=== PATIENT | female | born 1990 | race Caucasian/White ===

== ENCOUNTER 2016-09-18 12:23 | Emergency (ER) | payer OTHER ==
[2016-09-18 12:32] VITALS: BMI 21.2
--- NOTE | 2016-09-18 14:29 | PDOC ---
History of Present Illness - General Chief Complaint: Abscess Boil Stated Complaint: ABSCESS ON RT NECK Time Seen by Provider: 09/18/16 12:46 History Source: Patient Exam Limitations: No Limitations - History of Present Illness Initial Comments: 09/18/16 14:24 Patient came to the emergency department for acute onset of severe right neck swelling. has had a swollen left lymph node that is unchanged for 1 year. was evaluated with ultrasound last year and was told there was no further need for evaluation. lymph node to right neck is unchanged and is nontender. Was concerned this morning because she had worsening and grossly enlarged right anterior lymph node, and some left-sided lymph nodes that are also swollen. Denies fever, denies any earache, runny nose, states has a mild sore throat pain. No cough or shortness of breath. 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 [facility] vaccines are up-to-date known exposure to anyone with communicable diseases including mumps 09/19/16 16:45 Timing/Duration: unsure Severity: mild, moderate Associated Symptoms: reports: malaise. denies: cough, fever/chills, headaches Past History - Travel Traveled outside of the country in the last 30 days: No Close contact w/someone who was outside of country & ill: No - Past Medical History Allergies/Adverse Reactions: Allergies Allergy/AdvReac Type Severity Reaction Status Date / Time No Known Allergies Allergy Verified 09/18/16 12:29 Home Medications: Ambulatory Orders NK [No Known Home Medication] 09/18/16 Cardiac Disorders: Yes (PALPATATIONS) - Immunization History Td Vaccination: Yes Immunization Up to Date: Yes - Psycho/Social/Smoking Cessation Hx Anxiety: No Suicidal Ideation: No Smoking Status: No Smoking History: Never smoked Years of Tobacco Use: 0 Have you smoked in the past 12 months: No Number of Cigarettes Smoked Daily: 0 Cigars Per Day: 0 Information on smoking cessation initiated: No Hx Alcohol Use: No Drug/Substance Use Hx: No Substance Use Type: None Review of Systems - Review of Systems Able to Perform ROS?: Yes Is the patient limited Iraqi proficient: Yes Constitutional: Yes: Symptoms Reported, See HPI, Malaise Respiratory: Yes: See HPI. No: Symptoms reported, Cough, Wheezing : No: Symptoms Reported Musculoskeletal: Yes: Symptoms Reported Integumentary: No: Symptoms Reported Neurological: Yes: Symptoms reported Hematologic/Lymphatic: Yes: Symptoms Reported, Lymph Node Abnormalities All Other Systems: Reviewed and Negative *Physical Exam - Vital Signs Last Vital Signs Temp Pulse Resp BP Pulse Ox 98.0 F 85 18 106/72 100 09/18/16 12:31 09/18/16 12:31 09/18/16 12:31 09/18/16 12:31 09/18/16 12:31 - Physical Exam General Appearance: Yes: Nourished, Appropriately Dressed, Apparent Distress, Mild Distress HEENT: positive: YARI, TMs Normal (congested ), Pharyngeal Erythema. negative: Normal ENT Inspection, Pharynx Normal (beefy red appearance without exudate, tonsils not enlarged), Tonsillar Exudate Neck: positive: Tender, Trachea midline, Supple, Lymphadenopathy (R), Lymphadenopathy (L), Other (patient with gross lymphadenopathy bilateral neck. Posterior chain of right side inferior shows a 2 cm lymph node that is site of old lymph node present for 1 year. Patient has an anterior node that is approximately 10 cm soft and mildly tender. Has multiple other swollen lymph nodes along the anterior and posterior chains on the right side. Left side also shows significant swelling to multiple lymph nodes largest in the anterior chain submandibular approximately 5 cm ) Respiratory/Chest: positive: Lungs Clear, Normal Breath Sounds Cardiovascular: positive: Regular Rate Musculoskeletal: positive: Normal Inspection Extremity: positive: Normal Capillary Refill, Normal Inspection Integumentary: positive: Dry, Warm, Pale Neurologic: positive: relocation associate II-XII NML intact, Fully Oriented, Alert, Normal Mood/ Affect, Normal Response, Motor Strength / ED Treatment Course - LABORATORY CBC & Chemistry Diagram: 09/18/16 13:20 Medical Decision Making - Medical Decision Making 09/19/16 16:47 Adenopathy, positive rapid strep test. Treated with Bicillin IM with no reaction after 30 minutes. Understands mumps tests will take a few days for reporting and will be notified if any positivity. Reviewed need for quarantine until fevers and lymph nodes resolved. Also understand the urgency for follow- up with ear nose and throat for potential biopsy to the older and chronic lymph nodes. *DC/Admit/Observation/Transfer Diagnosis at time of Disposition: Strep pharyngitis - Discharge Dispostion Disposition: HOME Condition at time of disposition: Stable Admit: No - Referrals Referrals: STAFF,NOT ON [Primary Care Provider] - Carlos Croft MD [Staff Physician] - - Patient Instructions Printed Discharge Instructions: DI for Lymphadenopathy, DI for Strep Throat Additional Instructions: Rest, drink lots of fluids: Teas, water, soups Eat cold things: Ice cream, ice pops, ice chips Saltwater gargles Steamy showers/seem to face break up mucus Avoid contact with others until fevers and pain resolved Lots of handwashing and good hygiene, this is contagious You have been treated with Bicillin LA 1.2 million units injection which is a one-time treatment for strep pharyngitis. You will not need to take any further antibiotics. Tylenol or Motrin for fever and pain Followup with private physician in one to 2 days as needed if not improving Return to emergency department for worsened symptoms, fevers, dehydration - Post Discharge Activity Work/School Note: Back to Work
[2016-09-18 14:52] LABS: URINE APPEARANCE SLCLOUDY; URINE BILIRUBIN NEGATIVE (NEGATIVE); URINE BLOOD NEGATIVE (NEGATIVE); URINE COLOR YELLOW; URINE GLUCOSE (UA) NEGATIVE (NEGATIVE); URINE KETONE NEGATIVE (NEGATIVE); URINE LEUK ESTERASE NEGATIVE (NEGATIVE); URINE NITRITE NEGATIVE (NEGATIVE); URINE PROTEIN NEGATIVE (NEGATIVE); URINE UROBILINOGEN 2.0 E.U/dl E.U./dl (0.2-1.0)
[2016-09-18 15:31] LABS: BASOPHIL 0.5 % (0-2.0); EOSINOPHIL 2.2 % (0-4.5); MCH 28.6 pg (25.7-33.7); MCHC 33.1 g/dl (32.0-36.0); MEAN CELL VOLUME 86.4 fl (80-96); MEAN PLT VOLUME 8.3 fl (7.5-11.1); NEUTROPHILS 50.9 % (42.8-82.8); PLATELET COUNT 179 K/MM3 (134-434); RDW 13.2 % (11.6-15.6); WHITE BLOOD COUNT 4.3 K/mm3 (4.0-10.0)
[2016-09-18] MEDS ORDERED: PENICILLIN G BENZATHINE 1,200,000 UNIT/2 ML PFS IM ONE (15:43)
[2016-09-18] MEDS ORDERED: PENICILLIN G BENZATHINE 2,400,000 UNIT/4 ML PFS ONE (16:30)
--- NOTE | 2016-09-18 16:51 | PDOC ---
*Physical Exam - Vital Signs Last Vital Signs Temp Pulse Resp BP Pulse Ox 98.0 F 85 18 106/72 100 09/18/16 12:31 09/18/16 12:31 09/18/16 12:31 09/18/16 12:31 09/18/16 12:31 ED Treatment Course - LABORATORY CBC & Chemistry Diagram: 09/18/16 13:20 - ADDITIONAL ORDERS Additional order review: Laboratory Results 09/18/16 14:30 Urine Color Yellow Urine Appearance Slcloudy Urine pH 6.0 Ur Specific [place] 1.015 Urine Protein Negative Urine Glucose (UA) Negative Urine Ketones Negative Urine Blood Negative Urine Nitrite Negative Urine Bilirubin Negative Urine Urobilinogen 2.0 e.u/dl H Ur Leukocyte Esterase Negative Urine HCG, Qual Negative 09/18/16 13:30 Group A Strep Rapid Antigen - Final Throat 09/18/16 13:20 RBC 4.33 MCV 86.4 MCHC 33.1 RDW 13.2 MPV 8.3 Neutrophils % 50.9 D Lymphocytes % 30.0 D Monocytes % 16.4 H D Eosinophils % 2.2 D Basophils % 0.5 - Medications Given in the ED: ED Medications Discontinued Medications Generic Name Dose Route Start Last Admin Trade Name Freq PRN Reason Stop Dose Admin Penicillin G Benzathine 1,200,000 unit 09/18/16 15:43 09/18/16 16:37 Bicillin L-A - IM 09/18/16 15:44 1,200,000 unit ONCE ONE Administration Medical Decision Making - Medical Decision Making 09/18/16 16:51 This is a 26 yo F with a 1 year history of lymphadenopathy Not previously worked up Pt presents today with a worsening of the swelling in her neck No fevers or chills Vaccinations are up to date as far as she knows CBC: WBC 4 RApid strep negative Will give Bicillin Pt seen by Midlevel Provider under my direct supervision Ancillary studies reviewed I agree with plan as outlined by Midlevel Provider *DC/Admit/Observation/Transfer Diagnosis at time of Disposition: Strep pharyngitis - Discharge Dispostion Disposition: HOME Condition at time of disposition: Stable - Referrals Referrals: STAFF,NOT ON [Primary Care Provider] - Carlos Croft MD [Staff Physician] - - Patient Instructions Printed Discharge Instructions: DI for Strep Throat, DI for Lymphadenopathy Additional Instructions: Rest, drink lots of fluids: Teas, water, soups Eat cold things: Ice cream, ice pops, ice chips Saltwater gargles Steamy showers/seem to face break up mucus Avoid contact with others until fevers and pain resolved Lots of handwashing and good hygiene, this is contagious You have been treated with Bicillin LA 1.2 million units injection which is a one-time treatment for strep pharyngitis. You will not need to take any further antibiotics. Tylenol or Motrin for fever and pain Followup with private physician in one to 2 days as needed if not improving Return to emergency department for worsened symptoms, fevers, dehydration - Post Discharge Activity Work/School Note: Back to Work
[2016-09-18 17:41] VITALS: BP 110/74; PULSE 84; TEMP 98.4
== END 2016-09-18 17:35 | disposition home or self-care (01) ==
LOC: JER 12:23
DX: J02.0 Streptococcal pharyngitis (principal); B95.0 Streptococcus, group A, as the cause of diseases classified elsewhere
CPT/HCPCS: 36415; 81003; 84703; 85025; 86308; 86735; 87070; 87430; 96372; 99281-25

== ENCOUNTER 2016-10-04 06:20 | Day surgery (SDC) | payer OTHER ==
[2016-10-03 14:28] VITALS: BMI 21.2
--- NOTE | 2016-10-03 18:58 | PREOP ---
DATE OF ADMISSION: DATE OF DICTATION: 10/03/2016 DATE OF SURGERY: 10/04/2016 ADMISSION DIAGNOSIS: Cervical adenopathy. HISTORY OF PRESENT ILLNESS: This 26-year-old female has enjoyed good health. She had a small right posterior cervical neck mass for approximately 1 year. She had evaluation with ultrasound which identified this as a lymph node. Approximately 10 to 14 days ago, it became a larger, and she had new swellings in the right upper neck as well as the left upper neck. She went to the emergency department, she was given antibiotics including intramuscular penicillin for suspected Streptococcus infection. Now she is also reporting headache, snoring, problems breathing. Exam demonstrates markedly enlarged lymph nodes, fine needle aspiration biopsy is abnormal. She also has enlarged tonsils including lingual tonsil. She is now admitted for excision of deep cervical lymph node, direct laryngoscopy, and biopsy. PAST MEDICAL HISTORY: Primary medical doctor is Dr. Gareth Erazo. Patient does have history of asthma. Nasal allergies, sinus problems, and elevated cholesterol. She is not taking medications presently. No allergies to medications known. She does not smoke. PHYSICAL EXAMINATION: General: Patient is well developed female, in no distress . HEENT: Head is normal. Eyes are clear. Ears are unremarkable. The nose has some turbinate hypertrophy. Oral cavity is normal. Oropharynx shows 4+ enlarged tonsil on the right, 2+ on the left. The soft palate and oropharynx are normal. Flexible laryngoscopy showed enlarged adenoid and enlarged lingual tonsils. The endolarynx was normal, hypopharynx except for the lingual tonsils . Neck: Exam demonstrates significantly enlarged cervical lymph nodes, especially on the right side at level 2 and level 5. She does have up to 4 cm adenopathy on the right. DATA: Fine needle aspiration biopsy was performed which is abnormal and shows a moderately cellulose specimen with a monomorphic population of lymphocytes predominantly small lymphocytes . IMPRESSION: Rapidly progressive significant cervical lymphadenopathy, rule out lymphoma. There is also enlargement of the tonsils and lingual tonsils. PLAN: Direct laryngoscopy and biopsy, excision of the cervical lymph node under general anesthesia. INFORMED CONSENT: Patient understands the indications, alternatives, nature of risks and benefits of proposed surgery. Potential complications including but not limited to anesthesia, bleeding, infection, scar, numbness, and need for further treatment were discussed in detail. She understands and accepts these risks and wished to proceed with surgery. Questions were answered fully. ALVIN ACKERMAN M.D. [place]A/[id number]
[2016-10-04] MEDS ORDERED: DEXAMETHASONE SOD PHOSPHATE 4 MG/1 ML VIAL ONE ×2 (07:12→08:55)
[2016-10-04] MEDS ORDERED: PROPOFOL 20 ML ONE (07:12)
[2016-10-04] MEDS ORDERED: MIDAZOLAM HCL 2 MG/2 ML SINGLE DOSE VIAL ONE (07:13)
--- NOTE | 2016-10-04 07:28 | HP ---
History & Physical Update - History History: No Change - Physical Physical: No Change - Assessment Assessment: No Change - Plan Plan: No Change
[2016-10-04] MEDS ORDERED: LIDOCAINE 1%/EPI 1:100000 (50 ML MULTI DOSE VIAL) ONE (07:48)
[2016-10-04] MEDS ORDERED: ESMOLOL HCL 10 ML ONE (07:49)
[2016-10-04] MEDS ORDERED: LABETALOL HCL 5 MG/1 ML (100MG/20 ML VIAL) ONE (08:04)
--- NOTE | 2016-10-04 09:13 | OP ---
Operative Note - Note: Operative Date: 10/04/16 () Pre-Operative Diagnosis: cervical adenopathy, tonsillar hypertrophy. rule out lymphoma Operation: excision of deep cervical lymph node (right). direct laryngoscopy, biopsy right tonsil Findings: marked cervical lymphadenopathy right greater than left tonsil hypertrophy, asymmetric (right larger) lingual tonsil hypertrophy endolarynx WNL Implants: none Surgeon: Carlos Croft Anesthesiologist/PEER COUNSELOR: Bismark Baron Anesthesia: General Specimens Removed: 1) right cervical lymph node. 2) right tonsil biopsy Estimated Blood Loss (mls): 2 Drains & Tubes with Location: none Blood Volume Replaced (mls): 0 Fluid Volume Replaced (mls): 700
[2016-10-04] MEDS ORDERED: oxyCODONE HCL 5 MG TABLET PO PRN (09:25)
[2016-10-04] MEDS ORDERED: LACTATED RINGERS SOLUTION 1,000 ML IV SCH (09:30)
[2016-10-04 11:01] VITALS: BP 111/72; PULSE 90
[2016-10-04] MEDS ORDERED: oxyCODONE HCL 5 MG TABLET ONE (11:06)
[2016-10-04 12:12] VITALS: TEMP 98
[2016-10-04] MEDS ORDERED: ONDANSETRON 4 MG/2 ML VIAL IVPUSH ONE (12:24)
--- NOTE | 2016-10-04 14:33 | OP ---
DATE OF OPERATION: 10/04/2016 PREOPERATIVE DIAGNOSES: Cervical adenopathy, tonsillar enlargement, rule out lymphoma. POSTOPERATIVE DIAGNOSES: Cervical adenopathy, tonsillar enlargement, rule out lymphoma. PROCEDURE: 1. Excision of deep cervical lymph node right neck. 2. Direct laryngoscopy with biopsy of right tonsil. SURGEON: Alvin Croft MD ANESTHESIOLOGIST: Bismark Baron MD ANESTHESIA: General via endotracheal tube. INDICATIONS: This 26-year-old female had a longstanding right posterior cervical lymph node for approximately 1 year. Approximately 2 weeks ago she developed sudden and significant enlargement of numerous lymph nodes in the right neck as well as the left. She went to the emergency department and was told she had streptococcus and was given antibiotics. Cross examination demonstrated tonsillar enlargement with asymmetry right greater than left as well as significant lingual tonsillar hypertrophy. In addition, she had markedly enlarged lymph nodes in the right neck with the largest being a superior lymph node measuring at least 4 cm in greatest dimension. There were other submandibular lymph nodes as well as her longer standing right posterior cervical lymph node approximately 2 cm. She also has left-sided adenopathy. Fine needle aspiration biopsy of her right cervical lymph node was abnormal showing primarily monomorphic lymphocytes and small lymphocytes. She was brought to surgery for further biopsy for accurate biopsy of her condition. FINDINGS: Significant right cervical adenopathy, 3-cm lymph node excised from right jugulodigastric region. Oral cavity normal. Markedly enlarged right tonsil. Enlarged lingual tonsillitis. Endolarynx within normal limits. DESCRIPTION OF PROCEDURE: The patient was brought to the operating room and placed on the operating table in supine position. General endotracheal anesthesia was induced to satisfactory level. She was prepped and draped in the usual fashion for surgery. The right neck had been previously marked, and the neck was extended. The patient had an existing skin line, which was utilized for the incision. This was carried over a very palpable and well-defined lymph node. The incision was created with a 15 blade. Hemostasis was achieved with electrocautery. Subcutaneous tissue was traversed. The platysma muscles encountered and then carefully incised with a 15 blade. Careful blunt dissection identified the anterior border of the sternocleidomastoid muscle as well as a vertically oriented vein both of which were preserved. Deeper dissection demonstrated lymph node. Very careful blunt dissection was utilized in order to separate this lymph node from surrounding tissue. A combination of forceps, peanut dissector, and finger dissection was utilized. After appropriate dissection and retraction, the lymph node was carefully delivered more superiorly into the wound with traction. The deepest attachments were identified and carefully with cutting electrocautery. The lymph node was then sent to Pathology fresh for routine studies and special lymph node studies. The wound was then irrigated with saline. The deepest areas had small, minor areas of bleeding, which were carefully electrocauterized. A small, adjacent lymph node was also seen and removed. After assuring hemostasis, the wound was then closed in layers utilizing 4-0 Vicryl for the platysma and subcutaneous layers. A running 5-0 Prolene was used in a subcuticular fashion to close the wound. The skin was then cleaned, prepped with benzoin, and overlapping Steri-Strips applied. A folded 4 x 4 and a Tegaderm dressing was placed. After completion of the excision of the right deep cervical lymph node, attention was turned to the airway. Laryngoscope was utilized in the oral cavity, and the oropharynx was exposed. The right tonsil was markedly enlarged. The left tonsil was slightly enlarged. The lingual tonsils were identified and were enlarged. The endolarynx was visualized and was within normal limits. A biopsy of the right tonsil was obtained after injecting the superior pole with lidocaine with epinephrine 1:100,000. A protruding portion was grasped with tonsil forceps, and electrocautery was used to excise a printing sales representative portion of the tonsil. This was then sent to Pathology fresh for routine studies. After assuring hemostasis in the right tonsil, the mouth gag was removed. The patient was then awakened from general anesthesia and transferred to the PACU in stable condition. Estimated blood loss was 2 mL. She received crystalloid at the end of the procedure. SPECIMENS: Included: 1. Right deep cervical lymph node. 2. Right tonsil biopsy sent to Pathology fresh for routine studies and special lymph node studies in order to rule out lymphoma. There were no complications. ALVIN CROFT M.D. [place]A/[id number]
--- NOTE | 2016-10-09 11:37 | PATH ---
Surgical Pathology Report Patient Name: EVELINA CORONADO Med. Rec. #: [id number] /Age/Gender: 1990 (Age: 26) / F Account: [id number] Location: [facility] Taken: 10/04/2016 Received: 10/04/2016 Reported: 10/09/2016 Physicians: Carlos Croft M.D. Justyn Kidd M.D. Specimen(s) Received A: RIGHT JUGULAR LYMPH NODES B: RIGHT TONSIL BIOPSY Clinical History Rule out lymphoma Final Diagnosis A. LYMPH NODE, RIGHT JUGULAR, EXCISION: DIFFUSE LARGE B-CELL LYMPHOMA, GERMINAL CENTER B-CELL-LIKE. (See Comment). B. TONSIL, RIGHT, BIOPSY: BENIGN SQUAMOUS MUCOSA WITH REACTIVE LYMPHOID TISSUE CONSISTENT WITH PORTION OF TONSIL. Comment: Sections of the lymph node reveal a proliferation of large atypical lymphoid cells with extensive areas of necrosis. Flow cytometry performed and interpreted at [place], [place] ([id number]) shows the following: INTERPRETATION: Small population of clonal CD10 positive B cells including larger cells (see comment). Comment: Diagnostic considerations would include partial involvement by a CD10 positive large B-cell lymphoma or follicular lymphoma with a large cell component. However, reactive germinal center cells in a younger patient can also show similar small clones, although an accompanying large population of light chain negative B cells is unusual. Correlate with morphologic findings. Given the atypical features of this case, it was sent for Hematopathology Consultation. This case was seen by Dr. Martinez at [place], [place] who agrees with the above diagnosis. His report includes the following: "Immunohistochemical stains are performed on block A3 with appropriate controls. The large atypical cells are positive for CD20, PAX-5, CD10, BCL-6, dim BCL-2, and MUM-1. They are negative for CD23, CD5, and Cyclin D1. A stain for CD3 highlights scattered small T-cells. A stain for Ki-67 is positive in approximately 80% of the large atypical cells. In-situ hybridization for CHERYL is negative." This case was initially discussed with Dr. Croft on October 06, 2016. Electronically Signed Alexys Juan M.D. 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 No IGH/BCL2 t(14;18) translocation is detected. No MYC (8q24) rearrangement is detected. Comments: A split IGH (14q32) signal was detected in 20% of cells. This could be suggestive of a rearrangement involving IGH with a different partner. See [facility] report for additional details. Alexys Juan M.D. Gross Description A. Received fresh labeled "right jugular lymph node," is a 2.2 x 2.0 x 1.8 cm lymph node with an attached 1.0 x 0.8 x 0.7 cm portion of soft tissue and 2 detached portions of soft tissue (possible lymph node fragments) measuring 0.5 x 0.5 x 0.5 cm and 0.6 x 0.5 x 0.4 cm. The specimen is serially sectioned and entirely submitted in 7 cassettes as follows: [id number] and sequentially submitted larger portion of tissue; 6-7-one whole bisected portion of tissue each. B. Received fresh labeled "biopsy right tonsil," is a 0.8 x 0.6 x 0.2 cm portion of pink-newman soft tissue. The specimen is submitted in toto in one cassette. Information Scientist sections of each specimen are placed in RPMI solution and sent for flow cytometry. 10/04/201610/04/2016
== END 2016-10-04 14:00 | disposition home or self-care (01) ==
LOC: JASU-SURG 06:20
PROVIDERS: ATTEND Otolaryngology
PROC: 0CBM8ZX Excision of Pharynx, Via Natural or Artificial Opening Endoscopic, Diagnostic (ICD-10-PCS; 2016-10-04)
PROC: 07B10ZX Excision of Right Neck Lymphatic, Open Approach, Diagnostic (ICD-10-PCS; principal; 2016-10-04 07:30)
DX: C83.31 Diffuse large B-cell lymphoma, lymph nodes of head, face, and neck (principal); J35.1 Hypertrophy of tonsils
CPT/HCPCS: 84703; 88304-TC; 88305-TC; 94760

== ENCOUNTER 2016-11-13 07:21 | Day surgery (SDC) | payer OTHER ==
[2016-11-13] MEDS ORDERED: SODIUM CHLORIDE 125 ML IVPB ONE (08:00)
[2016-11-13] MEDS ORDERED: DEXAMETHASONE INJECTION 10 MG in SODIUM CHLORIDE 50 ML IVPB ONE (08:30)
[2016-11-13] MEDS ORDERED: ACETAMINOPHEN 325 MG TABLET (FP) PO ONE ×2 (08:30→18:50)
[2016-11-13] MEDS ORDERED: DIPHENHYDRAMINE 50 MG in SODIUM CHLORIDE 50 ML IVPB ONE ×2 (08:30→17:55)
[2016-11-13] MEDS ORDERED: PALONOSETRON HCL 0.25 MG in SODIUM CHLORIDE 50 ML IVPB ONE (08:30)
[2016-11-13] MEDS ORDERED: FOSAPREPITANT DIMEGLUMINE 150 MG in SODIUM CHLORIDE 145 ML IVPB ONE (08:30)
[2016-11-13] MEDS ORDERED: SODIUM CHLORIDE IVPB ONE ×2 (09:00→13:30)
[2016-11-13] MEDS ORDERED: RITUXIMAB IVPB ONE (09:00)
[2016-11-13 10:36] LABS: BASOPHIL 0.9 % (0-2.0); EOSINOPHIL 2.4 % (0-4.5); MCH 28.8 pg (25.7-33.7); MCHC 33.6 g/dl (32.0-36.0); MEAN CELL VOLUME 85.8 fl (80-96); MEAN PLT VOLUME 7.9 fl (7.5-11.1); NEUTROPHILS 60.3 % (42.8-82.8); PLATELET COUNT 177 K/MM3 (134-434); RDW 14.5 % (11.6-15.6); WHITE BLOOD COUNT 3.9 K/mm3 (4.0-10.0)
[2016-11-13] MEDS ORDERED: [UNRECOGNIZED DRUG - OTHER] IVPB ONE (12:00)
[2016-11-13] MEDS ORDERED: CYCLOPHOSPHAMIDE IVPB ONE (12:00)
[2016-11-13] MEDS ORDERED: SODIUM CHLORIDE IV ONE (12:30)
[2016-11-13] MEDS ORDERED: DOXORUBICIN HCL IV ONE (12:30)
[2016-11-13] MEDS ORDERED: [UNRECOGNIZED DRUG - OTHER] IVPB ONE (13:30)
[2016-11-13] MEDS ORDERED: SODIUM CHLORIDE 250 ML IV ONE ×2 (13:45→17:55)
[2016-11-13] MEDS ORDERED: DEXAMETHASONE SOD PHOSPHATE 10 MG/1 ML VIAL IVPB ONE ×2 (17:59→18:18)
[2016-11-13] MEDS ORDERED: DEXAMETHASONE SOD PHOSPHATE 10 MG/1 ML VIAL ONE (18:09)
[2016-11-13] MEDS ORDERED: ACETAMINOPHEN 325 MG TABLET (FP) ONE (18:53)
[2016-11-13] MEDS ORDERED: DEXTROSE 5%-WATER - 1,000 ML with SODIUM BICARBONATE 8.4% - 100 MEQ IV SCH (20:30)
[2016-11-14 06:13] VITALS: BP 139/79; PULSE 77; TEMP 97.7
== END 2016-11-14 07:00 | disposition home or self-care (01) ==
LOC: JONCCHEMO 07:21 → J7W 11:26 → JONCCHEMO 11-14 07:00
PROVIDERS: ATTEND Internal Medicine Hematology & Oncology
DX: Z51.11 Encounter for antineoplastic chemotherapy (principal); C83.31 Diffuse large B-cell lymphoma, lymph nodes of head, face, and neck
CPT/HCPCS: 36415; 85025; 96361; 96366; 96367; 96375; 96411; 96413; 96415; 96417; J1453; J2469; J9070; J9310; J9370

== ENCOUNTER 2016-11-14 07:24 | Day surgery (SDC) | payer OTHER ==
[2016-11-14] MEDS ORDERED: PEGFILGRASTIM 6 MG/0.6 ML DISP.SYRIN SQ ONE (08:00)
[2016-11-14 14:41] VITALS: BP 135/82; PULSE 103; TEMP 97.6
== END 2016-11-14 10:00 | disposition home or self-care (01) ==
LOC: JONCNONCHE 07:24 → J7W 09:28 → JONCNONCHE 10:00
PROVIDERS: ATTEND Internal Medicine Hematology & Oncology
PROC: 3E013GC Introduction of Other Therapeutic Substance into Subcutaneous Tissue, Percutaneous Approach (ICD-10-PCS; principal; 2016-11-14)
DX: C83.31 Diffuse large B-cell lymphoma, lymph nodes of head, face, and neck (principal)
CPT/HCPCS: 96372; 96401; J2505

== ENCOUNTER 2016-12-04 07:45 | Day surgery (SDC) | payer OTHER ==
[2016-12-04 09:32] LABS: BASOPHIL 0.4 % (0-2.0); EOSINOPHIL 0.6 % (0-4.5); MCH 28.5 pg (25.7-33.7); MCHC 32.8 g/dl (32.0-36.0); MEAN CELL VOLUME 86.6 fl (80-96); MEAN PLT VOLUME 8.2 fl (7.5-11.1); PLATELET COUNT 182 K/MM3 (134-434); RDW 14.9 % (11.6-15.6); WHITE BLOOD COUNT 2.9 K/mm3 (4.0-10.0)
[2016-12-04 09:54] LABS: ALBUMIN 4.4 g/dl (3.4-5.0); ALK PHOS 55 U/L (45-117); ANION GAP 7 (8-16); BILIRUBIN,TOTAL 0.3 mg/dL (0.2-1.0); CALCIUM 9.6 mg/dL (8.5-10.1); CO2 25 mmol/L (21-32); CREATININE 0.4 mg/dL (0.55-1.02); GLUCOSE,RANDOM 94 mg/dL (74-106); MAGNESIUM 2.1 mg/dL (1.8-2.4); SGOT/AST 12 U/L (15-37); SGPT/ALT 24 U/L (12-78); TOT PROT 7.5 g/dl (6.4-8.2)
[2016-12-04 09:55] LABS: BILIRUBIN,DIRECT < 0.2 mg/dL (0.0-0.2)
[2016-12-04] MEDS ORDERED: DIPHENHYDRAMINE 50 MG in SODIUM CHLORIDE 50 ML IVPB ONE (10:00)
[2016-12-04] MEDS ORDERED: FOSAPREPITANT DIMEGLUMINE 150 MG in SODIUM CHLORIDE 150 ML IVPB ONE (10:00)
[2016-12-04] MEDS ORDERED: DEXAMETHASONE INJECTION 10 MG in SODIUM CHLORIDE 50 ML IVPB ONE (10:00)
[2016-12-04] MEDS ORDERED: SODIUM CHLORIDE 125 ML IV ONE (10:00)
[2016-12-04] MEDS ORDERED: ACETAMINOPHEN 325 MG TABLET (FP) PO ONE (10:00)
[2016-12-04] MEDS ORDERED: PALONOSETRON HCL 0.25 MG in SODIUM CHLORIDE 50 ML IVPB ONE (10:00)
[2016-12-04] MEDS ORDERED: SODIUM CHLORIDE IVPB ONE ×3 (10:30→15:00)
[2016-12-04] MEDS ORDERED: RITUXIMAB IVPB ONE (10:30)
[2016-12-04] MEDS ORDERED: CYCLOPHOSPHAMIDE IVPB ONE (13:30)
[2016-12-04] MEDS ORDERED: DOXORUBICIN HCL IV ONE (14:00)
[2016-12-04] MEDS ORDERED: SODIUM CHLORIDE IV ONE (14:00)
[2016-12-04] MEDS ORDERED: [UNRECOGNIZED DRUG - OTHER] IVPB ONE (15:00)
[2016-12-04] MEDS ORDERED: SODIUM CHLORIDE 250 ML IV ONE (15:00)
[2016-12-04 17:51] VITALS: PULSE 106
[2016-12-04 17:58] VITALS: BP 119/75
[2016-12-04 18:02] VITALS: TEMP 98.6
[2016-12-04] MEDS ORDERED: LIDOCAINE 2.5%/PRILOCAINE 2.5% (5 Gram/TUBE) TP ONE (18:30)
== END 2016-12-04 18:04 | disposition home or self-care (01) ==
LOC: JONCCHEMO 07:45 → J7W 09:41 → JONCCHEMO 18:04
PROVIDERS: ATTEND Internal Medicine Hematology & Oncology
PROC: 3E04305 Introduction of Other Antineoplastic into Central Vein, Percutaneous Approach (ICD-10-PCS; principal; 2016-12-04)
PROC: 3E043GC Introduction of Other Therapeutic Substance into Central Vein, Percutaneous Approach (ICD-10-PCS; 2016-12-04)
PROC: 3E0437Z Introduction of Electrolytic and Water Balance Substance into Central Vein, Percutaneous Approach (ICD-10-PCS; 2016-12-04)
DX: Z51.11 Encounter for antineoplastic chemotherapy (principal); C83.31 Diffuse large B-cell lymphoma, lymph nodes of head, face, and neck
CPT/HCPCS: 96361; 96367; 96375; 96409; 96413; 96415; 96417; J9000; J9070; J9370; 36415; 80053; 80076; 83735; 84702; 85025; J1453; J2469; J9310

== ENCOUNTER 2016-12-05 07:48 | Day surgery (SDC) | payer OTHER ==
[2016-12-05] MEDS ORDERED: PEGFILGRASTIM 6 MG/0.6 ML DISP.SYRIN SQ ONE (10:00)
[2016-12-05 14:58] VITALS: BP 116/78; PULSE 86; TEMP 98.6
== END 2016-12-05 11:35 | disposition home or self-care (01) ==
LOC: JONCNONCHE 07:48 → J7W 11:21 → JONCNONCHE 11:35
PROVIDERS: ATTEND Internal Medicine Hematology & Oncology
PROC: 3E013GC Introduction of Other Therapeutic Substance into Subcutaneous Tissue, Percutaneous Approach (ICD-10-PCS; principal; 2016-12-05)
DX: C83.31 Diffuse large B-cell lymphoma, lymph nodes of head, face, and neck (principal)
CPT/HCPCS: 96372; J2505

== ENCOUNTER 2016-12-27 07:19 | Day surgery (SDC) | payer OTHER ==
[2016-12-27] MEDS ORDERED: SODIUM CHLORIDE 250 ML IV ONE ×2 (08:00→13:45)
[2016-12-27] MEDS ORDERED: PALONOSETRON HCL 0.25 MG in SODIUM CHLORIDE 50 ML IVPB ONE (08:30)
[2016-12-27] MEDS ORDERED: DEXAMETHASONE INJECTION 10 MG in SODIUM CHLORIDE 50 ML IVPB ONE (08:30)
[2016-12-27] MEDS ORDERED: FOSAPREPITANT DIMEGLUMINE 150 MG in SODIUM CHLORIDE 145 ML IVPB ONE (08:30)
[2016-12-27] MEDS ORDERED: ACETAMINOPHEN 325 MG TABLET (FP) PO ONE (08:30)
[2016-12-27] MEDS ORDERED: DIPHENHYDRAMINE 50 MG in SODIUM CHLORIDE 50 ML IVPB ONE (08:30)
[2016-12-27] MEDS ORDERED: SODIUM CHLORIDE IVPB ONE ×3 (09:00→13:30)
[2016-12-27] MEDS ORDERED: RITUXIMAB IVPB ONE (09:00)
[2016-12-27 10:06] LABS: BASOPHIL 0.4 % (0-2.0); EOSINOPHIL 0.2 % (0-4.5); MCH 29.3 pg (25.7-33.7); MCHC 33.1 g/dl (32.0-36.0); MEAN CELL VOLUME 88.3 fl (80-96); MEAN PLT VOLUME 8.1 fl (7.5-11.1); NEUTROPHILS 80.4 % (42.8-82.8); PLATELET COUNT 160 K/MM3 (134-434); RDW 16.7 % (11.6-15.6); WHITE BLOOD COUNT 2.8 K/mm3 (4.0-10.0)
[2016-12-27 10:30] LABS: ALBUMIN 4.3 g/dl (3.4-5.0); ALK PHOS 50 U/L (45-117); ANION GAP 7 (8-16); BILIRUBIN,TOTAL 0.6 mg/dL (0.2-1.0); CALCIUM 9.4 mg/dL (8.5-10.1); CO2 29 mmol/L (21-32); CREATININE 0.5 mg/dL (0.55-1.02); GLUCOSE,RANDOM 81 mg/dL (74-106); LDH 250 U/L (84-246); SGOT/AST 10 U/L (15-37); SGPT/ALT 24 U/L (12-78); TOT PROT 7.2 g/dl (6.4-8.2); URIC ACID 2.2 mg/dL (2.6-7.2)
[2016-12-27] MEDS ORDERED: LIDOCAINE 2.5%/PRILOCAINE 2.5% (5 Gram/TUBE) TP ONE (11:30)
[2016-12-27] MEDS ORDERED: CYCLOPHOSPHAMIDE IVPB ONE (12:00)
[2016-12-27] MEDS ORDERED: DOXORUBICIN HCL IV ONE (12:30)
[2016-12-27] MEDS ORDERED: SODIUM CHLORIDE IV ONE (12:30)
[2016-12-27] MEDS ORDERED: [UNRECOGNIZED DRUG - OTHER] IVPB ONE (13:30)
[2016-12-27 13:58] VITALS: BP 119/80; PULSE 99; TEMP 98.5
== END 2016-12-27 19:07 | disposition home or self-care (01) ==
LOC: JONCCHEMO 07:19 → J7W 09:53 → JONCCHEMO 19:07
PROVIDERS: ATTEND Internal Medicine Hematology & Oncology
DX: Z51.11 Encounter for antineoplastic chemotherapy (principal); C83.31 Diffuse large B-cell lymphoma, lymph nodes of head, face, and neck
CPT/HCPCS: 36415; 80053; 83615; 83735; 84550; 84702; 85025; 96367; 96375; 96411; 96413; 96415; 96417; J1453; J2469; J9070; J9310; J9370

== ENCOUNTER 2016-12-28 07:17 | Day surgery (SDC) | payer OTHER ==
[2016-12-28] MEDS ORDERED: PEGFILGRASTIM 6 MG/0.6 ML DISP.SYRIN SQ ONE (08:00)
[2016-12-28 11:21] VITALS: TEMP 98.5
[2016-12-28 11:24] VITALS: BP 117/80; PULSE 82
== END 2016-12-28 11:15 | disposition home or self-care (01) ==
LOC: JONCCHEMO 07:17 → J7W 10:50 → JONCCHEMO 11:15
PROVIDERS: ATTEND Internal Medicine Hematology & Oncology
PROC: 3E013GC Introduction of Other Therapeutic Substance into Subcutaneous Tissue, Percutaneous Approach (ICD-10-PCS; principal; 2016-12-28)
DX: C83.31 Diffuse large B-cell lymphoma, lymph nodes of head, face, and neck (principal)
CPT/HCPCS: 96372; J2505

== ENCOUNTER 2017-01-15 07:39 | Day surgery (SDC) | payer OTHER ==
[2017-01-15] MEDS ORDERED: DIPHENHYDRAMINE 50 MG in SODIUM CHLORIDE 50 ML IVPB ONE (08:00)
[2017-01-15] MEDS ORDERED: PALONOSETRON HCL 0.25 MG in SODIUM CHLORIDE 50 ML IVPB ONE (08:00)
[2017-01-15] MEDS ORDERED: SODIUM CHLORIDE 125 ML IV ONE (08:00)
[2017-01-15] MEDS ORDERED: DEXAMETHASONE INJECTION 10 MG in SODIUM CHLORIDE 50 ML IVPB ONE (08:00)
[2017-01-15] MEDS ORDERED: FOSAPREPITANT DIMEGLUMINE 150 MG in SODIUM CHLORIDE 145 ML IVPB ONE (08:00)
[2017-01-15] MEDS ORDERED: RITUXIMAB IVPB ONE (08:30)
[2017-01-15] MEDS ORDERED: SODIUM CHLORIDE IVPB ONE ×3 (08:30→13:00)
[2017-01-15 10:57] LABS: BASOPHIL 0.2 % (0-2.0); EOSINOPHIL 0.3 % (0-4.5); MCH 29.6 pg (25.7-33.7); MEAN CELL VOLUME 89.6 fl (80-96); MEAN PLT VOLUME 8.3 fl (7.5-11.1); NEUTROPHILS 87.4 % (42.8-82.8); PLATELET COUNT 221 K/MM3 (134-434); RDW 17.5 % (11.6-15.6)
[2017-01-15 11:09] LABS: ALBUMIN 4.5 g/dl (3.4-5.0); ALK PHOS 60 U/L (45-117); ANION GAP 3 (8-16); BILIRUBIN,DIRECT < 0.1 mg/dL (0.0-0.2); BILIRUBIN,TOTAL 0.4 mg/dL (0.2-1.0); CALCIUM 9.6 mg/dL (8.5-10.1); CO2 30 mmol/L (21-32); CREATININE 0.5 mg/dL (0.55-1.02); GLUCOSE,RANDOM 106 mg/dL (74-106); MAGNESIUM 2.3 mg/dL (1.8-2.4); SGOT/AST 14 U/L (15-37); SGPT/ALT 22 U/L (12-78); TOT PROT 7.6 g/dl (6.4-8.2)
[2017-01-15] MEDS ORDERED: CYCLOPHOSPHAMIDE IVPB ONE (11:30)
[2017-01-15] MEDS ORDERED: DOXORUBICIN HCL IV ONE (12:00)
[2017-01-15] MEDS ORDERED: SODIUM CHLORIDE IV ONE (12:00)
[2017-01-15] MEDS ORDERED: [UNRECOGNIZED DRUG - OTHER] IVPB ONE (13:00)
[2017-01-15] MEDS ORDERED: SODIUM CHLORIDE 250 ML IV ONE (13:15)
[2017-01-15] MEDS ORDERED: PORTA CATH FLUSH 10 ML IVPUSH ONE ×2 (14:53→16:18)
[2017-01-15 18:07] VITALS: BP 108/68; PULSE 70; TEMP 98.2
== END 2017-01-15 19:03 | disposition home or self-care (01) ==
LOC: JONCCHEMO 07:39 → J7W 11:19 → JONCCHEMO 19:03
PROVIDERS: ATTEND Internal Medicine Hematology & Oncology
DX: Z51.11 Encounter for antineoplastic chemotherapy (principal); C83.31 Diffuse large B-cell lymphoma, lymph nodes of head, face, and neck
CPT/HCPCS: 36415; 80053; 80076; 82306; 83735; 84702; 85025; 96367; 96375; 96411; 96413; 96415; 96417; J1453; J2469; J9070; J9310; J9370

== ENCOUNTER 2017-01-16 07:33 | Day surgery (SDC) | payer OTHER ==
[2017-01-16] MEDS ORDERED: PEGFILGRASTIM 6 MG/0.6 ML DISP.SYRIN SQ ONE (08:00)
[2017-01-16 09:17] VITALS: BP 122/86; PULSE 104; TEMP 97.9
== END 2017-01-16 09:20 | disposition home or self-care (01) ==
LOC: JONCNONCHE 07:33 → J7W 09:00 → JONCNONCHE 09:20
PROVIDERS: ATTEND Internal Medicine Hematology & Oncology
PROC: 3E013GC Introduction of Other Therapeutic Substance into Subcutaneous Tissue, Percutaneous Approach (ICD-10-PCS; principal; 2017-01-16)
DX: C83.31 Diffuse large B-cell lymphoma, lymph nodes of head, face, and neck (principal)
CPT/HCPCS: 96372; J2505

== ENCOUNTER 2017-02-05 07:34 | Day surgery (SDC) | payer OTHER ==
[2017-02-05] MEDS ORDERED: PALONOSETRON HCL 0.25 MG in SODIUM CHLORIDE 50 ML IVPB ONE (10:00)
[2017-02-05] MEDS ORDERED: DIPHENHYDRAMINE 50 MG in SODIUM CHLORIDE 50 ML IVPB ONE (10:00)
[2017-02-05] MEDS ORDERED: DEXAMETHASONE INJECTION 10 MG in SODIUM CHLORIDE 50 ML IVPB ONE (10:00)
[2017-02-05] MEDS ORDERED: ACETAMINOPHEN 325 MG TABLET (FP) PO ONE (10:00)
[2017-02-05] MEDS ORDERED: SODIUM CHLORIDE 125 ML IV ONE (10:00)
[2017-02-05] MEDS ORDERED: FOSAPREPITANT DIMEGLUMINE 150 MG in SODIUM CHLORIDE 150 ML IVPB ONE (10:00)
[2017-02-05 10:07] LABS: BASOPHIL 0.3 % (0-2.0); EOSINOPHIL 0.1 % (0-4.5); MCH 30.1 pg (25.7-33.7); MCHC 33.5 g/dl (32.0-36.0); MEAN CELL VOLUME 89.9 fl (80-96); MEAN PLT VOLUME 7.8 fl (7.5-11.1); NEUTROPHILS 91.2 % (42.8-82.8); PLATELET COUNT 209 K/MM3 (134-434); RDW 16.9 % (11.6-15.6); WHITE BLOOD COUNT 4.5 K/mm3 (4.0-10.0)
[2017-02-05] MEDS ORDERED: RITUXIMAB IVPB ONE (10:30)
[2017-02-05] MEDS ORDERED: SODIUM CHLORIDE IVPB ONE ×3 (10:30→15:00)
[2017-02-05 10:32] LABS: ALBUMIN 4.7 g/dl (3.4-5.0); ALK PHOS 54 U/L (45-117); ANION GAP 5 (8-16); BILIRUBIN,DIRECT < 0.1 mg/dL (0.0-0.2); BILIRUBIN,TOTAL 0.5 mg/dL (0.2-1.0); CALCIUM 9.7 mg/dL (8.5-10.1); CO2 28 mmol/L (21-32); CREATININE 0.5 mg/dL (0.55-1.02); GLUCOSE,RANDOM 133 mg/dL (74-106); MAGNESIUM 2.2 mg/dL (1.8-2.4); SGOT/AST 40 U/L (15-37); SGPT/ALT 52 U/L (12-78); TOT PROT 7.7 g/dl (6.4-8.2)
[2017-02-05 11:48] LABS: THYROID STIMULATING HORMONE 0.87 uIU/ml (0.358-3.74)
[2017-02-05] MEDS ORDERED: PORTA CATH FLUSH 10 ML IVPUSH PRN (13:21)
[2017-02-05] MEDS ORDERED: CYCLOPHOSPHAMIDE IVPB ONE (13:30)
[2017-02-05] MEDS ORDERED: SODIUM CHLORIDE IV ONE (14:00)
[2017-02-05] MEDS ORDERED: DOXORUBICIN HCL IV ONE (14:00)
[2017-02-05] MEDS ORDERED: ALTEPLASE 2 MG VIAL CVP ONE (14:15)
[2017-02-05] MEDS ORDERED: [UNRECOGNIZED DRUG - OTHER] IVPB ONE (15:00)
[2017-02-05] MEDS ORDERED: SODIUM CHLORIDE 250 ML IV ONE (15:15)
[2017-02-05 20:59] VITALS: TEMP 98.6
[2017-02-05 21:03] VITALS: BP 125/88; PULSE 76
[2017-02-08 00:06] LABS: HBV AS IU ML HBV DNA not detected IU/mL (.)
== END 2017-02-05 21:00 | disposition home or self-care (01) ==
LOC: JONCCHEMO 07:34 → J7W 11:17 → JONCCHEMO 21:00
PROVIDERS: ATTEND Internal Medicine Hematology & Oncology
DX: Z51.11 Encounter for antineoplastic chemotherapy (principal); C83.31 Diffuse large B-cell lymphoma, lymph nodes of head, face, and neck
CPT/HCPCS: 36415; 80053; 80076; 83615; 83735; 84443; 84550; 85025; 87517; 96361; 96367; 96375; 96413; 96415; 96417; J1453; J2469; J2997; J9070; J9310; J9370

== ENCOUNTER 2017-02-06 07:17 | Day surgery (SDC) | payer OTHER ==
[2017-02-06] MEDS ORDERED: PEGFILGRASTIM 6 MG/0.6 ML DISP.SYRIN SQ ONE (10:00)
[2017-02-06 17:58] VITALS: BP 102/56; PULSE 64; TEMP 97.8
== END 2017-02-06 12:30 | disposition home or self-care (01) ==
LOC: JONCCHEMO 07:17 → J7W 12:00 → JONCCHEMO 12:30
PROVIDERS: ATTEND Internal Medicine Hematology & Oncology
PROC: 3E013GC Introduction of Other Therapeutic Substance into Subcutaneous Tissue, Percutaneous Approach (ICD-10-PCS; principal; 2017-02-06)
DX: C83.31 Diffuse large B-cell lymphoma, lymph nodes of head, face, and neck (principal)
CPT/HCPCS: 96372; J2505

== ENCOUNTER 2017-02-11 20:16 | Emergency (ER) | payer OTHER ==
[2017-02-11 20:31] VITALS: BP 149/95; PULSE 133; TEMP 99; BMI 23.9
[2017-02-11] MEDS ORDERED: SODIUM CHLORIDE 1,000 ML IV STA (20:45)
[2017-02-11 20:57] LABS: MCH 30.4 pg (25.7-33.7); MCHC 33.8 g/dl (32.0-36.0); MEAN CELL VOLUME 89.9 fl (80-96); MEAN PLT VOLUME 9.2 fl (7.5-11.1); PLATELET COUNT 119 K/MM3 (134-434); RDW 16.2 % (11.6-15.6); WHITE BLOOD COUNT 3.7 K/mm3 (4.0-10.0)
--- NOTE | 2017-02-11 21:22 | PDOC ---
History of Present Illness - General Chief Complaint: SIRS, Suspected/Possible Stated Complaint: FEVER Time Seen by Provider: 02/11/17 20:45 History Source: Patient Exam Limitations: No Limitations - History of Present Illness Initial Comments: 02/11/17 21:14 26yo Female patient w/ PmHx: Non Hodgkin's Lymphoma (Large B cells) dx: 2016, presents to ED c/o fever and cold symptoms. Patient states symptoms began yesterday with temp 101.0. She reports taking "Emergent C" supplement with no relief. Patient called her oncologist Dr. Kidd who instructed patient to report to ED for evaluation. Patient currently receiving Chemotherapy every 3 weeks IV- "RCHOP: Rituximab, Cyclophosphamide, Doxorubicin, Vincristine, and Prednisone." Last dose Sunday02-05-2017. Patient also receiving Neulasta. Last dose Sunday02-06-2017. Patient reports associated: SOB, and cough. LNMP: Feb 04. Oncology: Dr. Kidd. Timing/Duration: other (Yesterday) Modifying Factors: worse with: cold therapy, eating, immobilization, medication , movement, rest, other Associated Symptoms: denies: denies symptoms, chest pain, cough, diaphoresis, fever/chills, headaches, loss of appetite, malaise, nausea/vomiting, rash, seizure, shortness of breath, syncope, weakness, other Past History - Travel Traveled outside of the country in the last 30 days: No Close contact w/someone who was outside of country & ill: No - Past Medical History Allergies/Adverse Reactions: Allergies Allergy/AdvReac Type Severity Reaction Status Date / Time No Known Allergies Allergy Verified 10/03/16 14:23 Home Medications: Ambulatory Orders NK [No Known Home Medication] 09/18/16 Anemia: No Asthma: Yes (allergy induced) Cancer: No Cardiac Disorders: Yes (hx PALPATATIONS 2012) CVA: No COPD: No CHF: No Dementia: No Diabetes: No GI Disorders: No Disorders: No HTN: No Hypercholesterolemia: No Liver Disease: No Seizures: No Thyroid Disease: No - Immunization History Td Vaccination: Yes Immunization Up to Date: Yes - Suicide/Smoking/Psychosocial Hx Smoking Status: No Smoking History: Never smoked Years of Tobacco Use: 0 Have you smoked in the past 12 months: No Number of Cigarettes Smoked Daily: 0 Cigars Per Day: 0 Information on smoking cessation initiated: No Hx Alcohol Use: No Drug/Substance Use Hx: No Substance Use Type: None Review of Systems - Review of Systems Able to Perform ROS?: Yes Is the patient limited Tajik proficient: No Constitutional: Yes: Chills, Fever Respiratory: Yes: Cough All Other Systems: Reviewed and Negative *Physical Exam - Vital Signs Last Vital Signs Temp Pulse Resp BP Pulse Ox 99 F 133 H 22 149/95 100 02/11/17 20:26 02/11/17 20:26 02/11/17 20:26 02/11/17 20:26 02/11/17 20:26 - Physical Exam General Appearance: Yes: Nourished, Appropriately Dressed. No: Apparent Distress, Mild Distress, Moderate Distress, Severe Distress Neck: positive: Trachea midline, Supple. negative: Stridor, Lymphadenopathy (R) , Lymphadenopathy (L), Tender lateral, Tender midline Respiratory/Chest: positive: Rhonchi. negative: Chest Tender, Lungs Clear, Normal Breath Sounds, Respiratory Distress, Accessory Muscle Use, Labored Respiration, Rapid RR, Decreased Breath Sounds, Paradoxal Breathing, Wheezing Cardiovascular: positive: Tachycardia Gastrointestinal/Abdominal: positive: Normal Bowel Sounds, Soft. negative: Distended, Guarding, Rebound, Tenderness Musculoskeletal: positive: Normal Inspection. negative: CVA Tenderness Extremity: positive: Normal Capillary Refill, Normal Inspection, Normal Range of Motion. negative: Pedal Edema, Swelling, Calf Tenderness, Erythema, Inflammation Integumentary: positive: Normal Color, Dry, Warm Neurologic: positive: studio director II-XII NML intact, Fully Oriented, Alert, Normal Mood/ Affect, Normal Response, Motor Strength 5/5 ED Treatment Course - LABORATORY CBC & Chemistry Diagram: 02/11/17 20:46 02/11/17 20:46 - ADDITIONAL ORDERS Additional order review: 02/11/17 20:46 RBC 4.10 MCV 89.9 MCHC 33.8 RDW 16.2 H MPV 9.2 D Neutrophils % No Result Required. Lymphocytes % No Result Required. - RADIOLOGY Radiology Studies Ordered: Category Date Time Status CHEST X-RAY PORTABLE* [RAD] Stat Radiology 02/11/17 20:45 Ordered Medical Decision Making - Medical Decision Making 02/12/17 00:[address] Gomez?? discussed patient treatment and evaluation in ED. Ok to d/c to home. Patient has appointment later this morning. Patient will f/u. *DC/Admit/Observation/Transfer Diagnosis at time of Disposition: Fever Qualifiers: Fever type: unspecified Qualified Code(s): R50.9 - Fever, unspecified; R50.9 - Fever, unspecified - Discharge Dispostion Disposition: HOME Condition at time of disposition: Improved Admit: No - Referrals Referrals: Justyn Kidd MD [Staff Physician] - - Patient Instructions Printed Discharge Instructions: DI for Fever (Symptom) -- Adult Additional Instructions: Follow up with Dr. Kidd in the morning as discussed. Return if your symptoms worsen or any concerns for further evaluation. Drink plenty fluids. Print Language: PORTUGUESE
[2017-02-11 21:33] LABS: ALBUMIN 4.7 g/dl (3.4-5.0); ANION GAP 6 (8-16); CALCIUM 9.4 mg/dL (8.5-10.1); CO2 27 mmol/L (21-32); GLUCOSE,RANDOM 103 mg/dL (74-106)
[2017-02-11 21:36] LABS: ALK PHOS 128 U/L (45-117); BILIRUBIN,TOTAL 1.2 mg/dL (0.2-1.0); CREATININE 0.5 mg/dL (0.55-1.02); SGOT/AST 7 U/L (15-37); SGPT/ALT 20 U/L (12-78); TOT PROT 7.7 g/dl (6.4-8.2)
[2017-02-11 21:52] LABS: PLATELET ESTIMATE SLT DECREASED (NORMAL); TOTAL CELLS COUNTED 100
[2017-02-11 23:47] LABS: URINE APPEARANCE CLEAR; URINE BILIRUBIN NEGATIVE (NEGATIVE); URINE BLOOD NEGATIVE (NEGATIVE); URINE COLOR LTYELLOW; URINE GLUCOSE (UA) NEGATIVE (NEGATIVE); URINE KETONE NEGATIVE (NEGATIVE); URINE NITRITE NEGATIVE (NEGATIVE); URINE PROTEIN NEGATIVE (NEGATIVE); URINE UROBILINOGEN NEGATIVE mg/dL (0.2-1.0)
[2017-02-12] MEDS ORDERED: AMOX TR/POT CLAV 875MG/125MG TABLETS (FP) PO ONE (00:20)
[2017-02-12] MEDS ORDERED: ACETAMINOPHEN 500 MG TABLET (FP) PO ONE (00:22)
[2017-02-12] MEDS ORDERED: ACETAMINOPHEN 325 MG TABLET (FP) ONE (00:26)
[2017-02-12] MEDS ORDERED: AMOX TR/POT CLAV 875MG/125MG TABLETS (FP) ONE (00:27)
[2017-02-12 10:17] LABS: URINE LEUK ESTERASE Negative (NEGATIVE)
== END 2017-02-12 00:45 | disposition home or self-care (01) ==
LOC: JER 20:16
PROC: 3E0337Z Introduction of Electrolytic and Water Balance Substance into Peripheral Vein, Percutaneous Approach (ICD-10-PCS; principal; 2017-02-11)
DX: R50.9 Fever, unspecified (principal); C85.80 Other specified types of non-Hodgkin lymphoma, unspecified site
CPT/HCPCS: 36415; 71010-TC; 80053; 81003; 83605; 84703; 85025; 87040; 87086; 96360; 99283-25

== ENCOUNTER 2018-02-03 12:59 | Emergency (ER) | payer OTHER ==
[2018-02-03 13:10] VITALS: TEMP 98.7; BMI 21.2
--- NOTE | 2018-02-03 13:40 | PDOC ---
History of Present Illness - General Chief Complaint: Vaginal Bleeding Stated Complaint: VAGINAL BLEEDING Time Seen by Provider: 02/03/18 13:39 Past History - Past Medical History Allergies/Adverse Reactions: Allergies Allergy/AdvReac Type Severity Reaction Status Date / Time No Known Allergies Allergy Verified 02/03/18 13:08 Home Medications: Ambulatory Orders Ergocalciferol [Vitamin D2] 50,000 unit PO Q7D@1000 01/08/18 L. Rhamnosus GG/Inulin [Culturelle Probiotics Capsule] 1 each PO DAILY 01/08/18 Anemia: No Asthma: Yes (allergy induced) Cancer: Yes (hodgkins large B cell lymphoma September 2016) Cardiac Disorders: Yes (hx PALPATATIONS 2012) CVA: No COPD: No CHF: No Dementia: No Diabetes: No GI Disorders: Yes (irritable bowel) Disorders: No HTN: No Hypercholesterolemia: No Liver Disease: No Seizures: No Thyroid Disease: No - Immunization History Td Vaccination: Yes Immunization Up to Date: Yes - Suicide/Smoking/Psychosocial Hx Smoking Status: No Smoking History: Never smoked Years of Tobacco Use: 0 Have you smoked in the past 12 months: No Number of Cigarettes Smoked Daily: 0 Cigars Per Day: 0 Hx Alcohol Use: No Drug/Substance Use Hx: No Substance Use Type: None Hx Substance Use Treatment: No *Physical Exam - Vital Signs Last Vital Signs Temp Pulse Resp BP Pulse Ox 98.7 F 79 18 115/56 L 99 02/03/18 13:05 02/03/18 13:05 02/03/18 13:05 02/03/18 13:05 02/03/18 13:05 *DC/Admit/Observation/Transfer - Referrals Referrals: Justyn Kidd MD [Primary Care Provider] - - Patient Instructions - Post Discharge Activity
--- NOTE | 2018-02-03 13:46 | PDOC ---
*Physical Exam - Vital Signs Last Vital Signs Temp Pulse Resp BP Pulse Ox 98.7 F 79 18 115/56 L 99 02/03/18 13:05 02/03/18 13:05 02/03/18 13:05 02/03/18 13:05 02/03/18 13:05 ED Treatment Course - LABORATORY CBC & Chemistry Diagram: 02/03/18 14:02 02/03/18 14:02 Medical Decision Making - Medical Decision Making 02/03/18 13:46 Pt seen by the Advanced Practice Provider under my direct supervision Ancillary studies reviewed I agree with plan as outlined by the Advanced Practice Provider DAVID Villarreal *DC/Admit/Observation/Transfer Diagnosis at time of Disposition: Vaginal bleeding in - Discharge Dispostion Disposition: HOME Condition at time of disposition: Good - Referrals Referrals: Justyn Kidd MD [Primary Care Provider] - - Patient Instructions Printed Discharge Instructions: DI for Vaginal Bleeding During Additional Instructions: Discharge Instructions: -Your ultrasound suggests a non viable -Please return to the ER in 2 days for follow up beta HCG and sonogram. - Post Discharge Activity
--- NOTE | 2018-02-03 13:56 | PDOC ---
History of Present Illness - General Chief Complaint: Vaginal Bleeding Stated Complaint: VAGINAL BLEEDING Time Seen by Provider: 02/03/18 13:39 History Source: Patient Exam Limitations: No Limitations - History of Present Illness Initial Comments: CHIEF COMPLAINT: 27 y/o afebrile female, [id number], approximately 10 week female with LMP 11/23/17 c/o brown vaginal spotting today. HISTORY OF PRESENT ILLNESS: The patient states she's had mild cramping for the past few weeks but today felt a "gush" of liquid and then noticed some brown/ pink spotting. She denies fever, chills, n/v/d, CP, SOB, abd pain, back pain, hematuria, dysuria. Her first OB apptmt was supposed to be tomorrow but they called her today and rescheduled for 03/11. She is taking vitamins. Vital signs on arrival are notable for BP of 115/56. REVIEW OF SYSTEMS: GENERAL/CONSTITUTIONAL: No fever/chills. No weakness. No weight change. HEAD, EYES, EARS, NOSE AND THROAT: No change in vision. No ear pain or discharge. No sore throat. CARDIOVASCULAR: No chest pain or shortness of breath. RESPIRATORY: No cough, wheezing, or hemoptysis. GASTROINTESTINAL: +lower abdominal cramping with some vaginal spotting. no nausea, vomiting, diarrhea. GENITOURINARY: No dysuria, frequency, or change in urination. MUSCULOSKELETAL: No joint or muscle swelling or pain. No neck or back pain. SKIN: No rash or easy bruising. NEUROLOGIC: No headache, vertigo, loss of consciousness, or loss of sensation. PHYSICAL EXAM: GENERAL: The patient is awake, alert, and fully oriented, in no acute distress. HEAD: Normal with no signs of trauma. ENT: Pupils equal, round and reactive to light, extraocular movements intact, sclera anicteric, conjunctiva clear. Neck supple. LUNGS: Clear to auscultation bilaterally. Normal excursion. No respiratory distress or use of accessory muscles. CV: RRR, S1/S2, no MRG. Cap refill < 2 sec. ABDOMEN: Soft, non-distended, non-tender even to deep palpation, no hepatomegaly or splenomegaly, no masses. VAGINAL: Scant brown discharge in vaginal canal. Os closed. EXTREMITIES: Normal range of motion, no edema. NEUROLOGICAL: Normal speech, normal gait. CN II-XII grossly intact. SKIN: Warm, dry, normal turgor, no rashes or lesions noted. Past History - Past Medical History Allergies/Adverse Reactions: Allergies Allergy/AdvReac Type Severity Reaction Status Date / Time No Known Allergies Allergy Verified 02/03/18 13:08 Home Medications: Ambulatory Orders NK [No Known Home Medication] 02/03/18 Anemia: No Asthma: Yes (allergy induced) Cancer: Yes (hodgkins large B cell lymphoma September 2016) Cardiac Disorders: Yes (hx PALPATATIONS 2012) CVA: No COPD: No CHF: No Dementia: No Diabetes: No GI Disorders: Yes (irritable bowel) Disorders: No HTN: No Hypercholesterolemia: No Liver Disease: No Seizures: No Thyroid Disease: No - Immunization History Td Vaccination: Yes Immunization Up to Date: Yes - Suicide/Smoking/Psychosocial Hx Smoking Status: No Smoking History: Never smoked Years of Tobacco Use: 0 Have you smoked in the past 12 months: No Number of Cigarettes Smoked Daily: 0 Cigars Per Day: 0 Hx Alcohol Use: No Drug/Substance Use Hx: No Substance Use Type: None Hx Substance Use Treatment: No *Physical Exam - Vital Signs Last Vital Signs Temp Pulse Resp BP Pulse Ox 98.7 F 79 18 115/56 L 99 02/03/18 13:05 02/03/18 13:05 02/03/18 13:05 02/03/18 13:05 02/03/18 13:05 ED Treatment Course - LABORATORY CBC & Chemistry Diagram: 02/03/18 14:02 02/03/18 14:02 - RADIOLOGY Radiology Studies Ordered: Category Date Time Status TRANSVAGINAL US PREG [US] Stat Ultrasound 02/03/18 13:45 Ordered Medical Decision Making - Medical Decision Making A/P: 27 y/o female with vaginal bleeding, approximately 10 weeks . Plan is as follows: 1. Labs 2. UA/culture 3. Transvaginal ultrasound Beta - 6069 UA negative for UTI Transvaginal Ultrasound IMPRESSION: An intrauterine gestational sac is noted as discussed above without an associated yolk sac or pole. This finding is suggestive of an anembryonic /blighted ovum and less likely representing an early viable . Correlate with beta-hcg levels. Consider follow up ultrasonography. Gave the patient all of her results. Instructed her to return to the ER in 48 hours for repeat beta HCG and ultrasound. The patient verbalizes understanding of all instructions, has no further questions and is awaiting discharge. *DC/Admit/Observation/Transfer Diagnosis at time of Disposition: Vaginal bleeding in - Discharge Dispostion Disposition: HOME Condition at time of disposition: Good - Referrals Referrals: Justyn Kidd MD [Primary Care Provider] - - Patient Instructions Printed Discharge Instructions: DI for Vaginal Bleeding During Additional Instructions: Discharge Instructions: -Your ultrasound suggests a non viable -Please return to the ER in 2 days for follow up beta HCG and sonogram. - Post Discharge Activity
[2018-02-03 14:21] LABS: BASO % 0.7 % (0-2.0); EOS % 1.6 % (0-4.5); HEMATOCRIT 34.3 % (32.4-45.2); HEMOGLOBIN 11.1 GM/dL (10.7-15.3); LYMPH % 18.1 % (8-40); MCHC 32.5 g/dl (32.0-36.0); MEAN CELL VOLUME 86.1 fl (80-96); MEAN PLT VOLUME 8.9 fl (7.5-11.1); MONO % 19.2 % (3.8-10.2); NEUT % 60.4 % (42.8-82.8); PLATELET COUNT 186 K/MM3 (134-434); RBC 3.98 M/mm3 (3.60-5.2); RDW 14.6 % (11.6-15.6); WHITE BLOOD COUNT 3.1 K/mm3 (4.0-10.0)
[2018-02-03 15:03] LABS: ALBUMIN 4.1 g/dl (3.4-5.0); ALK PHOS 42 U/L (45-117); ANION GAP 5 MMOL/L (8-16); BILIRUBIN,TOTAL 0.4 mg/dL (0.2-1); BLOOD UREA NITROGEN 9 mg/dL (7-18); CALCIUM 9.4 mg/dL (8.5-10.1); CHLORIDE 109 mmol/L (98-107); CO2 27 mmol/L (21-32); CREATININE 0.4 mg/dL (0.55-1.3); GLUCOSE,RANDOM 73 mg/dL (74-106); POTASSIUM 4.3 mmol/L (3.5-5.1); SGOT/AST 13 U/L (15-37); SGPT/ALT 17 U/L (13-61); SODIUM 141 mmol/L (136-145); TOT PROT 6.8 g/dl (6.4-8.2)
[2018-02-03 16:04] LABS: URINE APPEARANCE SLCLOUDY; URINE BILIRUBIN NEGATIVE (<2.0 mg/dL); URINE COLOR LTYELLOW; URINE GLUCOSE (UA) NEGATIVE (NEGATIVE); URINE KETONE NEGATIVE (NEGATIVE); URINE LEUK ESTERASE NEGATIVE (NEGATIVE); URINE NITRITE NEGATIVE (NEGATIVE); URINE PROTEIN NEGATIVE (NEGATIVE); URINE UROBILINOGEN NEGATIVE mg/dL (0.2-1.0)
[2018-02-03 16:13] LABS: EPI CELLS RARE /HPF (FEW); URINE MUCUS MODERATE
[2018-02-03 17:16] VITALS: BP 118/81; PULSE 91
== END 2018-02-03 16:45 | disposition home or self-care (01) ==
LOC: JER 12:59
DX: O26.891 Other specified pregnancy related conditions, first trimester (principal); O46.91 Antepartum hemorrhage, unspecified, first trimester; Z3A.10 10 weeks gestation of pregnancy; Z85.71 Personal history of Hodgkin lymphoma
CPT/HCPCS: 36415; 76817-TC; 80053; 81003; 81015; 84702; 85025; 86850; 86900; 86901; 87086; 99283-25

== ENCOUNTER 2018-02-05 16:09 | Emergency (ER) | payer OTHER ==
--- NOTE | 2018-02-05 16:17 | PDOC ---
Rapid Medical Evaluation Time Seen by Provider: 02/05/18 16:15 Medical Evaluation: Allergies Allergy/AdvReac Type Severity Reaction Status Date / Time No Known Allergies Allergy Verified 02/03/18 13:08 02/05/18 16:15 I have performed a brief in-person evaluation of this patient. The patient presents with a chief complaint of: follow up after spontaneous . States here for follow up blood work and sonogram. Reports no pain, + spotting. Pertinent physical exam findings are: NAD even and unlabored breathing non tender abdomen I have ordered the following: urine , bhcg, urinalysis The patient will proceed to the ED for further evaluation.
[2018-02-05 16:20] VITALS: BP 120/77; PULSE 80; TEMP 99; BMI 21.2
--- NOTE | 2018-02-05 16:35 | PDOC ---
History of Present Illness - General Chief Complaint: Revisit, Lab Variance Stated Complaint: REVISIT FOR LAB AND ULTRASOUND Time Seen by Provider: 02/05/18 16:15 History Source: Patient Exam Limitations: No Limitations - History of Present Illness Initial Comments: 02/05/18 16:35 27 yr female LMP 11/26/17 presents for follow up on light vaginal spotting seen in ER 2 days ago diagnosed with threatened AB. pt has no pain no cramping light pink spotting. Severity: mild Past History - Past Medical History Allergies/Adverse Reactions: Allergies Allergy/AdvReac Type Severity Reaction Status Date / Time No Known Allergies Allergy Verified 02/05/18 16:17 Home Medications: Ambulatory Orders NK [No Known Home Medication] 02/03/18 Anemia: No Asthma: Yes (allergy induced) Cancer: Yes (hodgkins large B cell lymphoma September 2016) Cardiac Disorders: Yes (hx PALPATATIONS 2012) CVA: No COPD: No CHF: No Dementia: No Diabetes: No GI Disorders: Yes (irritable bowel) Disorders: No HTN: No Hypercholesterolemia: No Liver Disease: No Seizures: No Thyroid Disease: No - Reproductive History (#): 4 Para: 1 Cervical CA: No Dysfunctional Uterine Bleeding: No Ectopic : No Endometrial CA: No Polycystic Ovaries: No Therapeutic (s) & number: No Tubal Ligation: No Spontaneous : 1 - Immunization History Td Vaccination: Yes Immunization Up to Date: Yes - Suicide/Smoking/Psychosocial Hx Smoking Status: No Smoking History: Never smoked Years of Tobacco Use: 0 Have you smoked in the past 12 months: No Number of Cigarettes Smoked Daily: 0 Cigars Per Day: 0 Hx Alcohol Use: No Drug/Substance Use Hx: No Substance Use Type: None Hx Substance Use Treatment: No Review of Systems - Review of Systems Able to Perform ROS?: Yes Is the patient limited Puerto Rican proficient: No Constitutional: No: Symptoms Reported HEENTM: No: Symptoms Reported Respiratory: No: Symptoms reported Cardiac (ROS): No: Symptoms Reported ABD/GI: No: Symptoms Reported : Yes: Symptoms Reported *Physical Exam - Vital Signs Last Vital Signs Temp Pulse Resp BP Pulse Ox 99 F 80 16 120/77 99 02/05/18 16:17 02/05/18 16:17 02/05/18 16:17 02/05/18 16:17 02/05/18 16:17 - Physical Exam General Appearance: Yes: Nourished, Appropriately Dressed HEENT: positive: EOMI, YARI Gastrointestinal/Abdominal: positive: Normal Bowel Sounds, Soft. negative: Tender Lymphatic: negative: Adenopathy Musculoskeletal: positive: Normal Inspection Extremity: positive: Normal Capillary Refill, Normal Inspection, Normal Range of Motion Integumentary: positive: Normal Color, Dry, Warm Medical Decision Making - Medical Decision Making 02/05/18 16:37 cc: follow up r/o AB light pink spotting will check labs US follow up with machine operator farmworker as listed below 02/05/18 18:05 *DC/Admit/Observation/Transfer Diagnosis at time of Disposition: Threatened in early - Discharge Dispostion Disposition: HOME Condition at time of disposition: Good - Referrals Referrals: Ras Bertrand MD [Staff Physician] - - Patient Instructions Additional Instructions: please follow with the machine operator farmworker for follow up return if any worsening symptoms - Post Discharge Activity
== END 2018-02-05 18:11 | disposition home or self-care (01) ==
LOC: JERFT 16:09
DX: O26.891 Other specified pregnancy related conditions, first trimester (principal); O20.0 Threatened abortion; Z85.71 Personal history of Hodgkin lymphoma; Z87.09 Personal history of other diseases of the respiratory system; Z3A.10 10 weeks gestation of pregnancy; Z86.79 Personal history of other diseases of the circulatory system
CPT/HCPCS: 36415; 76817-TC; 84702; 99281-25

== ENCOUNTER 2018-02-07 15:52 | Observation (INO) | payer OTHER ==
[2018-02-07 16:27] VITALS: BMI 21.2
--- NOTE | 2018-02-07 16:30 | PDOC ---
Rapid Medical Evaluation Chief Complaint: Vaginal Bleeding Time Seen by Provider: 02/07/18 16:24 Medical Evaluation: Allergies Allergy/AdvReac Type Severity Reaction Status Date / Time rituximab Allergy Severe Difficulty Verified 02/07/18 16:22 Breathing 02/07/18 16:25 Pt presents for worsening vaginal bleeding. Pt was evaluated for a miscarriage in the ED 2 days ago. States she is going through approximately 2 pads an hour. Went through 36 pads yesterday. Exam: Pale sclera Orders: Labs Pt to proceed to ED for further evaluation Discharge Disposition - Diagnosis Vaginal bleeding - Referrals - Patient Instructions - Post Discharge Activity
[2018-02-07 17:12] LABS: BASO % 0.3 % (0-2.0); EOS % 1.1 % (0-4.5); HEMATOCRIT 37.5 % (32.4-45.2); HEMOGLOBIN 12.2 GM/dL (10.7-15.3); LYMPH % 10.6 % (8-40); MCH 28.2 pg (25.7-33.7); MCHC 32.6 g/dl (32.0-36.0); MEAN CELL VOLUME 86.5 fl (80-96); MEAN PLT VOLUME 9.1 fl (7.5-11.1); MONO % 16.8 % (3.8-10.2); NEUT % 71.2 % (42.8-82.8); PLATELET COUNT 217 K/MM3 (134-434); RBC 4.33 M/mm3 (3.60-5.2); RDW 14.4 % (11.6-15.6); WHITE BLOOD COUNT 5.5 K/mm3 (4.0-10.0)
[2018-02-07] MEDS ORDERED: SODIUM CHLORIDE 1,000 ML IV STA (17:19)
[2018-02-07] MEDS ORDERED: ONDANSETRON *ODT* 4 MG TABLET SL ONE (17:19)
--- NOTE | 2018-02-07 17:25 | PDOC ---
History of Present Illness - General Chief Complaint: Vaginal Bleeding Stated Complaint: VAGINAL BLEEDING Time Seen by Provider: 02/07/18 16:24 History Source: Patient Exam Limitations: No Limitations - History of Present Illness Initial Comments: 02/07/18 17:20 Pt is a 27yo f with PMH of lymphoma s/p chemotherapy (Feb 2017) in remission presenting to ED with vaginal bleeding. Pt says she found out she was 2 weeks ago. She always had spotting/irregular periods but her LMP was November 22, 2017. Pt had spotting a few days ago and was seen in the ED, she was told she had a threatened miscarriage and was asked to follow up in 48 hours. Her BhCG levels have been trending downward. Pt said that yesterday at 1pm she passed tissue. At 1am this morning pt started having pelvic pain and having vaginal bleeding with clots. she has used 34 regular sized pads today. She is admitting to pelvic pain, vaginal bleeding, feeling lightheaded and nauseous. She denies fevers, syncope, vomiting, sob, swelling in legs. She denies history of STD. She tried taking Ibuprofen 800mg for pain but it didn't help. She does not have an side laster but was asked to follow up with Dr. Sena PCP: none Onc: Bernabe Meds: none PMH: Lymphoma PSH: biopsy, port insertion/removal Social: denies Allergies: rituximab Past History - Past Medical History Allergies/Adverse Reactions: Allergies Allergy/AdvReac Type Severity Reaction Status Date / Time rituximab Allergy Severe Difficulty Verified 02/07/18 16:22 Breathing Home Medications: Ambulatory Orders NK [No Known Home Medication] 02/03/18 Anemia: No Asthma: Yes (allergy induced) Cancer: Yes (nonhodgkins large B cell lymphoma September 2016) Cardiac Disorders: Yes (hx PALPATATIONS 2012) CVA: No COPD: No CHF: No Dementia: No Diabetes: No GI Disorders: Yes (irritable bowel) Disorders: No HTN: No Hypercholesterolemia: No Liver Disease: No Seizures: No Thyroid Disease: No - Reproductive History Is Patient Now?: No (#): 4 Para: 1 Cervical CA: No Dysfunctional Uterine Bleeding: No Ectopic : Yes Endometrial CA: No Polycystic Ovaries: No Therapeutic (s) & number: No Tubal Ligation: No Spontaneous : 2 - Immunization History Td Vaccination: Yes Immunization Up to Date: Yes - Suicide/Smoking/Psychosocial Hx Smoking Status: No Smoking History: Never smoked Years of Tobacco Use: 0 Have you smoked in the past 12 months: No Number of Cigarettes Smoked Daily: 0 Cigars Per Day: 0 Hx Alcohol Use: No Drug/Substance Use Hx: No Substance Use Type: None Hx Substance Use Treatment: No Review of Systems - Review of Systems Constitutional: Yes: Chills. No: Fever, Weakness HEENTM: No: Symptoms Reported Respiratory: No: Symptoms reported, Cough, Shortness of Breath Cardiac (ROS): Yes: Lightheadedness. No: Chest Pain, Palpitations ABD/GI: Yes: See HPI, Nausea, Abdominal cramping. No: Constipated, Diarrhea, Vomiting : Yes: See HPI, Other (vaginal bleeding with clots. ). No: Burning, Dysuria, Frequency, Flank Pain, Hematuria Musculoskeletal: No: Back Pain, Joint Pain, Neck Pain Integumentary: No: Bruising, Erythema Neurological: No: Headache, Numbness, Paresthesia, Tingling, Tremors, Weakness *Physical Exam - Vital Signs Last Vital Signs Temp Pulse Resp BP Pulse Ox 98.7 F 90 18 148/88 99 02/07/18 16:10 02/07/18 16:10 02/07/18 16:10 02/07/18 16:10 02/07/18 16:10 - Physical Exam General Appearance: Yes: Nourished, Appropriately Dressed. No: Apparent Distress HEENT: positive: EOMI, YARI, Normal ENT Inspection Neck: positive: Trachea midline, Supple. negative: Lymphadenopathy (R), Lymphadenopathy (L) Respiratory/Chest: positive: Lungs Clear, Normal Breath Sounds. negative: Crackles, Rales, Rhonchi, Stridor, Wheezing Cardiovascular: positive: Regular Rhythm, Regular Rate, S1, S2. negative: Edema , JVD, Murmur Vascular Pulses: Carotid (R): 2+, Carotid (L): 2+, Dorsalis-Pedis (R): 2+, Doralis-Pedis (L): 2+ Female Pelvic Exam: positive: normal external exam, vaginal bleeding, other ( blood in vaginal vault with clotting. Os visualized and slighlty open). negative: CMT, discharge Gastrointestinal/Abdominal: positive: Normal Bowel Sounds, Soft, Tenderness ( suprapubic tenderness). negative: Distended, Guarding, Rebound Extremity: positive: Normal Capillary Refill. negative: Pedal Edema, Swelling Integumentary: positive: Dry, Warm, Pale Neurologic: positive: data warehousing specialist II-XII NML intact, Fully Oriented, Alert, Normal Mood/ Affect, Normal Response, Motor Strength 08/25 ED Treatment Course - LABORATORY CBC & Chemistry Diagram: 02/07/18 22:20 02/07/18 16:59 - ADDITIONAL ORDERS Additional order review: 02/07/18 16:59 RBC 4.33 MCV 86.5 MCHC 32.6 RDW 14.4 MPV 9.1 Neutrophils % 71.2 Lymphocytes % 10.6 D Monocytes % 16.8 H Eosinophils % 1.1 Basophils % 0.3 Medical Decision Making - Medical Decision Making 02/07/18 18:03 Pt is a 27yo f with PMH of lymphoma s/p chemotherapy (Feb 2017) in remission presenting to ED with vaginal bleeding. Vitals: wnl PE: lower abdominal tenderness. clots in vaginal vault, no cmt or adnexal tenderness, os slightly opened. completed ? cbc, cmp, pt/inr, t+S, BhCG ordered by triage. TVUS also ordered. Hgb is 12, stable. bhCG trending downward (2800) TVUS: no viable sac. Previous ultrasounds showed gestational sac without viable pole/yolk sac. Pt has passed material. 02/07/18 19:[address] sena, said to start on pitocin and reevaluate Pt complaining of pain. will reevaluat.e Pt states that she has used 3 pads throughout stay, bleeding is slightly less. 02/08/18 02:13 Given pt Toradol for pain. Pitocin still running. Admitted ED obs. will reevaluate. Per Dr. Sena, can give methergine 0.2mg IM. Will see pt in clinic tomorrow. signed out to Dr. Hummel *DC/Admit/Observation/Transfer Diagnosis at time of Disposition: Vaginal bleeding, - Discharge Dispostion Disposition: HOME Condition at time of disposition: Good Decision to Admit order: No - Referrals Referrals: Rsa Sena MD [Staff Physician] - - Patient Instructions Printed Discharge Instructions: Miscarriage, DI for Miscarriage Additional Instructions: You were seen here today for evaluation of vaginal bleeding. The ultrasound showed that you do not have a gestational sac like you did in your previous ultrasounds. This is most likely an . You were started on medication that will help evacuate what is left in the uterus and it can cause pain. Dr. Sena would like to see you in the office tomorrow. Schedule and appointment to see him, let him know you were in the emergency room. Come back to the emergency room if: pain gets worse, bleeding does not stop or gets worse, you pass out, or if any new concerning symptom develops. Thank you - Post Discharge Activity
[2018-02-07] MEDS ORDERED: ONDANSETRON *ODT* 4 MG TABLET ONE (17:30)
[2018-02-07 17:40] LABS: PROTHROMBIN TIME (PATIENT) 13.2 SEC (9.7-13.0)
[2018-02-07 17:41] LABS: INR 1.12 (0.83-1.09)
[2018-02-07 17:55] LABS: ALBUMIN 4.7 g/dl (3.4-5.0); ALK PHOS 49 U/L (45-117); ANION GAP 8 MMOL/L (8-16); BILIRUBIN,TOTAL 0.9 mg/dL (0.2-1); BLOOD UREA NITROGEN 8 mg/dL (7-18); CALCIUM 9.3 mg/dL (8.5-10.1); CHLORIDE 107 mmol/L (98-107); CO2 24 mmol/L (21-32); CREATININE 0.5 mg/dL (0.55-1.3); GLUCOSE,RANDOM 75 mg/dL (74-106); POTASSIUM 4.2 mmol/L (3.5-5.1); SGOT/AST 15 U/L (15-37); SGPT/ALT 18 U/L (13-61); SODIUM 140 mmol/L (136-145); TOT PROT 7.8 g/dl (6.4-8.2)
[2018-02-07] MEDS ORDERED: morphine CARPU-JECT 4 MG/1 ML DISP.SYRIN IVPUSH ONE ×2 (17:56→19:56)
[2018-02-07] MEDS ORDERED: morphine SULFATE 4 MG/ML VIAL ONE ×2 (18:04→22:36)
--- NOTE | 2018-02-07 18:53 | PDOC ---
Attending Attestation - HPI HPI: 02/07/18 18:59 The patient is a 27 year old female, , with a significant past medical history of lymphoma s/p chemotherapy (Feb 2017) in remission who presents to the ED with vaginal bleeding. Patient states she found out she was 2 weeks ago. Patient had spotting a few days ago and was seen in the ED, she was told she had a threatened miscarriage and was asked to follow up in 48 hours. Patient states she passed tissue at 1pm yesterday and reports pelvic pain and vaginal bleeding with clots at 1am this morning. She used 34 regular sized pads today. She also reports lightheadedness and nausea associated with present symptoms. Patient took 800mg of Ibuprofen earlier today with no relief of present symptoms. Denies fevers, syncope, vomiting, sob, swelling in legs. She denies history of STD. LMP: 11/22/17 PCP: none Onc: Bernabe Meds: none PMH: Lymphoma PSH: biopsy, port insertion/removal Social: denies Allergies: rituximab - Physicial Exam PE: 02/07/18 18:59 GENERAL: Awake, alert, and fully oriented, in no acute distress HEAD: No signs of trauma EYES: PERRLA, EOMI, sclera anicteric, conjunctiva clear ENT: Auricles normal inspection, hearing grossly normal, nares patent, oropharynx clear without exudates. Moist mucosa NECK: Normal ROM, supple, no lymphadenopathy, JVD, or masses LUNGS: Breath sounds equal, clear to auscultation bilaterally. No wheezes, and no crackles HEART: Regular rate and rhythm, normal S1 and S2, no murmurs, rubs or gallops ABDOMEN: + Mild Superpubic tenderness. Soft, normoactive bowel sounds. No guarding, no rebound. No masses PELVIC: + blood pooling in vault. Cervix is open fingertip. No adnexal tenderness. EXTREMITIES: Normal range of motion, no edema. No clubbing or cyanosis. No cords, erythema, or tenderness NEUROLOGICAL: Cranial nerves II through XII grossly intact. Normal speech, normal gait SKIN: Warm, Dry, normal turgor, no rashes or lesions noted. <Ezequiel Cedillo - Last Filed: 02/07/18 18:59> - Resident Resident Name: Jessica Garcia - ED Attending Attestation I have performed the following: I have examined & evaluated the patient, The case was reviewed & discussed with the resident, I agree w/resident's findings & plan, Exceptions are as noted - Medical Decision Making 02/07/18 18:51 27 yo F (1 prior miscarriage) here with vaginal bleeding. wsa told she had abnormal miscarriage, here with vaginal bleeding. started 1 pm. yesterday. does feel lightheded. mild abd cramping. no f/c no h/o abnormal bleeding. per review of old ultrasound pt had a gestational sac, no visualized iup or yolk sac or pole. beta has been decreasing, was told it was an abnormal was scheduled to see jaida lemospt has not seen yet. differential: missed or incomlete ab, ectopic, dehydration anemia. plan labs tvus bhcg. 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 reddy. 02/07/18 18:56 02/07/18 19:02 d/w dr reddy, recommend pitocin drip, will short stay observation repet h/h at four hours. reassess. <Joann Ma - Last Filed: 02/07/18 19:03> Attestations - Attestations 02/07/18 18:59 Documentation prepared by Ezequiel Cedillo, acting as medical anthropology director for Joann Ma MD. <Ezequiel Cedillo - Last Filed: 02/07/18 18:59>
[2018-02-07] MEDS ORDERED: OXYTOCIN 20 UNITS in 0.9% NS 20 UNIT/1,000 ML INFUS.BAG IV ONE (18:57)
[2018-02-07] MEDS ORDERED: SODIUM CHLORIDE 0.9% 1000 ML INFUS.BAG IV ONE (18:58)
[2018-02-07 23:11] LABS: BASO % 0.6 % (0-2.0); EOS % 1.3 % (0-4.5); HEMATOCRIT 31.6 % (32.4-45.2); HEMOGLOBIN 10.6 GM/dL (10.7-15.3); LYMPH % 19.2 % (8-40); MCH 28.8 pg (25.7-33.7); MCHC 33.4 g/dl (32.0-36.0); MEAN CELL VOLUME 86.1 fl (80-96); MONO % 19.4 % (3.8-10.2); NEUT % 59.5 % (42.8-82.8); PLATELET COUNT 191 K/MM3 (134-434); RBC 3.67 M/mm3 (3.60-5.2); RDW 14.5 % (11.6-15.6); WHITE BLOOD COUNT 4.6 K/mm3 (4.0-10.0)
[2018-02-08] MEDS ORDERED: morphine CARPU-JECT 4 MG/1 ML DISP.SYRIN IVPUSH ONE (01:07)
[2018-02-08] MEDS ORDERED: KETOROLAC TROMETHAMINE 30 MG/1 ML VIAL IVPUSH ONE (01:35)
[2018-02-08] MEDS ORDERED: KETOROLAC TROMETHAMINE 30 MG/1 ML VIAL ONE (02:22)
[2018-02-08] MEDS ORDERED: morphine SULFATE 4 MG/ML VIAL ONE (02:22)
--- NOTE | 2018-02-08 02:42 | PDOC ---
*Physical Exam - Vital Signs Last Vital Signs Temp Pulse Resp BP Pulse Ox 98.7 F 90 18 148/88 100 02/07/18 16:10 02/07/18 16:10 02/07/18 16:10 02/07/18 16:10 02/07/18 19:50 ED Treatment Course - LABORATORY CBC & Chemistry Diagram: 02/07/18 22:20 02/07/18 16:59 - ADDITIONAL ORDERS Additional order review: Laboratory Results 02/07/18 02/07/18 02/07/18 16:59 16:59 16:59 PT with INR 13.20 H INR 1.12 H Sodium 140 Potassium 4.2 Chloride 107 Carbon Dioxide 24 Anion Gap 8 BUN 8 Creatinine 0.5 L Creat Clearance w eGFR > 60 Random Glucose 75 Calcium 9.3 Total Bilirubin 0.9 AST 15 ALT 18 Alkaline Phosphatase 49 Total Protein 7.8 Albumin 4.7 Beta HCG, Quant 2834.7 Blood Type A POSITIVE Antibody Screen Negative 02/07/18 02/07/18 22:20 16:59 RBC 3.67 4.33 MCV 86.1 86.5 MCHC 33.4 32.6 RDW 14.5 14.4 MPV 9.0 9.1 Neutrophils % 59.5 71.2 Lymphocytes % 19.2 D 10.6 D Monocytes % 19.4 H 16.8 H Eosinophils % 1.3 1.1 Basophils % 0.6 0.3 - Medications Given in the ED: ED Medications Discontinued Medications Generic Name Dose Route Start Last Admin Trade Name Freq PRN Reason Stop Dose Admin Sodium Chloride 1,000 mls @ 1,000 mls/hr 02/07/18 17:19 02/07/18 17:48 Normal Saline - IV 02/07/18 18:18 1,000 mls/hr ASDIR STA Administration Oxytocin/Sodium Chloride 20 unit in 1,000 mls @ 200 mls/hr 02/07/18 18:57 22:47 Normal Saline+20 Units Oxytocin - IV 02/07/18 23:56 200 mls/hr ONCE ONE Administration Ketorolac Tromethamine 30 mg 02/08/18 01:35 02/08/18 02:38 Toradol Injection - IVPUSH 02/08/18 01:36 30 mg ONCE ONE Administration Morphine Sulfate 4 mg 02/07/18 17:56 02/07/18 18:05 Morphine Injection - IVPUSH 02/07/18 17:57 4 mg ONCE ONE Administration Morphine Sulfate 4 mg 02/07/18 19:56 02/07/18 22:47 Morphine Injection - IVPUSH 02/07/18 19:57 4 mg ONCE ONE Administration Morphine Sulfate 4 mg 02/08/18 01:07 02/08/18 02:36 Morphine Injection - IVPUSH 02/08/18 01:08 4 mg ONCE ONE Administration Ondansetron HCl 4 mg 02/07/18 17:19 02/07/18 17:43 Zofran Odt - SL 02/07/18 17:20 4 mg ONCE ONE Administration Sodium Chloride 1,000 ml 02/07/18 18:58 02/07/18 19:13 Normal Saline - IV 02/07/18 18:59 1,000 ml ONCE ONE Administration Medical Decision Making - Medical Decision Making 02/08/18 02:41 27 year old female with PMH B-cell lymphoma (in remission 03/2017) presented to ED for vaginal bleeding. Initial Vital Signs Temp Pulse Resp BP Pulse Ox 98.7 F 90 18 148/88 99 02/07/18 16:10 02/07/18 16:10 02/07/18 16:10 02/07/18 16:10 02/07/18 16:10 On presentation - afebrile. no tachycardia. no tachypnea. no hypoxia on room air. Hypertensive. - Likely secondary to pain. Dr. Urias consulted, he advised pitocin drip and discharge. He stated if she does not stop bleeding to give Methergine 0.2 mg IM. He stated the patient can follow up with him in the office in the morning. Pt assessed - reports improvement of pain. denies lightheadedness. BP - 112/70 HR 76 SpO2 100% on room air. Examination: Heart - regular rhythm. no murmurs. Lungs - clear to auscultation. Abdomen - soft, flat. mild tenderness to palpation of suprapubic area. no guarding. no rebound. no masses. TVUS report - in comparison to prior ultrasound exam of 02/05/2018 there is no longer visualization of an intrauterine gestational sac consistent with interval miscarraigr. interval development of mildly heterogenous material is seen within the endometrial cavity which may be on the basis of clotted blood. no free intraperitoneal fluid. ovaries not identified due to overlying bowel gas. Initial Hgb - 12.2 CBC WBC 4.6 K/mm3 (4.0-10.0) 02/07/18 22:20 RBC 3.67 M/mm3 (3.60-5.2) 02/07/18 22:20 Hgb 10.6 GM/dL (10.7-15.3) L 02/07/18 22:20 Hct 31.6 % (32.4-45.2) L D 02/07/18 22:20 MCV 86.1 fl (80-96) 02/07/18 22:20 MCH 28.8 pg (25.7-33.7) 02/07/18 22:20 MCHC 33.4 g/dl (32.0-36.0) 02/07/18 22:20 RDW 14.5 % (11.6-15.6) 02/07/18 22:20 Plt Count 191 K/MM3 (134-434) 02/07/18 22:20 MPV 9.0 fl (7.5-11.1) 02/07/18 22:20 Absolute Neuts (auto) 2.7 K/mm3 (1.5-8.0) 02/07/18 22:20 Neutrophils % 59.5 % (42.8-82.8) 02/07/18 22:20 Lymphocytes % 19.2 % (8-40) D 02/07/18 22:20 Monocytes % 19.4 % (3.8-10.2) H 02/07/18 22:20 Eosinophils % 1.3 % (0-4.5) 02/07/18 22:20 Basophils % 0.6 % (0-2.0) 02/07/18 22:20 Nucleated RBC % 0 % (0-0) 02/07/18 22:20 Decrease in Hgb of 2 points - Pt received 1.5L Normal saline - Likely partially blood loss and partially dilutional component CMP Sodium 140 mmol/L (136-145) 02/07/18 16:59 Potassium 4.2 mmol/L (3.5-5.1) 02/07/18 16:59 Chloride 107 mmol/L (98-107) 02/07/18 16:59 Carbon Dioxide 24 mmol/L (21-32) 02/07/18 16:59 Anion Gap 8 MMOL/L (8-16) 02/07/18 16:59 BUN 8 mg/dL (7-18) 02/07/18 16:59 Creatinine 0.5 mg/dL (0.55-1.3) L 02/07/18 16:59 Creat Clearance w eGFR > 60 (>60) 02/07/18 16:59 Random Glucose 75 mg/dL (74-106) 02/07/18 16:59 Calcium 9.3 mg/dL (8.5-10.1) 02/07/18 16:59 Total Bilirubin 0.9 mg/dL (0.2-1) 02/07/18 16:59 AST 15 U/L (15-37) 02/07/18 16:59 ALT 18 U/L (13-61) 02/07/18 16:59 Alkaline Phosphatase 49 U/L (45-117) 02/07/18 16:59 Total Protein 7.8 g/dl (6.4-8.2) 02/07/18 16:59 Albumin 4.7 g/dl (3.4-5.0) 02/07/18 16:59 Beta HCG, Quant 2834.7 mIU/ml 02/07/18 16:59 No electrolyte abnormalities. No acute kidney injury. No transaminitis. [facility] [place] quant = 2834.7 - 5482 on 02/05/18 02/08/18 04:40 Pt reassessed. Pitocin drip finished. Reports decreased bleeding, but still bleeding, more than spotting. Pt reports nausea. - Zofran ordered Methergine IM ordered per Dr. Urias's rec. Pt will be discharged. I spoke with the patient about the plan for care, she stated she understood. I spoke with the patient about following up with Dr. Urias this morning, she stated she understood. *DC/Admit/Observation/Transfer Diagnosis at time of Disposition: Vaginal bleeding, - Discharge Dispostion Disposition: HOME Condition at time of disposition: Good Decision to Admit order: No - Referrals - Patient Instructions - Post Discharge Activity
[2018-02-08 03:52] VITALS: BP 100/52; PULSE 79; TEMP 98.2
[2018-02-08] MEDS ORDERED: METHYLERGONOVINE MALEATE 0.2 MG/1 ML AMP IM ONE (04:39)
[2018-02-08] MEDS ORDERED: ONDANSETRON 4 MG/2 ML VIAL IVPUSH ONE (04:44)
[2018-02-08] MEDS ORDERED: ONDANSETRON 4 MG/2 ML VIAL ONE (05:10)
== END 2018-02-08 05:25 | disposition home or self-care (01) ==
LOC: JER 15:52 → JERBED 02-08 03:24
PROVIDERS: ADMIT Internal Medicine; ATTEND Internal Medicine
PROC: 3E0333Z Introduction of Anti-inflammatory into Peripheral Vein, Percutaneous Approach (ICD-10-PCS; principal; 2018-02-08)
PROC: 3E033NZ Introduction of Analgesics, Hypnotics, Sedatives into Peripheral Vein, Percutaneous Approach (ICD-10-PCS; 2018-02-08)
PROC: 3E0337Z Introduction of Electrolytic and Water Balance Substance into Peripheral Vein, Percutaneous Approach (ICD-10-PCS; 2018-02-08)
PROC: 3E033GC Introduction of Other Therapeutic Substance into Peripheral Vein, Percutaneous Approach (ICD-10-PCS; 2018-02-08)
PROC: 3E023GC Introduction of Other Therapeutic Substance into Muscle, Percutaneous Approach (ICD-10-PCS; 2018-02-08)
DX: N93.9 Abnormal uterine and vaginal bleeding, unspecified (principal); O03.9 Complete or unspecified spontaneous abortion without complication; Z85.72 Personal history of non-Hodgkin lymphomas; Z92.21 Personal history of antineoplastic chemotherapy
CPT/HCPCS: 36415; 76817-TC; 80053; 84702; 85025; 85610; 86850; 86900; 86901; 96361; 96365; 96366; 96372; 96375; 96376; 99284-25; G0378; J7030; Q0162

== ENCOUNTER 2018-07-03 12:41 | Emergency (ER) | payer OTHER ==
[2018-07-03 12:56] VITALS: TEMP 98.3; BMI 21.2
[2018-07-03] MEDS ORDERED: ACETAMINOPHEN 325 MG TABLET (FP) PO ONE (13:54)
[2018-07-03] MEDS ORDERED: ACETAMINOPHEN 325 MG TABLET (FP) ONE (14:07)
--- NOTE | 2018-07-03 14:11 | PDOC ---
Attending Attestation - HPI HPI: 07/03/18 15:34 The patient 28-year-old female who is 7-8 weeks according to LMP, A2, with past medical history of B-cell lymphoma (currently on chemotherapy) , who presents to the ED with vaginal spotting that began 2 days ago. Spotting is very minimal and is worse when she stands, walks around, and wipes. She is also complaining of right leg pain, which she states is very similar to her sciatic pain that she experienced with her last . The patient denies any fevers, chills, cough, nausea, vomiting, diarrhea, or constipation. Denies any chest pain or palpitations. Denies any urinary symptoms. Allergies: rituximab Social History: None reported. - Physicial Exam PE: 07/03/18 15:35 GENERAL: The patient is in no acute distress. HEAD: Normal with no signs of trauma. EYES: PERRLA, EOMI, sclera anicteric, conjunctiva clear. ENT: Ears normal, nares patent, oropharynx clear without exudates. Moist mucous membranes. NECK: Normal range of motion, supple without lymphadenopathy, JVD, or masses. LUNGS: Breath sounds equal, clear to auscultation bilaterally. No wheezes, and no crackles. HEART:Regular rate and rhythm, normal S1 and S2 without murmur, rub or gallop. ABDOMEN: Soft, nontender, normoactive bowel sounds. No guarding, no rebound. No masses palpable. : (+)Normal external genitalia. Small amount of brown blood in vaginal canal, os closed, no cervical motion tenderness. EXTREMITIES: Normal range of motion, no edema. No clubbing or cyanosis. No erythema, or tenderness. NEUROLOGICAL: Cranial nerves II through XII grossly intact. Normal speech. No focal neurological deficits. MUSCULOSKELETAL: Back non-tender to palpation, no CVA tenderness SKIN: Warm, Dry, normal turgor, no rashes or lesions noted. <Marimar Wilcox - Last Filed: 07/03/18 15:35> - Resident Resident Name: Cris Chatman - ED Attending Attestation I have performed the following: I have examined & evaluated the patient, The case was reviewed & discussed with the resident, I agree w/resident's findings & plan, Exceptions are as noted - Critical Care Time Total Critical Care Time: 60 Critical Care Statement: The care of this patient involved high complexity decision making to prevent further life threatening deterioration of the patient 's condition and/or to evaluate & treat vital organ system(s) failure or risk of failure. - Medical Decision Making 07/03/18 15:42 REceived a call from Dr Beavers Pt may have right ectopic Pt placed in stretcher from US 07/03/18 15:43 Laboratory Tests 07/03/18 07/03/18 07/03/18 14:04 14:04 14:04 WBC 4.4 Hgb 11.1 Hct 33.5 Plt Count 270 D BUN 9 Creatinine 0.6 Beta HCG, Quant 682.1 Serum , Qual Positive Urine Blood Urine Nitrite Ur Leukocyte Esterase Urine WBC (Auto) Urine RBC (Auto) Ur Epithelial Cells Urine Mucus 07/03/18 14:05 WBC Hgb Hct Plt Count BUN Creatinine Beta HCG, Quant Serum , Qual Urine Blood 1+ H Urine Nitrite Negative Ur Leukocyte Esterase Negative Urine WBC (Auto) 1 Urine RBC (Auto) 1 Ur Epithelial Cells Rare Urine Mucus Many Will contact C[employer] SPECIALIST bi application developer 07/03/18 17:[address] Chilel No response Called again, no one is covering her Call placed to L&D, there is no one upstairs Case reviewed with Dr. Chilel --> pt can be discharged to home as case does not clearly support ectopic Will call Dr Bertrand 07/03/18 18:[address] Bertrand He would like me to clearly review us report with Dr Chilel Pt may benefit from observation 07/03/18 18:[address] Chilel, in addition, I have read to her this entire Ultrasound Report I have offered to place this patient on observation to the hospitalist service She does not want to have this patient admitted at this time Does not think this patient is a surgical patient at this Does not think this patient benefits from repeat BHCG in 24 hours and Repeat US can be performed as an outpatient Recommends that the patient follow up in the clinic TOMORROW at 9 AM Sree Espinoza We have discussed this with the patient She understands the importance of following up TOMORROW as we discussed Pt understands the importance of calling 911 and returning to the ER if pain worsens, if she feels weak, if she has ANY concern at all. Clinical Impression: possible ectopic , initial presentation 07/04/18 11:07 <Cami Vieyra - Last Filed: 07/06/18 01:43> Attestations - Attestations 07/03/18 15:37 Documentation prepared by Marimar Wilcox, acting as medical research tech for Cami Vieyra MD. <Marimar Wilcox - Last Filed: 07/03/18 15:35>
[2018-07-03 14:13] LABS: BASO % 0.5 % (0-2.0); EOS % 5.1 % (0-4.5); HEMATOCRIT 33.5 % (32.4-45.2); HEMOGLOBIN 11.1 GM/dL (10.7-15.3); MCH 25.5 pg (25.7-33.7); MCHC 33.1 g/dl (32.0-36.0); MEAN CELL VOLUME 77.2 fl (80-96); MEAN PLT VOLUME 9.2 fl (7.5-11.1); MONO % 15.1 % (3.8-10.2); NEUT % 62.3 % (42.8-82.8); PLATELET COUNT 270 K/MM3 (134-434); RBC 4.34 M/mm3 (3.60-5.2); RDW 20.5 % (11.6-15.6); WHITE BLOOD COUNT 4.4 K/mm3 (4.0-10.0)
[2018-07-03 14:39] LABS: ALBUMIN 4.4 g/dl (3.4-5.0); ALK PHOS 51 U/L (45-117); ANION GAP 5 MMOL/L (8-16); BILIRUBIN,TOTAL 0.5 mg/dL (0.2-1); BLOOD UREA NITROGEN 9 mg/dL (7-18); CALCIUM 9.5 mg/dL (8.5-10.1); CHLORIDE 106 mmol/L (98-107); CO2 26 mmol/L (21-32); CREATININE 0.6 mg/dL (0.55-1.3); GLUCOSE,RANDOM 106 mg/dL (74-106); POTASSIUM 3.9 mmol/L (3.5-5.1); SGOT/AST 10 U/L (15-37); SGPT/ALT 19 U/L (13-61); SODIUM 138 mmol/L (136-145); TOT PROT 7.6 g/dl (6.4-8.2)
[2018-07-03 14:40] LABS: URINE APPEARANCE CLEAR; URINE BILIRUBIN NEGATIVE (<2.0 mg/dL); URINE COLOR YELLOW; URINE GLUCOSE (UA) NEGATIVE (NEGATIVE); URINE KETONE NEGATIVE (NEGATIVE); URINE LEUK ESTERASE NEGATIVE (NEGATIVE); URINE NITRITE NEGATIVE (NEGATIVE); URINE PROTEIN NEGATIVE (NEGATIVE); URINE UROBILINOGEN NEGATIVE mg/dL (0.2-1.0)
[2018-07-03 14:41] LABS: EPI CELLS RARE /HPF (FEW); URINE MUCUS MANY
--- NOTE | 2018-07-03 15:06 | PDOC ---
History of Present Illness - General Chief Complaint: Vaginal Bleeding Stated Complaint: RT ABD PAIN / VAGINAL BLEEDING Time Seen by Provider: 07/03/18 13:39 - History of Present Illness Initial Comments: Citlaly Franco is a 28yo A2 woman with a PMH of lymphoma, currently at 7-8wks gestation by LMP who presents with vaginal spotting for two days as well as several days of lower abdominal cramping and RLE pain/numbness. She states that the RLE pain is more severe than the abdominal cramping, up to 10/10 at worst, currently 5/10. She states that it feels feels similar to sciatica that she experienced with her first , but that was when she was nearly full term. She did not have any acetaminophen at home to take, so she tried to relieve the pain with a warm bath; this did help at least partially. However, the pain came back and she also had brown to pinkish spotting so decided she needed evaluation. Ms Franco states that she has been feeling well otherwise and has not had fevers, chills, nausea/vomiting, dysuria, constipation, or vaginal discharge. She had a miscarriage in fall of this year followed by an (due to being on chemotherapy) in April. She states her LMP was 7-8 weeks ago but she has not yet seen an OB. Her initial appointment to establish care was scheduled for this afternoon. 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) Cardiac Disorders: Yes (hx PALPATATIONS 2012) CVA: No COPD: No CHF: No Dementia: No Diabetes: No GI Disorders: Yes (irritable bowel) Disorders: No HTN: No Hypercholesterolemia: No Liver Disease: No Seizures: No Thyroid Disease: No - Reproductive History Is Patient Now?: Yes (#): 4 Para: 1 Cervical CA: No Dysfunctional Uterine Bleeding: No Ectopic : Yes Endometrial CA: No Polycystic Ovaries: No Therapeutic (s) & number: No Tubal Ligation: No Spontaneous : 2 - Immunization History Td Vaccination: Yes Immunization Up to Date: Yes - Suicide/Smoking/Psychosocial Hx Smoking Status: No Smoking History: Never smoked Years of Tobacco Use: 0 Have you smoked in the past 12 months: No Number of Cigarettes Smoked Daily: 0 Cigars Per Day: 0 Hx Alcohol Use: No Drug/Substance Use Hx: No Substance Use Type: None Hx Substance Use Treatment: No Review of Systems - Review of Systems Comments:: General: No fevers, no chills, no weight or appetite change, no malaise HEENT: No changes in vision, no changes in hearing, no congestion, no sore throat CV: No chest pain, no palpitations, no LE edema Pulm: No SOB, no cough, no wheezing GI: No nausea or vomiting, no change in bowel habits, no melena : No frequency, no urgency, no dysuria. +, +spotting Musc: No back pain, no joint swelling, no recent injury. +RLE pain Skin: No rash, no lesions, no erythema Endo: No excessive thirst, no heat/cold intolerance Heme: No unusual bruising or bleeding. h/o lymphoma w/ recurrence Neuro: No syncope, no numbness/tingling, no focal weakness Vasc: No claudication Psych: No recent change in mood, no SI or HI *Physical Exam - Vital Signs Last Vital Signs Temp Pulse Resp BP Pulse Ox 98.3 F 119 H 18 123/97 98 07/03/18 12:51 07/03/18 12:51 07/03/18 12:51 07/03/18 12:51 07/03/18 12:51 - Physical Exam Comments: General: Comfortable, no acute distress HEENT: PERRL, EOMI, MMM, voice normal, normal neck ROM, no LAD Cards: RRR, no murmur appreciated Pulm: Comfortable on room air, clear to auscultation bilaterally Abd: Soft, nontender, nondistended : No CVA tenderness Pelvic: Normal external genitalia. Small amount of brown blood in vaginal canal , os closed, no cervical motion tenderness. Ext: Atraumatic. No LE edema. ROM intact. Strength 5/5 and equal bilaterally Vasc: Extremities WWP. Palpable radial and pedal pulses bilaterally Skin: Normal color, no rashes or lesions Neuro: A&Ox3, CN grossly intact, normal speech, motor/sensory grossly intact and symmetric Psych: Mood appropriate to situation Moderate Sedation - Procedure Monitoring Vital Signs: Procedure Monitoring Vital Signs Temperature 98.3 F 07/03/18 12:51 Pulse Rate 119 H 07/03/18 12:51 Respiratory Rate 18 07/03/18 12:51 Blood Pressure 123/97 07/03/18 12:51 O2 Sat by Pulse Oximetry (%) 98 07/03/18 12:51 ED Treatment Course - LABORATORY CBC & Chemistry Diagram: 07/03/18 14:04 07/03/18 14:04 - ADDITIONAL ORDERS Additional order review: Laboratory Results 07/03/18 07/03/18 07/03/18 14:05 14:04 14:04 Sodium 138 Potassium 3.9 Chloride 106 Carbon Dioxide 26 Anion Gap 5 L BUN 9 Creatinine 0.6 Creat Clearance w eGFR > 60 Random Glucose 106 Calcium 9.5 Total Bilirubin 0.5 AST 10 L ALT 19 Alkaline Phosphatase 51 Total Protein 7.6 Albumin 4.4 Beta HCG, Quant 682.1 Serum , Qual Positive Urine Color Yellow Urine Appearance Clear Urine pH 5.0 Ur Specific [place] 1.020 Urine Protein Negative Urine Glucose (UA) Negative Urine Ketones Negative Urine Blood 1+ H Urine Nitrite Negative Urine Bilirubin Negative Urine Urobilinogen Negative Ur Leukocyte Esterase Negative Urine WBC (Auto) 1 Urine RBC (Auto) 1 Ur Epithelial Cells Rare Urine Mucus Many 07/03/18 14:04 RBC 4.34 MCV 77.2 L MCHC 33.1 RDW 20.5 H MPV 9.2 Neutrophils % 62.3 Lymphocytes % 17.0 Monocytes % 15.1 H Eosinophils % 5.1 H D Basophils % 0.5 - RADIOLOGY Radiology Studies Ordered: Category Date Time Status TRANSVAGINAL US PREG [US] Stat Ultrasound 07/03/18 13:55 Ordered - Medications Given in the ED: ED Medications Discontinued Medications Generic Name Dose Route Start Last Admin Trade Name Freq PRN Reason Stop Dose Admin Acetaminophen 975 mg 07/03/18 13:54 07/03/18 14:11 Tylenol - PO 07/03/18 13:55 975 mg ONCE ONE Administration Medical Decision Making - Medical Decision Making 07/03/18 14:59 Citlaly Franco is a 28yo A2 woman with a PMH of lymphoma, currently at 7-8wks gestation by LMP who presents with vaginal spotting for two days as well as several days of lower abdominal cramping and RLE pain/numbness that feels similar to sciatica. Some brownish blood was noted on vaginal exam but the cervical os was closed. - Threatened miscarriage most likely. Not inevitable as os is closed. Possibly completed miscarriage. Could also be normal - CBC, chemistry, bHCT, serum preg, type and screen, UA - Transvaginal US to be completed following positive - Acetaminophen for pain as pt has not taken any medication 07/03/18 15:06 - bHCT 680, low for reported gestational age based on LMP - pt taken to US for evaluation 07/03/18 15:42 - Radiology called by Dr Vieyra. Report not available in chart yet, but concern for Rt adnexal ectopic pregancy - Discussed results with Ms Franco - Will call OB Update: - Spoke to Dr Chilel. Feels that Ms Franco's bHCG is too low for any to be viewed on ultrasound, and she may follow up in clinic or with her OB on Sunday. - Advised Ms Franco regarding her lab and imaging results, including the possibility of ectopic . Discussed all possibilities for possible care including observation in the hospital vs discharge with close follow up and strict return precautions. Ms Franco states that she no longer has an OB as her previous doctor retired. She would be happy to be seen in the clinic here. Would like to discuss with her . 07/03/18 18:30 - Repeat call to Dr Chilel, spoke to Dr Vieyra. Dr Chilel feels that Ms Franco is safe to be discharged home given discrepancy between the low bHCG and possible ectopic on ultrasound. She will set up an appointment for 9:30am tomorrow for Ms Franco to be seen in clinic. - Held repeat discussion with Ms Franco. She would prefer to be discharged and agrees to go to clinic tomorrow. She understands the return precautions. Strongly advised that she call an ambulance if she has any additional or worsening symptoms overnight. She agrees to go to the 9:30 appointment tomorrow. - Will discharge home. Ensured that Ms Franco understands her return precautions, and she verbally repeats understanding and does not have any questions at this time. Discussed with Dr Vieyra. Cris Chatman PGY1 *DC/Admit/Observation/Transfer Diagnosis at time of Disposition: Positive blood test, RLQ abdominal pain - Discharge Dispostion Disposition: HOME Condition at time of disposition: Stable Decision to Admit order: No - Referrals Referrals: Althea Chilel MD [Staff Physician] - - Patient Instructions Printed Discharge Instructions: DI for Ectopic Additional Instructions: Discharge Instructions: You were seen in the emergency department for abdominal pain during . You were found to possibly have an ectopic , which is a that starts in an incorrect place in your abdomen. In this case, it appears to be located at the right ovary. Home Care: - Continue to take all home medications as previously prescribed - You may use acetaminophen 650mg every 4 hours OR 1000mg every 6 hours as needed for pain. Do not take more than 4000mg (4g) of acetaminophen per day as this can cause liver injury. - Try using heating pads (eg icy-hot heating belt) to reduce your pain. Follow Up: - You have been scheduled for an appointment in the OB clinic at [address] [place] [address] at 9 :[address] Chilel. Please make sure you go to this appointment. - Seek immediate medical care if you have worsening of your symptoms, severe abdominal pain, nausea or vomiting, lightheadedness or fainting, or if you have ANY new or more severe or concerning symptoms. If you are worried, return to the ED! It is strongly recommended that you call an ambulance if you need to return. - Post Discharge Activity Forms/Work/School Notes: Back to Work
[2018-07-03 15:39] LABS: ANISOCYTOSIS 1+; MACROCYTOSIS 0; OVALOCYTE 1+; PLATELET ESTIMATE NORMAL
[2018-07-03 17:11] VITALS: BP 126/73; PULSE 99
== END 2018-07-03 18:55 | disposition home or self-care (01) ==
LOC: JER 12:41
DX: O26.891 Other specified pregnancy related conditions, first trimester (principal); R10.31 Right lower quadrant pain; C85.10 Unspecified B-cell lymphoma, unspecified site; Z3A.01 Less than 8 weeks gestation of pregnancy
CPT/HCPCS: 36415; 76817-TC; 80053; 81003; 81015; 84702; 84703; 85025; 86850; 86900; 86901; 99283-25

== ENCOUNTER 2018-07-04 11:13 | Day surgery (SDC) | payer OTHER ==
[2018-07-04 11:30] VITALS: BMI 19.1
--- NOTE | 2018-07-04 12:10 | PDOC ---
History of Present Illness - General Chief Complaint: Pain Stated Complaint: SENT BY PCP/VAGINAL BLEEDING Time Seen by Provider: 07/04/18 12:04 - History of Present Illness Initial Comments: Citlaly Franco is a 28yo A2 woman with a PMH of lymphoma with recurrence who presents was seen in the ED yesterday with a possible right adnexal ectopic . Yesterday, she was directed to present to the OB clinic at 9:30 this morning but apparently did not have an appointment scheduled when she arrived. She was seen by the payroll director available at clinic and had some labs taken, but she was told her presentation was concerning due to worsening pain and directed back to the ED. She states that yesterday the pain was reduced to 5/10 with rest and acetaminophen, but it has been 8/10-10/10 since she woke this morning. She has not had any episodes of fainting but did feel lightheaded at an ENT appointment she had scheduled early this morning. She denies any nausea, vomiting, or increase to her vaginal spotting. Past History - Past Medical History Allergies/Adverse Reactions: Allergies Allergy/AdvReac Type Severity Reaction Status Date / Time rituximab Allergy Severe Difficulty Verified 07/04/18 11:30 Breathing Home Medications: Ambulatory Orders NK [No Known Home Medication] 02/03/18 Anemia: No Asthma: Yes (allergy induced) Cancer: Yes (nonhodgkins large B cell lymphoma September 2016) Cardiac Disorders: Yes (hx PALPATATIONS 2012) CVA: No COPD: No CHF: No Dementia: No Diabetes: No GI Disorders: Yes (irritable bowel) Disorders: No HTN: No Hypercholesterolemia: No Liver Disease: No Seizures: No Thyroid Disease: No - Reproductive History (#): 4 Para: 1 Cervical CA: No Dysfunctional Uterine Bleeding: No Ectopic : Yes Endometrial CA: No Polycystic Ovaries: No Therapeutic (s) & number: No Tubal Ligation: No Spontaneous : 2 - Immunization History Td Vaccination: Yes Immunization Up to Date: Yes - Suicide/Smoking/Psychosocial Hx Smoking Status: No Smoking History: Never smoked Years of Tobacco Use: 0 Have you smoked in the past 12 months: No Number of Cigarettes Smoked Daily: 0 Cigars Per Day: 0 Information on smoking cessation initiated: No Hx Alcohol Use: No Drug/Substance Use Hx: No Substance Use Type: None Hx Substance Use Treatment: No Review of Systems - Review of Systems Comments:: General: No fevers, no chills, no weight or appetite change, no malaise HEENT: No changes in vision, no changes in hearing, no congestion, no sore throat CV: No chest pain, no palpitations, no LE edema Pulm: No SOB, no cough, no wheezing GI: No nausea or vomiting, no change in bowel habits, no melena : See HPI Musc: No back pain, no joint swelling, no recent injury Skin: No rash, no lesions, no erythema Endo: No excessive thirst, no heat/cold intolerance Heme: No unusual bruising or bleeding, no swollen glands Neuro: No syncope, no numbness/tingling, no focal weakness Vasc: No claudication Psych: No recent change in mood, no SI or HI *Physical Exam - Vital Signs Last Vital Signs Temp Pulse Resp BP Pulse Ox 98.4 F 108 H 17 125/88 100 07/04/18 11:27 07/04/18 11:27 07/04/18 11:27 07/04/18 11:27 07/04/18 11:27 - Physical Exam Comments: General: Uncomfortable but in no acute distress HEENT: PERRL, EOMI, MMM, voice normal, normal neck ROM Cards: Mildly tachycardic, regular, no murmur appreciated Pulm: Comfortable on room air, clear to auscultation bilaterally Abd: Soft, nondistended. Lower abdominal TTP, R>L, +guarding Ext: Atraumatic. No LE edema. ROM intact. Vasc: Extremities WWP. Skin: Normal color, no rashes or lesions Neuro: A&Ox3, CN grossly intact, normal speech, motor/sensory grossly intact and symmetric Psych: Mood appropriate to situation Moderate Sedation - Procedure Monitoring Vital Signs: Procedure Monitoring Vital Signs Temperature 98.4 F 07/04/18 11:27 Pulse Rate 108 H 07/04/18 11:27 Respiratory Rate 17 07/04/18 11:27 Blood Pressure 125/88 07/04/18 11:27 O2 Sat by Pulse Oximetry (%) 100 07/04/18 11:27 Medical Decision Making - Medical Decision Making 07/04/18 12:14 Citlaly Franoc is a 28yo A2 woman with a PMH of lymphoma with recurrence who presents was seen in the ED yesterday with a possible right adnexal ectopic . She was seen in OB clinic this morning and told to come to the ED for additional workup. - Preop labs completed yesterday. Will repeat if directed by OB - States labs were drawn at clinic today. Calling OB clinic to determine what was already completed - Will page on-call OB after speaking to the physician who saw her at clinic this morning 07/04/18 12:46 - Spoke to nurse at OB clinic. Labs were not sent as pt was sent to the ED. Will repeat bHCG and US - Spoke to Dr Blanco; says that Dr Chilel requested to be called regarding Ms Franco - Attempting to reach Dr Chilel 07/04/18 13:10 - Spoke to Dr Chilel. Would like to see repeat US because read yesterday was unclear and did not measure the possible gestational sac. Needs accurate measurements to determine whether surgical intervention v medical intervention is needed. Will contact again when completed. - Coags not drawn yesterday, added to labs today in case of possible procedure 07/04/18 14:27 - Pt taken to US by myself - bHCG resulted, decreased to 453 from 682 yesterday 07/04/18 16:08 - Discussed US results with Dr Chilel. No interval change since yesterday - Dr Chilel will come to the ED in approximately one hour to see Ms Franco - Will update Ms Franco and her , who is now present. 07/04/18 16:51 - Pt seen by Dr Chilel. - To be taken immediately to the OR for intervention Discussed with Dr Bryant. Cris Chatman PGY1 *DC/Admit/Observation/Transfer Diagnosis at time of Disposition: Ectopic of ovary - Discharge Dispostion Decision to Admit order: Yes - Referrals - Patient Instructions - Post Discharge Activity
[2018-07-04] MEDS ORDERED: ACETAMINOPHEN 325 MG TABLET (FP) PO ONE (12:12)
[2018-07-04] MEDS ORDERED: ACETAMINOPHEN 325 MG TABLET (FP) ONE (12:31)
--- NOTE | 2018-07-04 13:01 | PDOC ---
Attending Attestation - Resident Resident Name: Cris Chatman - ED Attending Attestation I have performed the following: I have examined & evaluated the patient, The case was reviewed & discussed with the resident, I agree w/resident's findings & plan - HPI HPI: 07/04/18 12:57 28y/o F at about 6wks LMP by dates, hodgkin's lymphoma recently completed chemo, diagnosed with likely R ectopic yesterday and discharged by OB, now presents from OB office with persistent R pelvic pain. - Physicial Exam PE: 07/04/18 12:59 HD stable, afebrile alert, nad soft/nd. tender R lower abdomen, + rebound/guarding. - Medical Decision Making 07/04/18 12:59 28y/o F with likely R ectopic , persistent sxs. HD stable, needs OB intervention labs, repeat tvus OB consult/management
[2018-07-04 14:29] LABS: INR 1.18 (0.83-1.09); PROTHROMBIN TIME (PATIENT) 13.9 SEC (9.7-13.0)
[2018-07-04] MEDS ORDERED: traMADol HCL 50 MG TABLET PO ONE (16:46)
--- NOTE | 2018-07-04 17:04 | HP ---
Admitting History and Physical - Admission Chief Complaint: R Ecoptic History of Present Illness: 28yo @ uncertain [place] who presented to ER 07/03 with RLQ pain. Positive UPT at home. By uncertain LMP 7-8wks. Had yet to establish PNC for this , previous OBGYN at [facility]. Noted spotting and non radiating RLQ pain. No fevers/chills. Evaluated by ED, HCG 682, Sono report with conflicting information; plan was for re-evaluation in AM with OBGYN and for repeat sonogram at outside facility. Seen in office this AM, noted worsening RLQ pain. Resent to ER. HCG dropped to 450's. Sonogram shows 2cm R ectopic with complex fluid in the pelvis. 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: Alzheimer's, CVA, Dementia, Migraine, Multiple Sclerosis, Peripheral Neuropathy, Parkinson's, Seizure, Syncope, TIA, Vertigo, Other ...LMP: 11/22/17 ...: Yes Heme/Onc: Yes: Other (Lymphoma) - Smoking History Smoking history: Never smoked Have you smoked in the past 12 months: No Aproximately how many cigarettes per day: 0 - Alcohol/Substance Use Hx Alcohol Use: No - Social History ADL: Independent History of Recent Travel: No Home Medications - Allergies Allergies/Adverse Reactions: Allergies Allergy/AdvReac Type Severity Reaction Status Date / Time rituximab Allergy Severe Difficulty Verified 07/04/18 22:52 Breathing - Home Medications Home Medications: Ambulatory Orders Ibuprofen 600 mg PO Q6H PRN #30 tablet 07/04/18 Family Disease History - Family Disease History Family Disease History: Heart Disease: Father (living, htn, depression), Other: Father, Mother (living, asthma), Brother (two - healthy), Sister (five -healthy) , Son (one - age 8 - asthma) Review of Systems - Review of Systems Constitutional: reports: Lethargy Gastrointestinal: reports: Abdominal Pain Genitourinary: reports: Pain, Vaginal Bleeding Physical Examination Vital Signs: Vital Signs Temperature 98.4 F 07/04/18 11:27 Pulse Rate 89 07/04/18 15:06 Respiratory Rate 18 07/04/18 15:06 Blood Pressure 111/74 07/04/18 15:06 O2 Sat by Pulse Oximetry (%) 99 03/14/19 15:06 Constitutional: Yes: Well Nourished, No Distress, Calm Cardiovascular: Yes: WNL, Regular Rate and Rhythm Respiratory: Yes: WNL Gastrointestinal: Yes: Tenderness, Rebound Edema: No Imaging - Results Ultrasound: Report Reviewed Assessment/Plan 28yo with R ectopic , suspect rupture (chronic vs acute) Plan for diagnostic laparoscopy, possible R salpignectomy, R oophrectomy, evacuation of hemoperitoneum Labs and sono reviewed Risk and alternatives to procedure reviewed All questions answered. Consents signed Althea Chilel MD
[2018-07-04] MEDS ORDERED: ONDANSETRON 4 MG/2 ML VIAL IVPUSH PRN ×2 (17:10→18:49)
[2018-07-04] MEDS ORDERED: MIDAZOLAM HCL 2 MG/2 ML SINGLE DOSE VIAL ONE (17:13)
[2018-07-04] MEDS ORDERED: fentaNYL CITRATE 250 MCG/5 ML VIAL ONE (17:14)
[2018-07-04] MEDS ORDERED: ROCURONIUM BROMIDE 50 MG/5 ML VIAL ONE (17:14)
[2018-07-04] MEDS ORDERED: SUCCINYLCHOLINE CHLORIDE 200 MG/10 ML VIAL ONE (17:14)
[2018-07-04] MEDS ORDERED: PROPOFOL 20 ML ONE ×2 (17:14)
[2018-07-04] MEDS ORDERED: LACTATED RINGERS SOLUTION 1,000 ML IV SCH ×2 (17:15→19:00)
[2018-07-04] MEDS ORDERED: BUPIVACAINE HCL/PF (5 MG/ML) 30 ML VIAL IJ ONE (18:03)
[2018-07-04] MEDS ORDERED: DEXAMETHASONE SOD PHOSPHATE 4 MG/1 ML VIAL ONE (18:24)
[2018-07-04] MEDS ORDERED: oxyCODONE HCL 5 MG TABLET PO PRN (18:49)
--- NOTE | 2018-07-04 18:52 | OP ---
Operative Note - Note: Operative Date: 07/04/18 Pre-Operative Diagnosis: Ruptured Right Ectopic Operation: Laparoscopic Right Salpingectomy, Evacuation of Hemoperitoneum Findings: Aborting Right tubal ectopic , moderate hemoperitoneum. Normal left tube and ovary. Normal Right ovary Surgeon: Althea Chilel Dimmer Board Operator: Johnny Rodriguez Anesthesia: General Specimens Removed: Right fallopian tube Estimated Blood Loss (mls): 100 Operative Report Dictated: Yes
[2018-07-04] MEDS ORDERED: ACETAMINOPHEN 1000 MG/100 ML VIAL (NON FORMULARY) IVPB ONE (19:00)
[2018-07-04] MEDS ORDERED: ACETAMINOPHEN INJECTION 100 ML IVPB ONE (20:01)
[2018-07-04 21:11] VITALS: BP 111/57; PULSE 86; TEMP 97.9
--- NOTE | 2018-07-08 13:39 | OP ---
DATE OF OPERATION: 07/04/2018 PREOPERATIVE DIAGNOSIS: Ruptured right ectopic. POSTOPERATIVE DIAGNOSIS: Aborting right ectopic , small hemoperitoneum. OPERATION: Laparoscopic right salpingectomy, evacuation of hemoperitoneum. ANESTHESIA: General. SURGEON: Althea Salazar MD EDGE BRUSHER: DAVID Hobson ESTIMATED BLOOD LOSS: 100 mL. IV FLUIDS: Per Anesthesia record. URINE OUTPUT: 100 mL of clear urine. COMPLICATIONS: None. FINDINGS: Aborting right tubal ligation ectopic . Small hemoperitoneum. Normal left tube and ovary. Normal right ovary. CONDITION: Stable to recovery room. DESCRIPTION OF PROCEDURE: After the appropriate consents were signed, the patient was taken to the operating room where general anesthesia was administered. She was placed in dorsal lithotomy position. The abdomen was prepped and draped in a normal sterile fashion. A time out was performed. A sterile Faustin catheter was inserted without difficulty. Then 0.25% Marcaine was injected into the umbilicus. A 5-mm incision was then made to accommodate the 5-mm trocar with the 5-mm 0-degree scope to enter the abdomen under visualization without difficulty. The abdomen was then insufflated with gas. The patient was placed in Trendelenburg position. Under direct visualization, a 5-mm left lower quadrant and right lower quadrant port were made without difficulty. The patient was placed in Trendelenberg. The bowel was then removed from the patient's lower pelvis. The hemoperitoneum in the patient 's cul-de-sac was suctioned and evacuated. The patient's left tube and ovary appeared normal. The patient's right ovary was also normal. The patient's right fallopian tube had an ectopic in it with parts leaving from the fimbriated edges. The ectopic was grasped with the grasper. Using the LigaSure device, the fallopian tube was transected along the mesosalpinx and at its insertion to the uterus. The right lower quadrant port was then converted to a 12-mm port to accommodate an EndoCatch bag, which was then inserted. The ectopic was placed in the EndoCatch bag and then removed under direct visualization without difficulty. The abdomen was then inspected again. No bleeding was noted along the bite sites of the salpingectomy site. The abdomen was then irrigated and cleared of any remaining clot and blood products. The right lower quadrant port was closed with a Octavio-Juventino. The left lower quadrant port was then removed under direct visualization without difficulty. The umbilical port was then removed as well. The abdomen was deflated of gas. The incision sites were closed with 4-0 Biosyn, and the appropriate bandages were placed. All sponge, lap, and needle counts were correct. The patient did not receive antibiotics during the procedure. The Faustin catheter was removed, and the patient was then taken from the operating room to the recovery room in stable condition. ALTHEA SALAZAR MD [id number] MTDD
--- NOTE | 2018-07-09 18:21 | PATH ---
Surgical Pathology Report Patient Name: EVELINA CORONADO [facility]. Rec. #: [id number] /Age/Gender: 1990 (Age: 28) / F Account: [id number] Location: [facility] SURGICAL Taken: 07/04/2018 Received: 07/05/2018 Reported: 07/09/2018 Physicians: PHYSICIAN EMERGENCY DEPT Specimen(s) Received RIGHT FALLOPIAN TUBE Clinical History Ectopic right tubal Final Diagnosis FALLOPIAN TUBE, RIGHT, LAPAROSCOPIC SALPINGECTOMY: RARE TROPHOBLASTIC TISSUE IN A BACKGROUND OF HEMORRHAGE PRESENT WITHIN THE FALLOPIAN TUBE, CONSISTENT WITH ECTOPIC . PARATUBAL CYST PRESENT. Electronically Signed Madison Schuler M.D. Gross Description Received in formalin labeled "right fallopian tube," is a 4 cm in length dilated, fimbriated portion of fallopian tube. The outer surface is newman-madison and smooth with a 0.7 cm in greatest dimension paratubal cyst attached to the fimbria. Sectioning reveals a dilated lumen containing blood clot. No definitive villous tissue or somatic tissues identified. Assembly Machine Offbearer sections are submitted in 4 cassettes as follows: 1-fimbria and paratubal cyst; 2-4-cross sections of fallopian tube. /07/05/2018 saudi07/05/2018
== END 2018-07-04 22:00 | disposition home or self-care (01) ==
LOC: JER 11:13 → JASU-SURG 16:53 → JSAMEDAYSX 17:59 → J3W 20:05 → JASU-SURG 22:00
PROVIDERS: ATTEND Obstetrics & Gynecology
PROC: 0UT54ZZ Resection of Right Fallopian Tube, Percutaneous Endoscopic Approach (ICD-10-PCS; 2018-07-04)
PROC: 10T24ZZ Resection of Products of Conception, Ectopic, Percutaneous Endoscopic Approach (ICD-10-PCS; principal; 2018-07-04 16:00)
DX: O00.101 Right tubal pregnancy without intrauterine pregnancy (principal); K66.1 Hemoperitoneum
CPT/HCPCS: 36415; 76817-TC; 84702; 85610; 85730; 88305-TC; 94760; 99281-25; J0131

== ENCOUNTER 2018-07-12 07:46 | Day surgery (SDC) | payer OTHER ==
[2018-07-12] MEDS ORDERED: IRON SUCROSE INJECTION 200 MG in SODIUM CHLORIDE 100 ML IVPB ONE (11:00)
[2018-07-12 11:14] VITALS: TEMP 98.3
[2018-07-12 16:59] VITALS: BP 140/90; PULSE 100
== END 2018-07-12 11:15 | disposition home or self-care (01) ==
LOC: JONCNONCHE 07:46 → J7W 10:34 → JONCNONCHE 11:15
PROVIDERS: ATTEND Internal Medicine Hematology & Oncology
PROC: 3E033GC Introduction of Other Therapeutic Substance into Peripheral Vein, Percutaneous Approach (ICD-10-PCS; principal; 2018-07-12)
DX: D50.9 Iron deficiency anemia, unspecified (principal)
CPT/HCPCS: 96365; J1756

== ENCOUNTER 2018-08-02 09:24 | Day surgery (SDC) | payer OTHER ==
[2018-08-02] MEDS ORDERED: IRON SUCROSE INJECTION 200 MG in SODIUM CHLORIDE 100 ML IVPB ONE (11:00)
[2018-08-02 11:02] LABS: BASO % 0.6 % (0-2.0); EOS % 1.3 % (0-4.5); HEMATOCRIT 32.9 % (32.4-45.2); HEMOGLOBIN 10.5 GM/dL (10.7-15.3); LYMPH % 23.5 % (8-40); MCH 25.9 pg (25.7-33.7); MCHC 31.9 g/dl (32.0-36.0); MEAN CELL VOLUME 81.1 fl (80-96); MEAN PLT VOLUME 10.5 fl (7.5-11.1); MONO % 18.7 % (3.8-10.2); NEUT % 55.9 % (42.8-82.8); PLATELET COUNT 236 K/MM3 (134-434); RBC 4.06 M/mm3 (3.60-5.2); RDW 21.5 % (11.6-15.6); WHITE BLOOD COUNT 3.6 K/mm3 (4.0-10.0)
[2018-08-02 11:37] LABS: ALBUMIN 4.1 g/dl (3.4-5.0); ALK PHOS 42 U/L (45-117); ANION GAP 7 MMOL/L (8-16); BILIRUBIN,TOTAL 0.3 mg/dL (0.2-1); BLOOD UREA NITROGEN 11 mg/dL (7-18); CALCIUM 9.3 mg/dL (8.5-10.1); CHLORIDE 108 mmol/L (98-107); CO2 25 mmol/L (21-32); CREATININE 0.5 mg/dL (0.55-1.3); GLUCOSE,RANDOM 72 mg/dL (74-106); LDH 135 U/L (84-246); MAGNESIUM 1.9 mg/dL (1.8-2.4); POTASSIUM 4.5 mmol/L (3.5-5.1); SGOT/AST 11 U/L (15-37); SGPT/ALT 17 U/L (13-61); SODIUM 140 mmol/L (136-145); TOT PROT 6.9 g/dl (6.4-8.2)
[2018-08-02 12:48] LABS: ANISOCYTOSIS 0; MACROCYTOSIS 0; PLATELET ESTIMATE NORMAL; TEAR DROP CELLS 1+
[2018-08-02 15:55] VITALS: BP 112/68; PULSE 78; TEMP 98.6
== END 2018-08-02 15:00 | disposition home or self-care (01) ==
LOC: JONCNONCHE 09:24 → J7W 09:46 → JONCNONCHE 15:00
PROVIDERS: ATTEND Internal Medicine Hematology & Oncology
PROC: 3E033GC Introduction of Other Therapeutic Substance into Peripheral Vein, Percutaneous Approach (ICD-10-PCS; principal; 2018-08-02)
DX: D50.9 Iron deficiency anemia, unspecified (principal)
CPT/HCPCS: 36415; 80053; 82728; 83615; 83735; 84702; 85025; 96365; J1756

== ENCOUNTER → 2018-10-08 | Emergency (ER) | payer OTHER | END | disposition home or self-care (01) | LOC: JER 16:03 ==

== ENCOUNTER 2018-10-26 18:48 | Emergency (ER) | payer OTHER ==
--- NOTE | 2018-10-26 19:53 | PDOC ---
History of Present Illness - General Chief Complaint: Respiratory Stated Complaint: COUGH/DIARRHEA/16 WKS PREG. Time Seen by Provider: 10/26/18 19:18 History Source: Patient Exam Limitations: No Limitations - History of Present Illness Initial Comments: 10/26/18 19:44 28 yo with 2 miscarriages, 1 Ectopic with R tubal resection (Dr. Chilel) and currently 16 weeks , s/p chemo in 2014 for non-Hodgkin lymphoma, in remission since, presents to the ED for 1 day of non productive cough, body aches, subjective F/C, 2 episodes NB/NB vomiting and loose stools and PERALES. Denies sick contacts, recent travel, eating new or different foods, vaginal pain /discharge, abdominal pain, CP, SOB, current N/V. Pt tried Tylenol yesterday with relief of PERALES, did not take Tylenol today. Pt had US done yesterday and reported by pt as a 16 week male fetus with no concerns of note, pt seen in the ED less than 1 month ago, labs normal and pt had no medical concerns since then Past History - Past Medical History Allergies/Adverse Reactions: Allergies Allergy/AdvReac Type Severity Reaction Status Date / Time rituximab Allergy Severe Difficulty Verified 10/26/18 18:59 Breathing Home Medications: Ambulatory Orders Metoclopramide HCl [Reglan] 10 mg PO Q8H #15 tablet 10/08/18 Cephalexin [Keflex] 500 mg PO BID 5 Days #10 capsule 10/26/18 Anemia: No Asthma: Yes (allergy induced) Cancer: Yes (nonhodgkins large B cell lymphoma September 2016) Cardiac Disorders: Yes (hx PALPATATIONS 2012) CVA: No COPD: No CHF: No Dementia: No Diabetes: No GI Disorders: Yes (irritable bowel) Disorders: No HTN: No Hypercholesterolemia: No Liver Disease: No Seizures: No Thyroid Disease: No - Reproductive History (#): 4 Para: 1 Cervical CA: No Dysfunctional Uterine Bleeding: No Ectopic : Yes Endometrial CA: No Polycystic Ovaries: No Therapeutic (s) & number: No Tubal Ligation: No Spontaneous : 2 - Immunization History Td Vaccination: Yes Immunization Up to Date: Yes - Suicide/Smoking/Psychosocial Hx Smoking Status: No Smoking History: Never smoked Years of Tobacco Use: 0 Have you smoked in the past 12 months: No Number of Cigarettes Smoked Daily: 0 Cigars Per Day: 0 Hx Alcohol Use: No Drug/Substance Use Hx: No Substance Use Type: None Hx Substance Use Treatment: No Review of Systems - Review of Systems Constitutional: Yes: Fever HEENTM: No: Blurred Vision, Double Vision Respiratory: Yes: Cough. No: Shortness of Breath, Wheezing, Productive cough Cardiac (ROS): No: Chest Pain, Edema ABD/GI: No: Constipated, Diarrhea, Nausea, Vomiting : No: Burning, Dysuria, Frequency, Flank Pain Musculoskeletal: No: Back Pain Integumentary: No: Change in Color, Pallor Neurological: Yes: Headache. No: Numbness, Tingling, Ataxia, Dizziness *Physical Exam - Vital Signs Last Vital Signs Temp Pulse Resp BP Pulse Ox 98.7 F 117 H 20 117/73 98 10/26/18 18:57 10/26/18 18:57 10/26/18 18:57 10/26/18 18:57 10/26/18 18:57 - Physical Exam General Appearance: Yes: Nourished, Appropriately Dressed. No: Apparent Distress HEENT: positive: EOMI, YARI, Normal Voice. negative: Tonsillar Exudate, Tonsillar Erythema, Nasal Congestion, Sinus Tenderness, TM Erythema, Excessive drooling Neck: positive: Supple. negative: Carotid bruit Respiratory/Chest: positive: Lungs Clear, Normal Breath Sounds. negative: Accessory Muscle Use, Rapid RR, Decreased Breath Sounds, Crackles, Rales, Rhonchi, Wheezing Cardiovascular: positive: Regular Rhythm, S1, S2, Tachycardia. negative: Edema , JVD, Murmur Vascular Pulses: Dorsalis-Pedis (R): 4+, Doralis-Pedis (L): 4+ Gastrointestinal/Abdominal: positive: Flat, Soft, Protuberent (). negative: Pulsatile Mass, Guarding, Rebound, Tenderness Musculoskeletal: negative: CVA Tenderness Extremity: positive: Normal Capillary Refill, Normal Inspection, Normal Range of Motion Integumentary: positive: Normal Color, Dry, Warm Neurologic: positive: Fully Oriented, Alert, Normal Mood/Affect, Normal Response ED Treatment Course - LABORATORY CBC & Chemistry Diagram: 10/26/18 20:10 10/26/18 20:10 Medical Decision Making - Medical Decision Making 28 yo with 2 miscarriages, 1 Ectopic with R tubal resection (Dr. Chilel) and currently 16 weeks , s/p chemo in 2015 for non-Hodgkin lymphoma, in remission since, presents to the ED for 1 day of non productive cough, body aches, subjective F/C, 2 episodes NB/NB vomiting and loose stools and PERALES. Denies sick contacts, recent travel, eating new or different foods, vaginal pain /discharge, abdominal pain, CP, SOB, current N/V. Pt tried Tylenol yesterday with relief of PERALES, did not take Tylenol today. Pt has felt the baby kicking within th last 2 hours, has no abdominal or vaginal complaints. Pt had US done yesterday and reported by pt as a 16 week male fetus with no concerns of note, pt seen in the ED less than 1 month ago, labs normal and pt had no medical concerns since the vitals show sinus tach otherwise wnl will do labs, UA and give fluids DDX INLT: URI, common cold, PNA (unlikely, no fever,lungs clear WBC WNL) Labs WNL UA shows UTI, will treat with Keflex Pt has some improvement in the ED after fluids and antibiotics. Tachycardia resolved Tylenol given for PERALES that developed in the ED Pt safe for DC home with PCP and OB f/u with strict return precautions *DC/Admit/Observation/Transfer Diagnosis at time of Disposition: UTI (urinary tract infection) Qualifiers: Urinary tract infection type: site unspecified Hematuria presence: without hematuria Qualified Code(s): N39.0 - Urinary tract infection, site not specified - Discharge Dispostion Disposition: HOME Condition at time of disposition: Stable Decision to Admit order: No - Prescriptions Prescriptions: Cephalexin [Keflex] 500 mg PO BID 5 Days #10 capsule - Referrals - Patient Instructions Printed Discharge Instructions: DI for Cough -- Adult, DI for Urinary Tract Infection (UTI) Additional Instructions: Please see your primary doctor and OB doctor within the next 48 hours. Take the antibiotics prescribed to you for the next 5 days for your UTI. Take over the counter cough medication as needed and tylenol for pain or fevers as needed. Return to the ER for new or concerning symptoms including but not limited to: inability to eat or drink, high fevers, abdominal pain, vaginal discharge. Thank you - Post Discharge Activity
[2018-10-26] MEDS ORDERED: ONDANSETRON 4 MG/2 ML VIAL IVPUSH ONE (19:57)
[2018-10-26] MEDS ORDERED: SODIUM CHLORIDE 1,000 ML IV STA (19:57)
[2018-10-26] MEDS ORDERED: ONDANSETRON 4 MG/2 ML VIAL ONE (20:04)
[2018-10-26 20:19] LABS: BASO % 0.2 % (0-2.0); EOS % 0.2 % (0-4.5); HEMATOCRIT 33.4 % (32.4-45.2); HEMOGLOBIN 11.1 GM/dL (10.7-15.3); LYMPH % 8.4 % (8-40); MCH 28.5 pg (25.7-33.7); MCHC 33.1 g/dl (32.0-36.0); MEAN CELL VOLUME 85.9 fl (80-96); MEAN PLT VOLUME 8.4 fl (7.5-11.1); MONO % 14.8 % (3.8-10.2); NEUT % 76.4 % (42.8-82.8); PLATELET COUNT 164 K/MM3 (134-434); RBC 3.89 M/mm3 (3.60-5.2); RDW 16.3 % (11.6-15.6); WHITE BLOOD COUNT 5.5 K/mm3 (4.0-10.0)
[2018-10-26 20:30] VITALS: BP 106/90; PULSE 96; TEMP 99.2
[2018-10-26 20:42] LABS: EPI CELLS 11.5 /HPF (0-5/HPF); HYALINE CASTS 6 /lpf (0-8); PH,URINE 5.5 (5.0-8.0); URINE APPEARANCE CLEAR; URINE BACTERIA 254.6 /hpf (NEGATIVE); URINE BILIRUBIN NEGATIVE (NEGATIVE); URINE COLOR YELLOW; URINE GLUCOSE (UA) NEGATIVE (NEGATIVE); URINE KETONE NEGATIVE (NEGATIVE); URINE LEUK ESTERASE 1+ (NEGATIVE); URINE NITRITE NEGATIVE (NEGATIVE); URINE PROTEIN NEGATIVE (NEGATIVE); URINE RBC 1 /hpf (0-4); URINE WBC 6 /hpf (0-5)
[2018-10-26] MEDS ORDERED: CEPHALEXIN 250 MG/5 ML ORAL SUSPENSION PO ONE (21:08)
[2018-10-26] MEDS ORDERED: NITROFURANTOIN MACROCRYSTAL 50 MG CAPSULE (FP) PO SCH (21:15)
[2018-10-26 21:28] LABS: BILIRUBIN,TOTAL 0.3 mg/dL (0.2-1); CALCIUM 8.8 mg/dL (8.5-10.1); CREATININE 0.5 mg/dL (0.55-1.3); POTASSIUM 3.5 mmol/L (3.5-5.1); TOT PROT 5.8 g/dl (6.4-8.2)
[2018-10-26] MEDS ORDERED: CEPHALEXIN MONOHYDRATE 500 MG CAPSULE (UD) ONE (21:39)
[2018-10-26] MEDS ORDERED: CEPHALEXIN MONOHYDRATE 500 MG CAPSULE (UD) PO ONE (21:39)
--- NOTE | 2018-10-26 21:55 | PDOC ---
Attending Attestation - Resident Resident Name: Evert Alfredo - ED Attending Attestation I have performed the following: I have examined & evaluated the patient, The case was reviewed & discussed with the resident, I agree w/resident's findings & plan, Exceptions are as noted - HPI HPI: 10/26/18 21:55 28 F with 2 miscarriages, 1 Ectopic with R tubal resection (Dr. Chilel), currently 16 weeks , s/p chemo in 2015 for non-Hodgkin lymphoma, presenting to ED with cough and bodyaches x 2 days. Pt denies F/C. Denies abdominal pain. Endorses nausea with occasional vomiting but states that this is consistent with her typical morning sickness. Denies dysuria or flank pain. - Physicial Exam PE: 10/26/18 21:57 "GENERAL: Awake, alert, and fully oriented, in no acute distress. HEAD: No signs of trauma EYES: PERRLA, EOMI, sclera anicteric, conjunctiva clear ENT: Auricles normal inspection, hearing grossly normal, nares patent, oropharynx clear without exudates. Moist mucosa NECK: Nontender, no stepoffs, Normal ROM, supple, no lymphadenopathy, JVD, or masses LUNGS: Breath sounds equal, clear to auscultation bilaterally. No wheezes, and no crackles HEART: Regular rate and rhythm, normal S1 and S2, no murmurs, rubs or gallops ABDOMEN: Soft, nontender, normoactive bowel sounds. No guarding, no rebound. No masses EXTREMITIES: Normal range of motion, no edema. No clubbing or cyanosis. No cords, erythema, or tenderness NEUROLOGICAL: Cranial nerves II through XII intact. 5/5 strength and sensation in all extremities, Normal speech, normal gait, normal cerebellar function SKIN: Warm, Dry, normal turgor, no rashes or lesions noted. - Medical Decision Making 10/26/18 21:57 28 F with URI-like symptoms. Pt well appearing with normal vitals. Normal exam. - Labs, flu swab - IVF, zofran 10/26/18 21:58 UA consistent with UTI Labs otherwise wnl Will DC with keflex Pt is well appearing, with normal vitals. Clinically stable for DC at this time. I discussed the physical exam findings, ancillary test results and final diagnoses with the patient. I answered all of the patient's questions. The patient was satisfied with the care received and felt comfortable with the discharge plan and treatment plan. The patient agrees to follow up with the primary care physician within 24-72 hours.
[2018-10-26] MEDS ORDERED: ACETAMINOPHEN 325 MG TABLET (FP) PO ONE (22:01)
[2018-10-26] MEDS ORDERED: ACETAMINOPHEN 325 MG TABLET (FP) ONE (22:01)
== END 2018-10-26 22:07 | disposition home or self-care (01) ==
LOC: JER 18:48
PROC: 3E033GC Introduction of Other Therapeutic Substance into Peripheral Vein, Percutaneous Approach (ICD-10-PCS; principal; 2018-10-26)
DX: O26.892 Other specified pregnancy related conditions, second trimester (principal); O23.32 Infections of other parts of urinary tract in pregnancy, second trimester; Z3A.16 16 weeks gestation of pregnancy
CPT/HCPCS: 36415; 80053; 81003; 84702; 85025; 87804; 96374; 99282-25; J7030

== ENCOUNTER 2019-02-25 15:43 | Emergency (ER) | payer OTHER ==
--- NOTE | 2019-02-25 15:46 | PDOC ---
Rapid Medical Evaluation Time Seen by Provider: 02/25/19 15:44 Medical Evaluation: Allergies Allergy/AdvReac Type Severity Reaction Status Date / Time rituximab Allergy Severe Difficulty Verified 01/25/19 20:51 Breathing 02/25/19 15:44 CC: lower abdominal cramping. 33wks . EDC-04/12 PE: Gravid abdomen. Nontender Orders: nothing The patient will proceed to L&D for continued evaluation. Discharge Disposition - Diagnosis Abdominal cramping affecting - Referrals - Patient Instructions - Post Discharge Activity
[2019-02-25 15:47] VITALS: BMI 23.9
[2019-02-25 17:24] VITALS: BP 103/77; PULSE 101; TEMP 98.4
[2019-02-25 17:44] LABS: EPI CELLS 1.2 /HPF (0-5/HPF); HYALINE CASTS 1 /lpf (0-8); PH,URINE 6.5 (5.0-8.0); URINE APPEARANCE CLEAR; URINE BACTERIA 6.2 /hpf (NEGATIVE); URINE BILIRUBIN NEGATIVE (NEGATIVE); URINE COLOR YELLOW; URINE GLUCOSE (UA) NEGATIVE (NEGATIVE); URINE KETONE NEGATIVE (NEGATIVE); URINE LEUK ESTERASE NEGATIVE (NEGATIVE); URINE NITRITE NEGATIVE (NEGATIVE); URINE PROTEIN NEGATIVE (NEGATIVE); URINE RBC 1 /hpf (0-4); URINE UROBILINOGEN 0.2 mg/dL (0.2-1.0); URINE WBC 1 /hpf (0-5)
== END 2019-02-25 18:20 | disposition home or self-care (01) ==
LOC: JER 15:43
DX: O26.893 Other specified pregnancy related conditions, third trimester (principal); R10.30 Lower abdominal pain, unspecified; Z3A.33 33 weeks gestation of pregnancy
CPT/HCPCS: 81003; 99281-25

== ENCOUNTER 2019-04-03 07:21 | Day surgery (SDC) | payer OTHER ==
[2019-04-03] MEDS ORDERED: IRON SUCROSE INJECTION 200 MG in SODIUM CHLORIDE 100 ML IVPB ONE (09:00)
[2019-04-03 10:36] LABS: BASO % 0.6 % (0-2.0); EOS % 0.6 % (0-4.5); HEMATOCRIT 29.1 % (32.4-45.2); LYMPH % 10.8 % (8-40); MCH 23.3 pg (25.7-33.7); MCHC 30.9 g/dl (32.0-36.0); MEAN CELL VOLUME 75.4 fl (80-96); MONO % 14.5 % (3.8-10.2); NEUT % 73.5 % (42.8-82.8); PLATELET COUNT 212 K/MM3 (134-434); RBC 3.86 M/mm3 (3.60-5.2); RDW 19.2 % (11.6-15.6); WHITE BLOOD COUNT 8.8 K/mm3 (4.0-10.0)
[2019-04-03 11:11] LABS: ALBUMIN 2.8 g/dl (3.4-5.0); BILIRUBIN,TOTAL 0.3 mg/dL (0.2-1); BLOOD UREA NITROGEN 7.9 mg/dL (7-18); CALCIUM 8.5 mg/dL (8.5-10.1); CREATININE 0.6 mg/dL (0.55-1.3); IRON SERUM 38 ug/dL (50-175); MAGNESIUM 1.7 mg/dL (1.8-2.4); POTASSIUM 3.9 mmol/L (3.5-5.1); TOTAL IRON BINDING CAPACITY 627 ug/dL (250-450)
[2019-04-03 14:25] VITALS: TEMP 97.7
[2019-04-03 14:28] VITALS: BP 115/73; PULSE 103
== END 2019-04-03 11:40 | disposition home or self-care (01) ==
LOC: JONCNONCHE 07:21 → J7W 09:49 → JONCNONCHE 11:40
PROVIDERS: ATTEND Internal Medicine Hematology & Oncology
PROC: 3E033GC Introduction of Other Therapeutic Substance into Peripheral Vein, Percutaneous Approach (ICD-10-PCS; principal; 2019-04-03)
DX: D50.9 Iron deficiency anemia, unspecified (principal)
CPT/HCPCS: 36415; 80053; 82728; 83540; 83550; 83735; 85025; 96365; J1756

== ENCOUNTER 2019-04-09 11:58 | Inpatient (IN) | payer OTHER ==
[2019-04-09 12:49] LABS: BASO % 0.5 % (0-2.0); EOS % 0.8 % (0-4.5); HEMATOCRIT 29.3 % (32.4-45.2); HEMOGLOBIN 9.1 GM/dL (10.7-15.3); LYMPH % 16.4 % (8-40); MCH 23.8 pg (25.7-33.7); MCHC 30.9 g/dl (32.0-36.0); MEAN CELL VOLUME 76.8 fl (80-96); MEAN PLT VOLUME 9.8 fl (7.5-11.1); MONO % 8.4 % (3.8-10.2); NEUT % 73.9 % (42.8-82.8); PLATELET COUNT 233 K/MM3 (134-434); RBC 3.81 M/mm3 (3.60-5.2); RDW 19.7 % (11.6-15.6); WHITE BLOOD COUNT 9.1 K/mm3 (4.0-10.0)
[2019-04-09 12:58] LABS: INR 0.87 (0.83-1.09); PROTHROMBIN TIME (PATIENT) 10.2 SEC (9.7-13.0)
[2019-04-09 13:01] LABS: ACTIVATED PTT 27.4 SECONDS (25.2-36.5)
[2019-04-09 13:08] LABS: BLOOD UREA NITROGEN 7.1 mg/dL (7-18); CALCIUM 8.6 mg/dL (8.5-10.1); CREATININE 0.5 mg/dL (0.55-1.3); POTASSIUM 3.8 mmol/L (3.5-5.1)
--- NOTE | 2019-04-09 13:24 | HP ---
Past Medical History - Admission Chief Complaint: IOL History of Present Illness: 28yo @ 39+wks here for IOL [facility] @ [address] Preg c/b: h/o ectopic x 1 (salpingectomy), ALL History Source: Patient Limitations to Obtaining History: No Limitations - Past Medical History Reproductive: Yes: Ectopic ...: 3 ...Para: 1 ...Term: 1 ... Weeks Gestation by Dates: 39.5 ...EDC by Dates: 04/11/19 Heme/Onc: Yes: Anemia, Other (Lymphoma) - Past Surgical History Hx Myomectomy: No Hx Transabdominal Cerclage: No Additional Surgical History: Salpingectomy-ectopic - Smoking History Smoking history: Never smoked Have you smoked in the past 12 months: No Aproximately how many cigarettes per day: 0 - Alcohol/Substance Use Hx Alcohol Use: No History of Substance Use: reports: None - Social History Usual Living Arrangement: Yes: With Significant Other Do you think of yourself as: Straight/Heterosexual ADL: Independent History of Recent Travel: No Home Medications - Allergies Allergies/Adverse Reactions: Allergies Allergy/AdvReac Type Severity Reaction Status Date / Time rituximab Allergy Severe Difficulty Verified 03/17/19 10:54 Breathing - Home Medications Home Medications: Ambulatory Orders Vit No.129/Iron/Folic [ One Daily Tablet] 1 each PO DAILY 01/25 Ferrous Sulfate [Iron] 1 tab PO DAILY 02/25/19 Magnesium Amino Acid Chelate [Magnesium] 1 tab PO DAILY 02/25/19 Physical Exam - Maternity - Abdominal Exam/OB Number of Fetuses: Single Presentation: Vertex Contractions: Yes Regularity: Irregular Intensity: Unaware Monitor Mode: External Heart Rate Location: [facility] Category: I Accelerations: Non-Uniform Decelerations: None - Vaginal Exam/OB Vaginal Bleediing: No Speculum Exam: No Dilatation (cm): 3 Effacement (%): 50 Amniotic Membrane Status: Intact Presentation: Vertex/Position Station: -3 - Labs Lab Results: CBC, BMP 04/09/19 12:23 04/09/19 12:23 Imaging - Results Ultrasound: Report Reviewed Assessment/Plan 28yo @ 39+wks here for IOL Admit to L&D Cat I tracing Pitocin induction, AROM Epidural prn Anticpate
[2019-04-09 13:50] VITALS: BMI 25.0
[2019-04-09] MEDS: ELECTROLYTE-148 SOLN 1,000 ML IV SCH (13:55)
[2019-04-09] MEDS ORDERED: OXYTOCIN 30 UNITS in 0.9% NS 30 UNIT/500 ML INFUS.BAG IVPB ONE (13:55)
[2019-04-09 13:59] LABS: ANISOCYTOSIS 2+; MACROCYTOSIS 1+; PLATELET ESTIMATE NORMAL
[2019-04-09] MEDS: OXYTOCIN 30 UNITS in 0.9% NS 30 UNIT/500 ML INFUS.BAG IVPB SCH (14:00)
--- NOTE | 2019-04-09 14:57 | PN ---
Progress Note, Labor Vaginal Exam #1 Labor Exam Date: 04/09/19 Labor Exam Time: 14:56 Heart Rate (range): Cat I Dilatation: 3 Effacement (%): 50 Amniotic Membrane Status: Ruptured Presentation: Vertex/Position Station: -3 Remarks: AROM, clears Cont pitocin
[2019-04-09] MEDS ORDERED: NALOXONE HCL 0.4 MG/ML VIAL IVPUSH PRN (15:57)
[2019-04-09] MEDS ORDERED: BUPIVACAINE HCL/PF 0.5% (5 MG/ML) 30 ML VIAL IJ ONE (15:59)
[2019-04-09] MEDS ORDERED: FENTANYL/BUPIVACAINE/NS/PF - PCEA - 50 ML DISP.SYRIN EP SCH (16:00)
[2019-04-09] MEDS ORDERED: FENTANYL/BUPIVACAINE/NS/PF - PCEA - 50 ML DISP.SYRIN EP ONE ×3 (16:00→23:56)
[2019-04-09 17:00] LABS: ALBUMIN 2.9 g/dl (3.4-5.0); BILIRUBIN,TOTAL 0.3 mg/dL (0.2-1); TOT PROT 5.8 g/dl (6.4-8.2); URIC ACID 4.7 mg/dL (2.6-7.2)
--- NOTE | 2019-04-09 17:06 | PN ---
Progress Note, Labor Vaginal Exam #2 Labor Exam Date: 04/09/19 Labor Exam Time: 17:03 Heart Rate (range): Cat II Dilatation: 4 Effacement (%): 50 Amniotic Membrane Status: Ruptured Presentation: Vertex/Position Station: -3 Remarks: Elevated pressures prior to epidural to 150's/90's. Now comfortable after epidural, BP's 140/90's. PIH labs ordered. Cr normal. LFTs neg. Other labs still pending. Some BPs anxiety driven. One decel x 60sec to 100bpm with recovery to baseline and good variability throughout Repositioned, oxygen applied; cont to monitor
[2019-04-09 17:41] LABS: EPI CELLS 2.2 /HPF (0-5/HPF); HYALINE CASTS 4 /lpf (0-8); PH,URINE 6.5 (5.0-8.0); URINE APPEARANCE CLEAR; URINE BACTERIA 3.8 /hpf (NEGATIVE); URINE BILIRUBIN NEGATIVE (NEGATIVE); URINE COLOR YELLOW; URINE GLUCOSE (UA) NEGATIVE (NEGATIVE); URINE KETONE NEGATIVE (NEGATIVE); URINE LEUK ESTERASE NEGATIVE (NEGATIVE); URINE NITRITE NEGATIVE (NEGATIVE); URINE PROTEIN NEGATIVE (NEGATIVE); URINE RBC 8 /hpf (0-4); URINE WBC 1 /hpf (0-5)
--- NOTE | 2019-04-09 19:31 | PN ---
Progress Note, Labor Vaginal Exam #3 Labor Exam Date: 04/09/19 Labor Exam Time: 19:30 Heart Rate (range): Cat I Dilatation: 4 Effacement (%): 70 Amniotic Membrane Status: Ruptured Presentation: Vertex/Position Station: -2 Remarks: IUPC placed Increase pitocin to adequacy Anticipate
--- NOTE | 2019-04-09 21:37 | PN ---
Progress Note, Labor Vaginal Exam #4 Labor Exam Date: 04/09/19 Labor Exam Time: 21:36 Heart Rate (range): Cat I Dilatation: 5-6 Effacement (%): 100 Amniotic Membrane Status: Ruptured Presentation: Vertex/Position Station: -2 Remarks: Pt uncomfortable Will call anesthesia to re-evaluate epidural Cont pitocin
[2019-04-09] MEDS ORDERED: LIDO 2%/EPI 1:200000 PRESRVFRE (20 ML SDVIAL) ONE (21:42)
[2019-04-10] MEDS ORDERED: ACETAMINOPHEN 500 MG TABLET (FP) ONE (00:15)
[2019-04-10] MEDS ORDERED: ACETAMINOPHEN 500 MG TABLET (FP) PO ONE (01:15)
--- NOTE | 2019-04-10 01:32 | PN ---
Progress Note, Labor Vaginal Exam #5 Labor Exam Date: 04/10/19 Labor Exam Time: 01:31 Heart Rate (range): Cat II Dilatation: 10 Effacement (%): 100 Amniotic Membrane Status: Ruptured Presentation: Vertex/Position Remarks: tachycardia, maternal temp Will start pushing Plan for antibiotics post delivery
[2019-04-10] MEDS ORDERED: LIDOCAINE HCL 1% PRESERVATIVE FREE - 30ML VIAL ONE (01:36)
[2019-04-10] MEDS ORDERED: OXYTOCIN 20 UNITS in 0.9% NS 20 UNIT/1,000 ML INFUS.BAG IV ONE ×3 (01:36→14:25)
[2019-04-10] MEDS: OXYTOCIN 20 UNITS in 0.9% NS 20 UNIT/1,000 ML INFUS.BAG IV SCH ×2 (02:00→14:22)
[2019-04-10] MEDS ORDERED: AMPICILLIN NA/SULBACTAM NA 3 GM in SODIUM CHLORIDE 100 ML IVPB ONE (02:06)
--- NOTE | 2019-04-10 02:06 | PN ---
Delivery - Delivery Vaginal Delivery: Spontaneous Type of Anesthesia: Epidural Episiotomy/Laceration: None EBL (cc): 250 Delivery, Single - Stages of Labor Placenta: Yes: Spontaneous - Condition of Surgical Services Asst/Electrical Tests Supervisor Present: No Infant Gender: Male Position: Right, OA - 1 Minute Total Score: 9 5 Minutes Total Score: 9 - [place] Feeding Plan Initial Plan: Elected not to breastfeed exclusively throughout hospitalization Remarks - Remarks Remarks: of VMI from LOCO position over intact perineum. Epidural anesthesia. 39 week . Terminal meconium. Nuchal x 2, one loose body cord. Reduced at delivery. Spontaneous delivery of anterior shoulder and body. Placed on mother' s abdomen. Weight pending. Apgars 9/9. Spontaneous delivery of intact placenta with 3VC. Fundus firm. Perineum inspected, no lacerations. Maternal temp and tachycardia, will give IV antibiotics for chorioamnionitis. EBL 250ml. Mother and baby doing well. Althea Chilel MD
[2019-04-10] MEDS ORDERED: BENZOCAINE 20% 57 GM BOTTLE TP PRN (02:07)
[2019-04-10] MEDS ORDERED: IBUPROFEN 600 MG TABLET (FP) PO PRN (02:07)
[2019-04-10] MEDS ORDERED: BENZOCAINE 28 GM HEMORRHOIDAL OINTMENT TP PRN (02:07)
[2019-04-10] MEDS ORDERED: WITCH HAZEL 50% (TUCKS) 40 PAD/JAR PAD TP PRN (02:07)
[2019-04-10] MEDS ORDERED: BISACODYL 10 MG SUPP.RECT RC PRN (02:07)
[2019-04-10] MEDS ORDERED: METHYLERGONOVINE MALEATE 0.2 MG/1 ML AMP IM PRN (02:07)
--- NOTE | 2019-04-10 03:34 | RAPID ---
Physical Examination Vital Signs: Vital Signs Temperature 101.5 F H 04/10/19 01:00 Pulse Rate 109 H 04/10/19 01:45 Respiratory Rate 18 04/10/19 01:45 Blood Pressure 150/90 04/10/19 01:45 O2 Sat by Pulse Oximetry (%) 95 04/10/19 01:45 Labs: CBC, BMP 04/09/19 12:23 04/09/19 12:23 Rapid Response - Rapid Response Assessment: Rapid response called overhead at 3:27 . team responded immediately Pt is s/p delivery approx 1 hour ago.pt reports she felt a gush of blood vaginally and then suddenly felt dizzy and fainted. Vitals on arrival : 126/74, pulse 74, 100% Dr. Chilel arrived shortly after our arrival, promptly dismissed our team and took over the case. 1000mg misoprostol admistered.
--- NOTE | 2019-04-10 03:42 | PN ---
Progress Note (short form) - Note Progress Note: Called to room by RN, patient reported bleeding, feeling weak and passed out. EBL during delivery 250, with subsequent ~ 600 of blood loss in the 2 hours thereafter. Rapid Response called. BP 120's/70's, HR 140's. Temp 101.2 Arrived to room, patient alert, pale. Fundus firm, but gush of blood with fundal massage. Cytotec 1000mcg HI placed Stat CBC ordered Bleeding slowed down Will cont to monitor closely Transfuse prn, pending labs. Receiving Unasyn for marlao Yoan Chilel MD
[2019-04-10] MEDS ORDERED: CARBOPROST TROMETHAMINE 250 MCG/ML AMPUL IM ONE (03:43)
[2019-04-10 03:54] LABS: BASO % 0.8 % (0-2.0); HEMATOCRIT 25.3 % (32.4-45.2); HEMOGLOBIN 7.7 GM/dL (10.7-15.3); LYMPH % 4.2 % (8-40); MCH 23.6 pg (25.7-33.7); MCHC 30.4 g/dl (32.0-36.0); MEAN CELL VOLUME 77.8 fl (80-96); MEAN PLT VOLUME 9.4 fl (7.5-11.1); MONO % 11.6 % (3.8-10.2); NEUT % 83.4 % (42.8-82.8); PLATELET COUNT 210 K/MM3 (134-434); RBC 3.25 M/mm3 (3.60-5.2); RDW 19.5 % (11.6-15.6); WHITE BLOOD COUNT 28.3 K/mm3 (4.0-10.0)
[2019-04-10] MEDS ORDERED: MISOPROSTOL 200 MCG TABLET PV ONE (04:15)
[2019-04-10 07:00] LABS: ANISOCYTOSIS 2+; MACROCYTOSIS 0; PLATELET ESTIMATE NORMAL
[2019-04-10] MEDS: ACETAMINOPHEN 325 MG TABLET (FP) PO PRN (07:35)
--- NOTE | 2019-04-10 08:19 | PN ---
Post Progress Note - Subjective Subjective: Patient feels better this morning. Bleeding decreased, now scant. No dizziness. No fevers/chills. Type of Delivery: Vital Signs: Vital Signs Temperature 98.6 F 04/10/19 06:00 Pulse Rate 102 H 04/10/19 07:00 Respiratory Rate 17 04/10/19 07:00 Blood Pressure 133/94 04/10/19 07:00 O2 Sat by Pulse Oximetry (%) 98 04/10/19 05:37 Uterus: Yes: Fundus @ umbilicus Abdomen/GI: Yes: Abdomen soft Lochia: Yes: Rubra Lochia, amount: Small Extremities: Yes: Calves non-tender Perineum: Yes: Intact - Labs Labs: CBC WBC 28.3 K/mm3 (4.0-10.0) H 04/10/19 03:40 RBC 3.25 M/mm3 (3.60-5.2) L 04/10/19 03:40 Hgb 7.7 GM/dL (10.7-15.3) L 04/10/19 03:40 Hct 25.3 % (32.4-45.2) L 04/10/19 03:40 MCV 77.8 fl (80-96) L 04/10/19 03:40 MCH 23.6 pg (25.7-33.7) L 04/10/19 03:40 MCHC 30.4 g/dl (32.0-36.0) L 04/10/19 03:40 RDW 19.5 % (11.6-15.6) H 04/10/19 03:40 Plt Count 210 K/MM3 (134-434) 04/10/19 03:40 MPV 9.4 fl (7.5-11.1) 04/10/19 03:40 Absolute Neuts (auto) 23.6 K/mm3 (1.5-8.0) H 04/10/19 03:40 Neutrophils % 83.4 % (42.8-82.8) H 04/10/19 03:40 Neutrophils % (Manual) 75.2 % (42.8-82.8) 04/10/19 03:40 Band Neutrophils % 10.9 % 04/10/19 03:40 Lymphocytes % 4.2 % (8-40) L D 04/10/19 03:40 Lymphocytes % (Manual) 3.0 % (8-40) L D 04/10/19 03:40 Monocytes % 11.6 % (3.8-10.2) H 04/10/19 03:40 Monocytes % (Manual) 2 % (3.8-10.2) L 04/10/19 03:40 Eosinophils % 0.0 % (0-4.5) D 04/10/19 03:40 Eosinophils % (Manual) 0.0 % (0-4.5) 04/10/19 03:40 Basophils % 0.8 % (0-2.0) 04/10/19 03:40 Basophils % (Manual) 0.0 % (0-2.0) 04/10/19 03:40 Myelocytes % (Man) 9 % (0-2) H D 04/10/19 03:40 Promyelocytes % (Man) 0 % (0-2) 04/10/19 03:40 Blast Cells % (Manual) 0 % (0-0) 04/10/19 03:40 Nucleated RBC % 1 % (0-0) H 04/10/19 03:40 Metamyelocytes 0 % (0-2) D 04/10/19 03:40 Hypochromia 0 04/10/19 03:40 Platelet Estimate Normal 04/10/19 03:40 Polychromasia 1+ 04/10/19 03:40 Poikilocytosis 1+ 04/10/19 03:40 Basophilic Stippling 1+ 04/09/19 12:23 Anisocytosis 2+ 04/10/19 03:40 Microcytosis 2+ 04/10/19 03:40 Macrocytosis 0 04/10/19 03:40 Assessment/Plan 28yo s/p , PPD#0 c/b PPH -Bleeding improved -s/p 1U PRBC -AM CBC ordered this morning; 3:40 CBC 12/15- acceptable -s/p Unasyn x 1, afebrile now. Will cont to monitor -Vitals improved -D/C savannah D/C epidural -Monitor closely Yoan Chilel MD
[2019-04-10 09:19] LABS: BASO % 0.4 % (0-2.0); LYMPH % 4.3 % (8-40); MCH 24.3 pg (25.7-33.7); MEAN CELL VOLUME 78.5 fl (80-96); MEAN PLT VOLUME 9.6 fl (7.5-11.1); MONO % 7.3 % (3.8-10.2); PLATELET COUNT 221 K/MM3 (134-434); RBC 3.69 M/mm3 (3.60-5.2); RDW 18.8 % (11.6-15.6)
[2019-04-10 09:22] LABS: WHITE BLOOD COUNT 38.2 K/mm3 (4.0-10.0)
[2019-04-10] MEDS: FERROUS SO4 325 MG TABLET (FP) PO SCH ×3 (09:35→17:50)
[2019-04-10] MEDS: PRENATAL VITAMINS W/ FOLIC ACID TABLET (FP) PO SCH (09:35)
[2019-04-10 11:18] LABS: ANISOCYTOSIS 1+; MACROCYTOSIS 1+; PLATELET ESTIMATE NORMAL
[2019-04-10] MEDS: OXYTOCIN 30 UNITS in 0.9% NS 30 UNIT/500 ML INFUS.BAG IVPB SCH (13:57)
[2019-04-10] MEDS: ELECTROLYTE-148 SOLN 1,000 ML IV SCH (13:58)
--- NOTE | 2019-04-11 08:03 | PN ---
Progress Note (short form) - Note Progress Note: ppd 1 . s/p with PPH , afebrile leukocytosis no dizziness , no excess vaginal bleeding, voids ok CBC, BMP 04/10/19 09:08 04/09/19 12:23 Last Vital Signs Temp Pulse Resp BP Pulse Ox 97.8 F 83 18 101/57 L 98 04/11/19 05:58 04/11/19 05:58 04/11/19 05:58 04/11/19 05:58 04/10/19 05:37 abdomen soft, non tender , uterus firm, non tender lochia mild , no clots no calf tenderness plan ambulate cbc , iron, vit revaluate
[2019-04-11] MEDS: PRENATAL VITAMINS W/ FOLIC ACID TABLET (FP) PO SCH (09:02)
[2019-04-11] MEDS: FERROUS SO4 325 MG TABLET (FP) PO SCH ×3 (09:02→17:50)
[2019-04-11 09:12] LABS: BASO % 0.2 % (0-2.0); EOS % 0.4 % (0-4.5); LYMPH % 9.2 % (8-40); MCH 24.8 pg (25.7-33.7); MCHC 31.9 g/dl (32.0-36.0); MEAN CELL VOLUME 77.8 fl (80-96); MONO % 5.3 % (3.8-10.2); NEUT % 84.9 % (42.8-82.8); PLATELET COUNT 188 K/MM3 (134-434); RDW 19.1 % (11.6-15.6); WHITE BLOOD COUNT 23.7 K/mm3 (4.0-10.0)
[2019-04-11 09:23] LABS: HEMOGLOBIN 6.7 GM/dL (10.7-15.3)
[2019-04-11 10:34] LABS: ANISOCYTOSIS 2+; PLATELET ESTIMATE NORMAL
[2019-04-11] MEDS: ACETAMINOPHEN 325 MG TABLET (FP) PO PRN (14:05)
[2019-04-11] MEDS ORDERED: SENNOSIDES/DOCUSATE COMBO (SENNA PLUS) TABLET (UD) PO PRN (22:00)
[2019-04-12] MEDS: ACETAMINOPHEN 325 MG TABLET (FP) PO PRN (01:39)
[2019-04-12] MEDS: FERROUS SO4 325 MG TABLET (FP) PO SCH ×2 (09:24→12:07)
[2019-04-12] MEDS: PRENATAL VITAMINS W/ FOLIC ACID TABLET (FP) PO SCH (09:24)
[2019-04-12 09:34] LABS: BASO % 0.3 % (0-2.0); EOS % 0.5 % (0-4.5); HEMATOCRIT 28.7 % (32.4-45.2); HEMOGLOBIN 9.1 GM/dL (10.7-15.3); LYMPH % 10.3 % (8-40); MCH 25.7 pg (25.7-33.7); MCHC 31.9 g/dl (32.0-36.0); MEAN CELL VOLUME 80.8 fl (80-96); MONO % 7.6 % (3.8-10.2); NEUT % 81.3 % (42.8-82.8); PLATELET COUNT 237 K/MM3 (134-434); RBC 3.56 M/mm3 (3.60-5.2); RDW 19.6 % (11.6-15.6); WHITE BLOOD COUNT 21.2 K/mm3 (4.0-10.0)
[2019-04-12 12:20] LABS: ANISOCYTOSIS 2+; MACROCYTOSIS 0; PLATELET ESTIMATE NORMAL
--- NOTE | 2019-04-12 12:28 | DS ---
Physical Examination Vital Signs: Vital Signs Temperature 98.0 F 04/12/19 00:30 Pulse Rate 86 04/12/19 00:30 Respiratory Rate 20 04/12/19 00:30 Blood Pressure 139/85 04/12/19 00:30 O2 Sat by Pulse Oximetry (%) 98 04/10/19 05:37 Findings/Remarks: Ambulating, tolerating PO, lochia decreased, voiding, desiring to go home Constitutional: Yes: Well Nourished Eyes: Yes: WNL HENT: Yes: Atraumatic Neck: Yes: Supple Cardiovascular: Yes: Regular Rate and Rhythm Respiratory: Yes: Regular Gastrointestinal: Yes: Normal Bowel Sounds ...Rectal Exam: Yes: Deferred Renal/: Yes: WNL Breast(s): Yes: WNL Musculoskeletal: Yes: WNL Extremities: Yes: WNL Edema: Yes Edema: LLE: Trace, RLE: Trace Integumentary: Yes: WNL Neurological: Yes: Alert, Oriented Psychiatric: Yes: Alert, Oriented Labs: CBC, BMP 04/12/19 08:45 04/09/19 12:23 Discharge Summary Problems reviewed: Yes Reason For Visit: INDUCTION OF LABOR CHorioamnionitis PPH Procedures: Principal: VD Hospital Course: Vaginal delivery complicated by PPH, requiring 2 PRBC. Delivery complicated by chorioamninitis. H/H is stable, S/P IV abx. Patient is instable condition, afebrile, and asymptomatic. Patient desires to go home and infant;s circumcision. Short follow up recommended Plan of Treatment: FOllow up within a week at health center Condition: Stable - Instructions Diet, Activity, Other Instructions: Regular Diet Follow up in 5-[address] Chilel to evaluate your blood pressure Referrals: Althea Chilel MD [Staff Physician] - 1 Week Disposition: HOME - Home Medications Comprehensive Discharge Medication List: Ambulatory Orders Vit No.129/Iron/Folic [ One Daily Tablet] 1 each PO DAILY 01/25 Ferrous Sulfate [Iron] 1 tab PO DAILY 02/25/19 Magnesium Amino Acid Chelate [Magnesium] 1 tab PO DAILY 02/25/19 Ibuprofen 600 mg PO Q6H PRN #30 tablet 04/10/19 Ferrous Sulfate [Feosol] 325 mg PO BID #14 tablet 04/12/19
[2019-04-12 14:47] VITALS: BP 138/84; PULSE 84; TEMP 98.1
== END 2019-04-12 17:02 | disposition home or self-care (01) | DRG 560 ==
LOC: JLDR 11:58 → J3W 04-10 14:46
PROVIDERS: ADMIT Obstetrics & Gynecology; ATTEND Obstetrics & Gynecology
PROC: 10E0XZZ Delivery of Products of Conception, External Approach (ICD-10-PCS; principal; 2019-04-10)
PROC: 30233N1 Transfusion of Nonautologous Red Blood Cells into Peripheral Vein, Percutaneous Approach (ICD-10-PCS; 2019-04-10)
DX: O69.81X0 Labor and delivery complicated by cord around neck, without compression, not applicable or unspecified (principal); O41.1230 Chorioamnionitis, third trimester, not applicable or unspecified; O72.1 Other immediate postpartum hemorrhage; Z3A.39 39 weeks gestation of pregnancy; Z37.0 Single live birth
CPT/HCPCS: 36415; 36430; 36511; 59409; 80048; 80053; 81003; 83615; 84550; 85025; 85610; 85730; 86593; 86850; 86900; 86901; 86922; 87040; P9038; P9058

== ENCOUNTER 2019-06-16 06:00 | Day surgery (SDC) | payer OTHER ==
[2019-06-13 14:39] VITALS: BMI 21.2
[2019-06-16] MEDS ORDERED: ROCURONIUM BROMIDE 50 MG/5 ML SYRINGE ONE (07:27)
[2019-06-16] MEDS ORDERED: fentaNYL CITRATE 250 MCG/5 ML VIAL ONE (07:27)
[2019-06-16] MEDS ORDERED: MIDAZOLAM HCL 2 MG/2 ML SINGLE DOSE VIAL ONE (07:27)
[2019-06-16] MEDS ORDERED: PROPOFOL 20 ML ONE ×2 (07:27)
[2019-06-16] MEDS ORDERED: BUPIVACAINE HCL/PF 0.25% (2.5MG/ML) 10 ML VIAL ONE (07:38)
--- NOTE | 2019-06-16 08:22 | HP ---
Past Medical History - Admission History of Present Illness: 29yo here for sterilization History of 2 NSVDs 1 Ectopic , previously treated with R salpingectomy Declined LARCs, adamant she wants to proceed with Sterilization given her medical history History Source: Patient Limitations to Obtaining History: No Limitations - Past Medical History Cardiovascular: No: AFIB, Aneurysm, Aortic Insufficiency, Aortic Stenosis, CAD, CHF, Deep Vein Thrombosis, HTN, Hyperlipdemia, MD, Mitral Insufficiency, Mitral Stenosis, Murmur, Pulmonary Hypertension, Other Pulmonary: No: Asthma, Bronchitis, Cancer, COPD, O2 Dependent, Pneumonia, Previously Intubated, Pulmonary Embolus, Pulmonary Fibrosis, Sleep Apnea, Other Gastrointestinal: No: Ascites, Cancer, Constipation, Crohn's Disease, Diverticulitis, Diverticulosis, Esophageal Varices, Gastritis, GERD, GI Bleed, Hemorrhoids, Hiatal Hernia, Inflamatory Bowel Disease, Irritable Bowel Disease, Pancreatitis, Peptic Ulcer Disease, Ulcerative Colitis, Other Hepatobiliary: No: Cirrhosis, Cholelithiasis, Cholecystitis, Choledocholithiasis , Hepatitis A, Hepatitis B, Hepatitis C, Other Renal/: No: Renal Failure, Renal Inusuff, BPH, Cancer, Hematuria, Hemodialysis , Neurogenic Bladder, Renal Calculi, UTI, Other Reproductive: Yes: Ectopic ...: 3 ...Para: 2 ...Term: 2 Additional OB History: June 2018, R Ectopic with Salpingectomy Heme/Onc: Yes: Anemia, Other (Lymphoma) Infectious Disease: No: AIDS, C-Diff, Herpes Zoster, HIV, MRSA, STD's, Tuberculosis, VREF, Other Psych: No: Addictions, Anxiety, Bipolar, Depression, Panic, Psychosis, Schizophrenia, Other Musculoskeletal: No: Bursitis, Chronic low back pain, Hemiparesis, Hemiplegia, Osteoarthritis, Paraplegia, Other Rheumatology: No: Fibromyalgia, Gout, Lupus, Rheumatoid Arthritis, Sarcoidosis, Vasculitis, Other - Past Surgical History Hx Myomectomy: No Hx Transabdominal Cerclage: No Additional Surgical History: R salpingectomy - Smoking History Smoking history: Never smoked Have you smoked in the past 12 months: No Aproximately how many cigarettes per day: 0 - Alcohol/Substance Use Hx Alcohol Use: Yes History of Substance Use: reports: None - Social History Usual Living Arrangement: Yes: With Significant Other ADL: Independent History of Recent Travel: No Home Medications - Allergies Allergies/Adverse Reactions: Allergies Allergy/AdvReac Type Severity Reaction Status Date / Time rituximab Allergy Severe Difficulty Verified 06/16/19 06:57 Breathing - Home Medications Home Medications: Ambulatory Orders Vit No.129/Iron/Folic [ One Daily Tablet] 1 each PO DAILY 01/25 Magnesium Amino Acid Chelate [Magnesium] 1 tab PO DAILY 02/25/19 Ferrous Sulfate [Feosol] 325 mg PO BID #14 tablet 04/12/19 Albuterol Sulfate Inhaler - [Ventolin Hfa Inhaler -] 1 - 2 inh PO Q6H PRN Ibuprofen 600 mg PO Q6H PRN #30 tablet 06/16/19 Family Medical History Family History: Denies Review of Systems - Review of Systems Constitutional: denies: No Symptoms, Chills, Diaphoresis, Fever, Lethargy, Loss of Appetite, Malaise, Night Sweats, Unintentional Wgt. Loss, Weakness, Other Cardiovascular: denies: No Symptoms, Chest Pain, Edema, Palpitations, Shortness of Breath, Other Respiratory: denies: No Symptoms, Cough, Exercise Intolerance, Hemoptysis, Orthopnea, PND, Snoring, SOB, SOB on Exertion, Wheezing, Other Gastrointestinal: denies: No Symptoms, Abdominal Pain, Bloating, Constipation, Diarrhea, Dysphagia, Indigestion, Melena, Nausea, Rectal Bleeding, Vomiting, Vomiting Blood, Other Physical Exam - Maternity Vital Signs: Vital Signs Temperature 97.9 F 06/16/19 06:43 Pulse Rate 72 06/16/19 06:43 Respiratory Rate 18 06/16/19 06:43 Blood Pressure 123/69 06/16/19 06:43 O2 Sat by Pulse Oximetry (%) 99 06/16/19 06:47 Constitutional: Yes: Well Nourished, No Distress, Calm Eyes: Yes: WNL, Conjunctiva Clear, EOM Intact HENT: Yes: WNL, Atraumatic, Normocephalic Neck: Yes: WNL, Supple, Trachea Midline Cardiovascular: Yes: WNL, Regular Rate and Rhythm Breast(s): Yes: WNL Problem List - Problems (1) Sterilization Code(s): Z30.2 - ENCOUNTER FOR STERILIZATION Assessment/Plan 29yo here for sterilization NPO, IVFs SCDs Faustin Risks and alternatives reviewed- including bleeding, infection and injury to surrounding organs (uterus, ovaries, nerves, arteries/vessels); risk of permanence and regret reviewed. Declined LARCs, All consents signed Proceed with LSC salpingectomy Yoan Chilel MD
[2019-06-16] MEDS ORDERED: BUPIVACAINE HCL/PF 0.25% (2.5MG/ML) 10 ML VIAL IJ ONE (08:52)
[2019-06-16] MEDS ORDERED: NEOSTIGMINE METHYLSULFATE 0.5 MG/ML - 10 ML MDV ONE ×2 (09:16→09:18)
--- NOTE | 2019-06-16 09:47 | OP ---
Operative Note - Note: Operative Date: 06/16/19 Pre-Operative Diagnosis: Desires Permanent Sterilization Operation: Laparoscopic Left Salpingectomy and Partial Right Salpingectomy, Lysis of Adhesions, Aspiration of Left Ovarian Cyst Findings: Normal Uterus, Normal left tube, 3-4 centimeter simple appearing Left ovarian cyst, Right tubal stump at cornua noted, filmy R adhesions from right round ligament to Right pelvic side wall, normal right ovary Post-Operative Diagnosis: Same as Pre-op Surgeon: Althea Chilel Medical Care Manager: Nick Harkins Anesthesia: General Specimens Removed: Left fallopian tube, Right fallopian tube stump, Estimated Blood Loss (mls): 10 Drains, Volume Out (mls): 400 (clear urine) Fluid Volume Replaced (mls): 1,200 Operative Report Dictated: Yes
[2019-06-16] MEDS ORDERED: oxyCODONE HCL 5 MG TABLET PO PRN ×2 (10:06)
[2019-06-16] MEDS ORDERED: ONDANSETRON 4 MG/2 ML VIAL IVPUSH PRN (10:06)
[2019-06-16] MEDS ORDERED: LACTATED RINGERS SOLUTION 1,000 ML IV SCH (10:15)
[2019-06-16] MEDS ORDERED: ONDANSETRON 4 MG/2 ML VIAL ONE (10:46)
[2019-06-16 11:30] VITALS: TEMP 98.1
--- NOTE | 2019-06-16 13:35 | OP ---
DATE OF OPERATION: 06/16/2019 PREOPERATIVE DIAGNOSIS: Desires permanent sterilization. PROCEDURE: Laparoscopic bilateral salpingectomy, and partial right salpingectomy, lysis of adhesions, and aspiration of left ovarian cyst. ANESTHESIA: General. SURGEON: Althea Chilel MD [employer]: DAVID Flynn INTRAVENOUS FLUIDS: 1200. ESTIMATED BLOOD LOSS: 10. URINE OUTPUT: 400 mL of clear urine at the end of the procedure. FINDINGS: Normal uterus, normal left fallopian tube, and a 3- to 4-cm simple-appearing left ovarian cyst. A right tubal stump at the cornua noted. Normal right ovary. Filmy adhesion from the right round ligament to the patient's pelvic sidewall. COMPLICATIONS: None. CONDITION: Stable to recovery room. DESCRIPTION OF PROCEDURE: After the appropriate consents were signed, the patient was taken to the operating room. General anesthesia was administered. She was placed in lithotomy position. A sterile Faustin catheter was inserted. The abdomen was prepped and draped in a normal sterile fashion. Time-out was performed confirming correct patient and procedure. Using 0.25% Marcaine, the umbilicus was injected, and a 5-mm laparoscope was inserted under direct visualization. Confirmation of placement. The abdomen was insufflated with gas. The patient was placed in Trendelenburg position. A right lower quadrant port was inserted under direct visualization after the skin had been injected with Marcaine. There was no complication with insertion of the port. Attention was then paid to the left lower quadrant where another 5-mm trocar port was inserted under visualization without difficulty. The bowel a freed from the patient's abdomen. The uterus was elevated and noted to be normal. The patient's left fallopian tube was noted to be normal. The left ovary was notable for a 3- to 4-cm left ovarian simple appearing cyst. Patient's right fallopian tube had been previously removed; however, at the insertion at the cornua, there seemed to be a small stump. The patient's right ovary appeared normal, and there was a filmy adhesion from the patient's right round ligament into the pelvic sidewall. LigaSure device was inserted. The filmy adhesion was taken down with the LigaSure. The patient's right fallopian stump was removed with the LigaSure device without difficulty. The bite sites were noted to be hemostatic. The patient's left fallopian tube was grasped, carried through to the fimbriated edges, and noted to be normal. Using subsequent bites of the LigaSure device, the fallopian tube was ligated along to its insertion point at the uterus. Patient's left fallopian tube was then removed through the right lower quadrant port without difficulty. The bite sites were noted to be hemostatic. Using a grasper, the patient's left ovary was stabilized with the needle aspirator under direct visualization. The cyst was incised with the needle aspirator without difficulty and aspirated for serous fluid. No bleeding was noted. The right lower quadrant and left lower quadrant ports were removed under direct visualization. The umbilical port was removed. The patient was taken out of Trendelenburg position. The Faustin catheter was removed. Her incision sites were all closed with a 4-0 Biosyn. Appropriate bandaged were applied. She was taken from the operating room to the recovery area in stable condition. She did not receive any antibiotics during the procedure. MD CK ESPARZA/[id number]
[2019-06-16 15:18] VITALS: BP 110/70; PULSE 61
--- NOTE | 2019-06-16 17:18 | SURG ---
Surgery Neuroradiologist Note Neuroradiologist: Nick Harkins PA-C Date of Service: 06/16/19 Diagnosis: Desires Permanent Sterilization Procedure: Laparoscopic Left Salpingectomy and Partial Right Salpingectomy, Lysis of Adhesions, Aspiration of Left Ovarian Cyst I was present for the entirety of the operative procedure. For further detail, please refer to operative report. Visit type - Case Type Case Type: Scheduled - Emergency Emergency Visit: No - New patient This patient is new to me today: Yes Date on this admission: 06/16/19 - Critical Care Critical Care patient: No
--- NOTE | 2019-06-18 16:08 | PATH ---
Surgical Pathology Report Patient Name: EVELINA CORONADO Med. Rec. #: [id number] /Age/Gender: 1990 (Age: 29) / F Account: [id number] Location: [facility] SURGICAL Taken: 06/16/2019 Received: 06/16/2019 Reported: 06/18/2019 Physicians: Althea Chilel Specimen(s) Received A: LEFT FALLOPIAN TUBE B: CYST C: PORTION POF RIGHT FALLOPIAN TUBE Clinical History Permanent sterilization Final Diagnosis A. LEFT FALLOPIAN TUBE, SALPINGECTOMY: PORTION OF FALLOPIAN TUBE WITH CHRONIC INFLAMMATION. COMPLETE CROSS SECTION OF FALLOPIAN TUBE LUMEN IDENTIFIED. B. CYST, EXCISION: BENIGN CYST LINED BY TUBAL EPITHELIUM, CONSISTENT WITH PARATUBAL CYST. C. PORTION OF RIGHT TUBE, RESECTION: PORTION OF FALLOPIAN TUBE WITH MILD ACUTE AND CHRONIC INFLAMMATION. COMPLETE CROSS SECTION OF FALLOPIAN TUBE LUMEN IDENTIFIED. Electronically Signed Daniela Jimenez M.D. Gross Description A. Received in formalin labeled "left fallopian tube," is a 5 cm in length fimbriated fallopian tube. The outer surface is newman-madison and smooth. Sectioning reveals an unremarkable lumen. Service Trainer sections are submitted in 2 cassettes as follows: 1-fimbria; 2-cross sections of fallopian tube. B. Received in formalin labeled "cyst," is a 0.7 x 0.6 x 0.3 cm newman-madison portion of soft tissue, possibly consistent with a cyst. The specimen is submitted in toto in one cassette. C. Received in formalin labeled "portion of right tube," is a 1.5 cm in length portion of fallopian tube. No fimbria are present. The outer surface is newman-madison and smooth. Sectioning reveals an unremarkable lumen. Service Trainer sections are submitted in one cassette. DL/06/17/2019 saudi/06/17/2019
== END 2019-06-16 14:15 | disposition home or self-care (01) ==
LOC: JASU-SURG 06:00
PROVIDERS: ATTEND Obstetrics & Gynecology
PROC: 0UJ Female Reproductive System, Inspection (ICD-10-PCS; 2019-06-16)
PROC: 0U574ZZ Destruction of Bilateral Fallopian Tubes, Percutaneous Endoscopic Approach (ICD-10-PCS; principal; 2019-06-16 08:00)
DX: Z30.2 Encounter for sterilization (principal); N83.201 Unspecified ovarian cyst, right side
CPT/HCPCS: 88302-TC; 88304-TC; 94760

== ENCOUNTER 2019-06-27 16:08 | Emergency (ER) | payer OTHER ==
[2019-06-27 16:24] VITALS: BMI 20.3
--- NOTE | 2019-06-27 16:29 | PDOC ---
Rapid Medical Evaluation Chief Complaint: Pain Time Seen by Provider: 06/27/19 16:24 Medical Evaluation: Allergies Allergy/AdvReac Type Severity Reaction Status Date / Time rituximab Allergy Severe Difficulty Verified 06/27/19 16:21 Breathing Vital Signs Temp Pulse Resp BP Pulse Ox 100.8 F H 141 H 17 110/70 99 06/27/19 16:21 06/27/19 16:21 06/27/19 16:21 06/27/19 16:21 06/27/19 16:21 06/27/19 16:25 Pt c/o:low abd pain with nausea and fever, no other complaints Pt on brief exam: febrile and tachy Pt ordered for: urine Pt to proceed to the ED Discharge Disposition - Diagnosis Abdominal pain - Referrals - Patient Instructions - Post Discharge Activity
[2019-06-27 17:13] LABS: HCG,QUALITATIVE URINE Negative
[2019-06-27] MEDS ORDERED: SODIUM CHLORIDE 1,000 ML IV STA ×2 (17:19→21:04)
[2019-06-27] MEDS ORDERED: ONDANSETRON 4 MG/2 ML VIAL IVPUSH ONE (17:19)
[2019-06-27] MEDS ORDERED: ONDANSETRON 4 MG/2 ML VIAL ONE (17:24)
[2019-06-27 18:08] VITALS: TEMP 100
--- NOTE | 2019-06-27 18:08 | PDOC ---
History of Present Illness - General History Source: Patient, Old Records Exam Limitations: No Limitations - History of Present Illness Travel History: No Initial Comments: 06/27/19 18:01 HISTORY OF PRESENT ILLNESS: 29-year-old woman past medical history of B-cell lymphoma (currently in remission; monthly appointments with oncology), status post vaginal delivery 2 months ago with subsequent tubal ligation presents emergency department for evaluation of lower abdominal pain, mild dysuria, cough, nausea and vomiting for the past 2 days. Patient is currently breast- feeding. Patient denies any urinary frequency, foul-smelling urine, vaginal discharge, vaginal bleeding, rectal bleeding, diarrhea or constipation. Patient endorses temperature of 102.0 at home for which she took Tylenol and a cold shower and then came to the emergency department for evaluation. She reports intermittent cough which is been present for approximately 3 months for which she has had 2 doses of outpatient antibiotics with minimal relief of the symptoms. She reports the cough has been absent for the past 2 to 3 weeks but returned 2 days ago. She denies any sore throats, blurry vision, chest pain or shortness of breath. Patient had CAT scan on 06/05 which revealed lymphadenopathy in the mesenteric and inguinal lymph nodes. Ultrasound performed yesterday was unremarkable. No recent travel or sick contacts. PAST MEDICAL HISTORY: Denies past medical history SURGICAL HISTORY: Denies ALLERGIES: Rituximab REVIEW OF SYSTEMS General/Constitutional: See HPI HEENT: Denies change in vision. Denies ear pain or discharge. Denies sore thr oat. Cardiovascular: Denies chest pain or shortness of breath. Respiratory: See HPI Gastrointestinal: See HPI Genitourinary: See HPI Musculoskeletal: Denies joint or muscle swelling or pain. Denies neck or back pain. Skin and breasts: Denies rash or easy bruising. Neurologic: Denies headache, vertigo, loss of consciousness, or loss of sensation. Psychiatric: Denies depression or anxiety. Endocrine: Denies increased thirst. Denies abnormal weight change. Hematologic/Lymphatic: Denies anemia, easy bleeding, or history of blood clots. Allergic/Immunologic: Denies hives or skin allergy. Denies latex allergy. PHYSICAL EXAM General Appearance: Well-appearing, appropriately dressed. No apparent distress, no intoxication. HEENT: EOMI, PERRLA, normal ENT inspection, normal voice, TMs normal, pharynx normal. No conjunctival pallor. No photophobia, scleral icterus. Neck: Supple. Trachea midline. No tenderness, rigidity, carotid bruit, stridor, lymphadenopathy, or thyromegaly. Respiratory/Chest: Lungs CTAB. No shortness of breath, chest tenderness, respiratory distress, accessory muscle use. No crackles, rales, rhonchi, stridor, wheezing, dullness. Coarse cough present during exam. Cardiovascular: RRR. S1, S2. No JVD, murmur, bradycardia, tachycardia. Vascular Pulses: Dorsalis-Pedis (R): 2+, Dorsalis-Pedis (L): 2+ Gastrointestinal/Abdominal: Normal bowel sounds. Abdomen soft, non-distended. Diffusely tender without rebound tenderness. Negative psoas, obturator and Rovsing signs. No organomegaly, pulsatile mass, guarding, hernia, hepatomegaly, splenomegaly. Lymphatic: Inguinal lymphadenopathy present. Musculoskeletal/Extremities: Normal inspection. FROM of all extremities, normal capillary refill. Pelvis Stable. No CVA tenderness. No tenderness to extremities, pedal edema, swelling, erythema or deformity. Integumentary: Appropriate color, dry, warm. 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 Fully oriented, alert. Appropriate mood/affect. Motor strength 5/5. No appreciable EOM palsy, facial droop or sensory deficit. <Carlos Winn - Last Filed: 06/28/19 02:22> <Delia Mckeon - Last Filed: 06/28/19 17:27> - General Chief Complaint: Pain Stated Complaint: ABDOMINAL PAIN/ FEVER Time Seen by Provider: 06/27/19 16:24 Past History - Past Medical History Anemia: No Asthma: Yes Cancer: Yes Cardiac Disorders: No CVA: No COPD: No CHF: No Dementia: No Diabetes: No GI Disorders: Yes (irritable bowel) Disorders: No HTN: No Hypercholesterolemia: No Liver Disease: No Seizures: No Thyroid Disease: No - Reproductive History (#): 4 Para: 1 Cervical CA: No Dysfunctional Uterine Bleeding: No Ectopic : Yes Endometrial CA: No Polycystic Ovaries: No Therapeutic (s) & number: No Tubal Ligation: No Spontaneous : 2 - Immunization History Td Vaccination: Yes Immunization Up to Date: Yes - Psycho Social/Smoking Cessation Hx Smoking Status: No Smoking History: Never smoked Years of Tobacco Use: 0 Have you smoked in the past 12 months: No Number of Cigarettes Smoked Daily: 0 Cigars Per Day: 0 Information on smoking cessation initiated: No Hx Alcohol Use: No Drug/Substance Use Hx: No Substance Use Type: None Hx Substance Use Treatment: No <Carlos Winn - Last Filed: 06/28/19 02:22> <Delia Mckeon - Last Filed: 06/28/19 17:27> - Past Medical History Allergies/Adverse Reactions: Allergies Allergy/AdvReac Type Severity Reaction Status Date / Time rituximab Allergy Severe Difficulty Verified 06/27/19 16:21 Breathing Home Medications: Ambulatory Orders Magnesium Amino Acid Chelate [Magnesium] 1 tab PO DAILY 02/25/19 Ferrous Sulfate [Feosol] 325 mg PO BID #14 tablet 04/12/19 Albuterol Sulfate Inhaler - [Ventolin Hfa Inhaler -] 1 - 2 inh PO Q6H PRN 06/13/19 Ibuprofen 600 mg PO PRN PRN 06/27/19 *Physical Exam - Vital Signs Last Vital Signs Temp Pulse Resp BP Pulse Ox 100.8 F H 141 H 17 110/70 99 06/27/19 16:21 06/27/19 16:21 06/27/19 16:21 06/27/19 16:21 06/27/19 16:21 <Carlos Winn - Last Filed: 06/28/19 02:22> - Vital Signs Last Vital Signs Temp Pulse Resp BP Pulse Ox 100.0 F H 105 H 20 111/69 97 06/27/19 18:00 06/27/19 18:00 06/27/19 18:00 06/27/19 18:00 06/27/19 18:00 <Delia Mckeon - Last Filed: 06/28/19 17:27> ED Treatment Course - LABORATORY CBC & Chemistry Diagram: 06/27/19 17:20 06/27/19 17:22 - ADDITIONAL ORDERS Additional order review: Laboratory Results 06/27/19 16:46 Urine HCG, Qual Negative - Medications Given in the ED: ED Medications Discontinued Medications Generic Name Dose Route Start Last Admin Trade Name Freq PRN Reason Stop Dose Admin Ondansetron HCl 4 mg 06/27/19 17:19 06/27/19 17:35 Zofran Injection IVPUSH 06/27/19 17:20 4 mg ONCE ONE Administration <Carlos Winn - Last Filed: 06/28/19 02:22> - LABORATORY CBC & Chemistry Diagram: 06/27/19 17:20 06/27/19 17:22 - ADDITIONAL ORDERS Additional order review: Laboratory Results 06/27/19 06/27/19 17:22 16:46 Sodium 139 Potassium 3.8 Chloride 102 Carbon Dioxide 25 Anion Gap 12 BUN 9.8 Creatinine 0.7 Est GFR (CKD-EPI)AfAm 133.81 Est GFR (CKD-EPI)NonAf 115.45 Random Glucose 85 Calcium 9.6 Total Bilirubin 0.8 AST 14 L ALT 18 Alkaline Phosphatase 80 Total Protein 7.7 Albumin 4.7 Lipase 63 L Urine Color Yellow Urine Appearance Clear Urine pH 5.5 Ur Specific [place] 1.021 Urine Protein Negative Urine Glucose (UA) Negative Urine Ketones 4+ H Urine Blood 2+ H Urine Nitrite Negative Urine Bilirubin Negative Urine Urobilinogen 0.2 Ur Leukocyte Esterase 1+ H Urine WBC (Auto) 7 Urine RBC (Auto) 11 Urine Casts (Auto) 34 U Pathogenic Cast Auto None seen U Epithel Cells (Auto) 15.4 Urine Bacteria (Auto) 17.0 Urine HCG, Qual Negative 06/27/19 17:20 RBC 4.89 MCV 84.8 MCHC 32.3 RDW 16.3 H MPV 9.2 Neutrophils % 86.4 H D Lymphocytes % 7.5 L D Monocytes % 5.8 Eosinophils % 0.1 D Basophils % 0.2 - Medications Given in the ED: ED Medications Discontinued Medications Generic Name Dose Route Start Last Admin Trade Name Long PRN Reason Stop Dose Admin Acetaminophen 1,000 mg 06/27/19 21:04 06/27/19 21:35 Ofirmev Injection - IVPB 06/27/19 21:05 1,000 mg ONCE ONE Administration Sodium Chloride 1,000 mls @ 1,000 mls/hr 06/27/19 17:19 06/27/19 17:35 Normal Saline - IV 06/27/19 18:18 1,000 mls/hr ASDIR STA Administration Sodium Chloride 1,000 mls @ 1,000 mls/hr 06/27/19 21:04 06/27/19 21:35 Normal Saline - IV 06/27/19 22:03 1,000 mls/hr ASDIR STA Administration Ondansetron HCl 4 mg 06/27/19 17:19 06/27/19 17:35 Zofran Injection IVPUSH 06/27/19 17:20 4 mg ONCE ONE Administration <Delia Mckeon - Last Filed: 06/28/19 17:27> Medical Decision Making - Medical Decision Making 06/27/19 18:08 A/P: 29-year-old woman with fever, abdominal pain, nausea, vomiting and dysuria for 2 days Differential diagnosis includes but is not limited to-postoperative infection, UTI, perforation, obstruction, influenza, gastritis, cholecystitis, biliary or renal colic Labs including lipase and influenza Urinalysis, urine culture Normal saline 1 L IV bolus Zofran 4 mg IV Reassess Low threshold to image 06/27/19 19:07 UA mildly suggestive of urinary infection. Does not account for the pain which has not improved. Abdomen is tender in the right side of the abdomen. CT of the abdomen and pelvis with IV contrast Reassess 06/28/19 01:12 CT scan is read by imaging on-call: Positive for acute appendicitis. The appendix is dilated up to 1.4 cm. There is wall enhancement and intraluminal fluid. Probable isodense appendicoliths. Moderate periappendiceal inflammation. Adjacent enlarged lymph nodes. No abscess. No free intraperitoneal [place] air. No bowel obstruction. Will add type and screen to laboratory testing EKG I will contact the hospitalist for admission as patient does not have a primary care physician. 06/28/19 01:55 As there is currently no surgeon reservationist today I will transfer patient to [facility] for continued evaluation. Patient reports increased pain. Morphine 4 mg IV push now N.p.o. Ceftriaxone 1 g IV Metronidazole 500 mg IV now 06/28/19 02:00 Case has been discussed with Dr. Cameron at the [facility]. Dr. Cameron accepts patient for ER to ER transfer. Case has been discussed with Dr. David who is the ER physician and is aware of patient to be transferred to the emergency department. 06/28/19 02:23 Nurse to nurse signout provided by me to EDGARDO Hernandez who was the charge nurse at [facility] ED. <Carlos Winn - Last Filed: 06/28/19 02:22> - Medical Decision Making The patient was seen and evaluated in conjunction with midlevel provider under my direct supervision, ancillary studies were reviewed. I agree with the plan as outlined with [facility]IST[facility] Pa. HPI, workup/dispo as outlined. VS reviewed, +fever, with lower abdominal pain. sono yesterday TVUS neg. labs and lytes wnl CT a/p to eval for intra abdominal pathology given her history. 06/27/19 22:46 06/28/19 01:47 CT positive for acute appy abx, NPO, IVF, pain control IV ceftriaxone/flagyl for empiric coverage. transfer to [facility], as there is no surgery here. 06/28/19 17:27 <Delia Mckeon - Last Filed: 06/28/19 17:27> Discharge - Discharge Information Problems reviewed: Yes - Transfer to Acute Care Facility Receiving Facility [facility]: [facility] (Accepting physician: Dr. Almanzar- surgery) <Carlos Winn - Last Filed: 06/28/19 02:22> - Discharge Information Problems reviewed: Yes <Delia Mckeon - Last Filed: 06/28/19 17:27> - Discharge Information Clinical Impression/Diagnosis: Appendicitis, acute Qualifiers: Acute appendicitis type: with localized peritonitis Appendicitis gangrene presence: without gangrene Appendicitis perforation presence: without perforation Appendicitis abscess presence: without abscess Qualified Code(s): K35.30 - Acute appendicitis with localized peritonitis, without perforation or gangrene Condition: Fair Disposition: TRANSFER ACUTE CARE/OTHER HOSP
[2019-06-27 18:09] LABS: BASO % 0.2 % (0-2.0); EOS % 0.1 % (0-4.5); HEMATOCRIT 41.5 % (32.4-45.2); HEMOGLOBIN 13.4 GM/dL (10.7-15.3); LYMPH % 7.5 % (8-40); MCH 27.4 pg (25.7-33.7); MCHC 32.3 g/dl (32.0-36.0); MEAN CELL VOLUME 84.8 fl (80-96); MEAN PLT VOLUME 9.2 fl (7.5-11.1); MONO % 5.8 % (3.8-10.2); NEUT % 86.4 % (42.8-82.8); PLATELET COUNT 325 K/MM3 (134-434); RBC 4.89 M/mm3 (3.60-5.2); RDW 16.3 % (11.6-15.6); WHITE BLOOD COUNT 14.2 K/mm3 (4.0-10.0)
[2019-06-27 18:39] LABS: ALBUMIN 4.7 g/dl (3.4-5.0); BILIRUBIN,TOTAL 0.8 mg/dL (0.2-1); BLOOD UREA NITROGEN 9.8 mg/dL (7-18); CALCIUM 9.6 mg/dL (8.5-10.1); CREATININE 0.7 mg/dL (0.55-1.3); POTASSIUM 3.8 mmol/L (3.5-5.1); TOT PROT 7.7 g/dl (6.4-8.2)
[2019-06-27 18:57] LABS: EPI CELLS 15.4 /HPF (0-5/HPF); HYALINE CASTS 34 /lpf (0-8); PH,URINE 5.5 (5.0-8.0); URINE APPEARANCE CLEAR; URINE BILIRUBIN NEGATIVE (NEGATIVE); URINE COLOR YELLOW; URINE GLUCOSE (UA) NEGATIVE (NEGATIVE); URINE KETONE 4+ (NEGATIVE); URINE LEUK ESTERASE 1+ (NEGATIVE); URINE NITRITE NEGATIVE (NEGATIVE); URINE PROTEIN NEGATIVE (NEGATIVE); URINE RBC 11 /hpf (0-4); URINE UROBILINOGEN 0.2 mg/dL (0.2-1.0); URINE WBC 7 /hpf (0-5)
[2019-06-27] MEDS ORDERED: ACETAMINOPHEN 1000 MG/100 ML VIAL (NON FORMULARY) IVPB ONE (21:04)
[2019-06-27] MEDS ORDERED: ACETAMINOPHEN INJECTION 100 ML IVPB ONE (21:22)
[2019-06-28] MEDS ORDERED: morphine CARPU-JECT 4 MG/1 ML DISP.SYRIN IVPUSH ONE (01:38)
[2019-06-28] MEDS ORDERED: morphine SULFATE 4 MG/ML VIAL ONE (01:41)
[2019-06-28] MEDS ORDERED: CEFTRIAXONE 1 GM in DEXTROSE 5%-WATER - 100 ML IVPB ONE (01:57)
[2019-06-28] MEDS ORDERED: CEFTRIAXONE 1 GM/50 ML BAG ONE (02:07)
[2019-06-28 02:37] VITALS: BP 112/68; PULSE 90
--- NOTE | 2019-06-28 10:28 | EKG ---
Test Reason : Blood Pressure : / mmHG Vent. Rate : 068 BPM Atrial Rate : 068 BPM P-R Int : 172 ms QRS Dur : 092 ms QT Int : 438 ms P-R-T Axes : 069 066 056 degrees QTc Int : 465 ms NORMAL SINUS RHYTHM NORMAL ECG WHEN COMPARED WITH ECG OF 22-MAY-2012 05:48, T WAVE INVERSION NOW EVIDENT IN ANTERIOR LEADS Confirmed by Kavin Amaya MD ([id number]) on 06/28/2019 10:28:22 AM Referred By: Confirmed By:Kavin Amaya MD
== END 2019-06-28 02:37 | disposition short-term general hospital (02) ==
LOC: JER 16:08
PROC: 3E0337Z Introduction of Electrolytic and Water Balance Substance into Peripheral Vein, Percutaneous Approach (ICD-10-PCS; principal; 2019-06-27)
PROC: 3E033NZ Introduction of Analgesics, Hypnotics, Sedatives into Peripheral Vein, Percutaneous Approach (ICD-10-PCS; 2019-06-27)
PROC: 3E03329 Introduction of Other Anti-infective into Peripheral Vein, Percutaneous Approach (ICD-10-PCS; 2019-06-27)
PROC: 3E033GC Introduction of Other Therapeutic Substance into Peripheral Vein, Percutaneous Approach (ICD-10-PCS; 2019-06-27)
DX: K35.30 Acute appendicitis with localized peritonitis, without perforation or gangrene (principal); Z88.8 Allergy status to other drugs, medicaments and biological substances; C85.10 Unspecified B-cell lymphoma, unspecified site
CPT/HCPCS: 36415; 74177-TC; 80053; 81003; 83690; 84703; 85025; 86850; 86900; 86901; 87086; 87804; 93005; 93010; 96361; 96365; 96368; 96375; 99285-25; J0131; J7030; Q9967

== ENCOUNTER 2019-12-13 15:27 | Inpatient (IN) | payer OTHER ==
--- NOTE | 2019-12-13 16:11 | PDOC ---
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 Patient diagosed with Large B cell lymphoma in 2017, treated with chemo under Dr. Sandoval. Last month, after a follow up with Dr. Sandoval, CAT scan showed return of Large B cell lymphoma. Now, she complained of 1 week of worsening headache with ongoing low grade fever. Patient measures temp d aily, running 99-100.3. Today she measured 101.2. Didn't take tylenol. Beside the frontal sharp headache, she endorses dizziness, neck pain, enlarge lymphnodes (neck, groins, axillary, diaphram a month ago). Denies N/V/D/change of vision. Patient is not on any chemomed currently. Her next appointment with Dr. sandoval will be next month. PMH: large B cell lymphoma. PSH: SS: denies smoke, alcohol, drug Med: . Allergy: rituximab. PCP: none ROS GENERAL/CONSTITUTIONAL: + fever or chills. No weakness. HEAD, EYES, EARS, NOSE AND THROAT: No change in vision. No ear pain or disch arge. No sore throat. CARDIOVASCULAR: No chest pain or shortness of breath RESPIRATORY: No cough, wheezing, or hemoptysis. GASTROINTESTINAL: No nausea, vomiting, diarrhea or constipation. GENITOURINARY: No dysuria, frequency, or change in urination. MUSCULOSKELETAL: No joint or muscle swelling or pain. +neck pain. SKIN: No rash NEUROLOGIC: No headache, vertigo, loss of consciousness, or change in strength/sensation. ENDOCRINE: No increased thirst. No abnormal weight change HEMATOLOGIC/LYMPHATIC: No anemia, easy bleeding, or history of blood clots. ALLERGIC/IMMUNOLOGIC: No hives or skin allergy. PE febrile of 102.7, tachycardic 133. GENERAL: Awake, alert, and fully oriented, in no acute distress HEAD: No signs of trauma, normocephalic, atraumatic EYES: PERRLA, EOMI, sclera anicteric, conjunctiva clear ENT: Auricles normal inspection, hearing grossly normal, nares patent, oropharynx clear without exudates. Moist mucosa NECK: Normal ROM, supple, bilateral lymphadenopathy, LUNGS: No distress, speaks full sentences, clear to auscultation bilaterally HEART: Regular rate and rhythm, normal S1 and S2, no murmurs, rubs or gallops, peripheral pulses normal and equal bilaterally. ABDOMEN: Soft, nontender, normoactive bowel sounds. No guarding, no rebound. No masses EXTREMITIES : Normal inspection, Normal range of motion, no edema. No clubbing or cyanosis. NEUROLOGICAL: Cranial nerves II through XII grossly intact. Normal speech, normal gait, no focal sensorimotor deficits SKIN: Warm, Dry, normal turgor, no rashes or lesions noted EKG : vent rate 126, QTc 434, sinus tachycardia. 12/13/19 19:15 12/13/19 20:27 12/13/19 21:03 DDX including but not limited to: metastatic mass, meningitis. W/U: Head CT with and without contast, consult hem/onc, consult neuro - TX: - Antibiotics: Vanco 1gm, ampi, Cefepime 2gm, dexame 10 mg - Dr. Templeton agreed to do head CT with and without contrast, consult neuro, get ID onboard, admit, and do LP with cytology on sunday. -Neuro agreed to do head CT, no Lumbar spinal CT, and get ID on board. -Patient agreed to stay. - CBC, CMP were unremarkable. 12/13/19 21:15 12/13/19 21:18 Patient complained of itchiness, no urticaria while getting Vanco infusion. Nurse said it probably due to rapid transfusion. ---> red man syndrome . Decision to pause the fusion, give 50 mg IV bendadryl, and 20 mg IV pepcid, reassess, and transfuse on a slower pace. Past History - Medical History Allergies/Adverse Reactions: Allergies Allergy/AdvReac Type Severity Reaction Status Date / Time rituximab Allergy Severe Difficulty Verified 12/13/19 15:35 Breathing Home Medications: Ambulatory Orders Magnesium Amino Acid Chelate [Magnesium] 1 tab PO DAILY 02/25/19 Ferrous Sulfate [Feosol] 325 mg PO BID #14 tablet 04/12/19 Albuterol Sulfate Inhaler - [Ventolin Hfa Inhaler -] 1 - 2 inh PO Q6H PRN 06/13/19 Acetaminophen [Tylenol] 650 mg PO QID PRN 12/13/19 Multivitamin [Multiple Vitamins] 1 each PO DAILY 12/13/19 Vitamin B Complex [B Complex] 1 each PO DAILY 12/13/19 Anemia: No Asthma: Yes Cancer: Yes Cardiac Disorders: No CVA: No COPD: No CHF: No Dementia: No Diabetes: No GI Disorders: Yes (irritable bowel) Disorders: No HTN: No Hypercholesterolemia: No Liver Disease: No Seizures: No Thyroid Disease: No - Reproductive History Is Patient Now?: No (#): 4 Para: 1 Cervical CA: No Dysfunctional Uterine Bleeding: No Ectopic : Yes Endometrial CA: No Polycystic Ovaries: No Therapeutic (s) & number: No Tubal Ligation: No Spontaneous : 2 - Immunization History Td Vaccination: Yes Immunization Up to Date: Yes - Psycho-Social/Smoking History Smoking Status: No Smoking History: Never smoked Years of Tobacco Use: 0 Have you smoked in the past 12 months: No Number of Cigarettes Smoked Daily: 0 Cigars Per Day: 0 - Substance Abuse Hx (Audit-C & DAST Scrn) How often the patient has a drink containing alcohol: Never Score: In Men: 4 or > Positive; In Women: 3 or > Positive: 0 Screen Result (Pos requires Nsg. Audit-10AR): Negative In the last yr the pt used illegal drug/Rx for NonMed reason: No Score: Yes response is considered Positive: 0 Screen Result (Positive result requires Nsg. DAST-10): Negative *Physical Exam - Vital Signs Last Vital Signs Temp Pulse Resp BP Pulse Ox 102.7 F H 133 H 18 118/78 97 12/13/19 15:34 12/13/19 15:34 12/13/19 15:34 12/13/19 15:34 12/13/19 15:34 ED Treatment Course - LABORATORY CBC & Chemistry Diagram: 12/13/19 16:30 12/13/19 16:30 Discharge - Discharge Information Problems reviewed: Yes Clinical Impression/Diagnosis: Lymphadenopathy Fever Qualifiers: Fever type: unspecified Qualified Code(s): R50.9 - Fever, unspecified Headache Qualifiers: Headache type: unspecified Headache chronicity pattern: unspecified pattern Intractability: not intractable Qualified Code(s): R51 - Headache Condition: Good - Admission Yes - Follow up/Referral - Patient Discharge Instructions - Post Discharge Activity
[2019-12-13] MEDS ORDERED: LACTATED RINGERS SOLUTION 1000 ML INFUS.BAG IV ONE (16:45)
[2019-12-13] MEDS ORDERED: ACETAMINOPHEN 1000 MG/100 ML VIAL (NON FORMULARY) IVPB ONE (16:45)
[2019-12-13] MEDS ORDERED: ACETAMINOPHEN INJECTION 100 ML IVPB ONE (16:52)
[2019-12-13 16:58] LABS: VENOUS BASE EXCESS -0.2 mmol/L (-2-2); VENOUS PCO2 43.6 mmHg (38-52); VENOUS PH 7.379 (7.310-7.410)
[2019-12-13 16:59] LABS: BASO % 0.2 % (0-2.0); EOS % 0.4 % (0-4.5); HEMATOCRIT 37.7 % (32.4-45.2); HEMOGLOBIN 12.1 GM/dL (10.7-15.3); LYMPH % 17.1 % (8-40); MCH 26.5 pg (25.7-33.7); MCHC 32.1 g/dl (32.0-36.0); MEAN CELL VOLUME 82.5 fl (80-96); MEAN PLT VOLUME 9.6 fl (7.5-11.1); MONO % 19.7 % (3.8-10.2); NEUT % 62.6 % (42.8-82.8); PLATELET COUNT 194 K/MM3 (134-434); RBC 4.57 M/mm3 (3.60-5.2); RDW 16.4 % (11.6-15.6); WHITE BLOOD COUNT 6.3 K/mm3 (4.0-10.0)
[2019-12-13 17:06] LABS: INR 1.22 (0.83-1.09); PROTHROMBIN TIME (PATIENT) 14.4 SEC (9.7-13.0)
[2019-12-13 17:09] LABS: ACTIVATED PTT 30.3 SECONDS (25.2-36.5)
[2019-12-13 17:23] LABS: ALBUMIN 4.3 g/dl (3.4-5.0); ALK PHOS 57 U/L (45-117); ANION GAP 9 MMOL/L (8-16); BILIRUBIN,TOTAL 0.5 mg/dL (0.2-1); BLOOD UREA NITROGEN 9.7 mg/dL (7-18); CALCIUM 9.2 mg/dL (8.5-10.1); CHLORIDE 105 mmol/L (98-107); CO2 23 mmol/L (21-32); CREATININE 0.6 mg/dL (0.55-1.3); GLUCOSE,RANDOM 82 mg/dL (74-106); POTASSIUM 4.3 mmol/L (3.5-5.1); SGOT/AST 16 U/L (15-37); SGPT/ALT 15 U/L (13-61); SODIUM 137 mmol/L (136-145); TOT PROT 7.4 g/dl (6.4-8.2)
--- NOTE | 2019-12-13 19:28 | PN ---
Teaching Attending Note Name of Resident: Darrion Fox ATTENDING PHYSICIAN STATEMENT I saw and evaluated the patient. I reviewed the resident's note and discussed the case with the resident. I agree with the resident's findings and plan as documented. SUBJECTIVE: Patient is a 29 year old woman with PMH of Asthma, Irritable bowel syndrome and Large B cell lymphoma (originally diagnosed in 2017) who presents to the ER with worsening headache and fever for 1 week. Patient diagnosed with Large B cell lymphoma in 2017, treated with chemotherapy under Dr. Kidd. Last month, after a follow up with Dr. Kidd, CAT scan showed return of Large B cell lymphoma. Patient measures temp daily, running 99-100.3. Today she measured 101.2. Didn't take tylenol. Beside the frontal sharp headache, she has dizziness, neck pain and diffuse enlarged lymphnodes. Not currently on chemothrapy. Denies blurry vision or photophobia. Patient denies chest pain, shortness of breath, abdominal pain, palpitations, nausea, vomiting, diarrhea, constipation, dysuria, frequency, urgency, melena, hematochezia or hematuria. Patient had a baby 8 months ago. Her LMP was December 04, 2019. Denies alcohol, tobacco or illicit drug use. No sick contacts or recent travels. Patient has a family history of heart disease, HTN, depression in father; asthma in both parents, brother, sister and son. OBJECTIVE: Alert Vital Signs Period Temp Pulse Resp BP Sys/Thompson Pulse Ox Last 24 Hr 102.7 F 133 18 118/78 97 HEENT: No Jaundice, eye redness or discharge, PERRLA, EOMI. Normocephalic, atraumatic. External ears are normal and hearing is grossly intact. No nasal discharge. Neck: Supple, nontender. No palpable adenopathy or thyromegaly. No JVD Chest: Good effort. Clear to auscultation and percussion. Heart: Regular. No S3, rub or murmur Abdomen: Not distended, soft, nontender and no HSM. No rebound or guarding. Normal bowel sounds. Ext: Peripheral pulses intact. No leg edema. Skin: Warm and dry. No petechiae, rash or ecchymosis. Neuro: Alert. Oriented x3. CN 2-12 grossly intact. Sensation grossly intact in all four extremities and DTR are symmetric. Psych: Appropriate mood and affect. Good insight. Home Medications Medication Instructions Recorded Magnesium Amino Acid Chelate 1 tab PO DAILY 02/25/19 [Magnesium] Ferrous Sulfate [Feosol] 325 mg PO BID #14 tablet 04/12/19 Albuterol Sulfate Inhaler - 1 - 2 inh PO Q6H PRN 06/13/19 [Ventolin Hfa Inhaler -] Acetaminophen [Tylenol] 650 mg PO QID PRN 12/13/19 Multivitamin [Multiple Vitamins] 1 each PO DAILY 12/13/19 Vitamin B Complex [B Complex] 1 each PO DAILY 12/13/19 Abnormal Lab Results 12/13/19 12/13/19 12/13/19 16:30 16:30 16:30 RDW 16.4 H Monocytes % 19.7 H PT with INR 14.40 H INR 1.22 H POC VBG pO2 21.1 L VBG O2 Sat (Leroy) 34.0 L Current Medications Generic Name Dose Route Start Last Admin Trade Name Freq PRN Reason Stop Dose Admin Acetaminophen 650 mg 12/14/19 00:06 Tylenol - PO QID PRN FEVER Albuterol Sulfate 1 - 2 puff 12/14/19 00:03 Ventolin Hfa Inhaler - IH Q6H PRN COUGH Enoxaparin Sodium 40 mg 12/14/19 10:00 Lovenox - SQ DAILY KELLY Multivitamins/Minerals/Vitamin C 1 tab 12/14/19 10:00 Tab-A-Vit - PO DAILY KELLY Non-Formulary Medication 1 each 12/14/19 10:00 Vitamin B Complex [B Complex] PO DAILY KELLY ASSESSMENT AND PLAN: 1. B-cell lymphoma/Headache/Rule out Meningitis - ER staff discussed the case with Dr. Templeton who prefers to defer Lumbar puncture to Sunday (12/15/2019) as flow cytometry study can not be ordered via ER. They aslo discussed with Neurologist - Dr. Abreu who recommended CT head w/wo contrast to evaluate for space occupying lesion or leptomeningeal disease. No acute abnormality on CXR. No evidence of acute intracranial pathology on head CT scan with and without contrast. ER staff prescribed IV Ampicillin, Cefepime, Tylenol, IV Vancomycin, Dexamethasone and IV LR for the patient. Viral testing for COVID-19 ordered and patient placed on airborne, droplet and contact isolation. EKG shows sinus tachycardia at 126/minute and QTc [address]-T wave changes. Initial troponin is negative. Will continue antibiotics, use Tylenol PRN for headache/fever, get urinalysis, lumbar puncture, do neurochecks and implement fall/seizure precautions. Consult ID/Neurology/Heam-Onc. Will continue comprehensive care for all of patients comorbid conditions including Albuterol PRN for Asthma. 2. DVT prophylaxis - Lovenox 40 mg SQ q 24 hours. 3. Advance directives - Full code
[2019-12-13] MEDS ORDERED: VANCOMYCIN 1,000 MG in DEXTROSE 5%-WATER - 250 ML IVPB ONE (19:44)
[2019-12-13] MEDS ORDERED: CEFEPIME HCL/D5W 2 GM/50 ML BAG IVPB ONE (19:47)
[2019-12-13] MEDS ORDERED: AMPICILLIN - 2 GM in SODIUM CHLORIDE 100 ML IVPB ONE (19:48)
[2019-12-13] MEDS ORDERED: DEXAMETHASONE SOD PHOSPHATE 20 MG/5 ML VIAL IVPB ONE (19:49)
[2019-12-13] MEDS ORDERED: VANCOMYCIN 1 GRAM (PRE-DOCKED) 1,000 MG/250 ML BAG IVPB ONE (20:08)
[2019-12-13] MEDS ORDERED: AMPICILLIN SODIUM 2 GM VIAL ONE (20:08)
[2019-12-13] MEDS ORDERED: CEFEPIME 2 GM/100 ML BAG IVPB ONE (20:08)
[2019-12-13] MEDS ORDERED: DEXAMETHASONE SOD PHOSPHATE 10 MG/1 ML VIAL ONE (20:11)
--- NOTE | 2019-12-13 20:13 | PDOC ---
Documentation entered by Rimma Mayberry SCRIBE, acting as scribe for Candida Liu MD. Candida Liu MD: This documentation has been prepared by the carineJefe Sydney, SCRIBE, under my direction and personally reviewed by me in its entirety. I confirm that the documentation accurately reflects all work, treatment, procedures, and medical decision making performed by me. Attending Attestation - Resident Resident Name: DaltonRamon - ED Attending Attestation I have performed the following: I have examined & evaluated the patient, The case was reviewed & discussed with the resident, I agree w/resident's findings & plan, Exceptions are as noted - HPI HPI: 12/13/19 17:33 Patient is a 29 year old female with a significant past medical history of B cell lymphoma (diagnosed 2016, recurrence 2019) who presents to the ED with one week of worsening headache and fever. As per patient, she developed a gradual onset headache with associated lightheadedness, worsened with movement, one week ago, which has since progressively worsened. She states the headache is global. She does not typically get headaches. Patient endorses enlarged lymph nodes, for which she was seen at Dr. Bose office on for her scheduled appointment. Pt is not on chemo yet for the recurrent disease. Denies chest pain, SOB, nausea, vomiting, diarrhea, vision changes, focal weakness/numbness, abd pain, LE edema. Allergies: rituximab - Physicial Exam PE: 12/13/19 19:38 GENERAL: Awake, alert, and fully oriented, in no acute distress EYES: PERRLA, EOMI, sclera anicteric, conjunctiva clear ENT: Oropharynx clear without exudates. Moist mucosa NECK: Normal ROM, supple, +diffuse cervical rubbery non mobile non tender LAD LUNGS: Breath sounds equal, clear to auscultation bilaterally. No wheezes, and no crackles HEART: Tachycardic but regular, normal S1 and S2, no murmurs, rubs or gallops ABDOMEN: Soft, nontender, normoactive bowel sounds. No guarding, no rebound. No masses EXTREMITIES: Normal range of motion, no edema. No clubbing or cyanosis. No cords, erythema, or tenderness NEUROLOGICAL: Normal speech, cranial nerves intact, negative pronator drift, 5/5 strength in all 4 extremities, normal sensation to light touch in all 4 extremities, normal cerebellar exam, normal gait SKIN: Warm, Dry, normal turgor, no rashes or lesions noted. 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 Templeton prefers to defer LP to Sunday as flow cytometry study can not be ordered via ED Given concern for bacterial meningitis, fever on arrival, and IC status of pt, we will cover empirically with vanc, amp, cefepine. We will give dex 10mg prior to abx Case discussed with neuro Dr. Abreu to discuss imaging choice. He recommends CT head w/wo pending to eval for space occupying lesion or leptomeningeal disease. CT pending. Case discussed with Dr. Ardon, pt accepted for admission Case discussed in detail with admitting physician including history, physical exam and ancillary studies. Admitting physician has assumed care for the patient, will follow all pending diagnostics and will complete the evaluation and treatment. Discharge - Discharge Information Problems reviewed: Yes Clinical Impression/Diagnosis: Lymphadenopathy Fever Qualifiers: Fever type: unspecified Qualified Code(s): R50.9 - Fever, unspecified Headache Qualifiers: Headache type: unspecified Headache chronicity pattern: unspecified pattern Intractability: not intractable Qualified Code(s): R51 - Headache Condition: Good - Follow up/Referral - Patient Discharge Instructions - Post Discharge Activity
[2019-12-13] MEDS ORDERED: FAMOTIDINE 20 MG/50 ML IVPB 20 MG/50 ML MG IVPB ONE ×2 (21:13→21:30)
[2019-12-14] MEDS ORDERED: ALBUTEROL SO4 HFA INHALER IH PRN (00:03)
[2019-12-14] MEDS ORDERED: HEPARIN NA (PORCINE) 5,000 UNITS/ML 1ML VIAL SQ SCH (02:00)
--- NOTE | 2019-12-14 03:06 | HP ---
CHIEF COMPLAINT: Headache and fever for 1 week PCP: None. (Dr. Kidd for chemo) HISTORY OF PRESENT ILLNESS: 29 year old female patient with past medical history that includes large b-cell lymphoma and IBS, who presented to the ED with 1 week of headache and fever. The headache is fixed at the top of her head and is constant, 5/10 in severity pain. She also has neck stiffness and diaphoresis. The pain is described as sharp and stabbing, and she denies ever feeling like this in the past. She also feels lightheadedness when she turns her head to the right or to the left. She is post- with an 8-month old baby and her last menstrual period was 12/03 with 2-3 days of light bleeding. The patient had previously been treated with chemotherapy for her large b-cell lymphoma. Last month she was found to have a return of her large b-cell lymphoma. She has chemotherapy planned for next month. ER course was notable for: (1) empiric coverage with vanc, amp, cefepine; dex 10mg given prior to abx (2) (3) Recent Travel: PAST MEDICAL HISTORY: Large B-cell Lymphoma in 2017, IBS PAST SURGICAL HISTORY: Chemo for Large B-cell Lymphoma, Tubal ligation, Appendectomy Social History: Smoking: Denies Alcohol: Denies Drugs: Denies Allergies rituximab Allergy (Severe, Verified 12/13/19 15:35) Difficulty Breathing HOME MEDICATIONS: Home Medications Medication Instructions Recorded Magnesium Amino Acid Chelate 1 tab PO DAILY 02/25/19 [Magnesium] Ferrous Sulfate [Feosol] 325 mg PO BID #14 tablet 04/12/19 Albuterol Sulfate Inhaler - 1 - 2 inh PO Q6H PRN 06/13/19 [Ventolin Hfa Inhaler -] Acetaminophen [Tylenol] 650 mg PO QID PRN 12/13/19 Multivitamin [Multiple Vitamins] 1 each PO DAILY 12/13/19 Vitamin B Complex [B Complex] 1 each PO DAILY 12/13/19 REVIEW OF SYSTEMS CONSTITUTIONAL: fever Absent: HEENT: Absent: visual changes CARDIOVASCULAR: lightheadedness with head movement Absent: chest pain, palpitations RESPIRATORY: Absent: shortness of breath GASTROINTESTINAL: Absent: nausea, vomiting, diarrhea, constipation GENITOURINARY: Absent: dysuria NEUROLOGIC: headache Absent: PHYSICAL EXAMINATION Vital Signs - 24 hr 12/13/19 12/14/19 15:34 01:45 Temperature 102.7 F H 97.4 F L Pulse Rate 133 H 87 Respiratory 18 16 Rate Blood Pressure 118/78 117/76 O2 Sat by Pulse 97 99 Oximetry (%) GENERAL: Awake, alert, and fully oriented, in no acute distress. HEAD: Normal with no signs of trauma. Multiple hard lymph nodes palpable around head. EYES: Extraocular movements intact. No lid lag. EARS, NOSE, THROAT: Ears normal, nares patent, oropharynx clear without exudates. Moist mucous membranes. NECK: Normal range of motion, supple without lymphadenopathy, JVD, or masses. LUNGS: Breath sounds equal, clear to auscultation bilaterally. No wheezes, and no crackles. No accessory muscle use. HEART: Regular rate and rhythm, normal S1 and S2 without murmur, rub or gallop. ABDOMEN: Soft, nontender, not distended, normoactive bowel sounds, no guarding, no rebound. MUSCULOSKELETAL: Normal range of motion at all joints. No bony deformities or tenderness. UPPER EXTREMITIES: 2+ pulses, warm, well-perfused. No cyanosis. No clubbing. No peripheral edema. LOWER EXTREMITIES: 2+ pulses, warm, well-perfused. No calf tenderness. No peripheral edema. NEUROLOGICAL: Normal speech. Normal gait. PSYCHIATRIC: Cooperative. Good eye contact. Appropriate mood and affect. SKIN: Warm, dry, normal turgor, no rashes or lesions noted, normal capillary refill. Laboratory Results - last 24 hr 12/13/19 12/13/19 12/13/19 16:30 16:30 16:30 WBC 6.3 RBC 4.57 Hgb 12.1 Hct 37.7 MCV 82.5 MCH 26.5 MCHC 32.1 RDW 16.4 H Plt Count 194 MPV 9.6 Absolute Neuts (auto) 3.9 Neutrophils % 62.6 Lymphocytes % 17.1 Monocytes % 19.7 H Eosinophils % 0.4 Basophils % 0.2 Nucleated RBC % 0 PT with INR 14.40 H INR 1.22 H PTT (Actin FS) 30.3 VBG pH POC VBG pCO2 POC VBG pO2 VBG HCO3 VBG O2 Sat (Leroy) VBG Base Excess Sodium Potassium Chloride Carbon Dioxide Anion Gap BUN Creatinine Est GFR (CKD-EPI)AfAm Est GFR (CKD-EPI)NonAf Random Glucose Lactic Acid Calcium Total Bilirubin AST ALT Alkaline Phosphatase Creatine Kinase CK-MB (CK-2) Troponin I < 0.02 Total Protein Albumin Serum , Qual Blood Type Antibody Screen 12/13/19 12/13/19 12/13/19 16:30 16:30 16:30 WBC RBC Hgb Hct MCV MCH MCHC RDW Plt Count MPV Absolute Neuts (auto) Neutrophils % Lymphocytes % Monocytes % Eosinophils % Basophils % Nucleated RBC % PT with INR INR PTT (Actin FS) VBG pH 7.379 POC VBG pCO2 43.6 POC VBG pO2 21.1 L VBG HCO3 25.2 VBG O2 Sat (Leroy) 34.0 L VBG Base Excess -0.2 Sodium 137 Potassium 4.3 Chloride 105 Carbon Dioxide 23 Anion Gap 9 BUN 9.7 Creatinine 0.6 Est GFR (CKD-EPI)AfAm 140.77 Est GFR (CKD-EPI)NonAf 121.46 Random Glucose 82 Lactic Acid 0.5 Calcium 9.2 Total Bilirubin 0.5 AST 16 ALT 15 Alkaline Phosphatase 57 Creatine Kinase 31 CK-MB (CK-2) < 1.0 Troponin I Total Protein 7.4 Albumin 4.3 Serum , Qual Blood Type Antibody Screen 12/13/19 12/13/19 16:30 16:30 WBC RBC Hgb Hct MCV MCH MCHC RDW Plt Count MPV Absolute Neuts (auto) Neutrophils % Lymphocytes % Monocytes % Eosinophils % Basophils % Nucleated RBC % PT with INR INR PTT (Actin FS) VBG pH POC VBG pCO2 POC VBG pO2 VBG HCO3 VBG O2 Sat (Leroy) VBG Base Excess Sodium Potassium Chloride Carbon Dioxide Anion Gap BUN Creatinine Est GFR (CKD-EPI)AfAm Est GFR (CKD-EPI)NonAf Random Glucose Lactic Acid Calcium Total Bilirubin AST ALT Alkaline Phosphatase Creatine Kinase CK-MB (CK-2) Troponin I Total Protein Albumin Serum , Qual Negative Blood Type A POSITIVE Antibody Screen Negative ASSESSMENT/PLAN: 29 year old female patient with past medical history that includes large b-cell lymphoma and IBS, who presented to the ED with 1 week of headache and fever. 1. Bacterial Meningitis - Patient has a headache with neck stiffness and fever - Head CT's preliminary read negative - Ceftriaxone, Ampicillin, Vancomycin (Ampicillin because patient was on chemotherapy previously and might be immunocompromised) - Tylenol PRN for headache/fever - Urinalysis - Lumbar puncture - Neurochecks - Fall/seizure precautions - Consulted ID, Neurology, and Hem-Onc. 2. Large B-Cell Lymphoma - Patient follows Dr. Kidd for chemotherapy - Hem-Onc consulted # FEN - Monitoring Electrolytes, Regular Diet DVT PPx - Lovenox SQ Family Medical History Family History: As Documented Family Hx Diabetes: Grandmother (maternal) Visit type - Emergency Visit Emergency Visit: Yes ED Registration Date: 12/13/19 Care time: The patient presented to the Emergency Department on the above date and was hospitalized for further evaluation of their emergent condition. - New Patient This patient is new to me today: Yes Date on this admission: 12/14/19 - Critical Care Critical Care patient: No ATTENDING PHYSICIAN STATEMENT I saw and evaluated the patient. I reviewed the resident's note and discussed the case with the resident. I agree with the resident's findings and plan as documented. SUBJECTIVE: OBJECTIVE: ASSESSMENT AND PLAN:
[2019-12-14 03:19] VITALS: BMI 21.7
[2019-12-14 04:51] LABS: URINE APPEARANCE CLEAR; URINE BILIRUBIN NEGATIVE (NEGATIVE); URINE COLOR YELLOW; URINE GLUCOSE (UA) NEGATIVE (NEGATIVE); URINE KETONE TRACE (NEGATIVE); URINE LEUK ESTERASE NEGATIVE (NEGATIVE); URINE NITRITE NEGATIVE (NEGATIVE); URINE PROTEIN NEGATIVE (NEGATIVE); URINE UROBILINOGEN 0.2 mg/dL (0.2-1.0)
[2019-12-14] MEDS ORDERED: diphenhydrAMINE HCL 25 MG CAPSULE (FP) PO ONE ×2 (06:00→09:45)
[2019-12-14] MEDS ORDERED: AMPICILLIN SODIUM 250 MG VIAL IVPUSH SCH (06:00)
[2019-12-14] MEDS ORDERED: CEFTRIAXONE 2,000 MG in DEXTROSE 5%-WATER - 50 ML IVPB SCH (06:00)
[2019-12-14] MEDS ORDERED: VANCOMYCIN 1 GM in D5W (PRE-DOCKED) 1,000 MG/250 ML IVPB SCH ×2 (06:00→09:00)
[2019-12-14] MEDS ORDERED: AMPICILLIN SODIUM 2 GM VIAL ONE ×5 (06:14→22:43)
[2019-12-14] MEDS ORDERED: SODIUM CHLORIDE 100 ML IVPB ONE ×5 (06:14→22:43)
[2019-12-14] MEDS: AMPICILLIN - 2 GM in SODIUM CHLORIDE 100 ML IVPB SCH ×5 (06:18→22:44)
[2019-12-14] MEDS: VITAMIN B COMPLEX W/C COMBO TABLET (FP) PO SCH (09:53)
[2019-12-14] MEDS: MULTIVITAMINS (DAILY MVI) TABLET (FP) PO SCH (09:53)
[2019-12-14] MEDS ORDERED: CEFEPIME HCL/D5W 2 GM/50 ML BAG IVPB SCH (10:00)
[2019-12-14] MEDS ORDERED: CEFTRIAXONE 2 GM in DEXTROSE 5%-WATER 100 ML IVPB SCH (10:00)
[2019-12-14] MEDS ORDERED: ENOXAPARIN NA (PORCINE) 40 MG/0.4 ML DISP.SYRIN SQ SCH (10:00)
--- NOTE | 2019-12-14 10:43 | PN ---
Physical Exam: SUBJECTIVE: Patient seen and examined OBJECTIVE: Vital Signs Period Temp Pulse Resp BP Sys/Thompson Pulse Ox Last 24 Hr 97.4 F-102.7 F 67-133 16-18 104-118/68-78 97-100 GENERAL: Awake, alert, and fully oriented, in no acute distress. HEAD: Normal with no signs of trauma. EYES: Pupils equal, round and reactive to light, sclera anicteric, conjunctiva clear. LUNGS: Breath sounds equal, clear to auscultation bilaterally. No wheezes, and no crackles. No accessory muscle use. HEART: Regular rate and rhythm, normal S1 and S2 ABDOMEN: Soft, nontender, not distended MUSCULOSKELETAL: Normal range of motion at all joints. No bony deformities or tenderness. No CVA tenderness. UPPER EXTREMITIES: 2+ pulses, warm, well-perfused. No cyanosis. No clubbing. No peripheral edema. LOWER EXTREMITIES: 2+ pulses, warm, well-perfused. No calf tenderness. No peripheral edema. NEUROLOGICAL: Cranial nerves II-XII intact. Normal speech. no neck stiffness multiple enlarged LN in submandibular, neck, and Rt axillary area Laboratory Results - last 24 hr 12/13/19 12/13/19 12/13/19 16:30 16:30 16:30 WBC 6.3 RBC 4.57 Hgb 12.1 Hct 37.7 MCV 82.5 MCH 26.5 MCHC 32.1 RDW 16.4 H Plt Count 194 MPV 9.6 Absolute Neuts (auto) 3.9 Neutrophils % 62.6 Lymphocytes % 17.1 Monocytes % 19.7 H Eosinophils % 0.4 Basophils % 0.2 Nucleated RBC % 0 PT with INR 14.40 H INR 1.22 H PTT (Actin FS) 30.3 VBG pH POC VBG pCO2 POC VBG pO2 VBG HCO3 VBG O2 Sat (Leroy) VBG Base Excess Sodium Potassium Chloride Carbon Dioxide Anion Gap BUN Creatinine Est GFR (CKD-EPI)AfAm Est GFR (CKD-EPI)NonAf Random Glucose Lactic Acid Calcium Total Bilirubin AST ALT Alkaline Phosphatase Creatine Kinase CK-MB (CK-2) Troponin I < 0.02 Total Protein Albumin Serum , Qual Urine Color Urine Appearance Urine pH Ur Specific Bluebell Urine Protein Urine Glucose (UA) Urine Ketones Urine Blood Urine Nitrite Urine Bilirubin Urine Urobilinogen Ur Leukocyte Esterase Blood Type Antibody Screen 12/13/19 12/13/19 12/13/19 16:30 16:30 16:30 WBC RBC Hgb Hct MCV MCH MCHC RDW Plt Count MPV Absolute Neuts (auto) Neutrophils % Lymphocytes % Monocytes % Eosinophils % Basophils % Nucleated RBC % PT with INR INR PTT (Actin FS) VBG pH 7.379 POC VBG pCO2 43.6 POC VBG pO2 21.1 L VBG HCO3 25.2 VBG O2 Sat (Leroy) 34.0 L VBG Base Excess -0.2 Sodium 137 Potassium 4.3 Chloride 105 Carbon Dioxide 23 Anion Gap 9 BUN 9.7 Creatinine 0.6 Est GFR (CKD-EPI)AfAm 140.77 Est GFR (CKD-EPI)NonAf 121.46 Random Glucose 82 Lactic Acid 0.5 Calcium 9.2 Total Bilirubin 0.5 AST 16 ALT 15 Alkaline Phosphatase 57 Creatine Kinase 31 CK-MB (CK-2) < 1.0 Troponin I Total Protein 7.4 Albumin 4.3 Serum , Qual Urine Color Urine Appearance Urine pH Ur Specific Bluebell Urine Protein Urine Glucose (UA) Urine Ketones Urine Blood Urine Nitrite Urine Bilirubin Urine Urobilinogen Ur Leukocyte Esterase Blood Type Antibody Screen 12/13/19 12/13/19 12/14/19 16:30 16:30 03:30 WBC RBC Hgb Hct MCV MCH MCHC RDW Plt Count MPV Absolute Neuts (auto) Neutrophils % Lymphocytes % Monocytes % Eosinophils % Basophils % Nucleated RBC % PT with INR INR PTT (Actin FS) VBG pH POC VBG pCO2 POC VBG pO2 VBG HCO3 VBG O2 Sat (Leroy) VBG Base Excess Sodium Potassium Chloride Carbon Dioxide Anion Gap BUN Creatinine Est GFR (CKD-EPI)AfAm Est GFR (CKD-EPI)NonAf Random Glucose Lactic Acid Calcium Total Bilirubin AST ALT Alkaline Phosphatase Creatine Kinase CK-MB (CK-2) Troponin I Total Protein Albumin Serum , Qual Negative Urine Color Yellow Urine Appearance Clear Urine pH 6.0 Ur Specific Bluebell 1.038 H Urine Protein Negative Urine Glucose (UA) Negative Urine Ketones Trace H Urine Blood Negative Urine Nitrite Negative Urine Bilirubin Negative Urine Urobilinogen 0.2 Ur Leukocyte Esterase Negative Blood Type A POSITIVE Antibody Screen Negative Active Medications Generic Name Dose Route Start Last Admin Trade Name Freq PRN Reason Stop Dose Admin Acetaminophen 650 mg 12/14/19 00:06 Tylenol - PO QID PRN FEVER Albuterol Sulfate 1 - 2 puff 12/14/19 00:03 Ventolin Hfa Inhaler - IH Q6H PRN SHORTNESS OF BREATH Enoxaparin Sodium 40 mg 12/14/19 10:00 12/14/19 09:54 Lovenox - SQ 40 mg DAILY KELLY Administration Ampicillin Sodium 2 gm/ Sodium 100 mls @ 200 mls/hr 12/14/19 06:15 12/14/19 09:52 Chloride IVPB 200 mls/hr Q4H-IV KELLY Administration Cefepime HCl 2 gm in 50 mls @ 100 mls/hr 12/14/19 10:00 Maxipime 2gm Ivpb (Premix) IVPB BID KELLY Protocol Cefepime HCl 2 gm/ Dextrose 100 mls @ 100 mls/hr 12/14/19 10:00 IVPB 12/15/19 09:59 BID KELLY Protocol Multivitamins 1 each 12/14/19 10:00 12/14/19 09:53 Total B With C - PO 1 each DAILY KELLY Administration Multivitamins/Minerals/Vitamin C 1 tab 12/14/19 10:00 12/14/19 09:53 Tab-A-Vit - PO 1 tab DAILY KELLY Administration Vancomycin HCl 1,000 mg 12/14/19 09:00 12/14/19 10:32 Vancomycin (Pre-Docked) IVPB 12/14/19 21:01 1,000 mg Q12H KELLY Administration Protocol ASSESSMENT/PLAN: 29 year old lady with Mhx of large b-cell lymphoma (completed chemo 2016, possible recurrence found dec 2018) and IBS, who presented to the ED with 2 week of headache and fever. 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 Large B-Cell Lymphoma (followed by Dr. Kidd, in process of work up for recurrence) DVT PPx - Lovenox SQ Visit type - Emergency Visit Emergency Visit: Yes ED Registration Date: 12/13/19 Care time: The patient presented to the Emergency Department on the above date and was hospitalized for further evaluation of their emergent condition. - New Patient This patient is new to me today: Yes Date on this admission: 12/14/19 - Critical Care Critical Care patient: No - Discharge Referral Referred to [facility] Med P.C.: No
--- NOTE | 2019-12-14 12:40 | CON.ID ---
Consult Consult Specialty:: infectious diseases Referred by:: hospitalist Reason for Consultation:: persistent headaches,r/o meningitis - History of Present Illness Chief Complaint: headaches and low grade fevers History of Present Illness: 29 year old female patient with past medical history that includes large b-cell lymphoma and IBS, admitted because of 2 week of headache and low grade feversfever. The headache is fixed at the top of her head and is constant, 5/10 in severity pain . The pain is described as sharp and stabbing, and she denies ever feeling like this in the past. She also feels lightheadedness when she turns her head to the right or to the left. She is post- with an 8-month old baby and her last menstrual period was 12/03 with 2-3 days of light bleeding. The patient had previously been treated with chemotherapy for her large b-cell lymphoma. Last month she was found to have a return of her large b-cell lymphoma. She has chemotherapy planned for next month. currently she mentions that she has 50 percent of headaches but now feels good denies any ear issues denies light bothering her - History Source History Provided By: Patient Limitations to Obtaining History: No Limitations - Past Medical History ...LMP: 12/04/19 ...: No - Alcohol/Substance Use Hx Alcohol Use: No History of Substance Use: reports: None - Smoking History Smoking history: Never smoked Have you smoked in the past 12 months: No Aproximately how many cigarettes per day: 0 - Social History ADL: Independent History of Recent Travel: No Home Medications - Allergies Allergies/Adverse Reactions: Allergies Allergy/AdvReac Type Severity Reaction Status Date / Time rituximab Allergy Severe Difficulty Verified 12/13/19 15:35 Breathing - Home Medications Home Medications: Ambulatory Orders Magnesium Amino Acid Chelate [Magnesium] 1 tab PO DAILY 02/25/19 Ferrous Sulfate [Feosol] 325 mg PO BID #14 tablet 04/12/19 Albuterol Sulfate Inhaler - [Ventolin Hfa Inhaler -] 1 - 2 inh PO Q6H PRN 06/13/19 Acetaminophen [Tylenol] 650 mg PO QID PRN 12/13/19 Multivitamin [Multiple Vitamins] 1 each PO DAILY 12/13/19 Vitamin B Complex [B Complex] 1 each PO DAILY 12/13/19 Family Medical History Family Hx Diabetes: Grandmother (maternal) Review of Systems - Review of Systems Constitutional: reports: Fever Eyes: reports: No Symptoms HENT: reports: No Symptoms Neck: reports: No Symptoms Cardiovascular: reports: No Symptoms Respiratory: reports: No Symptoms Gastrointestinal: reports: No Symptoms Genitourinary: reports: No Symptoms Musculoskeletal: reports: No Symptoms Integumentary: reports: No Symptoms Neurological: reports: No Symptoms Endocrine: reports: No Symptoms Hematology/Lymphatic: reports: No Symptoms Psychiatric: reports: No Symptoms Physical Exam Vital Signs: Vital Signs Temperature 97.9 F 12/14/19 09:00 Pulse Rate 80 12/14/19 09:00 Respiratory Rate 16 12/14/19 09:00 Blood Pressure 116/65 12/14/19 09:00 O2 Sat by Pulse Oximetry (%) 98 12/14/19 09:00 Constitutional: Yes: Well Nourished, No Distress, Calm Eyes: Yes: Conjunctiva Clear HENT: Yes: Atraumatic, Normocephalic Neck: Yes: Supple, Trachea Midline, Other (no pain while moving the neck) Cardiovascular: Yes: Regular Rate and Rhythm Respiratory: Yes: Regular, CTA Bilaterally Gastrointestinal: Yes: Normal Bowel Sounds, Soft Musculoskeletal: Yes: WNL Extremities: Yes: WNL Neurological: Yes: Alert, Oriented Psychiatric: Yes: Alert, Oriented Labs: CBC, BMP 12/13/19 16:30 12/13/19 16:30 Imaging - Results Chest X-ray: Report Reviewed, Image Reviewed Cat Scan: Report Reviewed, Image Reviewed Ultrasound: Report Reviewed, Image Reviewed Assessment/Plan this patient wiht b cell lymphoma and on chemo coming wiht persistent headaches and fever i think this patient could have had viral meningitis and currently she is doing much better i would suggest watching the patient continue unasyn for now await for all cx reports and then we will deescalate monitor fevers
[2019-12-14] MEDS ORDERED: DEXTROSE 5%-WATER 100 ML IVPB ONE ×2 (13:38→21:15)
[2019-12-14] MEDS ORDERED: CEFEPIME HCL 2 GM VIAL (RESTRICTED TO ID) ONE ×2 (13:38→21:15)
[2019-12-14] MEDS: CEFEPIME 2 GM in DEXTROSE 5%-WATER 100 ML IVPB SCH ×2 (13:42→21:17)
--- NOTE | 2019-12-14 14:42 | CON.NEURO ---
Consult - Past Medical History ...LMP: 12/04/19 ...: No - Alcohol/Substance Use Hx Alcohol Use: No History of Substance Use: reports: None - Smoking History Smoking history: Never smoked Have you smoked in the past 12 months: No Aproximately how many cigarettes per day: 0 - Social History ADL: Independent History of Recent Travel: No Home Medications - Allergies Allergies/Adverse Reactions: Allergies Allergy/AdvReac Type Severity Reaction Status Date / Time rituximab Allergy Severe Difficulty Verified 12/13/19 15:35 Breathing - Home Medications Home Medications: Ambulatory Orders Magnesium Amino Acid Chelate [Magnesium] 1 tab PO DAILY 02/25/19 Ferrous Sulfate [Feosol] 325 mg PO BID #14 tablet 04/12/19 Albuterol Sulfate Inhaler - [Ventolin Hfa Inhaler -] 1 - 2 inh PO Q6H PRN 06/13/19 Acetaminophen [Tylenol] 650 mg PO QID PRN 12/13/19 Multivitamin [Multiple Vitamins] 1 each PO DAILY 12/13/19 Vitamin B Complex [B Complex] 1 each PO DAILY 12/13/19 Family Medical History Family Hx Diabetes: Grandmother (maternal) Physical Exam-Neuro Vital Signs: Vital Signs Temperature 97.9 F 12/14/19 09:00 Pulse Rate 80 12/14/19 09:00 Respiratory Rate 16 12/14/19 09:00 Blood Pressure 116/65 12/14/19 09:00 O2 Sat by Pulse Oximetry (%) 98 12/14/19 09:00 Labs: CBC, BMP 12/13/19 16:30 12/13/19 16:30 INR, PTT INR 1.22 (0.83-1.09) H 12/13/19 16:30 Assessment/Plan CC Rule out meningitis HPI 29 year old female history of Large b cell lymophoma, IBS . She ahs been treated for lymphoma in 2017 with six cycle of chemo and it underwent remission. Recenlty she has lymph node getting better and she is being evaluated for recurrence of lymphoma. Pateint has been having fever and headhace fecently. Her temp at home was never more than 101. In ed she is found to have fever. Patient denies any loc or confusion . She has no history of chronic headahce 1 PAST MEDICAL HISTORY: Large B-cell Lymphoma in 2017, IBS PAST SURGICAL HISTORY: Chemo for Large B-cell Lymphoma, Tubal ligation, Appendectomy Social History: Smoking: Denies Alcohol: Denies Drugs: Denies Allergies rituximab Allergy (Severe, Verified 12/13/19 15:35) Difficulty Breathing HOME MEDICATIONS: Home Medications Medication Instructions Recorded Magnesium Amino Acid Chelate 1 tab PO DAILY 02/25/19 [Magnesium] Ferrous Sulfate [Feosol] 325 mg PO BID #14 tablet 04/12/19 Albuterol Sulfate Inhaler - 1 - 2 inh PO Q6H PRN 06/13/19 [Ventolin Hfa Inhaler -] Acetaminophen [Tylenol] 650 mg PO QID PRN 12/13/19 Multivitamin [Multiple Vitamins] 1 each PO DAILY 12/13/19 Vitamin B Complex [B Complex] 1 each PO DAILY 12/13/19 ROS,FH,S H reviewed in chart NEUROLOGICAL EXAMINATION Alert oriented x 3, neck is supple afebrile today , speech is normal walking around feeling much better eomi, pupils reactive , no face asymmetry moving all ext sensation is normal Assessment/Plan 29 year old female history of Large b cell lymophoma x 2017 treated with six cycle of chemo developed mild neuropathy. her lymphoma has been recurring and she came with headache and fever, there is no neck stiffness or loc or change in mental status. Possible meningitis Plan: spinal tap is planned for tomorrow, as she would need cytology - mri of brain with without contrast - abx as per ID. WILL continue to follow up Thanking you so much Matthew Madsen MD
--- NOTE | 2019-12-14 22:20 | CONSULT ---
Consult - text type - Consultation Consultation Note: 29 year old female patient with past medical history that includes large b-cell lymphoma and IBS, who presented to the ED with 1 week of headache and fever. The headache is fixed at the top of her head and is constant, 5/10 in severity pain. She also has neck stiffness and diaphoresis. She has h/o DLBCL -- s/p RCHOP 11/06 to 03/09 Most recent scans 12/06/19 suggestive of recurrence with multiple b/l cervical nodes --largest --left upper jugular 2.5cm and rt. lateral 1.9cm. No adenopathy in chest/abdomen/pelvis. Thickening of rectosigmoid --? under distention vs clinical correlation. LLL nodule PAST MEDICAL HISTORY: Large B-cell Lymphoma in 2017, IBS PAST SURGICAL HISTORY: Chemo for Large B-cell Lymphoma, Tubal ligation, Appendectomy Social History: Smoking: Denies Alcohol: Denies Drugs: Denies Allergies rituximab Allergy (Severe, Verified 12/13/19 15:35) Difficulty Breathing HOME MEDICATIONS: Home Medications Medication Instructions Recorded Magnesium Amino Acid Chelate 1 tab PO DAILY 02/25/19 [Magnesium] Ferrous Sulfate [Feosol] 325 mg PO BID #14 tablet 04/12/19 Albuterol Sulfate Inhaler - 1 - 2 inh PO Q6H PRN 06/13/19 [Ventolin Hfa Inhaler -] Acetaminophen [Tylenol] 650 mg PO QID PRN 12/13/19 Multivitamin [Multiple Vitamins] 1 each PO DAILY 12/13/19 Vitamin B Complex [B Complex] 1 each PO DAILY 12/13/19 PHYSICAL EXAMINATION Vital Signs - 24 hr 12/13/19 12/14/19 15:34 01:45 Temperature 102.7 F H 97.4 F L Pulse Rate 133 H 87 Respiratory 18 16 Rate Blood Pressure 118/78 117/76 O2 Sat by Pulse 97 99 Oximetry (%) Cor: RSR, No murmurs, No gallops Lungs: Clear to P&A Abd: Soft, Normal bowel sounds, No organomegaly Ext:No significant edema Laboratory Results - last 24 hr 12/13/19 12/13/19 12/13/19 16:30 16:30 16:30 WBC 6.3 RBC 4.57 Hgb 12.1 Hct 37.7 MCV 82.5 MCH 26.5 MCHC 32.1 RDW 16.4 H Plt Count 194 MPV 9.6 Absolute Neuts (auto) 3.9 Neutrophils % 62.6 Lymphocytes % 17.1 Monocytes % 19.7 H Eosinophils % 0.4 Basophils % 0.2 Nucleated RBC % 0 PT with INR 14.40 H INR 1.22 H PTT (Actin FS) 30.3 VBG pH POC VBG pCO2 POC VBG pO2 VBG HCO3 VBG O2 Sat (Leroy) VBG Base Excess Sodium Potassium Chloride Carbon Dioxide Anion Gap BUN Creatinine Est GFR (CKD-EPI)AfAm Est GFR (CKD-EPI)NonAf Random Glucose Lactic Acid Calcium Total Bilirubin AST ALT Alkaline Phosphatase Creatine Kinase CK-MB (CK-2) Troponin I < 0.02 Total Protein Albumin Serum , Qual Blood Type Antibody Screen 12/13/19 12/13/19 12/13/19 16:30 16:30 16:30 WBC RBC Hgb Hct MCV MCH MCHC RDW Plt Count MPV Absolute Neuts (auto) Neutrophils % Lymphocytes % Monocytes % Eosinophils % Basophils % Nucleated RBC % PT with INR INR PTT (Actin FS) VBG pH 7.379 POC VBG pCO2 43.6 POC VBG pO2 21.1 L VBG HCO3 25.2 VBG O2 Sat (Leroy) 34.0 L VBG Base Excess -0.2 Sodium 137 Potassium 4.3 Chloride 105 Carbon Dioxide 23 Anion Gap 9 BUN 9.7 Creatinine 0.6 Est GFR (CKD-EPI)AfAm 140.77 Est GFR (CKD-EPI)NonAf 121.46 Random Glucose 82 Lactic Acid 0.5 Calcium 9.2 Total Bilirubin 0.5 AST 16 ALT 15 Alkaline Phosphatase 57 Creatine Kinase 31 CK-MB (CK-2) < 1.0 Troponin I Total Protein 7.4 Albumin 4.3 Serum , Qual Blood Type Antibody Screen 12/13/19 12/13/19 16:30 16:30 WBC RBC Hgb Hct MCV MCH MCHC RDW Plt Count MPV Absolute Neuts (auto) Neutrophils % Lymphocytes % Monocytes % Eosinophils % Basophils % Nucleated RBC % PT with INR INR PTT (Actin FS) VBG pH POC VBG pCO2 POC VBG pO2 VBG HCO3 VBG O2 Sat (Leroy) VBG Base Excess Sodium Potassium Chloride Carbon Dioxide Anion Gap BUN Creatinine Est GFR (CKD-EPI)AfAm Est GFR (CKD-EPI)NonAf Random Glucose Lactic Acid Calcium Total Bilirubin AST ALT Alkaline Phosphatase Creatine Kinase CK-MB (CK-2) Troponin I Total Protein Albumin Serum , Qual Negative Blood Type A POSITIVE Antibody Screen Negative ASSESSMENT/PLAN: 29 year old female patient with past medical history that includes large b-cell lymphoma and IBS, who presented to the ED with 1 week of headache and fever. The headache is fixed at the top of her head and is constant, 5/10 in severity pain. She also has neck stiffness and diaphoresis. She has h/o DLBCL -- s/p RCHOP 11/06 to 03/09 Most recent scans 12/06/19 suggestive of recurrence with multiple b/l cervical nodes --largest --left upper jugular 2.5cm and rt. lateral 1.9cm. No adenopathy in chest/abdomen/pelvis. Thickening of rectosigmoid --? under distention vs clinical correlation. LLL nodule will check U/S neck. Surgical consult for biopsy Headache -- CT head neg. W/U per neuro team Fever --most likely B symptom CRP 1.5/ESr 12/LDH 193 r/o infectious etiology
[2019-12-15] MEDS ORDERED: SODIUM CHLORIDE 100 ML IVPB ONE ×5 (02:09→19:14)
[2019-12-15] MEDS ORDERED: AMPICILLIN SODIUM 2 GM VIAL ONE ×5 (02:09→19:14)
[2019-12-15] MEDS: AMPICILLIN - 2 GM in SODIUM CHLORIDE 100 ML IVPB SCH ×6 (02:14→22:07)
[2019-12-15] MEDS ORDERED: AMPICILLIN SODIUM 250 MG VIAL IVPUSH SCH (06:00)
[2019-12-15] MEDS ORDERED: VANCOMYCIN 1 GM in D5W (PRE-DOCKED) 1,000 MG/250 ML IVPB SCH (06:00)
[2019-12-15] MEDS ORDERED: CEFTRIAXONE 2,000 MG in DEXTROSE 5%-WATER - 50 ML IVPB SCH (06:00)
[2019-12-15 08:50] LABS: BASO % 0.3 % (0-2.0); EOS % 0.6 % (0-4.5); HEMATOCRIT 34.3 % (32.4-45.2); HEMOGLOBIN 10.8 GM/dL (10.7-15.3); LYMPH % 28.6 % (8-40); MCH 26.4 pg (25.7-33.7); MCHC 31.5 g/dl (32.0-36.0); MEAN CELL VOLUME 83.8 fl (80-96); MEAN PLT VOLUME 9.5 fl (7.5-11.1); MONO % 17.2 % (3.8-10.2); NEUT % 53.3 % (42.8-82.8); PLATELET COUNT 222 K/MM3 (134-434); WHITE BLOOD COUNT 4.9 K/mm3 (4.0-10.0)
[2019-12-15 08:58] LABS: INR 0.97 (0.83-1.09); PROTHROMBIN TIME (PATIENT) 11.5 SEC (9.7-13.0)
[2019-12-15 09:00] LABS: ACTIVATED PTT 24.4 SECONDS (25.2-36.5)
[2019-12-15 09:14] LABS: ALBUMIN 3.8 g/dl (3.4-5.0); BILIRUBIN,TOTAL 0.3 mg/dL (0.2-1); BLOOD UREA NITROGEN 9.2 mg/dL (7-18); CALCIUM 8.6 mg/dL (8.5-10.1); CREATININE 0.4 mg/dL (0.55-1.3); POTASSIUM 3.9 mmol/L (3.5-5.1); TOT PROT 6.4 g/dl (6.4-8.2); URIC ACID 2.2 mg/dL (2.6-7.2)
[2019-12-15] MEDS ORDERED: DEXTROSE 5%-WATER 100 ML IVPB ONE (09:33)
[2019-12-15] MEDS ORDERED: CEFEPIME HCL 2 GM VIAL (RESTRICTED TO ID) ONE (09:33)
[2019-12-15] MEDS: MULTIVITAMINS (DAILY MVI) TABLET (FP) PO SCH (10:28)
[2019-12-15] MEDS: VITAMIN B COMPLEX W/C COMBO TABLET (FP) PO SCH (10:28)
--- NOTE | 2019-12-15 10:39 | PN ---
Teaching Attending Note Name of Resident: Mariel Hawkins ATTENDING PHYSICIAN STATEMENT I saw and evaluated the patient. I reviewed the resident's note and discussed the case with the resident. I agree with the resident's findings and plan as documented. SUBJECTIVE: OBJECTIVE: Last Vital Signs Temp Pulse Resp BP Pulse Ox 97.4 F L 69 16 93/56 L 99 12/15/19 05:00 12/15/19 05:00 12/15/19 05:00 12/15/19 05:00 12/15/19 05:00 GENERAL: Awake, alert, and fully oriented, in no acute distress. HEAD: Normal with no signs of trauma. EYES: Pupils equal, round and reactive to light, sclera anicteric, conjunctiva clear. LUNGS: Breath sounds equal, clear to auscultation bilaterally. No wheezes, and no crackles. No accessory muscle use. HEART: Regular rate and rhythm, normal S1 and S2 ABDOMEN: Soft, nontender, not distended MUSCULOSKELETAL: Normal range of motion at all joints. No bony deformities or tenderness. No CVA tenderness. UPPER EXTREMITIES: 2+ pulses, warm, well-perfused. No cyanosis. No clubbing. No peripheral edema. LOWER EXTREMITIES: 2+ pulses, warm, well-perfused. No calf tenderness. No peripheral edema. NEUROLOGICAL: Cranial nerves II-XII intact. Normal speech. no neck stiffness multiple enlarged LN in submandibular, neck, and Rt axillary area CBCD WBC 4.9 K/mm3 (4.0-10.0) 12/15/19 07:10 RBC 4.10 M/mm3 (3.60-5.2) 12/15/19 07:10 Hgb 10.8 GM/dL (10.7-15.3) 12/15/19 07:10 Hct 34.3 % (32.4-45.2) 12/15/19 07:10 MCV 83.8 fl (80-96) 12/15/19 07:10 MCHC 31.5 g/dl (32.0-36.0) L 12/15/19 07:10 RDW 16.0 % (11.6-15.6) H 12/15/19 07:10 Plt Count 222 K/MM3 (134-434) 12/15/19 07:10 MPV 9.5 fl (7.5-11.1) 12/15/19 07:10 CMP Sodium 143 mmol/L (136-145) 12/15/19 07:10 Potassium 3.9 mmol/L (3.5-5.1) 12/15/19 07:10 Chloride 109 mmol/L (98-107) H 12/15/19 07:10 Carbon Dioxide 23 mmol/L (21-32) 12/15/19 07:10 Anion Gap 11 MMOL/L (8-16) 12/15/19 07:10 BUN 9.2 mg/dL (7-18) 12/15/19 07:10 Creatinine 0.4 mg/dL (0.55-1.3) L 12/15/19 07:10 Calcium 8.6 mg/dL (8.5-10.1) 12/15/19 07:10 Total Bilirubin 0.3 mg/dL (0.2-1) 12/15/19 07:10 AST 13 U/L (15-37) L 12/15/19 07:10 ALT 16 U/L (13-61) 12/15/19 07:10 Alkaline Phosphatase 44 U/L (45-117) L 12/15/19 07:10 Total Protein 6.4 g/dl (6.4-8.2) 12/15/19 07:10 Albumin 3.8 g/dl (3.4-5.0) 12/15/19 07:10 Active Medications Acetaminophen (Tylenol -) 650 mg PO QID PRN PRN Reason: FEVER Albuterol Sulfate (Ventolin Hfa Inhaler -) 1 - 2 puff IH Q6H PRN PRN Reason: SHORTNESS OF BREATH Ampicillin Sodium 2 gm/ Sodium (Chloride) 100 mls @ 200 mls/hr IVPB Q4H-IV KELLY Last Admin: 12/15/19 10:27 Dose: 200 mls/hr Documented by: Multivitamins (Total B With C -) 1 each PO DAILY KELLY Last Admin: 12/15/19 10:28 Dose: 1 each Documented by: Multivitamins/Minerals/Vitamin C (Tab-A-Vit -) 1 tab PO DAILY KELLY Last Admin: 12/15/19 10:28 Dose: 1 tab Documented by: ASSESSMENT AND PLAN: 29 year old lady with Mhx of large b-cell lymphoma (completed R-CHOP 2017, possible recurrence found dec 2018) and IBS, who presented to the ED with 2 week of headache and fever. 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 Reporting improvement of headaches Large B-Cell Lymphoma (followed by Dr. Kidd, in process of work up for recurrence) DVT PPx - Lovenox SQ Plan: follow up LP results and clinical progression to decide on Abx
--- NOTE | 2019-12-15 11:41 | PN ---
Physical Exam: SUBJECTIVE: Patient seen and examined at bedside. No acute events overnight. Pt states she still has headaches but has significantly improved since admission. No complaints overnight. OBJECTIVE: Vital Signs Period Temp Pulse Resp BP Sys/Thompson Pulse Ox Last 24 Hr 97.4 F-98.6 F 69-81 16-18 93-118/56-77 97-100 GENERAL: Awake, alert, and fully oriented, in no acute distress. HEAD: Normal with no signs of trauma. Multiple hard lymph nodes palpable around head. EYES: Extraocular movements intact. No lid lag. EARS, NOSE, THROAT: Ears normal, nares patent, oropharynx clear without exudates. Moist mucous membranes. NECK: Normal range of motion, supple without lymphadenopathy, JVD, or masses. LUNGS: Breath sounds equal, clear to auscultation bilaterally. No wheezes, and no crackles. No accessory muscle use. HEART: Regular rate and rhythm, normal S1 and S2 without murmur, rub or gallop. ABDOMEN: Soft, nontender, not distended, normoactive bowel sounds, no guarding, no rebound. MUSCULOSKELETAL: Normal range of motion at all joints. No bony deformities or tenderness. UPPER EXTREMITIES: 2+ pulses, warm, well-perfused. No cyanosis. No clubbing. No peripheral edema. LOWER EXTREMITIES: 2+ pulses, warm, well-perfused. No calf tenderness. No peripheral edema. NEUROLOGICAL: Normal speech. Normal gait. PSYCHIATRIC: Cooperative. Good eye contact. Appropriate mood and affect. SKIN: Warm, dry, normal turgor, no rashes or lesions noted, normal capillary refill. Laboratory Results - last 24 hr 12/14/19 12/15/19 12/15/19 05:40 07:10 07:10 WBC 4.9 RBC 4.10 Hgb 10.8 Hct 34.3 MCV 83.8 MCH 26.4 MCHC 31.5 L RDW 16.0 H Plt Count 222 MPV 9.5 Absolute Neuts (auto) 2.6 Neutrophils % 53.3 Lymphocytes % 28.6 D Monocytes % 17.2 H Eosinophils % 0.6 Basophils % 0.3 Nucleated RBC % 0 PT with INR INR PTT (Actin FS) Sodium 143 Potassium 3.9 Chloride 109 H Carbon Dioxide 23 Anion Gap 11 BUN 9.2 Creatinine 0.4 L Est GFR (CKD-EPI)AfAm 160.86 Est GFR (CKD-EPI)NonAf 138.79 Random Glucose 65 L Uric Acid 2.2 L Calcium 8.6 Total Bilirubin 0.3 AST 13 L ALT 16 Alkaline Phosphatase 44 L LD Total 195 Total Protein 6.4 Albumin 3.8 COVID-19 (GEMINI) Not detected 12/15/19 07:10 WBC RBC Hgb Hct MCV MCH MCHC RDW Plt Count MPV Absolute Neuts (auto) Neutrophils % Lymphocytes % Monocytes % Eosinophils % Basophils % Nucleated RBC % PT with INR 11.50 INR 0.97 PTT (Actin FS) 24.4 L Sodium Potassium Chloride Carbon Dioxide Anion Gap BUN Creatinine Est GFR (CKD-EPI)AfAm Est GFR (CKD-EPI)NonAf Random Glucose Uric Acid Calcium Total Bilirubin AST ALT Alkaline Phosphatase LD Total Total Protein Albumin COVID-19 (GEMINI) Active Medications Generic Name Dose Route Start Last Admin Trade Name Freq PRN Reason Stop Dose Admin Acetaminophen 650 mg 12/14/19 00:06 Tylenol - PO QID PRN FEVER Albuterol Sulfate 1 - 2 puff 12/14/19 00:03 Ventolin Hfa Inhaler - IH Q6H PRN SHORTNESS OF BREATH Ampicillin Sodium 2 gm/ Sodium 100 mls @ 200 mls/hr 12/14/19 06:15 12/15/19 10:27 Chloride IVPB 200 mls/hr Q4H-IV KELLY Administration Multivitamins 1 each 12/14/19 10:00 12/15/19 10:28 Total B With C - PO 1 each DAILY KELLY Administration Multivitamins/Minerals/Vitamin C 1 tab 12/14/19 10:00 12/15/19 10:28 Tab-A-Vit - PO 1 tab DAILY KELLY Administration ASSESSMENT/PLAN: 29 year old female patient with past medical history that includes large b-cell lymphoma and IBS, who presented to the ED with 1 week of headache and fever. #R/o Meningitis; ? etiology, viral vs. bacterial vs. 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 -Symptomatically improved -CTH neg -Cont empiric IV abx: Ceftriaxone, Ampicillin, Vancomycin (Ampicillin because patient was on chemotherapy previously and might be immunocompromised) -Tylenol PRN for headache/fever -lumbar puncture pending, to be done by IR; CSF cell profile/gl ucose/protein/gram stain/cx, cytology ordered -Check B12/folate levels -Fall/seizure precautions/neurochecks -ID, neuro, heme-onc following -Brain MRI pending #Large B-Cell Lymphoma -Heme-onc following #FEN -PO fluids -recheck lytes in AM -Regular Diet DVT PPx - Lovenox SQ Visit type - Emergency Visit Emergency Visit: Yes ED Registration Date: 12/13/19 Care time: The patient presented to the Emergency Department on the above date and was hospitalized for further evaluation of their emergent condition. - New Patient This patient is new to me today: Yes Date on this admission: 12/15/19 - Critical Care Critical Care patient: No - Discharge Referral Referred to [facility] No ATTENDING PHYSICIAN STATEMENT I saw and evaluated the patient. I reviewed the resident's note and discussed the case with the resident. I agree with the resident's findings and plan as documented. SUBJECTIVE: OBJECTIVE: ASSESSMENT AND PLAN:
--- NOTE | 2019-12-15 12:30 | PN ---
Progress Note, Physician History of Present Illness: stable still having headaches plan for lp today - Current Medication List Current Medications: Active Medications Acetaminophen (Tylenol -) 650 mg PO QID PRN PRN Reason: FEVER Albuterol Sulfate (Ventolin Hfa Inhaler -) 1 - 2 puff IH Q6H PRN PRN Reason: SHORTNESS OF BREATH Ampicillin Sodium 2 gm/ Sodium (Chloride) 100 mls @ 200 mls/hr IVPB Q4H-IV KELLY Last Admin: 12/15/19 10:27 Dose: 200 mls/hr Documented by: Multivitamins (Total B With C -) 1 each PO DAILY KELLY Last Admin: 12/15/19 10:28 Dose: 1 each Documented by: Multivitamins/Minerals/Vitamin C (Tab-A-Vit -) 1 tab PO DAILY KELLY Last Admin: 12/15/19 10:28 Dose: 1 tab Documented by: - Objective Vital Signs: Vital Signs Temperature 98.6 F 12/15/19 10:00 Pulse Rate 81 12/15/19 10:00 Respiratory Rate 16 12/15/19 10:00 Blood Pressure 99/56 L 12/15/19 10:00 O2 Sat by Pulse Oximetry (%) 98 12/15/19 10:00 Constitutional: Yes: No Distress, Calm Cardiovascular: Yes: S1, S2 Respiratory: Yes: Regular, CTA Bilaterally Gastrointestinal: Yes: Normal Bowel Sounds, Soft Musculoskeletal: Yes: WNL Extremities: Yes: WNL Neurological: Yes: Alert, Oriented Psychiatric: Yes: Alert, Oriented Labs: CBC, BMP 12/15/19 07:10 12/15/19 07:10 INR, PTT INR 0.97 (0.83-1.09) 12/15/19 07:10 Assessment/Plan 29 year old lady with Mhx of large b-cell lymphoma (completed R-CHOP 2016, possible recurrence found dec 2018) and IBS, who presented to the ED with 2 week of headache and fever. Meningitis Large B-Cell Lymphoma fever headaches plan continue abx await for lp result rest as per the team
[2019-12-15] MEDS ORDERED: ERGOCALCIFEROL (VIT D2) 50,000 UNIT (1.25 MG) CAPSULE PO ONE (15:01)
[2019-12-15] MEDS: ACETAMINOPHEN 325 MG TABLET (FP) PO PRN (15:44)
--- NOTE | 2019-12-15 17:26 | PN ---
Progress Note (short form) - Note Progress Note: 29 year old female history of Large b cell lymophoma, IBS . She ahs been treated for lymphoma in 2017 with six cycle of chemo and it underwent remission. Recenlty she has lymph node getting better and she is being evaluated for recurrence of lymphoma. Pateint has been having fever and headhace fecently. Her temp at home was never more than 101. In ed she is found to have fever. Patient denies any loc or confusion . She has no history of chronic headache. Patient is feeling better , and has been afebrile. ID consult appercaited. Suspect viral meningitis, she had mri and spinal tap done, result pending NEUROLOGICAL EXAMINATION Alert oriented x 3, neck is supple afebrile today , speech is normal walking around feeling much better eomi, pupils reactive , no face asymmetry moving all ext sensation is normal Assessment/Plan 29 year old female history of Large b cell lymophoma x 2017 treated with six cycle of chemo developed mild neuropathy. her lymphoma has been recurring and she came with headache and fever, there is no neck stiffness or loc or change in mental status. Possible ? vital meningitis Plan: csf results pending - mri of brain with without contrast results pending - abx as per ID. - Lymph node biopsy also being planned. Clinically she hsa markedly improved WILL continue to follow up Thanking you so much Matthew Madsen MD
[2019-12-15 17:32] LABS: CSF APPEARANCE CLEAR; CSF COLOR COLORLESS
[2019-12-15 17:33] LABS: CSF WBC 2
[2019-12-15 18:19] LABS: BF GLUCOSE (CSF ONLY) 43 mg/dL (40-70)
--- NOTE | 2019-12-15 19:06 | PN.HO ---
Progress Note (short form) - Note Progress Note: PAtient seen and examined Feels OK AFVSS Cor: RSR, No murmurs, No gallops Lungs: Clear to P&A Abd: Soft, Normal bowel sounds, No organomegaly Ext:No significant edema Labs/Meds reviewed A/P 29 year old female patient with past medical history that includes large b-cell lymphoma and IBS, who presented to the ED with 1 week of headache and fever. The headache is fixed at the top of her head and is constant, 5/10 in severity pain. She also has neck stiffness and diaphoresis. She has h/o DLBCL -- s/p RCHOP 11/06 to 03/09 Most recent scans 12/06/19 suggestive of recurrence with multiple b/l cervical nodes --largest --left upper jugular 2.5cm and rt. lateral 1.9cm. No adenopathy in chest/abdomen/pelvis. Thickening of rectosigmoid --? under distention vs clinical correlation. LLL nodule will check U/S neck. Surgical consult for biopsy Headache -- CT head neg. W/U per neuro team Fever --most likely B symptom CRP 1.5/ESr 12/LDH 193 r/o infectious etiology If infectious w/u neg. over next 24-48hrs. plan on discharging her to follow up as outpatient with Dr. Malone for lymph node biopsy on Dr. Fernandez to follow up in am
--- NOTE | 2019-12-15 21:50 | EKG ---
Test Reason : Blood Pressure : / mmHG Vent. Rate : 126 BPM Atrial Rate : 126 BPM P-R Int : 144 ms QRS Dur : 072 ms QT Int : 300 ms P-R-T Axes : 081 073 030 degrees QTc Int : 434 ms SINUS TACHYCARDIA OTHERWISE NORMAL ECG WHEN COMPARED WITH ECG OF 28-JUN-2019 01:40, VENT. RATE HAS INCREASED BY 58 BPM T WAVE VARIATION Confirmed by JAME AWAD MD ([id number]) on 12/15/2019 9:50:46 PM Referred By: Confirmed By:JAME AWAD MD
[2019-12-16] MEDS ORDERED: SODIUM CHLORIDE 100 ML IVPB ONE ×5 (01:00→18:38)
[2019-12-16] MEDS ORDERED: AMPICILLIN SODIUM 2 GM VIAL ONE ×5 (01:00→18:38)
[2019-12-16] MEDS: AMPICILLIN - 2 GM in SODIUM CHLORIDE 100 ML IVPB SCH ×6 (01:56→22:40)
[2019-12-16] MEDS ORDERED: SODIUM CHLORIDE 0.9% 500 ML INFUS.BAG IV ONE (03:52)
[2019-12-16] MEDS ORDERED: MORPHINE SULFATE 2 MG/ML VIAL IVPUSH ONE ×2 (05:55→18:33)
[2019-12-16] MEDS ORDERED: LIDOCAINE 5% TOPICAL PATCH TP ONE (06:00)
[2019-12-16 07:34] LABS: HEMATOCRIT 30.6 % (32.4-45.2); HEMOGLOBIN 9.9 GM/dL (10.7-15.3); MCHC 32.4 g/dl (32.0-36.0); MEAN CELL VOLUME 83.3 fl (80-96); MEAN PLT VOLUME 9.4 fl (7.5-11.1); PLATELET COUNT 212 K/MM3 (134-434); RBC 3.67 M/mm3 (3.60-5.2); RDW 16.1 % (11.6-15.6); WHITE BLOOD COUNT 3.9 K/mm3 (4.0-10.0)
[2019-12-16 08:17] LABS: BLOOD UREA NITROGEN 8.1 mg/dL (7-18); CALCIUM 8.1 mg/dL (8.5-10.1); CREATININE 0.4 mg/dL (0.55-1.3); POTASSIUM 3.9 mmol/L (3.5-5.1)
[2019-12-16] MEDS: ACETAMINOPHEN 325 MG TABLET (FP) PO PRN (10:24)
[2019-12-16] MEDS: MULTIVITAMINS (DAILY MVI) TABLET (FP) PO SCH (10:24)
[2019-12-16] MEDS: VITAMIN B COMPLEX W/C COMBO TABLET (FP) PO SCH (10:24)
--- NOTE | 2019-12-16 11:11 | PN ---
Physical Exam: SUBJECTIVE: Patient seen and examined at bedside this morning. Patient experienced back pain early this morning which she attributed to the LP pro cedure. She was given pain meds which provided relief. THis morning, reports some mild neck pain, denies headache. Had low grade fever of 100F this morning as well. Denies any chest pain, SOB, abdominal pain, diarrhea, urinary symptoms. She's able to walk around the room without difficulty. Patient also just spoke with Dr. Malone, for plan to do LN biopsy tomorrow while patient still in the hospital, otherwise, will schedule on Sunday as outpatient if patient is to be discharged. OBJECTIVE: Vital Signs Temperature 98.5 F 12/16/19 06:00 Pulse Rate 75 12/16/19 06:00 Respiratory Rate 16 12/16/19 06:00 Blood Pressure 94/52 L 12/16/19 06:00 O2 Sat by Pulse Oximetry (%) 98 12/16/19 06:00 GENERAL: The patient is awake, alert, and fully oriented, in no acute distress. EYES: PERRLA, EOMI, sclera anicteric, conjunctiva clear. ENT: moist mucous membranes. NECK: Supple, multiple enlarged LN in submandibular and neck area LUNGS: Breath sounds equal, clear to auscultation bilaterally HEART: Regular rate and rhythm, S1, S2 ABDOMEN: Soft, nontender, nondistended, normoactive bowel sounds EXTREMITIES: 2+ pulses, warm, well-perfused, no edema. NEUROLOGICAL: Cranial nerves II through XII grossly intact. Normal speech PSYCH: Normal mood, normal affect. SKIN: Warm, dry, normal turgor Laboratory Results - last 24 hr 12/15/19 12/15/19 12/16/19 12:30 12:30 06:20 WBC RBC Hgb Hct MCV MCH MCHC RDW Plt Count MPV Sodium 141 Potassium 3.9 Chloride 108 H Carbon Dioxide 27 Anion Gap 6 L BUN 8.1 Creatinine 0.4 L Est GFR (CKD-EPI)AfAm 160.86 Est GFR (CKD-EPI)NonAf 138.79 Random Glucose 75 Calcium 8.1 L Vitamin B12 1775 H Serum Folate 11 Fluid Source Cancelled Fluid WBC Cancelled Fluid RBC Cancelled Fluid Neutrophils Cancelled Fluid Lymphocytes Cancelled Fluid Other Cells Cancelled CSF Appearance Clear CSF Color Colorless CSF WBC 2 CSF RBC 1 CSF Neutrophils No Result Required. CSF Lymphocytes No Result Required. CSF Eosinophils No Result Required. CSF Basophils No Result Required. CSF Macrophages No Result Required. CSF Plasma Cells No Result Required. CSF Diff Comment No Result Required. CSF Comment No Result Required. CSF Glucose 43 CSF Total Protein 36 Pleural Monocytes Cancelled Pleural Eosinophils Cancelled Pleural Basophils Cancelled Pleural Plasma Cells Cancelled Pleural Histocytes Cancelled Pleural Macrophages Cancelled Pleural Mesothelial Cancelled Pleural Diff Comment Cancelled 12/16/19 06:20 WBC 3.9 L RBC 3.67 Hgb 9.9 L Hct 30.6 L MCV 83.3 MCH 27.0 MCHC 32.4 RDW 16.1 H Plt Count 212 MPV 9.4 Sodium Potassium Chloride Carbon Dioxide Anion Gap BUN Creatinine Est GFR (CKD-EPI)AfAm Est GFR (CKD-EPI)NonAf Random Glucose Calcium Vitamin B12 Serum Folate Fluid Source Fluid WBC Fluid RBC Fluid Neutrophils Fluid Lymphocytes Fluid Other Cells CSF Appearance CSF Color CSF WBC CSF RBC CSF Neutrophils CSF Lymphocytes CSF Eosinophils CSF Basophils CSF Macrophages CSF Plasma Cells CSF Diff Comment CSF Comment CSF Glucose CSF Total Protein Pleural Monocytes Pleural Eosinophils Pleural Basophils Pleural Plasma Cells Pleural Histocytes Pleural Macrophages Pleural Mesothelial Pleural Diff Comment Active Medications Generic Name Dose Route Start Last Admin Trade Name Freq PRN Reason Stop Dose Admin Acetaminophen 650 mg 12/14/19 00:06 12/16/19 10:24 Tylenol - PO 650 mg QID PRN Administration FEVER Albuterol Sulfate 1 - 2 puff 12/14/19 00:03 Ventolin Hfa Inhaler - IH Q6H PRN SHORTNESS OF BREATH Ampicillin Sodium 2 gm/ Sodium 100 mls @ 200 mls/hr 12/14/19 06:15 12/16/19 10:23 Chloride IVPB 200 mls/hr Q4H-IV KELLY Administration Miscellaneous 1 each 12/16/19 18:00 Lidoderm Patch Removal MC 12/16/19 18:01 ONCE@1800 ONE Multivitamins 1 each 12/14/19 10:00 12/16/19 10:24 Total B With C - PO 1 each DAILY KELLY Administration Multivitamins/Minerals/Vitamin C 1 tab 12/14/19 10:00 12/16/19 10:24 Tab-A-Vit - PO 1 tab DAILY KELLY Administration ASSESSMENT/PLAN: Patient is a 29 year old female patient with past medical history of large b- cell lymphoma and IBS, who presented to the ED with 1 week of headache and fever. She also has neck stiffness and diaphoresis. #Hx of Diffuse Large B-cell Lymphoma -s/p RCHOP 11/06 to 03/09 -Head/Neck U/S: enlarged Rt lateral neck nodes with the largest measuring 3.7 x 1.1cm. Enlarged Lt lateral neck LN measuring 2.9x1.5cm that demonstrates architectural distortion. Other small bilateral lateral neck LN are present. -No adenopathy in chest/abdomen/pelvis CT scans 12/05. -Headache, r/o meningitis, LP pending, IV abx as per ID -Fever, likely B symptom, r/o infectious etiology -CSF results pending. Blood and urine culture unremarkable -Plan for lymph node biopsy, if OR available tomorrow as per patient's conver sation with Dr. Malone today, otherwise to be done as outpatient on Sunday. Visit type - Emergency Visit Emergency Visit: Yes ED Registration Date: 12/13/19 Care time: The patient presented to the Emergency Department on the above date and was hospitalized for further evaluation of their emergent condition. - New Patient This patient is new to me today: No - Critical Care Critical Care patient: No ATTENDING PHYSICIAN STATEMENT I saw and evaluated the patient. I reviewed the resident's note and discussed the case with the resident. I agree with the resident's findings and plan as documented. SUBJECTIVE: OBJECTIVE: ASSESSMENT AND PLAN:
--- NOTE | 2019-12-16 11:58 | PN ---
Progress Note, Physician History of Present Illness: events noted back pain had headache--post lp now better - Current Medication List Current Medications: Active Medications Acetaminophen (Tylenol -) 650 mg PO QID PRN PRN Reason: FEVER Last Admin: 12/16/19 10:24 Dose: 650 mg Documented by: Albuterol Sulfate (Ventolin Hfa Inhaler -) 1 - 2 puff IH Q6H PRN PRN Reason: SHORTNESS OF BREATH Ampicillin Sodium 2 gm/ Sodium (Chloride) 100 mls @ 200 mls/hr IVPB Q4H-IV KELLY Last Admin: 12/16/19 10:23 Dose: 200 mls/hr Documented by: Miscellaneous (Lidoderm Patch Removal) 1 each MC ONCE@1800 ONE Stop: 12/16/19 18:01 Multivitamins (Total B With C -) 1 each PO DAILY KELLY Last Admin: 12/16/19 10:24 Dose: 1 each Documented by: Multivitamins/Minerals/Vitamin C (Tab-A-Vit -) 1 tab PO DAILY KELLY Last Admin: 12/16/19 10:24 Dose: 1 tab Documented by: - Objective Vital Signs: Vital Signs Temperature 98.5 F 12/16/19 10:00 Pulse Rate 77 12/16/19 10:00 Respiratory Rate 18 12/16/19 10:00 Blood Pressure 133/79 12/16/19 10:00 O2 Sat by Pulse Oximetry (%) 100 12/16/19 10:00 Constitutional: Yes: No Distress, Calm HENT: Yes: Other Neck: Yes: Supple Cardiovascular: Yes: S1, S2 Gastrointestinal: Yes: Normal Bowel Sounds, Soft Musculoskeletal: Yes: WNL Extremities: Yes: WNL Neurological: Yes: Alert, Oriented Psychiatric: Yes: Alert, Oriented Labs: CBC, BMP 12/16/19 06:20 12/16/19 06:20 INR, PTT INR 0.97 (0.83-1.09) 12/15/19 07:10 Assessment/Plan 29 year old lady with Mhx of large b-cell lymphoma (completed R-CHOP 2016, possible recurrence found dec 2018) and IBS, who presented to the ED with 2 week of headache and fever. Meningitis Large B-Cell Lymphoma fever headaches plan lp results noted if cx result negative stop abx rest as per the team
--- NOTE | 2019-12-16 16:05 | PATH ---
Cytology Non-Gynecological Report Patient Name: EVELINA CORONADO Med. Rec. #: [id number] /Age/Gender: 1990 (Age: 29) / F Account: [id number] Location: [facility] MED/SURG Taken: 12/15/2019 Received: 12/15/2019 Reported: 12/16/2019 Physicians: Johnathan Pang M.D. Specimen(s) Received SPINAL FLUID Clinical History DLBCL, headache, fever Final Diagnosis SPINAL FLUID FOR CYTOLOGY: SATISFACTORY FOR EVALUATION. NEGATIVE FOR MALIGNANT CELLS. RARE LYMPHOCYTES PRESENT. SEE COMMENT. Comment: Concurrent flow cytometry performed and interpreted at [facility] [place], [place] ([id number]) was non-diagnostic (too few cells to characterize). Suggest clinical and radiologic correlation. History of lymphoma noted. See [facility] report for additional details on flow cytometry. Electronically Signed Madison Schuler M.D. Gross Description Four tubes of approximately 4-5 cc of clear fluid received fresh. Two cytofunnels prepared and Pap stained. One cellblock prepared. 5 cc of fluid placed in RPMI and sent to [facility] for flow cytometry.
--- NOTE | 2019-12-16 16:58 | PN ---
Physical Exam: SUBJECTIVE: Patient seen and examined. Pt. still with some back pain and neck pain but PO pain medications helped. Awating culture results. Pt. states that the swelling in her lymph nodes in her neck has decreased. OBJECTIVE: Vital Signs Period Temp Pulse Resp BP Sys/Thompson Pulse Ox Last 24 Hr 97.7 F-98.7 F 67-80 16-18 93-133/50-79 97-100 GENERAL: The patient is awake, alert, and fully oriented, in no acute distress. HEAD: Normal with no signs of trauma. EYES: Sclera anicteric, conjunctiva clear. No ptosis. ENT: Ears normal, nares patent, oropharynx clear without exudates, moist mucous membranes. NECK: Trachea midline, full range of motion, supple. LUNGS: Breath sounds equal, clear to auscultation bilaterally, no wheezes, no crackles, no accessory muscle use. HEART: Regular rate and rhythm, S1, S2 without murmur, rub or gallop. ABDOMEN: Soft, nontender, nondistended, normoactive bowel sounds, no guarding, no rebound EXTREMITIES: 2+ radial pulses, warm, no calf tenderness, well-perfused, no edema. NEUROLOGICAL: Normal speech, gait not observed. PSYCH: Normal mood, normal affect. SKIN: Warm, dry Laboratory Results - last 24 hr 12/15/19 12/15/19 12/16/19 12:30 12:30 06:20 WBC RBC Hgb Hct MCV MCH MCHC RDW Plt Count MPV Sodium 141 Potassium 3.9 Chloride 108 H Carbon Dioxide 27 Anion Gap 6 L BUN 8.1 Creatinine 0.4 L Est GFR (CKD-EPI)AfAm 160.86 Est GFR (CKD-EPI)NonAf 138.79 Random Glucose 75 Calcium 8.1 L Vitamin B12 1775 H Serum Folate 11 Fluid Source Cancelled Fluid WBC Cancelled Fluid RBC Cancelled Fluid Neutrophils Cancelled Fluid Lymphocytes Cancelled Fluid Other Cells Cancelled CSF Appearance Clear CSF Color Colorless CSF WBC 2 CSF RBC 1 CSF Neutrophils No Result Required. CSF Lymphocytes No Result Required. CSF Eosinophils No Result Required. CSF Basophils No Result Required. CSF Macrophages No Result Required. CSF Plasma Cells No Result Required. CSF Diff Comment No Result Required. CSF Comment No Result Required. CSF Glucose 43 CSF Total Protein 36 Pleural Monocytes Cancelled Pleural Eosinophils Cancelled Pleural Basophils Cancelled Pleural Plasma Cells Cancelled Pleural Histocytes Cancelled Pleural Macrophages Cancelled Pleural Mesothelial Cancelled Pleural Diff Comment Cancelled 12/16/19 06:20 WBC 3.9 L RBC 3.67 Hgb 9.9 L Hct 30.6 L MCV 83.3 MCH 27.0 MCHC 32.4 RDW 16.1 H Plt Count 212 MPV 9.4 Sodium Potassium Chloride Carbon Dioxide Anion Gap BUN Creatinine Est GFR (CKD-EPI)AfAm Est GFR (CKD-EPI)NonAf Random Glucose Calcium Vitamin B12 Serum Folate Fluid Source Fluid WBC Fluid RBC Fluid Neutrophils Fluid Lymphocytes Fluid Other Cells CSF Appearance CSF Color CSF WBC CSF RBC CSF Neutrophils CSF Lymphocytes CSF Eosinophils CSF Basophils CSF Macrophages CSF Plasma Cells CSF Diff Comment CSF Comment CSF Glucose CSF Total Protein Pleural Monocytes Pleural Eosinophils Pleural Basophils Pleural Plasma Cells Pleural Histocytes Pleural Macrophages Pleural Mesothelial Pleural Diff Comment Active Medications Generic Name Dose Route Start Last Admin Trade Name Freq PRN Reason Stop Dose Admin Acetaminophen 650 mg 12/14/19 00:06 12/16/19 10:24 Tylenol - PO 650 mg QID PRN Administration FEVER Albuterol Sulfate 1 - 2 puff 12/14/19 00:03 Ventolin Hfa Inhaler - IH Q6H PRN SHORTNESS OF BREATH Ampicillin Sodium 2 gm/ Sodium 100 mls @ 200 mls/hr 12/14/19 06:15 12/16/19 14:59 Chloride IVPB 200 mls/hr Q4H-IV KELLY Administration Miscellaneous 1 each 12/16/19 18:00 Lidoderm Patch Removal MC 12/16/19 18:01 ONCE@1800 ONE Multivitamins 1 each 12/14/19 10:00 12/16/19 10:24 Total B With C - PO 1 each DAILY KELLY Administration Multivitamins/Minerals/Vitamin C 1 tab 12/14/19 10:00 12/16/19 10:24 Tab-A-Vit - PO 1 tab DAILY KELLY Administration ASSESSMENT/PLAN: Pt.s is a 29 y.o. F w/ PMHx. of large b-cell lymphoma and IBS who presented to the ED with 1 week of headache and fever. #Meningitis ruled out - Preliminary results from CSF fluid analysis and culture are negative for infection. Fluid was insufficient and therefore non-diagnostic of B[employer] MECH[employer]IC malignancy. -Symptomatically improved -CTH neg -Cont empiric IV abx: Ampicillin (Ampicillin because patient was on chemotherapy previously and might be immunocompromised), will D/C tomorrow if cultures remain negative -Tylenol PRN for headache/fever -lumbar puncture performed, however insufficient fluid -B12/folate levels wnl -Fall/seizure precautions/neurochecks -ID, neuro, heme-onc following -Brain MRI showed mildly enlarged lymphnodes in the nasopharynx, no acute pathology #Large B-Cell Lymphoma -Heme-onc following -Pt. for biopsy as outpatient on Sunday vs. inpatient tomorrow. #FEN -PO fluids -recheck lytes in AM -Regular Diet, NPO after midnight for possible biopsy #DVT PPx - Lovenox SQ Visit type - Emergency Visit Emergency Visit: Yes ED Registration Date: 12/13/19 Care time: The patient presented to the Emergency Department on the above date and was hospitalized for further evaluation of their emergent condition. - New Patient This patient is new to me today: Yes Date on this admission: 12/16/19 - Critical Care Critical Care patient: No - Discharge Referral Referred to [facility] Med P.C.: No ATTENDING PHYSICIAN STATEMENT I saw and evaluated the patient. I reviewed the resident's note and discussed the case with the resident. I agree with the resident's findings and plan as documented. SUBJECTIVE: OBJECTIVE: ASSESSMENT AND PLAN:
--- NOTE | 2019-12-16 17:19 | PN ---
Teaching Attending Note Name of Resident: Chester Mario ATTENDING PHYSICIAN STATEMENT I saw and evaluated the patient. I reviewed the resident's note and discussed the case with the resident. I agree with the resident's findings and plan as documented. SUBJECTIVE: Patient seen and examined at bedside, denies complaints feels warm at times, LP neg. for meninigitis, sx attributable to B symptoms. OBJECTIVE: GENERAL: The patient is awake, alert, and fully oriented, in no acute distress. Warm to touch. HEENT no palpable c-KINSEY, neck supple, MMM LUNGS: Breath sounds equal, clear to auscultation bilaterally, no wheezes, no crackles, no accessory muscle use. HEART: Regular rate and rhythm, S1, S2 without murmur, rub or gallop. ABDOMEN: Soft, nontender, nondistended, normoactive bowel sounds, no guarding, no rebound EXTREMITIES: 2+ radial pulses, warm, no calf tenderness, well-perfused, no edema. no axillary KINSEY thats palpable. NEUROLOGICAL: Normal speech, gait not observed. PSYCH: Normal mood, normal affect. SKIN: Warm, dry Vital Signs - 24 hr 12/15/19 12/15/19 12/16/19 20:00 21:00 01:51 Temperature 97.8 F 97.7 F Pulse Rate 80 68 Respiratory 16 16 16 Rate Blood Pressure 103/57 L 93/50 L O2 Sat by Pulse 97 97 97 Oximetry (%) 12/16/19 12/16/19 12/16/19 04:55 06:00 09:00 Temperature 97.7 F 98.5 F Pulse Rate 70 75 Respiratory 16 16 Rate Blood Pressure 101/61 94/52 L O2 Sat by Pulse 97 98 100 Oximetry (%) 12/16/19 12/16/19 10:00 14:57 Temperature 98.5 F 98.7 F Pulse Rate 77 67 Respiratory 18 18 Rate Blood Pressure 133/79 102/59 L O2 Sat by Pulse 100 100 Oximetry (%) Microbiology 12/13/19 16:30 Blood - Peripheral Venous Blood Culture - Preliminary NO GROWTH OBTAINED AFTER 72 HOURS, INCUBATION TO CONTINUE FOR 2 DAYS. 12/15/19 12:30 Cerebral Spinal Fluid - Lumbar Puncture Gram Stain - Preliminary 12/13/19 16:50 Blood - Peripheral Venous Blood Culture - Preliminary NO GROWTH OBTAINED AFTER 48 HOURS, INCUBATION TO CONTINUE FOR 3 DAYS. 12/14/19 03:30 Urine - Urine Clean Catch Urine Culture - Final NO GROWTH OBTAINED Laboratory Results - last 24 hr 12/15/19 12/15/19 12/16/19 12:30 12:30 06:20 WBC RBC Hgb Hct MCV MCH MCHC RDW Plt Count MPV Sodium 141 Potassium 3.9 Chloride 108 H Carbon Dioxide 27 Anion Gap 6 L BUN 8.1 Creatinine 0.4 L Est GFR (CKD-EPI)AfAm 160.86 Est GFR (CKD-EPI)NonAf 138.79 Random Glucose 75 Calcium 8.1 L Vitamin B12 1775 H Serum Folate 11 Fluid Source Cancelled Fluid WBC Cancelled Fluid RBC Cancelled Fluid Neutrophils Cancelled Fluid Lymphocytes Cancelled Fluid Other Cells Cancelled CSF Appearance Clear CSF Color Colorless CSF WBC 2 CSF RBC 1 CSF Neutrophils No Result Required. CSF Lymphocytes No Result Required. CSF Eosinophils No Result Required. CSF Basophils No Result Required. CSF Macrophages No Result Required. CSF Plasma Cells No Result Required. CSF Diff Comment No Result Required. CSF Comment No Result Required. CSF Glucose 43 CSF Total Protein 36 Pleural Monocytes Cancelled Pleural Eosinophils Cancelled Pleural Basophils Cancelled Pleural Plasma Cells Cancelled Pleural Histocytes Cancelled Pleural Macrophages Cancelled Pleural Mesothelial Cancelled Pleural Diff Comment Cancelled 12/16/19 06:20 WBC 3.9 L RBC 3.67 Hgb 9.9 L Hct 30.6 L MCV 83.3 MCH 27.0 MCHC 32.4 RDW 16.1 H Plt Count 212 MPV 9.4 Sodium Potassium Chloride Carbon Dioxide Anion Gap BUN Creatinine Est GFR (CKD-EPI)AfAm Est GFR (CKD-EPI)NonAf Random Glucose Calcium Vitamin B12 Serum Folate Fluid Source Fluid WBC Fluid RBC Fluid Neutrophils Fluid Lymphocytes Fluid Other Cells CSF Appearance CSF Color CSF WBC CSF RBC CSF Neutrophils CSF Lymphocytes CSF Eosinophils CSF Basophils CSF Macrophages CSF Plasma Cells CSF Diff Comment CSF Comment CSF Glucose CSF Total Protein Pleural Monocytes Pleural Eosinophils Pleural Basophils Pleural Plasma Cells Pleural Histocytes Pleural Macrophages Pleural Mesothelial Pleural Diff Comment Home Medications Medication Instructions Recorded Magnesium Amino Acid Chelate 1 tab PO DAILY 02/25/19 [Magnesium] Ferrous Sulfate [Feosol] 325 mg PO BID #14 tablet 04/12/19 Albuterol Sulfate Inhaler - 1 - 2 inh PO Q6H PRN 06/13/19 [Ventolin HFA Inhaler -] Acetaminophen [Tylenol] 650 mg PO QID PRN 12/13/19 Multivitamin [Multiple Vitamins] 1 each PO DAILY 12/13/19 Vitamin B Complex [B Complex] 1 each PO DAILY 12/13/19 Current Medications Generic Name Dose Route Start Last Admin Trade Name Long PRN Reason Stop Dose Admin Acetaminophen 650 mg 12/14/19 00:06 12/16/19 10:24 Tylenol - PO 650 mg QID PRN Administration FEVER Albuterol Sulfate 1 - 2 puff 12/14/19 00:03 Ventolin Hfa Inhaler - IH Q6H PRN SHORTNESS OF BREATH Ampicillin Sodium 2 gm/ Sodium 100 mls @ 200 mls/hr 12/14/19 06:15 12/16/19 14:59 Chloride IVPB 200 mls/hr Q4H-IV KELLY Administration Miscellaneous 1 each 12/16/19 18:00 Lidoderm Patch Removal MC 12/16/19 18:01 ONCE@1800 ONE Multivitamins 1 each 12/14/19 10:00 12/16/19 10:24 Total B With C - PO 1 each DAILY KELLY Administration Multivitamins/Minerals/Vitamin C 1 tab 12/14/19 10:00 12/16/19 10:24 Tab-A-Vit - PO 1 tab DAILY KELLY Administration ASSESSMENT AND PLAN: 29 F h/o DLBCL s/p R-CHOP Fevers 2/2 B symptoms Meningitis ruled out New post-nasopharyngeal LN enlargement Plan: Workup as OP per Heme Onc, will need LN biopsy as OP Electrolytes stable PO hydration Tylenol PRn for subjective fevers DC home with Heme Onc follow up
--- NOTE | 2019-12-16 17:29 | PN ---
Progress Note (short form) - Note Progress Note: 29 year old female history of Large b cell lymophoma, IBS . She ahs been treated for lymphoma in 2017 with six cycle of chemo and it underwent remission. Recenlty she has lymph node getting better and she is being evaluated for recurrence of lymphoma. Pateint has been having fever and headhace fecently. Her temp at home was never more than 101. In ed she is found to have fever. Patient denies any loc or confusion . She has no history of chronic headache. Patient is feeling better , and has been afebrile. mri of brain and csf was normal. she has headhace ,back pain and neck stiffnes, and get better with oral liquid and drinking soda and nsaid NEUROLOGICAL EXAMINATION Alert oriented x 3, neck is supple afebrile today , speech is normal walking around feeling much better eomi, pupils reactive , no face asymmetry moving all ext sensation is normal Assessment/Plan 29 year old female history of Large b cell lymophoma x 2017 treated with six cycle of chemo developed mild neuropathy. her lymphoma has been recurring and she came with headache and fever, there is no neck stiffness or loc or change in mental status. Possible ? vital meningitis Plan: csf results benign - mri of brain with without contrast normal - abx as per ID. - Lymph node biopsy also being planned for tomorrow Clinically she hsa markedly improved WILL continue to follow up Thanking you so much Matthew Madsen MD
[2019-12-16] MEDS ORDERED: LIDOCAINE PATCH REMOVAL MC ONE (18:00)
[2019-12-16] MEDS ORDERED: ONDANSETRON 4 MG/2 ML VIAL IVPUSH ONE ×2 (18:33→23:10)
--- NOTE | 2019-12-16 18:41 | PN ---
Teaching Attending Note Name of Resident: Aura Jennings ATTENDING PHYSICIAN STATEMENT I saw and evaluated the patient. I reviewed the resident's note and discussed the case with the resident. I agree with the resident's findings and plan as documented. Patient seen and examined Feels OK AFVSS HEENT: ~ [address] in R neck (ECM) and ~ 2.[address] in L neck Cor: RSR, No murmurs, No gallops Lungs: Clear to P&A Abd: Soft, Normal bowel sounds, No organomegaly Ext:No significant edema Labs/Meds reviewed A/P 29 year old lady with past medical history that includes large b-cell lymphoma and IBS, who presented to the ED with 1 week of headache and fever. Her headache was fixed at the top of her head and was constant, 5/10 in severity pain. She also had neck stiffness and diaphoresis. She feels much better during our examination today, denies headaches, neck stiffness, photo or phonophobia. Feels much better after antibiotic therapy started Recommend: 1) LN Biopsy in AM vs outpatient 2) If relapsed DLBCL (treated previously with R-CHOPX6 to 02/2017), she has excellent chances of cure with 2nd line [place] containing regimens and autologous stem cell transplantation. I would be happy to see her at [facility] and help coordinate admission, treatment, etc. Pt also to continue to follow for her general oncology needs with Dr. Kidd. 3) [facility] input. 4) Consider Flow cytometry analysis of CSF sample if possible.
[2019-12-16] MEDS ORDERED: PT OWN MED DRAWER 7, Y5N ONE (22:55)
[2019-12-16] MEDS ORDERED: oxyCODONE HCL 5 MG TABLET PO ONE (23:09)
[2019-12-17] MEDS: AMPICILLIN - 2 GM in SODIUM CHLORIDE 100 ML IVPB SCH ×4 (02:41→14:40)
[2019-12-17 08:02] LABS: BLOOD UREA NITROGEN 6.5 mg/dL (7-18); CALCIUM 8.8 mg/dL (8.5-10.1); CREATININE 0.5 mg/dL (0.55-1.3); POTASSIUM 4.3 mmol/L (3.5-5.1)
[2019-12-17 08:11] LABS: BASO % 0.7 % (0-2.0); EOS % 2.3 % (0-4.5); HEMATOCRIT 33.1 % (32.4-45.2); HEMOGLOBIN 10.6 GM/dL (10.7-15.3); LYMPH % 33.9 % (8-40); MCH 26.5 pg (25.7-33.7); MEAN CELL VOLUME 82.7 fl (80-96); MEAN PLT VOLUME 9.1 fl (7.5-11.1); MONO % 19.3 % (3.8-10.2); NEUT % 43.8 % (42.8-82.8); PLATELET COUNT 255 K/MM3 (134-434); RDW 16.3 % (11.6-15.6); WHITE BLOOD COUNT 3.4 K/mm3 (4.0-10.0)
--- NOTE | 2019-12-17 09:10 | PN ---
Progress Note (short form) - Note Progress Note: 29 year old female history of Large b cell lymophoma, IBS . She ahs been treated for lymphoma in 2017 with six cycle of chemo and it underwent remission. Recenlty she has lymph node getting better and she is being evaluated for recurrence of lymphoma. Pateint has been having fever and headhace fecently. Her temp at home was never more than 101. In ed she is found to have fever. Patient denies any loc or confusion . She has no history of chronic headache. Patient is feeling better , and has been afebrile. mri of brain and csf was normal. s Her headhace is better , afebrile. Chart reviewed, events noted, and spoke to nursing staff NEUROLOGICAL EXAMINATION Alert oriented x 3, neck is supple afebrile today , speech is normal walking around feeling much better eomi, pupils reactive , no face asymmetry moving all ext sensation is normal Assessment/Plan 29 year old female history of Large b cell lymophoma x 2017 treated with six cycle of chemo developed mild neuropathy. her lymphoma has been recurring and she came with headache and fever, there is no neck stiffness or loc or change in mental status. Possible ? vital meningitis Plan: csf results benign - mri of brain with without contrast normal - abx as per ID. - Lymph node biopsy also being planned for today Clinically she hsa markedly improved WILL continue to follow up Thanking you so much Matthew Madsen MD
[2019-12-17] MEDS ORDERED: AMPICILLIN SODIUM 2 GM VIAL ONE ×2 (09:16→17:27)
[2019-12-17] MEDS ORDERED: SODIUM CHLORIDE 100 ML IVPB ONE ×2 (09:16→17:28)
--- NOTE | 2019-12-17 09:55 | PN ---
Progress Note, Physician History of Present Illness: c/o of nausea and back pain vomiting plan for ln biosy - Current Medication List Current Medications: Active Medications Acetaminophen (Tylenol -) 650 mg PO QID PRN PRN Reason: FEVER Last Admin: 12/16/19 10:24 Dose: 650 mg Documented by: Albuterol Sulfate (Ventolin Hfa Inhaler -) 1 - 2 puff IH Q6H PRN PRN Reason: SHORTNESS OF BREATH Ampicillin Sodium 2 gm/ Sodium (Chloride) 100 mls @ 200 mls/hr IVPB Q4H-IV KELLY Last Admin: 12/17/19 09:40 Dose: 200 mls/hr Documented by: Multivitamins (Total B With C -) 1 each PO DAILY KELLY Last Admin: 12/16/19 10:24 Dose: 1 each Documented by: Multivitamins/Minerals/Vitamin C (Tab-A-Vit -) 1 tab PO DAILY KELLY Last Admin: 12/16/19 10:24 Dose: 1 tab Documented by: - Objective Vital Signs: Vital Signs Temperature 97.8 F 12/17/19 06:00 Pulse Rate 64 12/17/19 06:00 Respiratory Rate 18 12/17/19 06:00 Blood Pressure 111/51 L 12/17/19 06:00 O2 Sat by Pulse Oximetry (%) 100 12/17/19 06:00 Constitutional: Yes: Mild Distress, Other Cardiovascular: Yes: S1, S2 Respiratory: Yes: Regular, CTA Bilaterally Gastrointestinal: Yes: Vomiting, Other (nausea) Musculoskeletal: Yes: Back Pain Extremities: Yes: WNL Neurological: Yes: Alert, Oriented Psychiatric: Yes: Alert, Oriented Labs: CBC, BMP 12/17/19 06:20 12/17/19 06:20 INR, PTT INR 0.97 (0.83-1.09) 12/15/19 07:10 Assessment/Plan 29 year old lady with Mhx of large b-cell lymphoma (completed R-CHOP 2016, possible recurrence found dec 2018) and IBS, who presented to the ED with 2 week of headache and fever. Meningitis Large B-Cell Lymphoma fever headaches plan lp results noted if cx result negative stop abx rest as per the team await for ln biopsy
[2019-12-17] MEDS ORDERED: KETOROLAC TROMETHAMINE 30 MG/1 ML VIAL IVPUSH PRN ×2 (10:11→15:18)
[2019-12-17] MEDS ORDERED: PROCHLORPERAZINE INJECTION 10 MG/2 ML VIAL IVPB ONE ×2 (10:15→15:45)
[2019-12-17] MEDS: VITAMIN B COMPLEX W/C COMBO TABLET (FP) PO SCH (10:39)
[2019-12-17] MEDS: MULTIVITAMINS (DAILY MVI) TABLET (FP) PO SCH (10:39)
[2019-12-17] MEDS ORDERED: PROPOFOL 20 ML ONE (11:49)
[2019-12-17] MEDS ORDERED: MIDAZOLAM HCL 2 MG/2 ML SINGLE DOSE VIAL ONE ×2 (11:49)
[2019-12-17] MEDS ORDERED: LIDOCAINE HCL/PF 2% SDV 5ML VIAL ONE (11:49)
[2019-12-17] MEDS ORDERED: LIDOCAINE 1%/EPI 1:100000 (20 ML MULTI DOSE VIAL) ONE (12:09)
[2019-12-17] MEDS ORDERED: BUPIVACAINE HCL 50 ML ONE (12:09)
[2019-12-17] MEDS ORDERED: GLYCOPYRROLATE 0.2 MG/1 ML VIAL ONE ×2 (13:07→13:53)
[2019-12-17] MEDS ORDERED: ROCURONIUM BROMIDE 50 MG/5 ML SYRINGE ONE (13:07)
[2019-12-17] MEDS ORDERED: ceFAZolin SODIUM 1 GM VIAL ONE (13:18)
[2019-12-17] MEDS ORDERED: BUPIVACAINE HCL/PF 0.5% (5MG/ML) 10 ML VIAL NR ONE (13:20)
[2019-12-17] MEDS ORDERED: ceFAZolin SODIUM 1 GM VIAL IVPB ONE (13:20)
[2019-12-17] MEDS ORDERED: LIDOCAINE 1%/EPI 1:100000 (20 ML MULTI DOSE VIAL) IJ ONE (13:32)
[2019-12-17] MEDS ORDERED: THROMBIN (BOVINE) 5,000 UNIT VIAL TP ONE (13:44)
[2019-12-17] MEDS ORDERED: NEOSTIGMINE METHYLSULFATE 0.5 MG/ML - 10 ML MDV ONE (13:53)
--- NOTE | 2019-12-17 14:11 | OPR ---
Intraoperative neck ultrasound showed diffuse bilateral adenopathy. A left level 2a cervical lymph node was then removed and sent fresh to pathology. Stable through. Will recover and then return to the floor. Can be discharged home from my perspective. Can return to see me as needed in [facility] office [phone]. Thank you.
[2019-12-17] MEDS ORDERED: PROMETHAZINE HCL 25 MG/1 ML VIAL ONE (14:18)
[2019-12-17] MEDS ORDERED: PROMETHAZINE HCL 25 MG/1 ML VIAL IVPB PRN (14:20)
[2019-12-17] MEDS ORDERED: ACETAMINOPHEN 1000 MG/100 ML VIAL (NON FORMULARY) IVPB ONE (14:21)
[2019-12-17] MEDS ORDERED: LACTATED RINGERS SOLUTION 1,000 ML IV SCH (14:30)
[2019-12-17] MEDS ORDERED: ACETAMINOPHEN 325 MG TABLET (FP) PO PRN (15:18)
[2019-12-17] MEDS ORDERED: ALBUTEROL SO4 HFA INHALER IH PRN (15:18)
[2019-12-17 15:52] VITALS: TEMP 97.6
[2019-12-17] MEDS ORDERED: AMPICILLIN - 2 GM in SODIUM CHLORIDE 100 ML IVPB SCH (18:00)
[2019-12-17 18:19] VITALS: BP 126/78; PULSE 81
--- NOTE | 2019-12-17 20:55 | OP ---
DATE OF OPERATION: 12/17/2019 SURGICAL ATTENDING: Palak Marino MD PREOPERATIVE DIAGNOSES: Cervical adenopathy and history of lymphoma. POSTOPERATIVE DIAGNOSES: Cervical adenopathy and history of lymphoma. ANESTHESIA: General endotracheal. PROCEDURE: Left level II-A cervical lymph node biopsy. DESCRIPTION OF PROCEDURE: The patient was taken into the operating room, placed in a supine position, endotracheally intubated. Neck ultrasound was performed, showing bilateral abnormal lymphadenopathy. An accessible node was seen in left level II-A. The neck was then prepped and draped in usual sterile fashion. Local anesthesia was administered, and a 3.5-cm incision was made in the left upper neck and carried down through subcutaneous tissues and platysma. Subplatysmal flaps were raised superiorly and inferiorly, and flap hooks were placed for exposure. The mass was immediately identified, dissected free from surrounding tissues, and removed. It was sent to Pathology fresh with no formalin for lymphoma studies. Hemostasis was achieved with electrocautery and Gelfoam and thrombin. The wound was then closed in 3 layers. Sterile dressings were placed. The patient was then awakened, extubated, and taken to Recovery in stable condition. Dr. Marino, the attending surgeon, was present throughout the entire procedure. PALAK MARINO M.D. [id number]
[2019-12-18] MEDS ORDERED: VITAMIN B COMPLEX W/C COMBO TABLET (FP) PO SCH (10:00)
[2019-12-18] MEDS ORDERED: MULTIVITAMINS (DAILY MVI) TABLET (FP) PO SCH (10:00)
--- NOTE | 2019-12-18 15:34 | DS ---
Physical Exam: SUBJECTIVE: Patient seen and examined. No acute complaints today. OBJECTIVE: Vital Signs Period Temp Pulse Resp BP Sys/Thompson Pulse Ox Last 24 Hr 97.6 F-97.6 F 69-81 18-18 114-126/64-78 100-100 PHYSICAL EXAM GENERAL: The patient is awake, alert, and fully oriented, in no acute distress. HEAD: Normal with no signs of trauma. EYES: Sclera anicteric, conjunctiva clear. No ptosis. ENT: Ears normal, nares patent, oropharynx clear without exudates, moist mucous membranes. NECK: Trachea midline, full range of motion, supple. Enlarged L. cervical lymph node LUNGS: Breath sounds equal, clear to auscultation bilaterally, no wheezes, no crackles, no accessory muscle use. HEART: Regular rate and rhythm, S1, S2 without murmur, rub or gallop. ABDOMEN: Soft, nontender, nondistended, normoactive bowel sounds, no guarding, no rebound EXTREMITIES: 2+ radial pulses, warm, no calf tenderness, well-perfused, no edema. NEUROLOGICAL: Normal speech, gait not observed. PSYCH: Normal mood, normal affect. SKIN: Warm, dry LABS HOSPITAL COURSE: Date of Admission:12/13/19 Date of Discharge: 12/18/19 Pt. is a 29 yo female with a PMHx of large b-cell lymphoma and IBS who presents to the ED with a one week of PERALES and fever. CXR was unremarkable. EKG when compared to 06/28/19 showed a vent rate increase by 58 bpm and t wave inversion, otherwise unremarkable. Head CT was normal with no evidence of intracranial masses or acute pathology. Head/Neck U/S showed an enlarged right lateral neck nodes with the largest measuring 3.7 x 1.1 cm that demonstrates architectural distortion, enlarged left lateral neck lymph node measuring 2.9 x 1.5 cm that also demonstrates architectural distortion, and other small bilateral lateral neck lymph nodes are present measuring less than 1 cm in their shortest axis. Brain MRI showed a left maxillary sinus mucus retention cyst/polyp. Urinalysis as well as LP came back negative. Neurology, ID, hemonc, and surgery were consulted. Patient was started on IV antibiotics and lymph node biopsy was conducted. Medicine adjustment and hospital follow-up is below. Pt is medically stabilized and discharged to follow up with Dr. Malone and Dr. White as outpatient for further evaluation. Minutes to complete discharge: 25 Discharge Summary Problems reviewed: Yes Reason For Visit: FEVER/HEADACHE/LYMPHOMA Condition: Good - Instructions Diet, Activity, Other Instructions: You came in her headaches associated with sweating, fever and neck stiffness. We sampled your blood, urine and spinal fluid for signs of infection. We did not find any. We imaged your head and found enlarged lymph nodes around your sinus (close to your nose). We imaged your chest and did not find anything immediately concerning. We started you IV antibiotics while you were in the hospital. You were seen by a Risk Consultant/Oncologist, Infectious Disease specialist, and Neurologist. We discussed the hospital course with Dr. Malone and you had lymph nodes biopsied. Please continue all your home medications as they were prescribed. Please follow up with your Oncologist, Dr. Malone, within the next few days regarding your biopsy. Please follow up with your PCP within 1 week. We have provided Dr. White for you. Referrals: Ronald White MD [Staff Physician] - 1 Week Justyn Kidd MD [Staff Physician] - 1 Week Disposition: HOME - Home Medications Comprehensive Discharge Medication List: Ambulatory Orders Magnesium Amino Acid Chelate [Magnesium] 1 tab PO DAILY 02/25/19 Ferrous Sulfate [Feosol] 325 mg PO BID #14 tablet 04/12/19 Albuterol Sulfate Inhaler - [Ventolin HFA Inhaler -] 1 - 2 inh PO Q6H PRN 06/13/19 Acetaminophen [Tylenol] 650 mg PO QID PRN 12/13/19 Multivitamin [Multiple Vitamins] 1 each PO DAILY 12/13/19 Vitamin B Complex [B Complex] 1 each PO DAILY 12/13/19 This patient is new to me today: No Emergency Visit: Yes ED Registration Date: 12/13/19 Care time: The patient presented to the Emergency Department on the above date and was hospitalized for further evaluation of their emergent condition. Critical Care patient: No - Discharge Referral Referred to [facility] Med P.C.: No ATTENDING PHYSICIAN STATEMENT I saw and evaluated the patient. I reviewed the resident's note and discussed the case with the resident. I agree with the resident's findings and plan as documented. SUBJECTIVE: OBJECTIVE: ASSESSMENT AND PLAN:
[2019-12-20 11:07] LABS: MUMPS AB IGG CSF < 5.0 AU/mL (<=10.9)
--- NOTE | 2019-12-26 14:51 | PATH ---
Surgical Pathology Report Patient Name: EVELINA CORONADO Med. Rec. #: [id number] /Age/Gender: 1990 (Age: 29) / F Account: [id number] Location: [facility] MED/SURG Taken: 12/17/2019 Received: 12/17/2019 Reported: 12/26/2019 Physicians: Traci Andino M.D. Specimen(s) Received CERVICAL LYMPH NODE BIOPSY Clinical History Fever, headache, lymphoma DLBCL, s/p 6 cycles CHOP, extensive lymphadenopathy, 2-3 cm Final Diagnosis CERVICAL LYMPH NODE, LEVEL 2A, LEFT, EXCISION: REACTIVE FOLLICULAR AND PARACORTICAL HYPERPLASIA WITH FOCAL EBV(+) IMMUNOBLASTIC REACTION. SEE COMMENT. Comment: Both blocks show similar features. The dayo architecture is somewhat distorted by fibrotic bands the lymph node parenchyma into nodular areas. The nodules contain numerous secondary lymphoid follicles and an expanded paracortex composed of a mixture of small and large lymphocytes, histiocytes, and plasma cells. There is no overt cytologic atypia. A focal paracortical area has a mottled appearance. Immunohistochemical studies, performed on block #1, show the lymphoid follicles to be positive for CD20 and PAX-5 and contain CD10(+), BCL6(+), BCL-2(-) germinal centers. Ki-67 highlights normal follicular polarity. The follicles are surrendered by IgD(+) mantle zones. CD23 and CD21 highlight tight HALFWAY meshworks. CD3 and CD5 highlight the paracortical T-cells. CD30 highlights scattered immunoblasts including a focus of numerous CD30(+) immunoblasts which also express MUM-1 and Ki-67. This area is composed of a mixture of B-cells and T-cells. CD15 highlights scattered granulocytes. CD68 highlights scattered histiocytes. In situ hybridization for Jolie-Warner virus using an CHERYL probe highlights numerous cells in the CD30(+)/MUM-1(+) focus. Jordan and lambda ESPINOZA studies highlight polyclonal plasma cells. Morphologic and immunohistochemical evidence diagnostic of a lymphoproliferative disorder are not observed. The findings are suggestive of infectious mononucleosis lymphadenitis and they correlate with the flow cytometric analysis (see separate report). Correlation with systemic evaluation is recommended. This case was also reviewed by Dr. Austin Bolanos who concurs with the above interpretation. This case was sent to Dr. Frantz Worthy from [facility], [place], [place] ([id number]) the diagnosis above reflects his opinion. FLOW CYTOMETRY [place]NALYS[place] [facility] [place][id number] shows the following: INTERPRETATION: No immunophenotypic evidence of a lymphoproliferative disorder. Phenotype: Based on light scatter characteristics and 7AAD negativity approximately 76% of the total cells in the specimen are viable. Of the viable cells approximately 65% are T-cells and 30% B-cells. The B-cells are polyclonal with no atypical antigen expression. The T-cells express all luna-T-cell antigens tested with CD4 > CD8 (ratio = 2.2:1). Approximately 6% of the cells express CD13/CD33, consistent with myeloid/monocytic cells. There is no significant [id number] population. Findings faxed and discussed with Dr. Kidd, 12/26/19. See [facility] reports for additional details. Electronically Signed Madison Schuler M.D. Gross Description Received fresh labeled "left level 2a cervical lymph node" is a pink newman lymph node measuring 2 x 1.5 x 0.7 cm. A technical support representative portion is placed in RPMI sent to [facility] for flow cytometry. The specimen is serially sectioned and submitted entirely in 2 cassettes. MLSZ/12/17/2019 san12/17/2019
== END 2019-12-17 19:42 | disposition home or self-care (01) | DRG 681 ==
LOC: JER 15:27 → JERBED 19:20 → J7W 12-14 01:52
PROVIDERS: ADMIT Internal Medicine
PROC: 009U3ZX Drainage of Spinal Canal, Percutaneous Approach, Diagnostic (ICD-10-PCS; 2019-12-15)
PROC: B01BZZZ Fluoroscopy of Spinal Cord (ICD-10-PCS; 2019-12-15)
PROC: 07B20ZX Excision of Left Neck Lymphatic, Open Approach, Diagnostic (ICD-10-PCS; principal; 2019-12-17 11:30)
DX: C85.10 Unspecified B-cell lymphoma, unspecified site (principal); R59.0 Localized enlarged lymph nodes; K58.9 Irritable bowel syndrome, unspecified; R51 Headache; J45.909 Unspecified asthma, uncomplicated; R00.0 Tachycardia, unspecified; J34.1 Cyst and mucocele of nose and nasal sinus; T36.8X5A Adverse effect of other systemic antibiotics, initial encounter; L29.8 Other pruritus; R50.9 Fever, unspecified
CPT/HCPCS: 36415; 62272; 70470-TC; 70553-TC; 71045-TC-FY; 76536-TC; 80048; 80053; 81003; 82550; 82553; 82607; 82746; 82803; 82945; 83605; 83615; 84157; 84484; 84550; 84703; 85025; 85027; 85610; 85730; 86694; 86735; 86765; 86787; 86788; 86789; 86850; 86900; 86901; 87040; 87070; 87086; 87205; 87899; 88108; 88305-TC; 88307-TC; 93005; 93010; 94760; 99285-25; A9579; J0131; Q9967; U0003

== ENCOUNTER 2019-12-20 12:42 | Emergency (ER) | payer OTHER ==
[2019-12-20 12:50] VITALS: TEMP 97.8; BMI 20.9
--- NOTE | 2019-12-20 14:01 | PDOC ---
History of Present Illness - General Chief Complaint: Headache Stated Complaint: VOMITTING History Source: Patient Exam Limitations: No Limitations - History of Present Illness Initial Comments: 12/20/19 13:55 PCP: Dr. White Onc: Dr. Malone HPI: 29yo F pmh recurrent Large B cell lymphoma (dx 2017, s/p chemo, recurrence discovered last month) last discharged 12/18/2019 after admission for workup of nausea, vomiting, headache, fevers, presenting with continued nausea, vomiting, headache. Endorses continued sharp frontal headache, nausea and vomiting (no blood) 10 times so far today. Increased after 4 yesterday, 2 the day before. Does not take Tylenol at home because "it doesn't help" and has not tried anything else for her symptoms. Denies any fever since discharge. Last ate yesterday evening, has not tolerated PO yet today. Endorses diaphoresis and lightheadedness only during the episodes of emesis. Prior admission with extensive infectious workup and lymph node biopsy. No one else who lives in the home is experiencing similar symptoms. PMH: Large B cell lymphoma dx 2017 s/p chemo, with recurrence PSH: x1 SS: Denies smoking, alcohol, illicits Med: vitamin Allergy: Rituximab Past History - Travel History Traveled outside of the country in the last 30 days: No Close contact w/someone who was outside of country & ill: No - Medical History Allergies/Adverse Reactions: Allergies Allergy/AdvReac Type Severity Reaction Status Date / Time rituximab Allergy Severe Difficulty Verified 12/13/19 15:35 Breathing vancomycin Allergy Verified 12/20/19 12:46 Home Medications: Ambulatory Orders Magnesium Amino Acid Chelate [Magnesium] 1 tab PO DAILY 02/25/19 Ferrous Sulfate [Feosol] 325 mg PO BID #14 tablet 04/12/19 Albuterol Sulfate Inhaler - [Ventolin HFA Inhaler -] 1 - 2 inh PO Q6H PRN 06/13/19 Acetaminophen [Tylenol] 650 mg PO QID PRN 12/13/19 Multivitamin [Multiple Vitamins] 1 each PO DAILY 12/13/19 Vitamin B Complex [B Complex] 1 each PO DAILY 12/13/19 Metoclopramide HCl [Reglan] 10 mg PO TID PRN #12 tablet 12/20/19 Anemia: No Asthma: Yes Cancer: Yes Cardiac Disorders: No CVA: No COPD: No CHF: No Dementia: No Diabetes: No GI Disorders: Yes (irritable bowel) Disorders: No HTN: No Hypercholesterolemia: No Liver Disease: No Seizures: No Thyroid Disease: No Other medical history: LYMPHOMA - Surgical History Abdominal Surgery: Yes (Appendectomy) - Reproductive History Is Patient Now?: No (#): 4 Para: 1 Cervical CA: No Dysfunctional Uterine Bleeding: No Ectopic : Yes Endometrial CA: No Polycystic Ovaries: No Therapeutic (s) & number: No Tubal Ligation: No Spontaneous : 2 - Immunization History Td Vaccination: Yes Immunization Up to Date: Yes - Psycho-Social/Smoking History Smoking Status: No Smoking History: Never smoked Years of Tobacco Use: 0 Have you smoked in the past 12 months: No Number of Cigarettes Smoked Daily: 0 Cigars Per Day: 0 - Substance Abuse Hx (Audit-C & DAST Scrn) How often the patient has a drink containing alcohol: Never Score: In Men: 4 or > Positive; In Women: 3 or > Positive: 0 Screen Result (Pos requires Nsg. Audit-10AR): Negative In the last yr the pt used illegal drug/Rx for NonMed reason: No Score: Yes response is considered Positive: 0 Screen Result (Positive result requires Nsg. DAST-10): Negative Review of Systems - Review of Systems Able to Perform ROS?: Yes Is the patient limited Latvian proficient: Yes Constitutional: No: Chills, Diaphoresis, Fever, Weakness HEENTM: No: Recent change in vision, Nose Pain, Throat Pain Respiratory: No: Cough, Shortness of Breath, Wheezing Cardiac (ROS): No: Chest Pain, Edema, Irregular Heart Rate, Lightheadedness, Palpitations, Syncope, Chest Tightness ABD/GI: Yes: Nausea, Vomiting. No: Constipated, Diarrhea : No: Burning, Dysuria, Frequency Musculoskeletal: No: Muscle Pain, Muscle Weakness, Neck Pain Integumentary: No: Pruritus, Rash Neurological: Yes: Headache. No: Numbness, Tingling, Weakness Psychiatric: No: Anxiety, Depression, Change in Appetite Endocrine: No: Increased Thirst, Increased Urine, Change in Weight Hematologic/Lymphatic: No: Anemia, Blood Clots, Easy Bleeding All Other Systems: Reviewed and Negative *Physical Exam - Vital Signs Last Vital Signs Temp Pulse Resp BP Pulse Ox 97.8 F 98 H 20 124/96 100 12/20/19 12:46 12/20/19 12:46 12/20/19 12:46 12/20/19 12:46 12/20/19 12:46 - Physical Exam 12/20/19 15:59 Vitals reviewed, AFVSS GEN: Appears tired, appears stated age, NAD, comfortable. Vomiting intermittently in the department. AAOx3. HEENT: NCAT, EOMI, PERRL. Sclera anicteric, non-injected. No facial asymmetry. Moist mucous membranes. Normal voice. Trachea midline. CV: RRR, S1/S2, no murmurs / rubs / gallops appreciated. LUNG: CTABL, normal work of breathing. No wheezes, rales, rhonchi. No cough. Speaking full sentences. GI: Soft, NTND, +BS, no guarding, no rebound. No masses. EXTREMITIES: 2+ distal pulses. No clubbing / cyanosis / edema. No gross deformity in any extremity. SKIN: Warm, dry, no rashes appreciated, non-jaundiced. PSYCH: Normal mood and affect. Cooperative and appropriate. NEURO: CN 2-12 intact. Moving all extremities well. Normal strength and sensation symmetric throughout. ED Treatment Course - LABORATORY CBC & Chemistry Diagram: 12/20/19 14:35 12/20/19 14:35 Medical Decision Making - Medical Decision Making 12/20/19 16:06 29yo F pmh recurrent Large B cell lymphoma (dx 2017, s/p chemo, recurrence discovered last month) last discharged 12/18/2019 after admission for workup of nausea, vomiting, headache, fevers, presenting with recurrent nausea, vomiting, headache without fever. History notable for recurrent cancer, recent extensive infectious workup, pending lymph node biopsy results. - CBC, CMP - 1L IVF - Zofran - Ofirmev - Reglan 12/20/19 16:19 Labs largely unremarkable 12/20/19 16:32 Patient with improved nausea, no vomiting, headache improvement PO challenge with crackers and juice Plan to discharge with reglan rx and neurology follow up Dispo: Home Discharge - Discharge Information Problems reviewed: Yes Clinical Impression/Diagnosis: Nausea and vomiting Qualifiers: Vomiting type: unspecified Vomiting Intractability: non-intractable Qualified Code(s): R11.2 - Nausea with vomiting, unspecified Headache Qualifiers: Headache type: unspecified Headache chronicity pattern: episodic headache Intractability: not intractable Qualified Code(s): R51 - Headache Condition: Stable Disposition: HOME - Admission No - Follow up/Referral Referrals: Matthew Madsen MD [Staff Physician] - - Patient Discharge Instructions Patient Printed Discharge Instructions: DI for Vomiting -- Adult, DI for Headache Additional Instructions: You were seen and evaluated at [place] for headache, nausea, and vomiting. Your workup was negative for emergent causes. Your symptoms resolved with Tylenol, Reglan, and Zofran. Please picker/puller with prescription for Reglan that was sent to your pharmacy. Take this and Tylenol for your headaches and nausea. Follow up with your oncologist and primary care doctor as scheduled. A referral has been placed for neurology (the same doctor you saw while admitted) to be evaluated for continued headaches. Return to the ED for any new or concerning symptoms which may include but are not limited to: persistent nausea and vomiting that prevent you from taking your medications or drinking water, worsening headache, development of fever that doesn't respond to Tylenol, lightheadedness / passing out or feeling like you may pass out. - Post Discharge Activity
[2019-12-20] MEDS ORDERED: SODIUM CHLORIDE 0.9% 500 ML INFUS.BAG IV ONE (14:11)
[2019-12-20] MEDS ORDERED: ONDANSETRON 4 MG/2 ML VIAL IVPUSH ONE (14:11)
[2019-12-20] MEDS ORDERED: ACETAMINOPHEN 1000 MG/100 ML VIAL (NON FORMULARY) IVPB ONE (14:11)
[2019-12-20] MEDS ORDERED: METOCLOPRAMIDE HCL INJECTION 10 MG/2 ML VIAL IVPUSH ONE (14:20)
[2019-12-20] MEDS ORDERED: ACETAMINOPHEN INJECTION 100 ML IVPB ONE (14:32)
[2019-12-20] MEDS ORDERED: METOCLOPRAMIDE HCL INJECTION 10 MG/2 ML VIAL ONE (14:32)
[2019-12-20 15:01] LABS: HEMATOCRIT 39.3 % (32.4-45.2); HEMOGLOBIN 12.7 GM/dL (10.7-15.3); MCHC 32.2 g/dl (32.0-36.0); MEAN CELL VOLUME 83.7 fl (80-96); MEAN PLT VOLUME 8.6 fl (7.5-11.1); PLATELET COUNT 362 K/MM3 (134-434); RDW 16.7 % (11.6-15.6); WHITE BLOOD COUNT 8.1 K/mm3 (4.0-10.0)
--- NOTE | 2019-12-20 15:10 | PDOC ---
Documentation entered by Jeffry Shaikh SCRIBE, acting as scribe for Justyn Mattson MD. Justyn Mattson MD: This documentation has been prepared by the Hawa allen Xhesika, SCRIBE, under my direction and personally reviewed by me in its entirety. I confirm that the documentation accurately reflects all work, treatment, procedures, and medical decision making performed by me. Attending Attestation - Resident Resident Name: [email or web address] [email or web address] - ED Attending Attestation I have performed the following: I have examined & evaluated the patient, The case was reviewed & discussed with the resident, I agree w/resident's findings & plan, Exceptions are as noted - HPI HPI: 12/20/19 14:01 Patient is a 29 year old female with a significant past medical history of B cell lymphoma (diagnosed 2016, recurrence 2019) who presents to the ED with persistent sharp frontal headache, nausea and multiple episodes of vomiting per day. Patient states that she has been having a intermittent headache for the last 2 weeks, patient has gotten more persistent so patient came for evaluation. The patient was admitted for the same headache last week, and had a thorough work-up, she was feeling better at discharge however the headache returned yesterday. Pt denies any vision changes, neck pain, back pain, fever/chills, focal numbnes/tingling/weakness. No recent trauma/falls. - Physicial Exam PE: 12/20/19 15:09 GENERAL: The patient is awake, alert, and fully oriented, Nontoxic - in no acute distress. HEAD: Normocephalic, atraumatic.. NECK: Normal range of motion, supple NEUROLOGICAL: No facial assymetry, Normal speech, renal 4 extremity spontaneously symmetrically PSYCH: Normal mood, normal affect. - Medical Decision Making 12/20/19 15:10 29-year-old with persistent headache, possible tension headache consider possible carbon monoxide poisoning We will treat symptomatically will reassess Heart Score/ECG Review - ECG Impressions Comment:: 12/20/19 15:11 Twelve-lead EKG was performed and reviewed by me. There is normal sinus rhythm with a normal rate. Rate of 95 The axis is normal. The intervals are normal. There is normal R wave progression There are no ST or T wave abnormalities. Impression: Normal twelve-lead EKG Discharge - Discharge Information Problems reviewed: Yes Clinical Impression/Diagnosis: Nausea and vomiting Qualifiers: Vomiting type: unspecified Vomiting Intractability: non-intractable Qualified Code(s): R11.2 - Nausea with vomiting, unspecified Headache Qualifiers: Headache type: unspecified Headache chronicity pattern: episodic headache Intractability: not intractable Qualified Code(s): R51 - Headache Condition: Stable Disposition: HOME - Additional Discharge Information Prescriptions: Metoclopramide HCl [Reglan] 10 mg PO TID PRN #12 tablet PRN Reason: Nausea And/Or Vomiting - Follow up/Referral Referrals: Matthew Madsen MD [Staff Physician] - - Patient Discharge Instructions Patient Printed Discharge Instructions: DI for Vomiting -- Adult, DI for Headache Additional Instructions: You were seen and evaluated at [place] for headache, nausea, and vomiting. Your workup was negative for emergent causes. Your symptoms resolved with Tylenol, Reglan, and Zofran. Please orange picker with prescription for Reglan that was sent to your pharmacy. Take this and Tylenol for your headaches and nausea. Follow up with your oncologist and primary care doctor as scheduled. A referral has been placed for neurology (the same doctor you saw while admitted) to be evaluated for continued headaches. Return to the ED for any new or concerning symptoms which may include but are not limited to: persistent nausea and vomiting that prevent you from taking your medications or drinking water, worsening headache, development of fever that doesn't respond to Tylenol, lightheadedness / passing out or feeling like you may pass out. - Post Discharge Activity
[2019-12-20 15:35] LABS: ALBUMIN 4.4 g/dl (3.4-5.0); ALK PHOS 56 U/L (45-117); ANION GAP 12 MMOL/L (8-16); BILIRUBIN,TOTAL 0.4 mg/dL (0.2-1); CALCIUM 10.1 mg/dL (8.5-10.1); CHLORIDE 103 mmol/L (98-107); CO2 25 mmol/L (21-32); CREATININE 0.5 mg/dL (0.55-1.3); GLUCOSE,RANDOM 77 mg/dL (74-106); POTASSIUM 4.3 mmol/L (3.5-5.1); SGOT/AST 10 U/L (15-37); SGPT/ALT 14 U/L (13-61); SODIUM 140 mmol/L (136-145); TOT PROT 7.8 g/dl (6.4-8.2)
[2019-12-20 17:36] VITALS: BP 124/76; PULSE 87
== END 2019-12-20 17:36 | disposition home or self-care (01) ==
LOC: JER 12:42
PROC: 3E033NZ Introduction of Analgesics, Hypnotics, Sedatives into Peripheral Vein, Percutaneous Approach (ICD-10-PCS; principal; 2019-12-20)
PROC: 3E033GC Introduction of Other Therapeutic Substance into Peripheral Vein, Percutaneous Approach (ICD-10-PCS; 2019-12-20)
DX: R11.2 Nausea with vomiting, unspecified (principal); R51 Headache
CPT/HCPCS: 36415; 80053; 84484; 84703; 85027; 96374; 96375; 99285-25; J0131

== ENCOUNTER 2020-05-11 07:54 | Day surgery (SDC) | payer OTHER ==
[~2020-05-11 07:54] MED LIST: IRON SUCROSE INJECTION 200 MG in SODIUM CHLORIDE 100 ML IVPB ONE
[2020-05-11] MEDS ORDERED: IRON SUCROSE INJECTION 200 MG in SODIUM CHLORIDE 100 ML IVPB ONE (11:30)
[2020-05-11 16:15] VITALS: TEMP 98.4
[2020-05-11 16:32] VITALS: BP 105/53; PULSE 70
== END 2020-05-11 18:48 | disposition home or self-care (01) ==
LOC: JONCNONCHE 07:54
PROVIDERS: ATTEND Internal Medicine Hematology & Oncology
PROC: 3E033GC Introduction of Other Therapeutic Substance into Peripheral Vein, Percutaneous Approach (ICD-10-PCS; principal; 2020-05-11)
DX: D50.9 Iron deficiency anemia, unspecified (principal)
CPT/HCPCS: 96365; J1756

== ENCOUNTER 2020-05-18 08:21 | Day surgery (SDC) | payer OTHER ==
[2020-05-18] MEDS ORDERED: IRON SUCROSE INJECTION 200 MG in SODIUM CHLORIDE 100 ML IVPB ONE (13:15)
[2020-05-18 15:40] VITALS: BP 118/75; PULSE 107; TEMP 98.8
== END 2020-05-18 14:30 | disposition home or self-care (01) ==
LOC: JONCNONCHE 08:21
PROVIDERS: ATTEND Internal Medicine Hematology & Oncology
PROC: 3E033GC Introduction of Other Therapeutic Substance into Peripheral Vein, Percutaneous Approach (ICD-10-PCS; principal; 2020-05-18)
DX: D50.9 Iron deficiency anemia, unspecified (principal)
CPT/HCPCS: 96365; J1756

== ENCOUNTER 2020-06-01 14:17 | Day surgery (SDC) | payer OTHER ==
[2020-06-01 14:47] LABS: HEMATOCRIT 38.3 % (32.4-45.2); HEMOGLOBIN 12.6 GM/dL (10.7-15.3); MCH 28.6 pg (25.7-33.7); MCHC 32.9 g/dl (32.0-36.0); MEAN CELL VOLUME 86.7 fl (80-96); MEAN PLT VOLUME 9.3 fl (7.5-11.1); PLATELET COUNT 230 K/MM3 (134-434); RBC 4.42 M/mm3 (3.60-5.2); RDW 16.1 % (11.6-15.6); WHITE BLOOD COUNT 4.4 K/mm3 (4.0-10.0)
[2020-06-01] MEDS ORDERED: IRON SUCROSE INJECTION 200 MG in SODIUM CHLORIDE 100 ML IVPB ONE (15:00)
[2020-06-01 15:01] LABS: POTASSIUM 4.5 mmol/L (3.5-5.1)
[2020-06-01 15:02] LABS: CALCIUM 9.7 mg/dL (8.5-10.1)
[2020-06-01 15:03] LABS: BLOOD UREA NITROGEN 15.8 mg/dL (7-18)
[2020-06-01 15:04] LABS: ALBUMIN 4.7 g/dl (3.4-5.0)
[2020-06-01 15:06] LABS: CREATININE 0.5 mg/dL (0.55-1.3)
[2020-06-01 15:07] LABS: BILIRUBIN,DIRECT 0.2 mg/dL (0.0-0.2); URIC ACID 2.9 mg/dL (2.6-7.2)
[2020-06-01 15:09] LABS: BILIRUBIN,TOTAL 1.1 mg/dL (0.2-1); TOT PROT 7.4 g/dl (6.4-8.2)
[2020-06-01 17:17] VITALS: BP 101/60; PULSE 79; TEMP 98.4
== END 2020-06-01 15:30 | disposition home or self-care (01) ==
LOC: JONCNONCHE 14:17
PROVIDERS: ATTEND Internal Medicine Hematology & Oncology
PROC: 3E033GC Introduction of Other Therapeutic Substance into Peripheral Vein, Percutaneous Approach (ICD-10-PCS; principal; 2020-06-01)
DX: D50.9 Iron deficiency anemia, unspecified (principal)
CPT/HCPCS: 36415; 80048; 80076; 82306; 82728; 83540; 83550; 83615; 83735; 84550; 84702; 85027; 85651; 96365; J1756

== ENCOUNTER 2020-11-26 09:30 | Emergency (ER) | payer OTHER ==
[2020-11-26 10:00] VITALS: TEMP 97.4; BMI 21.2
[2020-11-26] MEDS ORDERED: SODIUM CHLORIDE 1,000 ML IV STA (11:01)
[2020-11-26 11:36] LABS: BASO % 0.3 % (0-2.0); EOS % 5.7 % (0-4.5); HEMATOCRIT 38.2 % (32.4-45.2); MCH 29.9 pg (25.7-33.7); MCHC 34.1 g/dl (32.0-36.0); MEAN CELL VOLUME 87.5 fl (80-96); MEAN PLT VOLUME 8.7 fl (7.5-11.1); MONO % 11.8 % (3.8-10.2); NEUT % 60.2 % (42.8-82.8); PLATELET COUNT 227 10^3/uL (134-434); RBC 4.36 M/mm3 (3.60-5.2); RDW 13.1 % (11.6-15.6); WHITE BLOOD COUNT 4.7 K/mm3 (4.0-10.0)
[2020-11-26 11:56] LABS: CHLORIDE 107 mmol/L (98-107); SODIUM 141 mmol/L (136-145)
[2020-11-26 11:59] LABS: ANION GAP 8 MMOL/L (8-16); BLOOD UREA NITROGEN 15.7 mg/dL (7-18); CALCIUM 9.3 mg/dL (8.5-10.1); CO2 26 mmol/L (21-32); GLUCOSE,RANDOM 71 mg/dL (74-106); MAGNESIUM 1.8 mg/dL (1.8-2.4)
[2020-11-26 12:00] LABS: ALBUMIN 4.4 g/dl (3.4-5.0); LIPASE 98 U/L (73-393)
[2020-11-26 12:02] LABS: CREATININE 0.6 mg/dL (0.55-1.3); SGOT/AST 12 U/L (15-37); SGPT/ALT 15 U/L (13-61)
[2020-11-26 12:04] LABS: BILIRUBIN,TOTAL 0.6 mg/dL (0.2-1); TOT PROT 7.2 g/dl (6.4-8.2)
[2020-11-26 12:05] LABS: ALK PHOS 75 U/L (45-117)
[2020-11-26 12:07] LABS: EPI CELLS 20 /uL (0-25.1); HYALINE CASTS 2 /uL (0-3.1); PH,URINE 5.5 (5.0-8.0); URINE APPEARANCE CLOUDY; URINE BACTERIA 69 /uL (0-1359); URINE BILIRUBIN NEGATIVE (NEGATIVE); URINE COLOR ORANGE; URINE GLUCOSE (UA) NEGATIVE (NEGATIVE); URINE KETONE 1+ (NEGATIVE); URINE LEUK ESTERASE 1+ (NEGATIVE); URINE NITRITE NEGATIVE (NEGATIVE); URINE PROTEIN 1+ (NEGATIVE); URINE RBC 7899 /uL (0-23.9); URINE WBC 75 /uL (0-25.8)
[2020-11-26 12:08] LABS: HCG,QUALITATIVE URINE Negative
[2020-11-26 12:57] LABS: AMYLASE > 1300 U/L (25-115)
[2020-11-26 18:02] VITALS: BP 122/71; PULSE 62
== END 2020-11-26 18:02 | disposition home or self-care (01) ==
LOC: JER 09:30
PROC: 3E0337Z Introduction of Electrolytic and Water Balance Substance into Peripheral Vein, Percutaneous Approach (ICD-10-PCS; principal; 2020-11-26)
DX: C85.10 Unspecified B-cell lymphoma, unspecified site (principal); R19.7 Diarrhea, unspecified; N39.0 Urinary tract infection, site not specified
CPT/HCPCS: 36415; 74177-TC; 80053; 81003; 82150; 83690; 83735; 84703; 85025; 87086; 93005; 93010; 99285-25; C9803; Q9967; U0003; U0005

== ENCOUNTER 2020-12-15 04:18 | Day surgery (SDC) | payer OTHER ==
[2020-12-10 18:04] VITALS: BMI 21.2
[2020-12-15] MEDS ORDERED: PROPOFOL 20 ML ONE ×2 (07:51)
[2020-12-15] MEDS ORDERED: MIDAZOLAM HCL 2 MG/2 ML SINGLE DOSE VIAL ONE (07:51)
[2020-12-15] MEDS ORDERED: LIDOCAINE HCL/PF 2% SDV 5ML VIAL ONE (07:51)
[2020-12-15] MEDS ORDERED: DEXAMETHASONE SOD PHOSPHATE 4 MG/1 ML VIAL ONE (07:52)
[2020-12-15] MEDS ORDERED: ceFAZolin SODIUM 1 GM VIAL ONE (07:52)
[2020-12-15] MEDS ORDERED: ROCURONIUM BROMIDE 50 MG/5 ML SYRINGE ONE (08:01)
[2020-12-15] MEDS ORDERED: LIDOCAINE 1%/EPI 1:100000 (20 ML MULTI DOSE VIAL) IJ ONE ×2 (08:18)
[2020-12-15] MEDS ORDERED: GLYCOPYRROLATE 0.2 MG/1 ML VIAL ONE (09:22)
[2020-12-15] MEDS ORDERED: NEOSTIGMINE METHYLSULFATE 0.5 MG/ML - 10 ML MDV ONE (09:22)
[2020-12-15] MEDS ORDERED: BENZOIN/ALOE VERA/STORAX/TOLU 58 ML BOTTLE ONE (09:40)
[2020-12-15] MEDS ORDERED: oxyCODONE HCL 5 MG TABLET PO PRN (09:55)
[2020-12-15] MEDS ORDERED: ACETAMINOPHEN 325 MG TABLET (FP) PO PRN (09:55)
[2020-12-15] MEDS ORDERED: LACTATED RINGERS SOLUTION 1,000 ML IV SCH (10:00)
[2020-12-15] MEDS ORDERED: ONDANSETRON 4 MG/2 ML VIAL IVPUSH PRN (10:18)
[2020-12-15] MEDS ORDERED: ONDANSETRON 4 MG/2 ML VIAL ONE (10:37)
[2020-12-15] MEDS ORDERED: oxyCODONE HCL 5 MG TABLET ONE (14:52)
[2020-12-15 16:18] VITALS: BP 123/82; PULSE 99; TEMP 98.4
== END 2020-12-15 16:00 | disposition home or self-care (01) ==
LOC: JASU-SURG 04:18
PROVIDERS: ATTEND Otolaryngology
PROC: 07B10ZX Excision of Right Neck Lymphatic, Open Approach, Diagnostic (ICD-10-PCS; principal; 2020-12-15 08:00)
DX: R59.0 Localized enlarged lymph nodes (principal)
CPT/HCPCS: 81025; 94760

== ENCOUNTER 2021-01-09 12:59 | Inpatient (IN) | payer OTHER ==
[2021-01-09] MEDS ORDERED: ACETAMINOPHEN 1000 MG/100 ML VIAL (NON FORMULARY) IVPB ONE (14:05)
[2021-01-09] MEDS ORDERED: LACTATED RINGERS SOLUTION 1000 ML INFUS.BAG IV ONE (14:06)
[2021-01-09] MEDS ORDERED: IBUPROFEN 400 MG TABLET (FP) PO ONE ×2 (14:11→14:39)
[2021-01-09] MEDS ORDERED: ONDANSETRON 4 MG/2 ML VIAL IVPUSH ONE (14:39)
[2021-01-09] MEDS ORDERED: ONDANSETRON 4 MG/2 ML VIAL ONE (14:52)
[2021-01-09 15:00] LABS: VENOUS BASE EXCESS -2.6 mmol/L (-2-2); VENOUS O2 SATURATION 72.5 % (70-80); VENOUS PCO2 37.2 mmHg (38-52); VENOUS PH 7.387 (7.310-7.410)
[2021-01-09 15:02] LABS: BASO % 0.6 % (0-2.0); EOS % 0.1 % (0-4.5); HEMATOCRIT 36.7 % (32.4-45.2); HEMOGLOBIN 12.5 GM/dL (10.7-15.3); LYMPH % 10.2 % (8-40); MCH 29.6 pg (25.7-33.7); MEAN CELL VOLUME 87.1 fl (80-96); MEAN PLT VOLUME 9.3 fl (7.5-11.1); MONO % 13.5 % (3.8-10.2); NEUT % 75.6 % (42.8-82.8); PLATELET COUNT 177 10^3/uL (134-434); RBC 4.21 M/mm3 (3.60-5.2); RDW 13.9 % (11.6-15.6); WHITE BLOOD COUNT 8.2 K/mm3 (4.0-10.0)
[2021-01-09 15:08] LABS: INR 1.43 (0.83-1.09); PROTHROMBIN TIME (PATIENT) 17.1 SEC (9.7-13.0)
[2021-01-09 15:10] LABS: ACTIVATED PTT 33.1 SECONDS (25.2-36.5)
[2021-01-09 15:20] LABS: CALCIUM 8.9 mg/dL (8.5-10.1)
[2021-01-09 15:21] LABS: BLOOD UREA NITROGEN 8.1 mg/dL (7-18)
[2021-01-09 15:24] LABS: CREATININE 0.7 mg/dL (0.55-1.3)
[2021-01-09 15:25] LABS: BILIRUBIN,TOTAL 0.5 mg/dL (0.2-1); TOT PROT 7.1 g/dl (6.4-8.2)
[2021-01-09 15:31] LABS: ALBUMIN 4.2 g/dl (3.4-5.0)
[2021-01-09 15:57] LABS: EPI CELLS 21 /uL (0-25.1); HYALINE CASTS 2 /uL (0-3.1); PH,URINE 5.5 (5.0-8.0); URINE APPEARANCE CLOUDY; URINE BACTERIA 98 /uL (0-1359); URINE BILIRUBIN NEGATIVE (NEGATIVE); URINE COLOR YELLOW; URINE GLUCOSE (UA) NEGATIVE (NEGATIVE); URINE KETONE 3+ (NEGATIVE); URINE LEUK ESTERASE 1+ (NEGATIVE); URINE NITRITE NEGATIVE (NEGATIVE); URINE PROTEIN 1+ (NEGATIVE); URINE RBC 51 /uL (0-23.9); URINE UROBILINOGEN 0.2 mg/dL (0.2-1.0); URINE WBC 21 /uL (0-25.8)
[2021-01-09] MEDS ORDERED: metroNIDAZOLE 250 MG TABLET PO ONE (17:45)
[2021-01-09] MEDS ORDERED: metroNIDAZOLE 250 MG TABLET ONE (18:00)
[2021-01-09] MEDS: SODIUM CHLORIDE 1,000 ML IV SCH (23:10)
[2021-01-09] MEDS ORDERED: ACETAMINOPHEN INJECTION 100 ML IVPB ONE (23:11)
[2021-01-09] MEDS ORDERED: CEFTRIAXONE 1 GM/50 ML BAG ONE (23:11)
[2021-01-09] MEDS: CEFTRIAXONE 1 GM in DEXTROSE 5%-WATER - 50 ML IVPB SCH (23:12)
[2021-01-09] MEDS: ACETAMINOPHEN 1000 MG/100 ML VIAL (NON FORMULARY) IVPB PRN (23:12)
[2021-01-10 04:39] VITALS: BMI 21.4
[2021-01-10] MEDS ORDERED: POTASSIUM CHLORIDE TABS 20 MEQ TABLET.ER (FP) PO ONE (07:56)
[2021-01-10] MEDS: ACETAMINOPHEN 1000 MG/100 ML VIAL (NON FORMULARY) IVPB PRN ×2 (08:18→15:04)
[2021-01-10] MEDS ORDERED: cefTRIAXone SODIUM 1 GM VIAL ONE (09:07)
[2021-01-10] MEDS ORDERED: DEXTROSE 5%-WATER - 50 ML IVPB ONE (09:07)
[2021-01-10] MEDS: ENOXAPARIN NA (PORCINE) 40 MG/0.4 ML DISP.SYRIN SQ SCH (09:20)
[2021-01-10] MEDS: CEFTRIAXONE 1 GM in DEXTROSE 5%-WATER - 50 ML IVPB SCH (09:20)
[2021-01-10 10:22] LABS: HEMATOCRIT 31.7 % (32.4-45.2); HEMOGLOBIN 10.7 GM/dL (10.7-15.3); MCH 29.5 pg (25.7-33.7); MCHC 33.8 g/dl (32.0-36.0); MEAN CELL VOLUME 87.1 fl (80-96); MEAN PLT VOLUME 9.3 fl (7.5-11.1); PLATELET COUNT 151 10^3/uL (134-434); RBC 3.64 M/mm3 (3.60-5.2); RDW 13.7 % (11.6-15.6); WHITE BLOOD COUNT 7.7 K/mm3 (4.0-10.0)
[2021-01-10 10:29] LABS: INR 1.35 (0.83-1.09); PROTHROMBIN TIME (PATIENT) 16.7 SEC (9.7-13.0)
[2021-01-10 10:32] LABS: ACTIVATED PTT 29.9 SECONDS (25.2-36.5)
[2021-01-10 10:59] LABS: BLOOD UREA NITROGEN 4.7 mg/dL (7-18); MAGNESIUM 1.8 mg/dL (1.8-2.4)
[2021-01-10 11:02] LABS: CREATININE 0.4 mg/dL (0.55-1.3); PHOSPHOROUS 1.7 mg/dL (2.5-4.9); URIC ACID 2.6 mg/dL (2.6-7.2)
[2021-01-10 11:03] LABS: BILIRUBIN,TOTAL 0.4 mg/dL (0.2-1)
[2021-01-10 11:04] LABS: TOT PROT 5.9 g/dl (6.4-8.2)
[2021-01-10 11:07] LABS: ALBUMIN 3.3 g/dl (3.4-5.0)
[2021-01-10 11:33] LABS: ANISOCYTOSIS 1+; MACROCYTOSIS 0; PLATELET ESTIMATE NORMAL
[2021-01-10 14:02] LABS: HIV INTERPRETATION NEGATIVE (NEGATIVE)
[2021-01-10] MEDS ORDERED: ONDANSETRON 4 MG/2 ML VIAL IVPUSH PRN (14:09)
[2021-01-10] MEDS: SODIUM CHLORIDE 1,000 ML IV SCH ×2 (15:05→21:24)
[2021-01-10] MEDS ORDERED: PIPERACILLIN/TAZOB 3.375 GM 3.375 GM in DEXTROSE 5%-WATER - 50 ML IVPB SCH (18:00)
[2021-01-10] MEDS ORDERED: DEXTROSE 5%-WATER 100 ML IVPB ONE (18:20)
[2021-01-10] MEDS ORDERED: CEFEPIME HCL 1 GM VIAL (RESTRICTED TO ID) ONE (18:20)
[2021-01-10] MEDS: CEFEPIME 1 GM in DEXTROSE 5%-WATER 100 ML IVPB SCH (18:23)
[2021-01-10] MEDS: NAPH,MB-DB/K PH,MBDB POWDER PACKET PO SCH (21:24)
[2021-01-10] MEDS: ACETAMINOPHEN 325 MG TABLET (FP) PO PRN (21:24)
[2021-01-11] MEDS ORDERED: CEFEPIME HCL 1 GM VIAL (RESTRICTED TO ID) ONE ×3 (01:21→18:30)
[2021-01-11] MEDS ORDERED: DEXTROSE 5%-WATER 100 ML IVPB ONE ×3 (01:22→18:31)
[2021-01-11] MEDS: CEFEPIME 1 GM in DEXTROSE 5%-WATER 100 ML IVPB SCH ×3 (01:30→18:44)
[2021-01-11] MEDS: ACETAMINOPHEN 325 MG TABLET (FP) PO PRN ×3 (03:20→17:13)
[2021-01-11] MEDS: NAPH,MB-DB/K PH,MBDB POWDER PACKET PO SCH ×2 (11:03→21:38)
[2021-01-11] MEDS: ENOXAPARIN NA (PORCINE) 40 MG/0.4 ML DISP.SYRIN SQ SCH (11:03)
[2021-01-11 11:35] LABS: HEMOGLOBIN 11.1 GM/dL (10.7-15.3); MCH 29.4 pg (25.7-33.7); MCHC 33.8 g/dl (32.0-36.0); MEAN CELL VOLUME 87.1 fl (80-96); MEAN PLT VOLUME 9.2 fl (7.5-11.1); PLATELET COUNT 153 10^3/uL (134-434); RBC 3.78 M/mm3 (3.60-5.2); WHITE BLOOD COUNT 6.4 K/mm3 (4.0-10.0)
[2021-01-11 11:54] LABS: CHLORIDE 107 mmol/L (98-107); SODIUM 139 mmol/L (136-145)
[2021-01-11 11:58] LABS: CALCIUM 8.9 mg/dL (8.5-10.1)
[2021-01-11 11:59] LABS: ALBUMIN 3.5 g/dl (3.4-5.0); ANION GAP 6 MMOL/L (8-16); CO2 26 mmol/L (21-32); GLUCOSE,RANDOM 85 mg/dL (74-106); MAGNESIUM 2.1 mg/dL (1.8-2.4)
[2021-01-11 12:02] LABS: BILIRUBIN,TOTAL 0.3 mg/dL (0.2-1); CREATININE 0.5 mg/dL (0.55-1.3); SGOT/AST 7 U/L (15-37); SGPT/ALT 14 U/L (13-61)
[2021-01-11 12:03] LABS: ALK PHOS 43 U/L (45-117)
[2021-01-11 12:04] LABS: TOT PROT 6.2 g/dl (6.4-8.2)
[2021-01-11 12:08] LABS: BLOOD UREA NITROGEN 2.1 mg/dL (7-18)
[2021-01-11 12:54] LABS: ANISOCYTOSIS 0; HELMET CELLS 0; HOWELL-JOLLY BODIES 0; MACROCYTOSIS 0; OVALOCYTE 0; PLATELET ESTIMATE NORMAL; ROULEAU 0; SICKELED CELLS 0; TARGET CELLS 0; TEAR DROP CELLS 0; TOXIC GRANULATION 0
[2021-01-11] MEDS ORDERED: BENZOCAINE/MENTH/CETYLPYRD CL 1 EACH LOZENGE MM PRN (13:20)
[2021-01-11] MEDS ORDERED: PHENOL 177 ML SPRAY BOTTLE MM PRN (13:20)
[2021-01-12] MEDS ORDERED: CEFEPIME HCL 1 GM VIAL (RESTRICTED TO ID) ONE ×3 (00:26→17:59)
[2021-01-12] MEDS ORDERED: DEXTROSE 5%-WATER 100 ML IVPB ONE ×3 (00:26→17:59)
[2021-01-12] MEDS: ACETAMINOPHEN 325 MG TABLET (FP) PO PRN ×3 (00:45→21:01)
[2021-01-12] MEDS: CEFEPIME 1 GM in DEXTROSE 5%-WATER 100 ML IVPB SCH ×3 (01:00→18:01)
[2021-01-12 08:44] LABS: HEMATOCRIT 36.2 % (32.4-45.2); HEMOGLOBIN 12.2 GM/dL (10.7-15.3); MCH 29.3 pg (25.7-33.7); MCHC 33.6 g/dl (32.0-36.0); MEAN CELL VOLUME 87.4 fl (80-96); MEAN PLT VOLUME 9.6 fl (7.5-11.1); PLATELET COUNT 188 10^3/uL (134-434); RBC 4.15 M/mm3 (3.60-5.2); RDW 14.3 % (11.6-15.6); WHITE BLOOD COUNT 5.1 K/mm3 (4.0-10.0)
[2021-01-12 09:07] LABS: ALBUMIN 3.8 g/dl (3.4-5.0); CALCIUM 9.4 mg/dL (8.5-10.1)
[2021-01-12 09:08] LABS: BLOOD UREA NITROGEN 3.3 mg/dL (7-18); MAGNESIUM 2.2 mg/dL (1.8-2.4)
[2021-01-12] MEDS: NAPH,MB-DB/K PH,MBDB POWDER PACKET PO SCH ×2 (09:08→21:02)
[2021-01-12 09:10] LABS: CREATININE 0.4 mg/dL (0.55-1.3)
[2021-01-12 09:12] LABS: BILIRUBIN,TOTAL 0.3 mg/dL (0.2-1); TOT PROT 6.9 g/dl (6.4-8.2)
[2021-01-12 09:51] LABS: ANISOCYTOSIS 0; HELMET CELLS 0; HOWELL-JOLLY BODIES 0; MACROCYTOSIS 0; OVALOCYTE 0; PLATELET ESTIMATE NORMAL; ROULEAU 0; SICKELED CELLS 0; TARGET CELLS 0; TEAR DROP CELLS 0; TOXIC GRANULATION 0
[2021-01-13] MEDS ORDERED: DEXTROSE 5%-WATER 100 ML IVPB ONE ×3 (00:33→17:26)
[2021-01-13] MEDS ORDERED: CEFEPIME HCL 1 GM VIAL (RESTRICTED TO ID) ONE ×3 (00:33→17:26)
[2021-01-13] MEDS: CEFEPIME 1 GM in DEXTROSE 5%-WATER 100 ML IVPB SCH ×3 (00:59→17:30)
[2021-01-13 08:44] LABS: HEMATOCRIT 36.2 % (32.4-45.2); HEMOGLOBIN 12.2 GM/dL (10.7-15.3); MCH 29.2 pg (25.7-33.7); MCHC 33.6 g/dl (32.0-36.0); MEAN CELL VOLUME 86.9 fl (80-96); MEAN PLT VOLUME 9.5 fl (7.5-11.1); PLATELET COUNT 212 10^3/uL (134-434); RBC 4.16 M/mm3 (3.60-5.2); RDW 13.9 % (11.6-15.6); WHITE BLOOD COUNT 4.3 K/mm3 (4.0-10.0)
[2021-01-13 09:16] LABS: CREATININE 0.4 mg/dL (0.55-1.3)
[2021-01-13 09:17] LABS: BILIRUBIN,TOTAL 0.3 mg/dL (0.2-1)
[2021-01-13 09:18] LABS: TOT PROT 6.8 g/dl (6.4-8.2)
[2021-01-13 09:20] LABS: ALBUMIN 3.6 g/dl (3.4-5.0); BLOOD UREA NITROGEN 6.9 mg/dL (7-18)
[2021-01-13 09:22] LABS: MAGNESIUM 2.3 mg/dL (1.8-2.4)
[2021-01-13 09:23] LABS: CALCIUM 9.4 mg/dL (8.5-10.1)
[2021-01-13 09:43] LABS: ANISOCYTOSIS 0; HELMET CELLS 0; HOWELL-JOLLY BODIES 0; MACROCYTOSIS 0; OVALOCYTE 0; PLATELET ESTIMATE NORMAL; ROULEAU 0; SICKELED CELLS 0; TARGET CELLS 0; TEAR DROP CELLS 0; TOXIC GRANULATION 0
[2021-01-13] MEDS: NAPH,MB-DB/K PH,MBDB POWDER PACKET PO SCH ×2 (10:31→21:16)
[2021-01-13] MEDS: ACETAMINOPHEN 325 MG TABLET (FP) PO PRN ×2 (11:13→18:28)
[2021-01-13 18:07] LABS: IGA IMMUNOGLOBULIN <5 mg/dL (87-352); IGG QN IMMUNOGLOBULIN 505 mg/dL (586-1602); IGM QN SERUM 86 mg/dL (26-217)
[2021-01-14] MEDS ORDERED: DEXTROSE 5%-WATER 100 ML IVPB ONE ×3 (02:13→17:53)
[2021-01-14] MEDS ORDERED: CEFEPIME HCL 1 GM VIAL (RESTRICTED TO ID) ONE ×3 (02:13→17:53)
[2021-01-14] MEDS: CEFEPIME 1 GM in DEXTROSE 5%-WATER 100 ML IVPB SCH ×3 (02:27→17:56)
[2021-01-14 08:49] LABS: BASO % 0.5 % (0-2.0); EOS % 4.1 % (0-4.5); HEMOGLOBIN 11.5 GM/dL (10.7-15.3); LYMPH % 31.6 % (8-40); MCH 29.2 pg (25.7-33.7); MCHC 33.9 g/dl (32.0-36.0); MEAN CELL VOLUME 86.1 fl (80-96); MEAN PLT VOLUME 9.5 fl (7.5-11.1); MONO % 19.5 % (3.8-10.2); NEUT % 44.3 % (42.8-82.8); PLATELET COUNT 226 10^3/uL (134-434); RBC 3.95 M/mm3 (3.60-5.2); RDW 13.7 % (11.6-15.6)
[2021-01-14 09:16] LABS: ALBUMIN 3.5 g/dl (3.4-5.0)
[2021-01-14 09:17] LABS: BLOOD UREA NITROGEN 8.5 mg/dL (7-18); MAGNESIUM 2.3 mg/dL (1.8-2.4)
[2021-01-14 09:20] LABS: CREATININE 0.3 mg/dL (0.55-1.3)
[2021-01-14 09:21] LABS: BILIRUBIN,TOTAL 0.6 mg/dL (0.2-1); TOT PROT 6.7 g/dl (6.4-8.2)
[2021-01-14 09:34] LABS: LIPASE 116 U/L (73-393)
[2021-01-14] MEDS ORDERED: PT OWN MED DRAWER 7, Y5N ONE ×2 (09:46→11:19)
[2021-01-14] MEDS: ENOXAPARIN NA (PORCINE) 40 MG/0.4 ML DISP.SYRIN SQ SCH (09:49)
[2021-01-14] MEDS: LACTOBACILLUS ACIDOPHILUS 1 TABLET PO SCH (09:49)
[2021-01-14] MEDS: NAPH,MB-DB/K PH,MBDB POWDER PACKET PO SCH ×2 (09:50→22:05)
[2021-01-14] MEDS ORDERED: FLUCONAZOLE 150 MG TABLET PO ONE (10:15)
[2021-01-14 10:48] LABS: AMYLASE > 1300 U/L (25-115)
[2021-01-14] MEDS: traMADol HCL 50 MG TABLET PO PRN ×2 (13:42→20:24)
[2021-01-15] MEDS ORDERED: CEFEPIME HCL 1 GM VIAL (RESTRICTED TO ID) ONE (01:46)
[2021-01-15] MEDS ORDERED: DEXTROSE 5%-WATER 100 ML IVPB ONE (01:46)
[2021-01-15] MEDS: CEFEPIME 1 GM in DEXTROSE 5%-WATER 100 ML IVPB SCH ×2 (01:49→10:15)
[2021-01-15] MEDS: ACETAMINOPHEN 325 MG TABLET (FP) PO PRN (03:05)
[2021-01-15] MEDS ORDERED: ALPRAZolam 0.25 MG TABLET PO PRN (10:06)
[2021-01-15] MEDS: LACTOBACILLUS ACIDOPHILUS 1 TABLET PO SCH (10:57)
[2021-01-15] MEDS: NAPH,MB-DB/K PH,MBDB POWDER PACKET PO SCH (10:57)
[2021-01-15] MEDS: ENOXAPARIN NA (PORCINE) 40 MG/0.4 ML DISP.SYRIN SQ SCH (10:58)
[2021-01-15 13:57] VITALS: BP 98/62; PULSE 89; TEMP 98.9
== END 2021-01-15 16:52 | disposition home or self-care (01) | DRG 710 ==
LOC: JER 12:59 → JERBED 18:04 → J6S 01-10 02:03
PROVIDERS: ADMIT Internal Medicine; ATTEND Nurse Practitioner Acute Care
PROC: 07BH3ZX Excision of Right Inguinal Lymphatic, Percutaneous Approach, Diagnostic (ICD-10-PCS; principal; 2021-01-14)
DX: A41.89 Other specified sepsis (principal); J45.909 Unspecified asthma, uncomplicated; E78.5 Hyperlipidemia, unspecified; C83.30 Diffuse large B-cell lymphoma, unspecified site; C81.90 Hodgkin lymphoma, unspecified, unspecified site; N39.0 Urinary tract infection, site not specified; E87.6 Hypokalemia; N20.0 Calculus of kidney; R00.0 Tachycardia, unspecified; K59.1 Functional diarrhea; B27.09 Gammaherpesviral mononucleosis with other complications; R10.32 Left lower quadrant pain; R07.0 Pain in throat
CPT/HCPCS: 36415; 71045-TC-FY; 74176-TC; 74177-TC; 76856-TC; 76942-TC; 80053; 81003; 82150; 82728; 82784; 82803; 83540; 83550; 83605; 83615; 83690; 83735; 83883; 84100; 84550; 84703; 85025; 85610; 85651; 85730; 86140; 87040; 87070; 87075; 87086; 87116; 87186; 87205; 87206; 87389; 87899; 93005; 93010; 99285-25; C9803; J0131; Q9967; U0003; U0005

== ENCOUNTER 2021-02-28 07:14 | Day surgery (SDC) | payer OTHER ==
[2021-02-28] MEDS ORDERED: IRON SUCROSE INJECTION 200 MG in SODIUM CHLORIDE 100 ML IVPB ONE (09:15)
[2021-02-28 15:36] VITALS: TEMP 98.4
[2021-02-28 15:39] VITALS: BP 125/86; PULSE 92
== END 2021-02-28 11:00 | disposition home or self-care (01) ==
LOC: JONCCHEMO 07:14
PROVIDERS: ATTEND Internal Medicine Hematology & Oncology
PROC: 3E033GC Introduction of Other Therapeutic Substance into Peripheral Vein, Percutaneous Approach (ICD-10-PCS; principal; 2021-02-28)
DX: D50.9 Iron deficiency anemia, unspecified (principal)
CPT/HCPCS: 96365; J1756

== ENCOUNTER 2021-03-07 08:23 | Day surgery (SDC) | payer OTHER ==
[2021-03-07] MEDS: IRON SUCROSE INJECTION 200 MG in SODIUM CHLORIDE 100 ML IVPB ONE ×2 (09:05→09:41)
[2021-03-07 14:42] VITALS: TEMP 98.3
[2021-03-07 14:43] VITALS: BP 128/82; PULSE 114
== END 2021-03-07 09:50 | disposition home or self-care (01) ==
LOC: JONCNONCHE 08:23
PROVIDERS: ATTEND Internal Medicine Hematology & Oncology
PROC: 3E033GC Introduction of Other Therapeutic Substance into Peripheral Vein, Percutaneous Approach (ICD-10-PCS; principal; 2021-03-07)
DX: E61.1 Iron deficiency (principal); C83.30 Diffuse large B-cell lymphoma, unspecified site
CPT/HCPCS: 96365; J1756

== ENCOUNTER 2021-03-14 07:50 | Day surgery (SDC) | payer OTHER ==
[2021-03-14] MEDS ORDERED: IRON SUCROSE INJECTION 200 MG in SODIUM CHLORIDE 100 ML IVPB ONE (09:00)
[2021-03-14 16:17] VITALS: TEMP 98.2
[2021-03-14 16:18] VITALS: BP 119/83; PULSE 111
== END 2021-03-14 10:00 | disposition home or self-care (01) ==
LOC: JONCNONCHE 07:50
PROVIDERS: ATTEND Internal Medicine Hematology & Oncology
PROC: 3E033GC Introduction of Other Therapeutic Substance into Peripheral Vein, Percutaneous Approach (ICD-10-PCS; principal; 2021-03-14)
DX: E61.1 Iron deficiency (principal); C83.30 Diffuse large B-cell lymphoma, unspecified site
CPT/HCPCS: 96365; J1756

== ENCOUNTER 2021-03-25 08:30 | Day surgery (SDC) | payer OTHER ==
[2021-03-25] MEDS ORDERED: IRON SUCROSE INJECTION 200 MG in SODIUM CHLORIDE 100 ML IVPB ONE (09:00)
[2021-03-25 11:25] VITALS: TEMP 97.9
[2021-03-25 11:26] VITALS: BP 113/61; PULSE 71
== END 2021-03-25 10:15 | disposition home or self-care (01) ==
LOC: JONCNONCHE 08:30
PROVIDERS: ATTEND Internal Medicine Hematology & Oncology
PROC: 3E033GC Introduction of Other Therapeutic Substance into Peripheral Vein, Percutaneous Approach (ICD-10-PCS; principal; 2021-03-25)
DX: C83.30 Diffuse large B-cell lymphoma, unspecified site (principal); D50.9 Iron deficiency anemia, unspecified
CPT/HCPCS: 96365; J1756

== ENCOUNTER 2021-04-18 12:35 | Inpatient (IN) | payer OTHER ==
[2021-04-18 12:53] VITALS: BMI 21.2
[2021-04-18] MEDS ORDERED: ACETAMINOPHEN 1000 MG/100 ML BAG IVPB ONE (14:49)
[2021-04-18] MEDS ORDERED: ONDANSETRON 4 MG/2 ML VIAL IVPUSH ONE (15:05)
[2021-04-18] MEDS ORDERED: LACTATED RINGERS SOLUTION 1000 ML INFUS.BAG IV ONE (15:05)
[2021-04-18] MEDS ORDERED: CEFEPIME HCL/D5W 1 GM/50 ML BAG IVPB ONE (15:08)
[2021-04-18] MEDS ORDERED: ONDANSETRON 4 MG/2 ML VIAL ONE (15:44)
[2021-04-18] MEDS ORDERED: ACETAMINOPHEN INJECTION 100 ML IVPB ONE (15:44)
[2021-04-18] MEDS ORDERED: CEFEPIME 1 GM/100 ML BAG IVPB ONE (15:45)
[2021-04-18 16:16] LABS: HEMOGLOBIN 10.2 GM/dL (10.7-15.3); MCH 30.5 pg (25.7-33.7); MEAN CELL VOLUME 89.8 fl (80-96); MEAN PLT VOLUME 8.6 fl (7.5-11.1); PLATELET COUNT 200 10^3/uL (134-434); RBC 3.34 M/mm3 (3.60-5.2); RDW 16.5 % (11.6-15.6)
[2021-04-18 16:29] LABS: WHITE BLOOD COUNT 0.9 K/mm3 (4.0-10.0)
[2021-04-18 16:32] LABS: CHLORIDE 113 mmol/L (98-107); SODIUM 149 mmol/L (136-145)
[2021-04-18 16:34] LABS: ALBUMIN 3.9 g/dl (3.4-5.0); ANION GAP 12 MMOL/L (8-16); BLOOD UREA NITROGEN 9.5 mg/dL (7-18); CALCIUM 8.6 mg/dL (8.5-10.1); CO2 24 mmol/L (21-32); GLUCOSE,RANDOM 87 mg/dL (74-106)
[2021-04-18 16:37] LABS: CREATININE 0.6 mg/dL (0.55-1.3); SGPT/ALT 29 U/L (13-61)
[2021-04-18 16:38] LABS: SGOT/AST 19 U/L (15-37)
[2021-04-18 16:39] LABS: BILIRUBIN,TOTAL 0.5 mg/dL (0.2-1); TOT PROT 6.6 g/dl (6.4-8.2)
[2021-04-18 16:40] LABS: EPI CELLS 31 /uL (0-25.1); HYALINE CASTS 5 /uL (0-3.1); PH,URINE 5.5 (5.0-8.0); URINE APPEARANCE CLOUDY; URINE BACTERIA 416 /uL (0-1359); URINE BILIRUBIN NEGATIVE (NEGATIVE); URINE COLOR YELLOW; URINE GLUCOSE (UA) NEGATIVE (NEGATIVE); URINE KETONE TRACE (NEGATIVE); URINE LEUK ESTERASE NEGATIVE (NEGATIVE); URINE NITRITE NEGATIVE (NEGATIVE); URINE PROTEIN TRACE (NEGATIVE); URINE RBC 10 /uL (0-23.9); URINE UROBILINOGEN 0.2 mg/dL (0.2-1.0); URINE WBC 23 /uL (0-25.8)
[2021-04-18 16:40] LABS: ALK PHOS 48 U/L (45-117)
[2021-04-18] MEDS ORDERED: LACTATED RINGERS SOLUTION 1,000 ML IV STA (16:55)
[2021-04-18] MEDS ORDERED: FLUCONAZOLE 100 MG/D5W 50 ML IVPB SCH (17:15)
[2021-04-18] MEDS ORDERED: DEXTROSE 5%-WATER 100 ML IVPB ONE (17:20)
[2021-04-18] MEDS ORDERED: CEFEPIME 1 GM in DEXTROSE 5%-WATER 100 ML IVPB ONE (17:23)
[2021-04-18] MEDS: SODIUM CHLORIDE 0.45%/POT 20 MEQ/1,000 ML INFUS.BAG IV SCH (17:38)
[2021-04-18 17:47] LABS: LDH 231 U/L (84-246)
[2021-04-18] MEDS ORDERED: DAPTOMYCIN IVPB ONE (18:00)
[2021-04-18] MEDS ORDERED: CEFEPIME 2 GM in DEXTROSE 5%-WATER 100 ML IVPB SCH (18:00)
[2021-04-18] MEDS ORDERED: SODIUM CHLORIDE IVPB ONE (18:00)
[2021-04-18] MEDS ORDERED: FLUCONAZOLE 200 MG/NS 100 ML IVPB ONE (18:00)
[2021-04-18 18:35] LABS: ANISOCYTOSIS 0; HELMET CELLS 0; HOWELL-JOLLY BODIES 0; MACROCYTOSIS 0; OVALOCYTE 0; PLATELET ESTIMATE NORMAL; ROULEAU 0; SICKELED CELLS 0; TARGET CELLS 0; TEAR DROP CELLS 0; TOXIC GRANULATION 0
[2021-04-18] MEDS ORDERED: CEFAZOLIN 2 GM in DEXTROSE 5%-WATER - 2 GM/100 ML IVPB IVPB SCH (19:00)
[2021-04-18] MEDS ORDERED: CEFEPIME HCL/D5W 2 GM/50 ML BAG IVPB SCH (19:00)
[2021-04-18] MEDS ORDERED: valACYclovir HCL 500 MG TABLET (FP) ONE (22:37)
[2021-04-18] MEDS: valACYclovir HCL 500 MG TABLET (FP) PO SCH (22:51)
[2021-04-19 00:05] LABS: INR 1.33 (0.83-1.09); PROTHROMBIN TIME (PATIENT) 14.9 SEC (9.7-13.0)
[2021-04-19 00:08] LABS: ACTIVATED PTT 29.7 SECONDS (25.2-36.5)
[2021-04-19] MEDS ORDERED: CEFEPIME 2 GM/100 ML BAG IVPB ONE ×3 (01:05→17:13)
[2021-04-19] MEDS ORDERED: ACETAMINOPHEN INJECTION 100 ML IVPB ONE ×3 (01:06→22:35)
[2021-04-19] MEDS: ACETAMINOPHEN 1000 MG/100 ML BAG IVPB PRN ×3 (01:32→22:40)
[2021-04-19] MEDS: CEFEPIME 2 GM in DEXTROSE 5%-WATER 100 ML IVPB SCH ×4 (01:33→14:50)
[2021-04-19] MEDS ORDERED: CEFEPIME HCL/D5W 2 GM/50 ML BAG IVPB SCH (02:00)
[2021-04-19 07:54] LABS: CALCIUM 8.4 mg/dL (8.5-10.1)
[2021-04-19 07:57] LABS: CREATININE 0.6 mg/dL (0.55-1.3)
[2021-04-19 07:59] LABS: BILIRUBIN,TOTAL 0.4 mg/dL (0.2-1); TOT PROT 5.4 g/dl (6.4-8.2)
[2021-04-19 08:05] LABS: HEMATOCRIT 27.7 % (32.4-45.2); HEMOGLOBIN 9.3 GM/dL (10.7-15.3); MCH 30.8 pg (25.7-33.7); MCHC 33.7 g/dl (32.0-36.0); MEAN CELL VOLUME 91.4 fl (80-96); PLATELET COUNT 171 10^3/uL (134-434); RBC 3.03 M/mm3 (3.60-5.2); RDW 16.9 % (11.6-15.6)
[2021-04-19 08:37] LABS: WHITE BLOOD COUNT 1.1 K/mm3 (4.0-10.0)
[2021-04-19] MEDS ORDERED: valACYclovir HCL 500 MG TABLET (FP) ONE ×2 (10:36→22:18)
[2021-04-19] MEDS ORDERED: ENOXAPARIN NA (PORCINE) 40 MG/0.4 ML DISP.SYRIN SQ ONE (10:36)
[2021-04-19] MEDS: ENOXAPARIN NA (PORCINE) 40 MG/0.4 ML DISP.SYRIN SQ SCH (10:53)
[2021-04-19] MEDS: valACYclovir HCL 500 MG TABLET (FP) PO SCH ×2 (10:53→22:22)
[2021-04-19] MEDS: SODIUM CHLORIDE 0.45%/POT 20 MEQ/1,000 ML INFUS.BAG IV SCH ×2 (10:53→17:22)
[2021-04-19 11:01] LABS: ANISOCYTOSIS 1+; MACROCYTOSIS 1+; OVALOCYTE 1+; PLATELET ESTIMATE NORMAL
[2021-04-19] MEDS: FLUCONAZOLE 100 MG/NS 50 ML IVPB SCH (12:11)
[2021-04-19] MEDS ORDERED: DEXAMETHASONE 4 MG TABLET (FP) PO SCH (14:15)
[2021-04-19] MEDS ORDERED: REMDESIVIR 200 MG in SODIUM CHLORIDE 250 ML IVPB ONE (15:00)
[2021-04-19] MEDS: DAPTOMYCIN 450 MG in SODIUM CHLORIDE 50 ML IVPB SCH (16:02)
[2021-04-19] MEDS: CEFEPIME 2 GM in DEXTROSE 5%-WATER 2 GM/100 ML BAG IVPB SCH (20:44)
[2021-04-20] MEDS: SODIUM CHLORIDE 0.45%/POT 20 MEQ/1,000 ML INFUS.BAG IV SCH ×2 (02:21→21:39)
[2021-04-20] MEDS: CEFEPIME 2 GM in DEXTROSE 5%-WATER 2 GM/100 ML BAG IVPB SCH ×3 (02:46→17:37)
[2021-04-20] MEDS ORDERED: ONDANSETRON 4 MG/2 ML VIAL IVPUSH ONE (05:34)
[2021-04-20 08:21] LABS: HEMATOCRIT 28.1 % (32.4-45.2); HEMOGLOBIN 9.5 GM/dL (10.7-15.3); MCH 30.6 pg (25.7-33.7); MCHC 33.8 g/dl (32.0-36.0); MEAN CELL VOLUME 90.5 fl (80-96); MEAN PLT VOLUME 8.8 fl (7.5-11.1); PLATELET COUNT 178 10^3/uL (134-434); RBC 3.11 M/mm3 (3.60-5.2); RDW 16.5 % (11.6-15.6)
[2021-04-20 08:45] LABS: CALCIUM 8.3 mg/dL (8.5-10.1)
[2021-04-20 08:46] LABS: ALBUMIN 3.1 g/dl (3.4-5.0); BLOOD UREA NITROGEN 5.4 mg/dL (7-18)
[2021-04-20 08:49] LABS: CREATININE 0.4 mg/dL (0.55-1.3); PHOSPHOROUS 3.1 mg/dL (2.5-4.9)
[2021-04-20 08:50] LABS: BILIRUBIN,TOTAL 0.6 mg/dL (0.2-1); TOT PROT 5.5 g/dl (6.4-8.2)
[2021-04-20] MEDS ORDERED: PT OWN MED DRAWER 7, Y5N ONE ×2 (08:54→16:29)
[2021-04-20 09:17] LABS: ANISOCYTOSIS 0; HELMET CELLS 0; HOWELL-JOLLY BODIES 0; MACROCYTOSIS 0; OVALOCYTE 0; PLATELET ESTIMATE NORMAL; ROULEAU 0; SICKELED CELLS 0; TARGET CELLS 0; TEAR DROP CELLS 0; TOXIC GRANULATION 0
[2021-04-20 09:27] LABS: WHITE BLOOD COUNT 0.9 K/mm3 (4.0-10.0)
[2021-04-20] MEDS: ENOXAPARIN NA (PORCINE) 40 MG/0.4 ML DISP.SYRIN SQ SCH (09:48)
[2021-04-20] MEDS: FLUCONAZOLE 100 MG/NS 50 ML IVPB SCH (09:49)
[2021-04-20] MEDS: ONDANSETRON 4 MG/2 ML VIAL IVPUSH PRN ×2 (10:12→23:57)
[2021-04-20] MEDS: PANTOPRAZOLE 40 MG TABLET PO SCH (11:34)
[2021-04-20] MEDS: DEXAMETHASONE 4 MG TABLET (FP) PO SCH (11:34)
[2021-04-20] MEDS: valACYclovir HCL 500 MG TABLET (FP) PO SCH ×2 (11:35→21:39)
[2021-04-20] MEDS: DAPTOMYCIN 450 MG in SODIUM CHLORIDE 50 ML IVPB SCH (12:18)
[2021-04-20] MEDS: REMDESIVIR 100 MG in SODIUM CHLORIDE 250 ML IVPB SCH (14:31)
[2021-04-20] MEDS ORDERED: TBO-FILGRASTIM 300 MCG/0.5 ML DISP.SYRINGE SQ ONE (20:05)
[2021-04-21] MEDS ORDERED: PT OWN MED DRAWER 7, Y5N ONE (02:01)
[2021-04-21] MEDS: CEFEPIME 2 GM in DEXTROSE 5%-WATER 2 GM/100 ML BAG IVPB SCH ×3 (02:02→18:06)
[2021-04-21 07:39] LABS: BASO % 0.3 % (0-2.0); HEMATOCRIT 30.5 % (32.4-45.2); LYMPH % 13.9 % (8-40); MCH 29.9 pg (25.7-33.7); MCHC 32.9 g/dl (32.0-36.0); MEAN CELL VOLUME 90.9 fl (80-96); MEAN PLT VOLUME 8.9 fl (7.5-11.1); MONO % 11.4 % (3.8-10.2); NEUT % 74.4 % (42.8-82.8); PLATELET COUNT 229 10^3/uL (134-434); RBC 3.35 M/mm3 (3.60-5.2); WHITE BLOOD COUNT 5.7 K/mm3 (4.0-10.0)
[2021-04-21 08:06] LABS: CALCIUM 8.9 mg/dL (8.5-10.1)
[2021-04-21 08:07] LABS: MAGNESIUM 2.1 mg/dL (1.8-2.4)
[2021-04-21 08:09] LABS: PHOSPHOROUS 2.6 mg/dL (2.5-4.9)
[2021-04-21 08:10] LABS: BILIRUBIN,TOTAL 0.4 mg/dL (0.2-1); CREATININE 0.4 mg/dL (0.55-1.3); TOT PROT 5.8 g/dl (6.4-8.2)
[2021-04-21 08:12] LABS: ALBUMIN 3.6 g/dl (3.4-5.0)
[2021-04-21] MEDS: ONDANSETRON 4 MG/2 ML VIAL IVPUSH PRN (08:25)
[2021-04-21] MEDS: DEXAMETHASONE 4 MG TABLET (FP) PO SCH (10:07)
[2021-04-21] MEDS: DAPTOMYCIN 450 MG in SODIUM CHLORIDE 50 ML IVPB SCH (10:07)
[2021-04-21] MEDS: valACYclovir HCL 500 MG TABLET (FP) PO SCH ×2 (10:08→21:24)
[2021-04-21] MEDS: ENOXAPARIN NA (PORCINE) 40 MG/0.4 ML DISP.SYRIN SQ SCH (10:08)
[2021-04-21] MEDS: FLUCONAZOLE 100 MG/NS 50 ML IVPB SCH (10:08)
[2021-04-21] MEDS: PANTOPRAZOLE 40 MG TABLET PO SCH (10:08)
[2021-04-21] MEDS: REMDESIVIR 100 MG in SODIUM CHLORIDE 250 ML IVPB SCH (14:15)
[2021-04-21] MEDS ORDERED: ACETAMINOPHEN 325 MG TABLET (FP) PO PRN (16:59)
[2021-04-22] MEDS: CEFEPIME 2 GM in DEXTROSE 5%-WATER 2 GM/100 ML BAG IVPB SCH ×3 (02:38→17:01)
[2021-04-22] MEDS ORDERED: PT OWN MED DRAWER 7, Y5N ONE ×2 (09:04→16:52)
[2021-04-22] MEDS: ONDANSETRON 4 MG/2 ML VIAL IVPUSH PRN (09:15)
[2021-04-22] MEDS: DEXAMETHASONE 4 MG TABLET (FP) PO SCH (09:17)
[2021-04-22] MEDS: valACYclovir HCL 500 MG TABLET (FP) PO SCH ×2 (09:18→21:28)
[2021-04-22] MEDS: PANTOPRAZOLE 40 MG TABLET PO SCH (09:18)
[2021-04-22] MEDS: ENOXAPARIN NA (PORCINE) 40 MG/0.4 ML DISP.SYRIN SQ SCH (09:18)
[2021-04-22 09:19] LABS: HEMATOCRIT 31.7 % (32.4-45.2); HEMOGLOBIN 10.4 GM/dL (10.7-15.3); MCHC 32.9 g/dl (32.0-36.0); MEAN CELL VOLUME 91.2 fl (80-96); MEAN PLT VOLUME 9.3 fl (7.5-11.1); PLATELET COUNT 250 10^3/uL (134-434); RBC 3.47 M/mm3 (3.60-5.2); RDW 17.5 % (11.6-15.6); WHITE BLOOD COUNT 7.4 K/mm3 (4.0-10.0)
[2021-04-22 09:42] LABS: ALBUMIN 3.6 g/dl (3.4-5.0); BLOOD UREA NITROGEN 10.4 mg/dL (7-18); CALCIUM 9.2 mg/dL (8.5-10.1); MAGNESIUM 2.3 mg/dL (1.8-2.4)
[2021-04-22 09:44] LABS: CREATININE 0.3 mg/dL (0.55-1.3); PHOSPHOROUS 3.3 mg/dL (2.5-4.9)
[2021-04-22 09:45] LABS: BILIRUBIN,TOTAL 0.3 mg/dL (0.2-1); TOT PROT 6.1 g/dl (6.4-8.2)
[2021-04-22] MEDS: FLUCONAZOLE 100 MG/NS 50 ML IVPB SCH (10:28)
[2021-04-22] MEDS: DAPTOMYCIN 450 MG in SODIUM CHLORIDE 50 ML IVPB SCH (10:59)
[2021-04-22] MEDS: REMDESIVIR 100 MG in SODIUM CHLORIDE 250 ML IVPB SCH (14:34)
[2021-04-23] MEDS ORDERED: PT OWN MED DRAWER 7, Y5N ONE ×3 (01:33→10:26)
[2021-04-23] MEDS: CEFEPIME 2 GM in DEXTROSE 5%-WATER 2 GM/100 ML BAG IVPB SCH ×2 (01:34→09:04)
[2021-04-23] MEDS: ONDANSETRON 4 MG/2 ML VIAL IVPUSH PRN (06:55)
[2021-04-23] MEDS: ENOXAPARIN NA (PORCINE) 40 MG/0.4 ML DISP.SYRIN SQ SCH (09:04)
[2021-04-23] MEDS: DEXAMETHASONE 4 MG TABLET (FP) PO SCH (09:04)
[2021-04-23] MEDS: PANTOPRAZOLE 40 MG TABLET PO SCH (09:04)
[2021-04-23] MEDS: DAPTOMYCIN 450 MG in SODIUM CHLORIDE 50 ML IVPB SCH (10:07)
[2021-04-23] MEDS: valACYclovir HCL 500 MG TABLET (FP) PO SCH (10:50)
[2021-04-23] MEDS: FLUCONAZOLE 100 MG/NS 50 ML IVPB SCH (10:50)
[2021-04-23] MEDS: REMDESIVIR 100 MG in SODIUM CHLORIDE 250 ML IVPB SCH (15:14)
[2021-04-23 15:20] LABS: HEMATOCRIT 34.6 % (32.4-45.2); HEMOGLOBIN 11.2 GM/dL (10.7-15.3); MCH 29.9 pg (25.7-33.7); MCHC 32.2 g/dl (32.0-36.0); MEAN CELL VOLUME 92.6 fl (80-96); MEAN PLT VOLUME 8.9 fl (7.5-11.1); PLATELET COUNT 264 10^3/uL (134-434); RBC 3.73 M/mm3 (3.60-5.2); RDW 18.6 % (11.6-15.6); WHITE BLOOD COUNT 4.8 K/mm3 (4.0-10.0)
[2021-04-23 15:46] LABS: ALBUMIN 3.6 g/dl (3.4-5.0); BLOOD UREA NITROGEN 13.7 mg/dL (7-18); CALCIUM 9.3 mg/dL (8.5-10.1)
[2021-04-23 15:48] LABS: CREATININE 0.5 mg/dL (0.55-1.3)
[2021-04-23 15:51] LABS: BILIRUBIN,TOTAL 0.3 mg/dL (0.2-1); TOT PROT 6.4 g/dl (6.4-8.2)
[2021-04-23 15:53] LABS: ANISOCYTOSIS 1+; MACROCYTOSIS 0; PLATELET ESTIMATE NORMAL
[2021-04-23 18:51] VITALS: BP 116/84; PULSE 73; TEMP 98.2
== END 2021-04-23 18:54 | disposition home or self-care (01) | DRG 137 ==
LOC: JER 12:35 → JERBED 14:44 → J4S 04-20 01:57
PROVIDERS: ADMIT Internal Medicine; ATTEND Internal Medicine
PROC: XW033E5 Introduction of Remdesivir Anti-infective into Peripheral Vein, Percutaneous Approach, New Technology Group 5 (ICD-10-PCS; principal; 2021-04-19)
DX: U07.1 COVID-19 (principal); D70.9 Neutropenia, unspecified; J45.909 Unspecified asthma, uncomplicated; E78.5 Hyperlipidemia, unspecified; R50.81 Fever presenting with conditions classified elsewhere; E87.0 Hyperosmolality and hypernatremia; E86.0 Dehydration; C83.30 Diffuse large B-cell lymphoma, unspecified site; D64.9 Anemia, unspecified
CPT/HCPCS: 36415; 71046-TC-FY; 71260-TC; 80053; 81003; 82550; 82728; 83605; 83615; 83735; 84100; 84443; 84484; 84703; 85025; 85027; 85379; 85610; 85651; 85730; 86140; 87040; 87086; 87804; 87807; 93005; 93010; 99285-25; C9399; C9803; J0131; J0878; J1447; J3480; Q9967; U0003; U0005